=== PATIENT | female | born 1970 | race Caucasian/White ===

== ENCOUNTER 2022-11-01 15:10 | Emergency (ER) | payer OTHER, SELFPAY ==
[2022-11-01 15:13] VITALS: BP 160/80; PULSE 64; RESP 20; TEMP 37; O2SAT 96; BMI 40.7
--- NOTE | 2022-11-01 15:22 | ED_ITS ---
HPI - General Adult General Chief complaint: Shortness of Breath/Dyspnea Stated complaint: CHEST PAIN, DIFFICULTY BREATHING Time Seen by Provider: 11/01/22 15:14 History of Present Illness HPI narrative: this patient's here after being called by her practitioner to come to the hospital to have further testing and evaluation. Earlier this week she had classic upper respirations symptoms of sinus drainage sore throat congestion runny nose. She had yellow purulent sputum. She also had some congestion in her chest in the low but coughing but no real shortness of breath compression or pressure and heaviness were denied. She was diagnosed as upper Ruster infection and placed on Augmentin several days ago. That's outpatient chest x-ray suggested that they rule out congestive heart failure. She has no history of coronary artery disease congestive heart failure or any type of cardiac problems. She is not had any further symptoms since that time. She is not having swelling of her legs today or pain or discomfort. She's not had previous deep vein thrombosis or PE. Related Data Home Medications Medication Instructions Recorded Confirmed amlodipine 5 mg tablet 5 mg PO DAILY 11/01/22 11/01/22 bupropion HCl 300 mg 24 hr tablet, 300 mg PO DAILY 11/01/22 11/01/22 extended release citalopram 40 mg tablet 40 mg PO DAILY 11/01/22 11/01/22 dulaglutide 0.75 mg/0.5 mL 0.75 mg subcut .weekly 11/01/22 11/01/22 subcutaneous pen injector (Trulicity) empagliflozin 10 mg tablet 10 mg PO DAILY 11/01/22 11/01/22 (Jardiance) lisinopril 40 mg tablet 40 mg PO DAILY 11/01/22 11/01/22 metoprolol succinate 100 mg 100 mg PO DAILY 11/01/22 11/01/22 tablet,extended release 24 hr Allergies Allergy/AdvReac Type Severity Reaction Status Date / Time meperidine [From Demerol] Allergy Severe throat Verified 11/01/22 15:23 closing Exam Narrative Exam Narrative: This document has been composed with a new electronic medical record and dragging voice recognition system. This document may not fully inaccurately reflect the entirety of the patient encounter. Awake alert good historian so she feels reasonably well. Does not have acute shortness of breath. Does not have any chest pain. Vital signs are noted below systolic blood pressure 160. HEENT shows no evidence of trauma or injury. There is no jugular vein distention on examination of her neck. Examination respiratory shows her lungs be completely clear of any wheezes rales or rhonchi. There is normal prostrate effort and normal aeration on auscultation. Heart sounds normal with no S3-S4 clicks or murmurs. 12-lead EKG is pending at the time of this note Extremities show no evidence of venous cords swelling or edema. Skin get diffuse erythema of her arms upper chest and back area. She states her rn supplemental that it was from Injury to Her Skin. Constitutional Vital Signs, click to edit/add: Last Vital Signs Temp 98.6 F 11/01/22 15:13 Pulse 64 11/01/22 15:13 Resp 20 11/01/22 15:13 BP 160/80 H 11/01/22 15:13 Pulse Ox 96 11/01/22 15:13 Course Vital Signs Vital signs: Vital Signs Temperature 98.6 F 11/01/22 15:13 Pulse Rate 64 11/01/22 15:13 Respiratory Rate 20 11/01/22 15:13 Blood Pressure 160/80 H 11/01/22 15:13 Pulse Oximetry 96 11/01/22 15:13 Temperature 98.6 F 11/01/22 15:13 Pulse Rate 64 11/01/22 15:13 Respiratory Rate 20 11/01/22 15:13 Blood Pressure 160/80 H 11/01/22 15:13 Pulse Oximetry 96 11/01/22 15:13 Medical Decision Making [facility] Narrative Medical decision making narrative: patient's workup here including repeat chest x-ray BNP and clinical exam do not suggest any evidence of congestive heart failure. Clinically her symptoms most consistent with a upper respiratory. Lab Data Labs: Lab Results 11/01/22 Range/Units 15:44 WBC 5.7 (4.0-11.0) 10^3/uL RBC 5.15 (4.20-5.40) 10^6/uL Hgb 16.4 H (12.0-16.0) g/dL Hct 48.3 H (36.0-48.0) % MCV 93.8 (81.0-99.0) fL MCH 31.8 (26.7-34.0) pg MCHC 34.0 (29.9-35.2) g/dL RDW 13.0 (11.0-15.0) % Plt Count 168 (150-450) 10^3/uL MPV 10.6 (9.5-13.5) fL Neut % (Auto) 62.5 (43.0-75.0) % Lymph % (Auto) 28.0 (20.5-60.0) % [place] % (Auto) 6.4 (1.7-12.0) % Eos % (Auto) 2.3 (0.9-7.0) % Baso % (Auto) 0.5 (0.2-2.0) % Neut # (Auto) 3.6 (1.4-6.5) 10^3/uL Lymph # (Auto) 1.6 (1.2-3.8) 10^3/uL [place] # (Auto) 0.4 (0.3-0.8) 10^3/uL Eos # (Auto) 0.1 (0.0-0.7) 10^3/uL Baso # (Auto) 0.0 (0.0-0.1) 10^3/uL Abs Immat Gran (auto) 0.02 (0.00-0.03) 10^3/uL Imm/Tot Granulo (auto) 0.3 (0.0-0.5) % Sodium 138 (136-145) mmol/L Potassium 4.5 (3.5-5.1) mmol/L Chloride 100 (98-107) mmol/L Carbon Dioxide 31.3 (21.0-32.0) mmol/L Anion Gap 11.2 BUN 13.0 (7.0-18.0) mg/dL Creatinine 0.58 (0.55-1.02) mg/dL Est GFR ( Amer) >60 (>=60) Est GFR (Non-Af Amer) >60 (>=60) BUN/Creatinine Ratio 22.4 Glucose 177 H (74-106) mg/dL Calcium 9.6 (8.5-10.1) mg/dL Troponin I High Sens 7.0 (4.0-51.3) pg/mL NT-Pro-B Natriuret Pep 272.0 (<=900.0) pg/mL Discharge Plan Discharge Chief Complaint: Shortness of Breath/Dyspnea Clinical Impression: Acute upper respiratory infection Patient Disposition: Home, Self-Care Time of Disposition Decision: 16:47 Prescriptions / Home Meds: No Action amlodipine 5 mg tablet 5 mg PO DAILY bupropion HCl 300 mg tablet extended release 24 hr 300 mg PO DAILY citalopram 40 mg tablet 40 mg PO DAILY Trulicity 0.75 mg/0.5 mL pen injector 0.75 mg SUBCUT .weekly Jardiance 10 mg tablet 10 mg PO DAILY lisinopril 40 mg tablet 40 mg PO DAILY metoprolol succinate 100 mg tablet extended release 24 hr 100 mg PO DAILY Instructions: Upper Respiratory Infection (ED) Stand Alone Forms: Portal Instructions Referrals: KELLY LEE [Primary Care Provider] - 1 week
--- NOTE | 2022-11-01 15:25 | XR_ITS ---
The [address] [address] Patient Name: LARRY MCDONOUGH MRN: [id number] date: 1970 Sex: F Assigned Patient Location: ER Current Patient Location: ER Accession/Order Number: [id number] Exam Date: 11/01/2022 15:45 Report Date: 11/01/2022 16:23 At the request of: FRAN CARDENAS Procedure: XR chest 1V ONE-VIEW CHEST RADIOGRAPH, 11/01/2022 3:45 PM EDT COMPARISON: None. CLINICAL HISTORY: dyspnea/shortness of breath/cough. FINDINGS: Patient is slightly rotated to the left. No acute cardiopulmonary disease. No pulmonary edema, pneumothorax, or pleural effusion. Normal heart size. No acute osseous abnormality. XR/XR chest 1V IMPRESSION: No acute abnormality identified. Electronically authenticated by: Antonio ESPARZA Date: 11/01/2022 16:23
--- NOTE | 2022-11-01 15:25 | ECG_ITS ---
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
[2022-11-01 15:30] VITALS: PULSE 61
[2022-11-01 15:57] LABS: Basophils Percent Auto 0.5 % (0.2-2.0); Eosinophils Absolute Auto 0.1 10^3/uL (0.0-0.7); Eosinophils Percent Auto 2.3 % (0.9-7.0); Hematocrit 48.3 % (36.0-48.0); Hemoglobin 16.4 g/dL (12.0-16.0); Immature Granulocytes Abs Auto 0.02 10^3/uL (0.00-0.03); Immature Granulocytes Pct Auto 0.3 % (0.0-0.5); Lymphocytes Absolute Auto 1.6 10^3/uL (1.2-3.8); Mean Corpuscular Hemoglobin 31.8 pg (26.7-34.0); Mean Corpuscular Volume 93.8 fL (81.0-99.0); Mean Platelet Volume 10.6 fL (9.5-13.5); Monocytes Absolute Auto 0.4 10^3/uL (0.3-0.8); Monocytes Percent Auto 6.4 % (1.7-12.0); Neutrophils Absolute Auto 3.6 10^3/uL (1.4-6.5); Neutrophils Percent Auto 62.5 % (43.0-75.0); Platelet Count 168 10^3/uL (150-450); Red Blood Count 5.15 10^6/uL (4.20-5.40); White Blood Count 5.7 10^3/uL (4.0-11.0)
[2022-11-01 16:23] LABS: Anion Gap 11.2; BUN Creatinine Ratio 22.4; Calcium 9.6 mg/dL (8.5-10.1); Carbon Dioxide 31.3 mmol/L (21.0-32.0); Chloride 100 mmol/L (98-107); Estimated GFR (African America >60 (>=60); Estimated GFR (Non-African Ame >60 (>=60); Glucose 177 mg/dL (74-106); Potassium 4.5 mmol/L (3.5-5.1); Sodium 138 mmol/L (136-145)
== END 2022-11-01 16:51 | disposition home or self-care (01) ==
PROVIDERS: Emergency Provider Emergency Medicine Emergency Medical Services; PCP Family Medicine
DX: J06.9 Acute upper respiratory infection, unspecified (principal); Z79.899 Other long term (current) drug therapy; Z79.85 Long-term (current) use of injectable non-insulin antidiabetic drugs
CPT/HCPCS: 36415; 71045; 80048; 83880; 84484; 85025; 93005; 99285

== ENCOUNTER 2022-11-12 16:17 | Emergency (ER) | payer OTHER, SELFPAY ==
[2022-11-12] VITALS (18 sets, daily range): BP systolic 178–202; BP diastolic 78–99; PULSE 59–69; RESP 12–29; TEMP 36.8; O2SAT 94–96; BMI 40.7
--- NOTE | 2022-11-12 17:14 | ECG_ITS ---
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
--- NOTE | 2022-11-12 17:16 | ED.CHESTPAI1 ---
HPI - Chest Pain General Chief Complaint: Chest Pain Stated Complaint: COVID + has chest pain Time Seen by Provider: 11/12/22 16:30 Source: patient Mode of arrival: walk-in Limitations: no limitations History of Present Illness HPI narrative: patient is a 52-year-old female with a history of hypertension, diabetes who presents to the emergency department for two day history of tightness in the chest associated with shortness of breath and nonproductive coughing. She states for the last six days she has had cough, congestion, body aches and generalized weakness. She was diagnosed with Covid five days ago. She was not started on any medications. She has not had a fever in over forty-eight hours. She denies vomiting, and diarrhea. No medications taken prior to arrival today. she was seen in this emergency department eleven days ago for suspicion of congestive heart failure from her PCP, she was found to have an unremarkable workup at that time. she denies any history of coronary artery disease, heart attack, chronic obstructive pulmonary disease or emphysema. She does have a history of pneumonia. Related Data Home Medications Medication Instructions Recorded Confirmed amlodipine 5 mg tablet 5 mg PO DAILY 11/01/22 11/01/22 bupropion HCl 300 mg 24 hr tablet, 300 mg PO DAILY 11/01/22 11/01/22 extended release citalopram 40 mg tablet 40 mg PO DAILY 11/01/22 11/01/22 dulaglutide 0.75 mg/0.5 mL 0.75 mg subcut .weekly 11/01/22 11/01/22 subcutaneous pen injector (Trulicity) empagliflozin 10 mg tablet 10 mg PO DAILY 11/01/22 11/01/22 (Jardiance) lisinopril 40 mg tablet 40 mg PO DAILY 11/01/22 11/01/22 metoprolol succinate 100 mg 100 mg PO DAILY 11/01/22 11/01/22 tablet,extended release 24 hr Previous Rx's Medication Instructions Recorded albuterol sulfate 90 mcg/actuation 2 inh inhalation Q4H PRN shortness 11/12/22 aerosol inhaler of breath or wheezing #8.5 grams dexamethasone 4 mg tablet 4 mg PO BID 3 days #6 tabs 11/12/22 ondansetron 4 mg disintegrating 4 mg PO Q6H PRN nausea and 11/12/22 tablet vomiting #12 tabs Allergies Allergy/AdvReac Type Severity Reaction Status Date / Time meperidine [From Demerol] Allergy Severe throat Verified 11/12/22 16:58 closing Review of Systems ROS Constitutional Reports: fever and chills Cardiovascular Reports: chest pain Respiratory Reports: shortness of breath and cough Gastrointestinal Denies: nausea or vomiting Musculoskeletal Denies: back pain Integumentary/Breast Denies: rash Neurological Reports: headache and dizziness Endocrine Denies: excessive urination Hematologic/Lymphatic Denies: easy bruising Exam Narrative Exam Narrative: Gen.: Awake, alert, in no distress Head: Normocephalic, atraumatic ENT: Moist mucous membranes Respiratory: No respiratory distress, lungs clear bilaterally Cardio: Regular rate and rhythm Extremities: Moves extremities equally, no pedal edema Psych: Normal mood and affect Neuro: No focal neuro deficit Skin: Warm, dry, intact Constitutional Vital Signs, click to edit/add: Last Vital Signs Temp 98.3 F 11/12/22 16:58 Pulse 65 11/12/22 16:58 Resp 20 11/12/22 16:58 BP 202/99 H 11/12/22 16:58 Pulse Ox 96 11/12/22 16:58 O2 Del Method Room Air 11/12/22 16:58 Course Vital Signs Vital signs: Vital Signs Temperature 98.3 F 11/12/22 16:58 Pulse Rate 65 11/12/22 16:58 Respiratory Rate 20 11/12/22 16:58 Blood Pressure 202/99 H 11/12/22 16:58 Pulse Oximetry 96 11/12/22 16:58 Oxygen Delivery Method Room Air 11/12/22 16:58 Temperature 98.3 F 11/12/22 16:58 Pulse Rate 65 11/12/22 16:58 Respiratory Rate 20 11/12/22 16:58 Blood Pressure 202/99 H 11/12/22 16:58 Pulse Oximetry 96 11/12/22 16:58 Oxygen Delivery Method Room Air 11/12/22 16:58 MDM - Chest Pain MDM Narrative Medical decision making narrative: patient treated with IV fluids, lab studies show normal troponin, d-dimer and BNP. Patient was given IV Decadron and albuterol inhaler. Vital signs are within normal limits. chest x-ray with no clear consolidated infiltrate. This is reviewed by the radiologist and the patient is discharged home with a short course of Decadron, Zofran and encouraged to use her albuterol inhaler. Follow-up with PCP and return to the emergency department if symptoms change or worsen. Medical Records Data Attestation: I reviewed the patient's medical records. Lab Data Attestation: I reviewed the patient's lab results. Labs: Lab Results 11/12/22 Range/Units 17:18 WBC 4.8 (4.0-11.0) 10^3/uL RBC 5.11 (4.20-5.40) 10^6/uL Hgb 16.2 H (12.0-16.0) g/dL Hct 48.4 H (36.0-48.0) % MCV 94.7 (81.0-99.0) fL MCH 31.7 (26.7-34.0) pg MCHC 33.5 (29.9-35.2) g/dL RDW 13.0 (11.0-15.0) % Plt Count 166 (150-450) 10^3/uL MPV 10.9 (9.5-13.5) fL Neut % (Auto) 60.9 (43.0-75.0) % Lymph % (Auto) 26.7 (20.5-60.0) % [place] % (Auto) 8.9 (1.7-12.0) % Eos % (Auto) 2.5 (0.9-7.0) % Baso % (Auto) 0.6 (0.2-2.0) % Neut # (Auto) 2.9 (1.4-6.5) 10^3/uL Lymph # (Auto) 1.3 (1.2-3.8) 10^3/uL [place] # (Auto) 0.4 (0.3-0.8) 10^3/uL Eos # (Auto) 0.1 (0.0-0.7) 10^3/uL Baso # (Auto) 0.0 (0.0-0.1) 10^3/uL Abs Immat Gran (auto) 0.02 (0.00-0.03) 10^3/uL Imm/Tot Granulo (auto) 0.4 (0.0-0.5) % PT 10.3 (9.0-11.6) sec INR 0.97 APTT 28.7 (22.3-36.2) sec D-Dimer <0.19 (<=0.59) mg/L FEU VBG pH 7.397 (7.330-7.430) VBG pCO2 42.5 (40.0-52.0) mmHg Sodium 139 (136-145) mmol/L Potassium 4.8 (3.5-5.1) mmol/L Chloride 101 (98-107) mmol/L Carbon Dioxide 27.3 (21.0-32.0) mmol/L Anion Gap 15.5 BUN 8.0 (7.0-18.0) mg/dL Creatinine 0.44 L (0.55-1.02) mg/dL Est GFR ( Amer) >60 (>=60) Est GFR (Non-Af Amer) >60 (>=60) BUN/Creatinine Ratio 18.2 Glucose 175 H (74-106) mg/dL Calcium 8.7 (8.5-10.1) mg/dL Total Bilirubin 0.5 (0.2-1.0) mg/dL AST 47 H (15-37) U/L ALT 57 (14-59) U/L Alkaline Phosphatase 74 (46-116) U/L Troponin I High Sens 7.0 (4.0-51.3) pg/mL NT-Pro-B Natriuret Pep 197.0 (<=900.0) pg/mL Total Protein 7.6 (6.4-8.2) g/dL Albumin 3.7 (3.4-5.0) g/dL Globulin 3.9 g/dL Albumin/Globulin Ratio 0.9 Imaging Data Chest x-ray: Attestation: I have reviewed the pertinent imaging results. ECG Data Attestation: I personally reviewed and interpreted this ECG as follows: (normal sinus rhythm at a rate of sixty-three, no acute ST elevation or ectopy. EKG reviewed by attending physician) ECG interpretation date: 11/12/22 ECG interpretation time: 17:20 Heart Score History: Slightly/Non-Suspicious ECG: Normal Age: >45-<65 years Risk Factors: >3 Risk Factors/ HX of CAD:2 Troponin: <Normal Limit Total Heart Score Recommendations & Risks:: 3 Discharge Plan Discharge Chief Complaint: Chest Pain Clinical Impression: COVID-19 Patient Disposition: Home, Self-Care Time of Disposition Decision: 19:15 Condition: Good Prescriptions / Home Meds: New dexamethasone 4 mg tablet 4 mg PO BID 3 Days Qty: 6 0RF albuterol sulfate 90 mcg/actuation HFA aerosol inhaler 2 inh inhalation Q4H PRN (Reason: shortness of breath or wheezing) Qty: 8.5 0RF ondansetron 4 mg tablet,disintegrating 4 mg PO Q6H PRN (Reason: nausea and vomiting) Qty: 12 0RF No Action amlodipine 5 mg tablet 5 mg PO DAILY bupropion HCl 300 mg tablet extended release 24 hr 300 mg PO DAILY citalopram 40 mg tablet 40 mg PO DAILY Trulicity 0.75 mg/0.5 mL pen injector 0.75 mg SUBCUT .weekly Jardiance 10 mg tablet 10 mg PO DAILY lisinopril 40 mg tablet 40 mg PO DAILY metoprolol succinate 100 mg tablet extended release 24 hr 100 mg PO DAILY Instructions: COVID-19 (Coronavirus Disease 2019) (ED) Stand Alone Forms: Portal Instructions Referrals: KELLY LEE [Primary Care Provider] - 1 week
[2022-11-12] MEDS: DEXAMETHASONE SODIUM PHOSPHATE 10 MG/ML VIAL IV (17:32)
[2022-11-12] MEDS: 0.9 % SODIUM CHLORIDE 1,000 ML 1000 ML IV (17:33)
[2022-11-12 17:35] LABS: PCO2 VBG 42.5 mmHg (40.0-52.0); pH VBG 7.397 (7.330-7.430)
[2022-11-12 17:41] LABS: Basophils Percent Auto 0.6 % (0.2-2.0); Eosinophils Absolute Auto 0.1 10^3/uL (0.0-0.7); Eosinophils Percent Auto 2.5 % (0.9-7.0); Hematocrit 48.4 % (36.0-48.0); Hemoglobin 16.2 g/dL (12.0-16.0); Immature Granulocytes Abs Auto 0.02 10^3/uL (0.00-0.03); Immature Granulocytes Pct Auto 0.4 % (0.0-0.5); Lymphocytes Absolute Auto 1.3 10^3/uL (1.2-3.8); Lymphocytes Percent Auto 26.7 % (20.5-60.0); Mean Corpuscular HGB Conc 33.5 g/dL (29.9-35.2); Mean Corpuscular Hemoglobin 31.7 pg (26.7-34.0); Mean Corpuscular Volume 94.7 fL (81.0-99.0); Mean Platelet Volume 10.9 fL (9.5-13.5); Monocytes Absolute Auto 0.4 10^3/uL (0.3-0.8); Monocytes Percent Auto 8.9 % (1.7-12.0); Neutrophils Absolute Auto 2.9 10^3/uL (1.4-6.5); Neutrophils Percent Auto 60.9 % (43.0-75.0); Platelet Count 166 10^3/uL (150-450); Red Blood Count 5.11 10^6/uL (4.20-5.40); White Blood Count 4.8 10^3/uL (4.0-11.0)
[2022-11-12 17:53] LABS: INR 0.97; Partial Thromboplastin Time 28.7 sec (22.3-36.2); Prothrombin Time 10.3 sec (9.0-11.6)
[2022-11-12 17:55] LABS: D Dimer <0.19 mg/L FEU (<=0.59)
[2022-11-12 18:00] LABS: Anion Gap 15.5
[2022-11-12] MEDS: ALBUTEROL SULFATE 200 PUFF/6.7 GM INHALER IH (18:04)
--- NOTE | 2022-11-12 18:05 | XR_ITS ---
The [address] [address] Patient Name: LARRY MCDONOUGH MRN: [id number] date: 1970 Sex: F Assigned Patient Location: ER Current Patient Location: ER Accession/Order Number: [id number] Exam Date: 11/12/2022 18:15 Report Date: 11/12/2022 19:12 At the request of: DORA SHIN Procedure: XR chest 1V Exam: Radiographs: XR chest 1V Reason for exam: chest pain Comparison: Plain films dated 11/01/2022 XR/XR chest 1V IMPRESSION: Small amount of linear atelectasis in the right mid lung versus fluid in the fissure. Pulmonary venous hypertension. Remainder the chest is unremarkable. Electronically authenticated by: ASIF REILLY Date: 11/12/2022 19:12
[2022-11-12 18:07] LABS: Alanine Aminotransferase 57 U/L (14-59); Albumin Globulin Ratio 0.9; Albumin Level 3.7 g/dL (3.4-5.0); Alkaline Phosphatase 74 U/L (46-116); Aspartate Amino Transferase 47 U/L (15-37); BUN Creatinine Ratio 18.2; Bilirubin Total 0.5 mg/dL (0.2-1.0); Calcium 8.7 mg/dL (8.5-10.1); Carbon Dioxide 27.3 mmol/L (21.0-32.0); Chloride 101 mmol/L (98-107); Estimated GFR (African America >60 (>=60); Estimated GFR (Non-African Ame >60 (>=60); Globulin 3.9 g/dL; Glucose 175 mg/dL (74-106); Potassium 4.8 mmol/L (3.5-5.1); Sodium 139 mmol/L (136-145); Total Protein 7.6 g/dL (6.4-8.2)
== END 2022-11-12 19:36 | disposition home or self-care (01) ==
PROVIDERS: Physician Assistant; Emergency Provider Emergency Medicine Emergency Medical Services; PCP Family Medicine
DX: U07.1 COVID-19 (principal); I10 Essential (primary) hypertension; E11.9 Type 2 diabetes mellitus without complications; R06.02 Shortness of breath; Z87.01 Personal history of pneumonia (recurrent); Z79.899 Other long term (current) drug therapy; Z79.85 Long-term (current) use of injectable non-insulin antidiabetic drugs
CPT/HCPCS: 36415; 71045; 80053; 82800; 83880; 84484; 85025; 85378; 85610; 85730; 93005; 94640; 96374; 99285; J1100

== ENCOUNTER 2023-01-29 12:42 | Emergency (ER) | payer OTHER, SELFPAY ==
[2023-01-29] VITALS (12 sets, daily range): BP systolic 148–177; BP diastolic 64–78; PULSE 59–65; RESP 12–22; TEMP 36.8; O2SAT 91–96; BMI 42.1
--- NOTE | 2023-01-29 12:59 | ECG_ITS ---
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
--- NOTE | 2023-01-29 12:59 | XR_ITS ---
The [address] [address] Patient Name: LARRY MCDONOUGH MRN: [id number] date: 1970 Sex: F Assigned Patient Location: ER Current Patient Location: ER Accession/Order Number: [id number] Exam Date: 01/29/2023 13:08 Report Date: 01/29/2023 13:18 At the request of: CHANI FREEMAN Procedure: XR chest 1V EXAM: XR chest 1V HISTORY: . near-syncope . COMPARISON: 11/12/2022 TECHNIQUE: Single view of the chest FINDINGS: Heart and vascularity are unremarkable. Left lung is unremarkable. There are couple linear densities in the right lung base consistent with platelike atelectasis. No infiltrates are noted. EKG leads overlie the chest. XR/XR chest 1V IMPRESSION: Small amount of atelectasis in the right lung base. Remainder of the lung lundberg are unremarkable. Electronically authenticated by: LUIS GO Date: 01/29/2023 13:18
--- NOTE | 2023-01-29 12:59 | CT_ITS ---
The [address] [address] Patient Name: LARRY MCDONOUGH MRN: [id number] date: 1970 Sex: F Assigned Patient Location: ER Current Patient Location: ER Accession/Order Number: [id number] Exam Date: 01/29/2023 13:08 Report Date: 01/29/2023 13:27 At the request of: CHANI FREEMAN Procedure: CT stroke head/brain wo con CT stroke head/brain wo con, 01/29/2023 1:08 PM EST INDICATION: Ataxia. Intermittent dizziness since 8:00 AM this morning. COMPARISON: No prior CT scan of the head available for comparison at the time of this dictation. TECHNIQUE: Axial CT images of the brain from skull base to vertex, including portions of the face and sinuses, were obtained without contrast. Multiplanar reformatted images were generated and reviewed as needed. FINDINGS: No intracranial mass, hydrocephalus, midline shift or acute hemorrhage. No extra-axial collection. Locke-white matter differentiation is preserved. Mucosal thickening within a few right posterior mastoid air cells. The paranasal sinuses and left mastoid air cells are clear. Orbits are within normal limits. No acute skull fracture. CT/CT stroke head/brain wo con IMPRESSION: 1. No acute intracranial infarct or hemorrhage. 2. Mucosal thickening within a few right posterior mastoid air cells. This may be chronic or secondary to mild acute mastoiditis. No otitis media. Electronically authenticated by: DECLAN SAINI Date: 01/29/2023 13:27
[2023-01-29] MEDS: ONDANSETRON PF 4 MG/2 ML VIAL IV (13:48)
[2023-01-29] MEDS: 0.9 % SODIUM CHLORIDE 1,000 ML 999 ML IV (13:48)
[2023-01-29 13:54] LABS: Alanine Aminotransferase 51 U/L (14-59); Albumin Globulin Ratio 1.1; Albumin Level 4.1 g/dL (3.4-5.0); Alkaline Phosphatase 69 U/L (46-116); Anion Gap 12.8; Aspartate Amino Transferase 31 U/L (15-37); BUN Creatinine Ratio 20.3; Bilirubin Total 0.6 mg/dL (0.2-1.0); Carbon Dioxide 29.3 mmol/L (21.0-32.0); Chloride 100 mmol/L (98-107); Estimated GFR (African America >60 (>=60); Estimated GFR (Non-African Ame >60 (>=60); Globulin 3.7 g/dL; Glucose 173 mg/dL (74-106); Magnesium 1.9 mg/dL (1.8-2.4); Potassium 4.1 mmol/L (3.5-5.1); Sodium 138 mmol/L (136-145); Total Protein 7.8 g/dL (6.4-8.2)
[2023-01-29 13:55] LABS: Basophils Percent Auto 0.5 % (0.2-2.0); Eosinophils Absolute Auto 0.1 10^3/uL (0.0-0.7); Eosinophils Percent Auto 1.3 % (0.9-7.0); Hematocrit 45.2 % (36.0-48.0); Hemoglobin 15.6 g/dL (12.0-16.0); Immature Granulocytes Abs Auto 0.01 10^3/uL (0.00-0.03); Immature Granulocytes Pct Auto 0.2 % (0.0-0.5); Lymphocytes Absolute Auto 1.1 10^3/uL (1.2-3.8); Lymphocytes Percent Auto 20.1 % (20.5-60.0); Mean Corpuscular HGB Conc 34.5 g/dL (29.9-35.2); Mean Corpuscular Hemoglobin 33.5 pg (26.7-34.0); Monocytes Absolute Auto 0.4 10^3/uL (0.3-0.8); Monocytes Percent Auto 6.3 % (1.7-12.0); Neutrophils Percent Auto 71.6 % (43.0-75.0); Platelet Count 160 10^3/uL (150-450); Red Blood Count 4.66 10^6/uL (4.20-5.40); Red Cell Distribution Width 12.4 % (11.0-15.0); White Blood Count 5.6 10^3/uL (4.0-11.0)
--- NOTE | 2023-01-29 14:02 | ED_ITS ---
HPI - Dizziness General Chief Complaint: Dizziness Stated Complaint: DIZZINESS Time Seen by Provider: 01/29/23 12:50 Source: patient Mode of arrival: walk-in Limitations: no limitations Related Data Home Medications Medication Instructions Recorded Confirmed amlodipine 5 mg tablet 5 mg PO DAILY 11/01/22 11/01/22 bupropion HCl 300 mg 24 hr tablet, 300 mg PO DAILY 11/01/22 11/01/22 extended release citalopram 40 mg tablet 40 mg PO DAILY 11/01/22 11/01/22 dulaglutide 0.75 mg/0.5 mL 0.75 mg subcut .weekly 11/01/22 11/01/22 subcutaneous pen injector (Trulicity) empagliflozin 10 mg tablet 10 mg PO DAILY 11/01/22 11/01/22 (Jardiance) lisinopril 40 mg tablet 40 mg PO DAILY 11/01/22 11/01/22 metoprolol succinate 100 mg 100 mg PO DAILY 11/01/22 11/01/22 tablet,extended release 24 hr Previous Rx's Medication Instructions Recorded albuterol sulfate 90 mcg/actuation 2 inh inhalation Q4H PRN shortness 11/12/22 aerosol inhaler of breath or wheezing #8.5 grams dexamethasone 4 mg tablet 4 mg PO BID 3 days #6 tabs 11/12/22 ondansetron 4 mg disintegrating 4 mg PO Q6H PRN nausea and 11/12/22 tablet vomiting #12 tabs Allergies Allergy/AdvReac Type Severity Reaction Status Date / Time meperidine [From Demerol] Allergy Severe throat Verified 11/12/22 16:58 closing PFSH PFSH Social History Smoking status: Heavy tobacco smoker Exam Constitutional Vital Signs, click to edit/add: Last Vital Signs Temp 98.2 F 01/29/23 12:47 Pulse 61 01/29/23 12:47 Resp 20 01/29/23 12:47 BP 177/74 H 01/29/23 12:47 Pulse Ox 95 01/29/23 12:47 O2 Del Method Room Air 01/29/23 12:47 Course Vital Signs Vital signs: Vital Signs Temperature 98.2 F 01/29/23 12:47 Pulse Rate 61 01/29/23 12:47 Respiratory Rate 20 01/29/23 12:47 Blood Pressure 177/74 H 01/29/23 12:47 Pulse Oximetry 95 01/29/23 12:47 Oxygen Delivery Method Room Air 01/29/23 12:47 Temperature 98.2 F 01/29/23 12:47 Pulse Rate 61 01/29/23 12:47 Respiratory Rate 20 01/29/23 12:47 Blood Pressure 177/74 H 01/29/23 12:47 Pulse Oximetry 95 01/29/23 12:47 Oxygen Delivery Method Room Air 01/29/23 12:47 MDM - Dizziness MDM Narrative Medical decision making narrative: patient presents with sudden onset of dizziness and sensation of difficulty ambulating due to imbalance that lasts a few minutes and then resolved. She has several risk factors for acute stroke but has never had heart disease or CVA/transient ischemic attack in the past. she essentially symptom-free on arrival. Patient sent for noncontrast CT of the brain. Patient was placed on monitoring engineer and EKG obtained. Blood drawn and sent for evaluation. CBC, CMP, magnesium all normal/negative. CT scan of the brain and chest x-ray were also unremarkable for any acute pathology. Results explained to the patient and she was still symptom-free. She was discharged home with recommendation to see her PCP for follow up. ED return if worse. Lab Data Attestation: I reviewed the patient's lab results. Labs: Lab Results 01/29/23 Range/Units 13:22 WBC 5.6 (4.0-11.0) 10^3/uL RBC 4.66 (4.20-5.40) 10^6/uL Hgb 15.6 (12.0-16.0) g/dL Hct 45.2 (36.0-48.0) % MCV 97.0 (81.0-99.0) fL MCH 33.5 (26.7-34.0) pg MCHC 34.5 (29.9-35.2) g/dL RDW 12.4 (11.0-15.0) % Plt Count 160 (150-450) 10^3/uL MPV 11.0 (9.5-13.5) fL Neut % (Auto) 71.6 (43.0-75.0) % Lymph % (Auto) 20.1 L (20.5-60.0) % [place] % (Auto) 6.3 (1.7-12.0) % Eos % (Auto) 1.3 (0.9-7.0) % Baso % (Auto) 0.5 (0.2-2.0) % Neut # (Auto) 4.0 (1.4-6.5) 10^3/uL Lymph # (Auto) 1.1 L (1.2-3.8) 10^3/uL [place] # (Auto) 0.4 (0.3-0.8) 10^3/uL Eos # (Auto) 0.1 (0.0-0.7) 10^3/uL Baso # (Auto) 0.0 (0.0-0.1) 10^3/uL Abs Immat Gran (auto) 0.01 (0.00-0.03) 10^3/uL Imm/Tot Granulo (auto) 0.2 (0.0-0.5) % Sodium 138 (136-145) mmol/L Potassium 4.1 (3.5-5.1) mmol/L Chloride 100 (98-107) mmol/L Carbon Dioxide 29.3 (21.0-32.0) mmol/L Anion Gap 12.8 BUN 12.0 (7.0-18.0) mg/dL Creatinine 0.59 (0.55-1.02) mg/dL Est GFR ( Amer) >60 (>=60) Est GFR (Non-Af Amer) >60 (>=60) BUN/Creatinine Ratio 20.3 Glucose 173 H (74-106) mg/dL Calcium 9.0 (8.5-10.1) mg/dL Magnesium 1.9 (1.8-2.4) mg/dL Total Bilirubin 0.6 (0.2-1.0) mg/dL AST 31 (15-37) U/L ALT 51 (14-59) U/L Alkaline Phosphatase 69 (46-116) U/L Total Protein 7.8 (6.4-8.2) g/dL Albumin 4.1 (3.4-5.0) g/dL Globulin 3.7 g/dL Albumin/Globulin Ratio 1.[address] scan - head: Radiologist's impression: Patient Name: LARRY MCDONOUGH MRN: [facility]:[id number] date: 1970 Sex: F Assigned Patient Location: ER Current Patient Location: ER Accession/Order Number: [id number] Exam Date: 01/29/2023 13:08 Report Date: 01/29/2023 13:27 At the request of: CHANI FREEMAN Procedure: CT stroke head/brain wo con CT stroke head/brain wo con, 01/29/2023 1:08 PM EST INDICATION: Ataxia. Intermittent dizziness since 8:00 AM this morning. COMPARISON: No prior CT scan of the head available for comparison at the time of this dictation. TECHNIQUE: Axial CT images of the brain from skull base to vertex, including portions of the face and sinuses, were obtained without contrast. Multiplanar reformatted images were generated and reviewed as needed. FINDINGS: No intracranial mass, hydrocephalus, midline shift or acute hemorrhage. No extra-axial collection. Locke-white matter differentiation is preserved. Mucosal thickening within a few right posterior mastoid air cells. The paranasal sinuses and left mastoid air cells are clear. Orbits are within normal limits. No acute skull fracture. IMPRESSION: 1. No acute intracranial infarct or hemorrhage. 2. Mucosal thickening within a few right posterior mastoid air cells. This may be chronic or secondary to mild acute mastoiditis. No otitis media. Electronically authenticated by: DECLAN SAINI Date: 01/29/2023 13:27 Chest x-ray: Radiologist's impression: Patient Name: LARRY MCDONOUGH MRN: [id number] date: 1970 Sex: F Assigned Patient Location: ER Current Patient Location: ER Accession/Order Number: [id number] Exam Date: 01/29/2023 13:08 Report Date: 01/29/2023 13:18 At the request of: CHANI FREEMAN Procedure: XR chest 1V EXAM: XR chest 1V HISTORY: . near-syncope . COMPARISON: 11/12/2022 TECHNIQUE: Single view of the chest FINDINGS: Heart and vascularity are unremarkable. Left lung is unremarkable. There are couple linear densities in the right lung base consistent with platelike atelectasis. No infiltrates are noted. EKG leads overlie the chest. IMPRESSION: Small amount of atelectasis in the right lung base. Remainder of the lung lundberg are unremarkable. Electronically authenticated by: LUIS GO Date: 01/29/2023 13:18 Discharge Plan Discharge Chief Complaint: Dizziness Clinical Impression: Dizziness Patient Disposition: Home, Self-Care Time of Disposition Decision: 14:15 Prescriptions / Home Meds: No Action amlodipine 5 mg tablet 5 mg PO DAILY bupropion HCl 300 mg tablet extended release 24 hr 300 mg PO DAILY citalopram 40 mg tablet 40 mg PO DAILY Trulicity 0.75 mg/0.5 mL pen injector 0.75 mg SUBCUT .weekly Jardiance 10 mg tablet 10 mg PO DAILY lisinopril 40 mg tablet 40 mg PO DAILY metoprolol succinate 100 mg tablet extended release 24 hr 100 mg PO DAILY dexamethasone 4 mg tablet 4 mg PO BID 3 Days Qty: 6 0RF albuterol sulfate 90 mcg/actuation HFA aerosol inhaler 2 inh inhalation Q4H PRN (Reason: shortness of breath or wheezing) Qty: 8.5 0RF ondansetron 4 mg tablet,disintegrating 4 mg PO Q6H PRN (Reason: nausea and vomiting) Qty: 12 0RF Instructions: Dizziness (ED) Stand Alone Forms: Portal Instructions Referrals: KELLY LEE [Primary Care Provider] - 1 week
== END 2023-01-29 14:26 | disposition home or self-care (01) ==
PROVIDERS: Emergency Provider Emergency Medicine; PCP Family Medicine
DX: R42 Dizziness and giddiness (principal)
CPT/HCPCS: 36415; 70450; 71045; 80053; 83735; 85025; 93005; 96374; 99285

== ENCOUNTER 2023-11-07 07:21 | Day surgery (SDC) | payer OTHER, SELFPAY ==
--- NOTE | 2023-11-07 | MR_ITS ---
The [address] [address] Patient Name: LARRY MCDONOUGH MRN: [facility]:[id number] date: 1970 Sex: F Assigned Patient Location: MRI Current Patient Location: MRI Accession/Order Number: [id number] Exam Date: 11/07/2023 08:45 Report Date: 11/11/2023 09:11 At the request of: TARAS CONTRERAS Procedure: MR hip LT w con EXAM: MR hip LT w con REASON FOR EXAM: Left Hip Impingement Syndrome. TECHNIQUE: Multiplanar, multisequence imaging of the left hip was performed following the uneventful intra-articular administration of contrast. See separate arthrogram report for procedure description COMPARISON: None. FINDINGS: On small [id number] imaging of the left hip, left femur is well seated within the acetabulum. No fracture or AVN identified. There is perceived bony overgrowth of the superior lateral femoral head neck junction. No definite detached labral tear identified. Diffuse intermediate grade chondrosis of the femoral acetabular cartilage with more high-grade chondrosis involving the central weightbearing femoral head. This spans approximately 1.4 cm in AP dimension. Small marginal osteophytes are present. Tendinosis and low-grade partial tearing of the left common hamstring origin. The remaining left hip regional musculature is without discrete muscle strain or tendon tear. On large [id number] imaging, mild to moderate degenerative disc disease at the L5-S1 level, incompletely characterized. Sacroiliac joints appear congruent. The pubic symphysis is congruent. The right femur is well seated within the acetabulum without fracture or AVN. No high-grade chondrosis identified. Tendinosis with intermediate to high-grade partial tearing of the right common hamstring origin. Probable reactive edema in the ischial tuberosity. There is also right gluteal insertional tendinosis with mild trochanteric bursitis. A high-grade tear is not evident. Limited evaluation the pelvic viscera is without acute or suspicious abnormality. MR/MR hip LT w con IMPRESSION: 1. Moderate left hip osteophyte arthritis without fracture or AVN. 2. Bilateral proximal hamstring tendinosis, right greater than left with intermediate to high-grade partial tearing of the right common hamstring origin. Complete rupture not evident. 3. Right gluteal insertional tendinosis with mild trochanteric bursitis. 4. Mild loss of normal intervertebral disc space height and signal the L5-S1 level, incompletely characterized. Electronically authenticated by: DIMITRI LOPEZ Date: 11/11/2023 09:11
--- OUTSIDE RECORDS SUMMARY | 2023-11-07 07:23 | XMS_ITS | CCD ---
Author Organization [facility] Care Team Providers Care Horse Show Manager Name Role Phone BALAJI RUIZ Unavailable Unavailable KELLY LEE Unavailable UnavailELIZABETH Everett (ALEXA) Unavailable Unavai KELLY Al Primary Care Unavailable KELLY LEE Admitting Unavailable KELLY LEE Attending Unavailable KELLY LEE Consulting Unavailable KELLY LEE Primary Care Unavailable KELLY LEE Admitting Unavailable KELLY LEE Attending Unavailable KELLY LEE Consulting Unavailable Kelly Lee Unavailable Sawyer Styles Unavailable DO Kelly Lee Primary Care Provider DO Kelly Lee Attending Provider MD Sawyer Styles Attending Provider [phone] Kelly Lee Primary Care Unavailable Jeremiah Lomax Admitting Unavailable Jeremiah Lomax Attending Unavailable Kelly Lee Attending Unavailable Kelly Lee Admitting Unavailable Kelly Lee Primary Care Unavailable Sawyer Styles Admitting Unavailable Sawyer Styles Attending Unavailable Kelly Lee Primary Care Unavailable Sawyer Styles Admitting Unavailable Sawyer Styles Attending Unavailable Kelly Lee Primary Care Unavailable Yelena Dominguez Unavailable Yvette Bazan Unavailable KELLY LEE Referring Unavailable TARAS CONTRERAS Attending Unavailable TARAS CONTRERAS Referring Unavailable Allergies Allergy Classification Reported Allergen(s) Allergy Type Date of Onset Reaction(s) Facility (14 sources) atorvastatin Drug Allergy 08-26-2023 myalgias [facility] (14 sources) Meperidine Drug Allergy 08-26-2023 anaphylaxis [facility] (14 sources) metFORMIN Drug Allergy 08-26-2023 GI issues [facility] (14 sources) Pravastatin Drug Allergy 08-26-2023 myalgias [facility] (1 source) Meperidine Drug Allergy 2018 [facility] Repository Medications Current Medications Medication Drug Class(es) Dates Sig (Normalized) Sig (Original) [id number] 60 actuat albuterol 0.09 mg/actuat metered dose inhaler (10 sources) beta2-Adrenergic Agonist Start: 04-02-2023 take 2 puff(s) by inhalation four times daily as needed Albuterol Sulfate HFA 108 (90 Base) MCG/ACT 2 puffs Inhalation 4 times a day prn Mar, Active Start: 12-17-2021 Albuterol Sulf ate (Proair Hfa) 90 mcg/actuation HFA aerosol inhaler Active 2 INH INHALATION Q6H December 17, 2021 12:00am take 2 puff(s) by in halation every four hours as needed ProAir HFA 108 (90 Base) MCG/ACT 2 puffs as needed Inhalation every 4 hrs for 90 days PRN Active amLODIPine 5 mg oral tablet (17 sources) Dihydropyridine Calcium Channel Warner Start: 08-18-2023 Amlodipine Active 0 .ROUTE .COMPLEX 90 August 18, 2023 3:09pm TAKE 1 TABLET DAILY Start: 12-17-2021 End: 08-18-2023 take 1 tablet by mouth once daily Amlodipine (Norvasc) 5 mg Tablet Discontinued 5 MG PO Daily December 17, 2021 12:00am August 18, 2023 3:09pm amoxicillin 875 mg / clavulanate 125 mg oral tablet (4 sources) Penicillin-class Antibacterial Start: 08-26-2023 take 1 tablet by mouth every twelve hours Amoxicillin-Pot Clavulanate Active 1 TAB PO Every 12 hours 03 01August 26, 2023 12:00am Start: 04-02-2023 take 1 tablet by jessie th every twelve hours Amoxicillin-Pot Clavulanate 875-125 MG 1 tablet Orally every 12 hrs for 10 day(s) Mar, Active take 1 tablet by jessie th every twelve hours Amoxicillin-Pot Clavulanate 875-125 MG 1 tablet Orally every 12 hrs Active benzonatate 200 mg oral capsule (1 source) Non-narcotic Antitussive Start: 04-02-2023 take 1 capsule by mouth every eight hours Benzonatate 200 MG 1 capsule Orally Three times a day Mar, Active 24 hr buPROPion hydrochloride 150 mg extended release oral tablet (15 sources) Aminoketone Start: 12-17-2021 take 1 tablet by mouth once daily in the morning Bupropion Hcl (Wellbutrin Xl) 150 mg Tablet Extended Release 24 Hr Active 150 MG PO Every morning December 17, 2021 12:00am take 1 tablet by jessie th every twenty-four hours buPROPion HCl ER (XL) 300 MG 1 tablet in the morning Orally Once a day for 90 days Active buPROPion HCl ER (XL) 150 mg TAKE 1 TABLET DAILY IN THE MORNING Active citalopram 40 mg oral tablet (17 sources) Serotonin Reuptake Inhibitor Start: 09-05-2023 Citalopram Active 0 .ROUTE .COMPLEX 90 September 05, 2023 10:22am TAKE 1 TABLET DAILY Start: 2018 End: 09-05-2023 take 40 mg by mouth once daily Citalopram Discontinued 40 MG PO Daily 2018 1:00am September 05, 2023 10:22am 0.5 ml dulaglutide 1.5 mg/ml auto-injector (10 sources) GLP-1 Receptor Agonist Start: 07-24-2023 End: 07-24-2023 Dulaglutide (Trulicity) 0.75 mg/0.5 mL pen injector Active 0.75 MG SUBCUT every week July 24, 2023 8:18am Start: 09-09-2022 inject 0.75 mg by rider bcutaneous injection every week Trulicity 0.75 MG/0.5ML 0.75 mg Subcutaneous once a week for 90 days Aug, Active empagliflozin 10 mg oral tablet (15 sources) Sodium-Glucose Cotransporter 2 Inhibitor Start: 10-02-2021 take 1 tablet by mouth once daily Empagliflozin (Jardiance) 10 mg Tablet Active 10 MG PO Daily December 17, 2021 12:00am lisinopril 40 mg oral tablet (16 sources) Angiotensin Converting Enzyme Inhibitor Start: 2018 take 40 mg by mouth once daily Lisinopril Active 40 MG PO Daily 2018 1:00am Metoprolol (18 sources) beta-Adrenergic Warner Start: 08-18-2023 Metoprolol Succinate Active 0 .ROUTE .COMPLEX 90 August 18, 2023 3:09pm TAKE 1 TABLET DAILY Start: 2018 End: 08-18-2023 take 100 mg by mouth once daily Metoprolol Succinate Discontinued 100 MG PO Daily 2018 1:00am August 18, 2023 3:09pm Paxlovid (300/100) 20 x 150 MG & 10 x 100MG (2 sources) Start: 11-15-2021 Paxlovid (300/ 100) 20 x 150 MG & 10 x 100MG as directed Orally as directed GFR>60 Nov, Active predniSONE 20 mg oral tablet (1 source) Start: 04-02-2023 take 2 tablets by mouth every twenty-four hours predniSONE 20 MG 2 tablets Orally Once a day for 5 Mar, Active ProAir HFA 108 (90 Base) MCG/ACT (6 sources) take 2 puff(s) by inhalation every four hours as needed ProAir HFA 108 (90 Base) MCG/ACT 2 puffs as needed Inhalation every 4 hrs for 90 days PRN Active Completed/Discontinued Medications Medication Drug Class(es) Dates Sig (Normalized) Sig (Original) acetaminophen 325 mg / HYDROcodone bitartrate 5 mg oral tablet (8 sources) Opioid Agonist Start: 05-16-2018 End: 12-17-2021 take 1 tablet by mouth every four to six hours Hydrocodone-Acetami nophen ([place]) 5-325 mg Tablet Discontinued 1 TAB PO EVERY 4-6 HOURS 4 2 May 16, 2018 December 17, 2021 7:15am Start: 2018 End: 02-14-2018 Hydrocodone-Acetaminophen ([place]) 5-325 mg tablet Discontinued 1 TAB PO every 6 to 8 hours 20 5 2018 February 14, 2018 1:02am 0.65 ml exenatide 3.08 mg/ml pen injector (8 sources) GLP-1 Receptor Agonist Start: 2018 End: 12-17-2021 Exenatide Microspheres (Bydureon) 2 mg/0.65 mL pen injector Discontinued 2 MG SUBCUT every week 2018 1:00am December 17, 2021 7:38am inject 2 mg by subcu taneous injection every week Bydureon BCise 2 MG/0.85ML INJECT 2 MG ONCE A WEEK UNDER THE SKIN Active Exenatide Microspheres (Bydureon) 2 mg/0.65 mL pen injector (2 sources) Start: 2018 End: 12-17-2021 Exenatide Microspheres (Bydureon) 2 mg/0.65 mL pen injector Discontinued 2 MG SUBCUT every week 2018 1:00am December 17, 2021 7:38am ibuprofen 600 mg oral tablet (4 sources) Nonsteroidal Anti-inflammatory Drug Start: 2018 End: 12-17-2021 Ibuprofen Discontinued 600 MG PO every 6 to 8 hours 2018 1:00am December 17, 2021 7:15am levothyroxine sodium 0.112 mg oral tablet (4 sources) l-Thyroxine Start: 2018 End: 12-17-2021 take 112 ug by mouth once daily Levothyroxine Discontinued 112 MCG PO Daily 2018 1:00am December 17, 2021 7:15am pitavastatin calcium 2 mg oral tablet (18 sources) HMG-CoA Reductase Inhibitor Start: 08-25-2020 End: 12-17-2021 Pitavastatin Calcium (Livalo) 2 mg tablet Discontinued MG TABLET December 17, 2021 12:00am December 17, 2021 7:38am promethazine hydrochloride 25 mg oral tablet (8 sources) Phenothiazine Start: 2018 End: 12-17-2021 take 25 mg by mouth every six hours Promethazine Discontinued 25 MG PO Q6H May 16, 2018 1:00am December 17, 2021 7:15am Problems Active Problems Problem Classification Problem Date Documented Date Episodic/Chronic Acute bronchitis (1 source) Acute bronchitis, unspecified Episodic Diabetes mellitus with complications (20 sources) Type 2 diabetes mellitus; Translations: [Type 2 diabetes mellitus with other circulatory complications] Onset: 10-02-2021 Resolved: 10-02-2021 Chronic Disorders of lipid metabolism (14 sources) Mixed hyperlipidemia; Translations: [Mixed hyperlipidemia] Onset: 10-02-2021 Resolved: 10-02-2021 Chronic Essential hypertension (14 sources) Essential hypertension; Translations: [Essential (primary) hypertension] Onset: 10-02-2021 Resolved: 10-02-2021 Chronic Mood disorders (20 sources) Major depressive disorder, single episode, unspecified; Translations: [Depression] Onset: 10-02-2021 Resolved: 10-02-2021 Chronic Other ear and sense organ disorders (12 sources) Otitis externa of left ear; Translations: [Unspecified otitis externa, left ear] Chronic Other lower respiratory disease (1 source) Shortness of breath Episodic Other nervous system disorders (12 sources) Peripheral nerve disease ; Translations: [Polyneuropathy, unspecified] Chronic Other nervous system disorders (12 sources) Chronic pain; Translations: [Other chronic pain] Chronic Other non-traumatic joint disorders (2 sources) Pain in right shoulder; Translations: [M25.511 - Pain in right shoulder] Onset: 10-02-2021 Resolved: 10-02-2021 Episodic Other upper respiratory infections (12 sources) Chronic pansinusitis; Translations: [Chronic pansinusitis] Chronic Other upper respiratory infections (3 sources) Acute sinusitis, unspecified; Translations: [Acute maxillary sinusitis] Episodic Otitis media and related conditions (1 source) Otitis media, unspecified, right ear Episodic Spondylosis; intervertebral disc disorders; other back problems (20 sources) Sciatica; Translations: [Lumbago with sciatica, left side] Episodic Substance-related disorders (12 sources) Tobacco dependence syndrome; Translations: [Nicotine dependence, unspecified, uncomplicated] Chronic Thyroid disorders (15 sources) Acquired hypothyroidism; Translations: [Hypothyroidism, unspecified] Onset: 10-02-2021 Resolved: 10-02-2021 Chronic Unclassified (3 sources) CONTACT W/AND (SUSP) EXPOS COVID-19; Translations: [CONTACT W/AND (SUSP) EXPOS COVID-19] Onset: 03-20-2021 Unclassified (1 source) Encounter for screening for malignant neoplasm of colon; Translations: [Encounter for screening for malignant neoplasm of colon] Onset: 12-17-2021 Unclassified (1 source) Encounter for preprocedural laboratory examination; Translations: [Encounter for preprocedural laboratory examination] Onset: 12-13-2021 Unclassified (1 source) M25.552 - Pain in left hip; Translations: [M25.552 - Pain in left hip] Onset: 10-02-2021 Unclassified (1 source) Z20.822 - Contact with and (suspected) exposure to COVID-19; Translations: [Z20.822 - Contact with and (suspected) exposure to COVID-19] Onset: 03-07-2021 Past or Other Problems Problem Classification Problem Date Documented Da te Episodic/Chronic Other non-traumatic joint disorders (1 source) Pain in right knee; Translations: [Pain in right knee] Onset: 12-31-2016 Episodic Other non-traumatic joint disorders (1 source) Pain in left hip Onset: 10-02-2021 Resolved: 10-02-2021 Episodic Other screening for suspected conditions (not mental disorders or infectious disease) (3 sources) Encounter for screening for malignant neoplasm of colon; Translations: [Encounter for screening mammogram for malignant neoplasm of breast] Onset: 10-02-2021 Resolved: 11-07-2021 Episodic Unclassified (1 source) CONTACT W/AND (SUSP) EXPOS COVID-19; Translations: [CONTACT W/AND (SUSP) EXPOS COVID-19] Onset: 03-13-2021 Unclassified (1 source) Contact with and (suspected) exposure to covid-19 Z20.822 Viral infection (1 source) COVID-19 Results Test Name Value Interpretation Reference Range Facility BI MAMMOGRAM SCREENING TOMOS YNTHESIS BILATERALon 04-25-2023 BI MAMMOGRAM SCREENING TOMOSYNTHESIS BILATERAL This is a summary report. The complete report is available in the patient's medical record. If you cannot access the medical record, please contact the sending organization for a detailed fax or copy. EXAMINATION: BI MAMMOGRAM SCREENING TOMOSYNTHESIS BILATERAL CLINICAL HISTORY:yearly COMPARISON: March 26, 2019. RESULT: Digital mammography and 3D tomosynthesis of bilateral breasts was performed. Density: Almost entirely fatty [1] There is no suspicious mass, asymmetry, architectural distortion, or calcification. Overall appearance stable. IMPRESSION: BIRADS 1 - Negative Follow-up: Routine Screening Mamm Board Certified Radiologists. Accredited by the ACR and FDA. MAMMOGRAPHY IS VERY IMPORTANT TO YOUR HEALTH. THE [employer] GUIDELINES RECOMMEND THAT WOMEN 40 YEARS OF AGE AND OLDER SHOULD HAVE A MAMMOGRAM EVERY YEAR. A REMINDER LETTER WILL BE SENT AT THE APPROPRIATE TIME. THIS FACILITY UTILIZES A REMINDER SYSTEM TO ENSURE ALL PATIENTS RECEIVE REMINDER NOTIFICATIONS AT THE APPROPRIATE TIME BASED ON THE RECOMMENDATIONS OF THIS EXAM. THIS INCLUDES REMINDERS FOR ROUTINE SCREENING MAMMOGRAMS, DIAGNOSTIC MAMMOGRAMS IN WHICH THE PATIENT IS ASKED TO RETURN FOR ADDITIONAL VIEWS, OR OTHER BREAST IMAGING INTERVENTIONS WHEN APPROPRIATE. THE PATIENT WILL BE PLACED IN THE APPROPRIATE REMINDER SYSTEM INCLUDING A REMINDER AT THE APPROPRIATE TIME FOR ANY PENDING ADDITIONAL VIEWS. TRANSCRIBED BY: ELECTRONICALLY SIGNED BY: Alexis Victoria MD Normal Not Available COVID + FLU Quick Testingon 04-02-2023 SARS-CoV-2 (COVID-19) RNA RAKEL+probe Ql (Unsp spec) Negative [place] [facility] Other COVID + FLU Quick Testing Negative [place] [facility] Other COVID Quick Testingon 2022 Result Positive [place] [facility] Other A1C HEMOGLOBINon 09-09-2022 HbA1c (Bld) [Mass fraction] 6.9 % [facility] Other HbA1c (Bld) [Mass fraction]o n 09-09-2022 A1C HEMOGLOBIN [facility] Other Glucose Glucometer (BldC) [M ass/Vol]Ordered By: Sawyer Styles on 12-17-2021 Glucose [Mass/Vol] 179 mg/dL [facility] Comment on above: Random Glucose Refer ence Range is dependent on time and content of last meal. Glucose of more than 200 mg/dL in a nonstressed, ambulatory subject supports the diagnosis of Diabetes Mellitus. Glucose Poct Glucometerson 1 Glucose [Mass/Vol] 179 mg/dL Normal [facility] Comment on above: Result Comment: [facility] Glucose Reference Range is dependent on time and content of last meal. Glucose of more than 200 mg/dL in a nonstressed, ambulatory subject supports the diagnosis of Diabetes Mellitus. PERFORMED BY: [facility] [address] [place] [address] PATHOLOGIST FREIGHT BROKER SHAY POON M.D. Performed By: #### G LULS #### Point of Care testing , COVID-19 Antigenon 2 COVID-19 Antigen Healthcare Worker?: N Reference Range: Negative Negative results, from patients with symptom onset beyond five days, should be treated as presumptive and confirmation with a molecular assay, if necessary, for patient management, may be performed. Negative results do not rule out COVID-19 and should not be used as the sole basis for treatment or patient management decisions, including infection control decisions. Negative results should be considered in the context of a patient's recent exposures, history and the presence of clinical signs and symptoms consistent with COVID-19. The Bam SARS Antigen ARAVIND does not differentiate between SARS-CoV and SARS-CoV-2. This test was developed and its performance characteristic determined by [email or web address] and validated at [facility]. This test has not been FDA cleared or approved. This test has been authorized by FDA under an Emergency Use Authorization (EUA). This test has been validated in accordance with the FDA's Guidance Document (Policy for Diagnostics Testing in Laboratories Certified to Perform High Complexity Testing under CLIA prior to Emergency Use Authorization for Coronavirus Disease-2019 during the Public Health Emergency) issued on June 17, 2019. This test is only authorized for the duration of time the declaration that circumstances exist justifying the authorization of the emergency use of in vitro diagnostic tests for detection of SARS-CoV-2 virus and/or diagnosis of COVID-19 infection under section 564(b)(1) of the Act, 21 U.S.C. 360bbb-3(b)(1), unless the authorization is terminated or revoked sooner. SARS-CoV+SARS-CoV-2 (COVID-19) Ag [Presence] in Respiratory specimen by Rapid immunoassay Negative for SARS Antigen by ARAVIND PERFORMED BY: [place] [address] PATHOLOGIST FREIGHT BROKER SHAY POON M.D. Normal [facility] Comment on above: Performed By: #### C OVID-19 BAM, SOFIANEG #### [address] COVID-19 SOFIAOrdered By: Jazmine Styles on 12-13-2021 SARS-CoV+SARS-CoV-2 (COVID-19) Ag IA.rapid Ql (Resp) Negative Negative [facility] Comment on above: This is a duplicate Bam SARS Antigen (ARAVIND) result to be used for statistical tracking purpose only. No Panel InformationOrdered By: Sawyer Styles on 12-13-2021 SARS Antigen (LFIA) [facility] Bam Ag Negativeon 12-14-19 Bam Ag Negative Negative Normal Negative [facility] Comment on above: Result Comment: This is a duplicate Bam SARS Antigen (ARAVIND) result to be used for statistical tracking purpose only. PERFORMED BY: [facility] [address] [place] [address] PATHOLOGIST FREIGHT BROKER SHAY POON M.D. Performed By: #### C OVID-19 BAM, SOFIANEG #### [facility] [address] [id number] [facility] A1C HEMOGLOBINon 10-02-2021 HbA1c (Bld) [Mass fraction] 8.8 % [employer] Other Blood hemoglobin measurement (mass/volume)Ordered By: Kelly Lee on 10-02-2021 Hemoglobin (Bld) [Mass/Vol] 14.6 g/dL 11.8-15.4 [facility] Body fluid albumin measureme nt (mass/volume)Ordered By: Kelly Lee on 10-02-2021 Albumin (Body fld) [Mass/Vol] 4.2 g/dL 3.2-5.5 [facility] Cholesterol in LDL Calc [Mas s/Vol]Ordered By: Kelly Lee on 10-02-2021 Cholesterol in LDL [Mass/Vol] 143 mg/dL 0-100 [facility] Comment on above: LDL ATP III CLASSIFI CATIONLDL less than 100 mg/dL OptimalLDL 100-129 mg/dL Near or above optimalLDL 130-159 mg/dL Borderline highLDL 160-189 mg/dL HighLDL greater than 189 mg/dL Very high Cholesterol in VLDL Calc [Ma ss/Vol]Ordered By: Kelly Lee on 10-02-2021 Cholesterol in VLDL [Mass/Vol] 59 mg/dL [facility] Comprehensive Metabolic Pane darrick 10-02-2021 Albumin [Mass/Vol] 4.2 g/dL Normal 3.2-5.5 [facility] Comment on above: Order Comment: PT FA STED 12 HRS 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 Performed By: #### T SH3 wRFLX, CBCNO, CMP, LIPID #### [facility] [address] ALT [Catalytic activity/Vol] 48 U/L Normal 10-60 [employer] Other Comment on above: Order Comment: PT FA STED 12 HRS 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 Performed By: #### T SH3 wRFLX, CBCNO, CMP, LIPID #### [facility] [address] Bilirubin [Mass/Vol] 0.5 mg/dL Normal 0.3-1.2 [facility] Comment on above: Order Comment: PT FA STED 12 HRS 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 Performed By: #### T SH3 wRFLX, CBCNO, CMP, LIPID #### [facility] [address] Calcium [Mass/Vol] 9.6 mg/dL Normal 8.2-10.2 [facility] Comment on above: Order Comment: PT FA STED 12 HRS 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 Performed By: #### T SH3 wRFLX, CBCNO, CMP, LIPID #### [facility] [address] CO2 [Moles/Vol] 29.4 mmol/L Normal 22.0-30.0 [facility] Comment on above: Order Comment: PT FA STED 12 HRS 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 Performed By: #### T SH3 wRFLX, CBCNO, CMP, LIPID #### [facility] [address] [id number] [facility] Creatinine [Mass/Vol] 0.44 mg/dL Normal 0.44-1.03 [facility] Comment on above: Order Comment: PT FA STED 12 HRS 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 Performed By: #### T SH3 wRFLX, CBCNO, CMP, LIPID #### [facility] [address] [place] [address] [place] Estimated GFR ( Dalila > 60 Normal [facility] Comment on above: Order Comment: PT FA STED 12 HRS 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 Performed By: #### T SH3 wRFLX, CBCNO, CMP, LIPID #### [facility] [address] [place] [address] [place] Estimated GFR (Non- Am > 60 Normal [facility] Comment on above: Order Comment: PT FA STED 12 HRS 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 Performed By: #### T SH3 wRFLX, CBCNO, CMP, LIPID #### [facility] [address] Globulin (S) [Mass/Vol] 2.7 g/dL Normal [facility] Comment on above: Order Comment: PT FA STED 12 HRS 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 Performed By: #### T SH3 wRFLX, CBCNO, CMP, LIPID #### [facility] [address] [place] [address] [place] Potassium [Moles/Vol] 4.4 mmol/L Normal 3.5-5.1 [facility] Comment on above: Order Comment: PT FA STED 12 HRS 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 Performed By: #### T SH3 wRFLX, CBCNO, CMP, LIPID #### [facility] [address] [place] [address] [place] Protein [Mass/Vol] 6.9 g/dL Normal 6.1-7.9 [facility] Comment on above: Order Comment: PT FA STED 12 HRS 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 Performed By: #### T SH3 wRFLX, CBCNO, CMP, LIPID #### [facility] [address] [id number] [facility] Albumin [Mass/Vol] 4.544935 g/dL Normal 3.2-5.5 g/dL [facility] Other Bilirubin [Mass/Vol] 0.5356052 mg/dL Normal 0.3- 1.2 mg/dL [facility] Other Calcium [Mass/Vol] 9.9730091 mg/dL Normal 8.2-10 .2 mg/dL [facility] Other CO2 [Moles/Vol] 29.28277604 mmol/L Normal 22.0-3 0.0 mmol/L [employer] Other Creatinine [Mass/Vol] 0.82952235 mg/dL Normal 0.44-1.03 mg/dL [employer] Other Potassium [Moles/Vol] 4.62106563 mmol/L Normal 3.5-5.1 mmol/L [employer] Other Protein [Mass/Vol] 6.026858 g/dL Normal 6.1-7.9 g/dL [facility] Other Comprehensive Metabolic Panel > 60 [facility] Other Comprehensive Metabolic Panel 2.7 g/dL [employer] Other Comprehensive Metabolic Pane lOrdered By: Kelly Lee on 10-02-2021 Albumin/Globulin [Mass ratio] 1.6 {ratio} Normal [facility] Comment on above: Order Comment: PT FA STED 12 HRS 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 Performed By: #### T SH3 wRFLX, CBCNO, CMP, LIPID #### [facility] [address] [id number] [facility] ALP [Catalytic activity/Vol] 64 U/L Normal 32-92 [facility] Comment on above: Order Comment: PT FA STED 12 HRS 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 Performed By: #### T SH3 wRFLX, CBCNO, CMP, LIPID #### [facility] [address] [place] [address] [facility] AST [Catalytic activity/Vol] 45 U/L High 10-42 [facility] Comment on above: Order Comment: PT FA STED 12 HRS 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 Performed By: #### T SH3 wRFLX, CBCNO, CMP, LIPID #### [facility] [address] [place] [address] [place] Chloride [Moles/Vol] 91 mmol/L Low 95-114 [facility] Comment on above: Order Comment: PT FA STED 12 HRS 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 Performed By: #### T SH3 wRFLX, CBCNO, CMP, LIPID #### [facility] [address] Glucose [Mass/Vol] 186 mg/dL High 70-100 [facility] Comment on above: ADA recommended refe rence rangeRandom Glucose Reference Range is dependent on time and content of last meal. Glucose of more than 200 mg/dL in a nonstressed, ambulatory subject supports the diagnosis of Diabetes Mellitus. Order Comment: PT FA STED 12 HRS 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 Result Comment: Harris om Glucose Reference Range is dependent on time and content of last meal. Glucose of more than 200 mg/dL in a nonstressed, ambulatory subject supports the diagnosis of Diabetes Mellitus. ADA recommended reference range Performed By: #### T SH3 wRFLX, CBCNO, CMP, LIPID #### [facility] [address] [place] [address] [place] Sodium [Moles/Vol] 135 mmol/L Low 136-146 [facility] Comment on above: Order Comment: PT FA STED 12 HRS 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 Performed By: #### T SH3 wRFLX, CBCNO, CMP, LIPID #### [facility] [address] [place] [id number] [place] Urea nitrogen [Mass/Vol] 9 mg/dL Normal 9-23 [facility] Comment on above: Order Comment: PT FA STED 12 HRS 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 Performed By: #### T SH3 wRFLX, CBCNO, CMP, LIPID #### [facility] [address] [place] [address] [place] Creatinine and Glomerular fi ltration rate.predicted panel (S/P/Bld)Ordered By: Kelly Lee on 10-02-2021 Creatinine [Mass/Vol] 0.44 mg/dL 0.44-1.03 [facility] Erythrocyte distribution wid th Auto (RBC) [Ratio]Ordered By: Kelly Lee on 10-02-2021 Erythrocyte distribution width (RBC) [Ratio] 12.7 % 11.9-15.3 [facility] Estimated glomerular filtrat ion rate (GFR) non- AmericanOrdered By: Kelly Lee on 10-02-2021 GFR/1.73 sq M.predicted among non-blacks MDRD (S/P/Bld) [Vol rate/Area] > 60 mL/Min [facility] Globulin Calc (S) [Mass/Vol] Ordered By: Kelly Lee on 10-02-2021 Globulin (S) [Mass/Vol] 2.7 g/dL [facility] HbA1c (Bld) [Mass fraction]o n 10-02-2021 A1C HEMOGLOBIN [employer] Other Hematocrit Auto (Bld) [Volum e fraction]Ordered By: Kelly Lee on 10-02-2021 Hematocrit (Bld) [Volume fraction] 42.2 % 34.0-46.4 [facility] Hemogram CBC Without Diffon 10-02-2021 Erythrocyte distribution width (RBC) [Ratio] 12.7 % Normal 11.9-15.3 [facility] Comment on above: Order Comment: Reaso n 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 Performed By: #### T SH3 wRFLX, CBCNO, CMP, LIPID #### [facility] [address] Hematocrit (Bld) [Volume fraction] 42.2 % Normal 34.0-46.4 [facility] Comment on above: Order Comment: Reaso n 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 Performed By: #### T SH3 wRFLX, CBCNO, CMP, LIPID #### [facility] [address] [place] [address] [place] Hemoglobin (Bld) [Mass/Vol] 14.6 g/dL Normal 11.8-15.4 [facility] Comment on above: Order Comment: Reaso n 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 Performed By: #### T SH3 wRFLX, CBCNO, CMP, LIPID #### [facility] [address] [place] [address] MCH (RBC) [Entitic mass] 32.7 pg Normal 24.7-34.3 [facility] Comment on above: Order Comment: Reaso n 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 Performed By: #### T SH3 wRFLX, CBCNO, CMP, LIPID #### [facility] [address] [place] [address] MCV (RBC) [Entitic vol] 94.6 fL Normal 80-100 [facility] Comment on above: Order Comment: Reaso n 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 Performed By: #### T SH3 wRFLX, CBCNO, CMP, LIPID #### [facility] [address] [place] [address] Mean Corpuscular HGB Conc 34.6 g/dL Normal 32.0-35.0 [facility] Comment on above: Order Comment: Reaso n 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 Performed By: #### T SH3 wRFLX, CBCNO, CMP, LIPID #### [facility] [address] [place] [address] Platelet mean volume (Bld) [Entitic vol] 9.5 fL Normal 6.3-10.7 [facility] Comment on above: Order Comment: Reaso n 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 Result Comment: PERF ORMED BY: [place] [address] PATHOLOGIST FREIGHT BROKER SHAY POON M.D. Performed By: #### T SH3 wRFLX, CBCNO, CMP, LIPID #### [facility] [address] [place] [address] RBC (Bld) [#/Vol] 4.46 10*6/uL Normal 3.60-5.00 [facility] Comment on above: Order Comment: Reaso n 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 Performed By: #### T SH3 wRFLX, CBCNO, CMP, LIPID #### [facility] [address] [place] [address] [place] WBC (Bld) [#/Vol] 6.2 10*3/uL Normal 3.8-11.6 [facility] Comment on above: Order Comment: Reaso n 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 Performed By: #### T SH3 wRFLX, CBCNO, CMP, LIPID #### [facility] [address] [place] [id number] [facility] Erythrocyte distribution width (RBC) [Ratio] 12.700 % Normal 11.9-15.3 % [employer] Other Hematocrit (Bld) [Volume fraction] 42.200 % Normal 34.0-46.4 % [employer] Other Hemoglobin (Bld) [Mass/Vol] 14.550565 g/dL Normal 11.8-15.4 g/dL [employer] Other MCH (RBC) [Entitic mass] 32.7000 pg Normal 24.7-34.3 pg [employer] Other MCV (RBC) [Entitic vol] 94.6000 fL Normal 80-100 fL [employer] Other Platelet mean volume (Bld) [Entitic vol] 9.5000 fL Normal 6.3-10.7 fL [employer] Other RBC (Bld) [#/Vol] [id number] 10*6/uL Normal 3. 60-5.00 10*6/uL [employer] Other WBC (Bld) [#/Vol] 6.011453386 10*3/uL Normal 3.8 -11.6 10*3/uL [employer] Other Hemogram CBC Without Diff 34.6 g/dL Normal 32.0-35.0 g/dL [employer] Other Hemogram CBC Without DiffOrd ered By: Kelly Lee on 10-02-2021 Platelets (Bld) [#/Vol] 198 10*3/uL Normal 150-450 [facility] Comment on above: Order Comment: Reaso n 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 Performed By: #### T SH3 wRFLX, CBCNO, CMP, LIPID #### [facility] [address] Lipid Panelon 10-02-2021 LDL Cholesterol,Calculat ed 143 mg/dL High 0-100 [facility] Comment on above: Order Comment: PT FA STED 12 HRS 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 Result Comment: LDL ATP III CLASSIFICATION LDL less than 100 mg/dL Optimal LDL 100-129 mg/dL Near or above optimal LDL 130-159 mg/dL Borderline high LDL 160-189 mg/dL High LDL greater than 189 mg/dL Very high Performed By: #### T SH3 wRFLX, CBCNO, CMP, LIPID #### [facility] [address] Triglyceride w/Reflex 299 mg/dL High 35-149 [facility] Comment on above: Order Comment: PT FA STED 12 HRS 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 Result Comment: TRIG ATP III CLASSIFICATION TRIG less than 150 mg/dL Normal TRIG 150-199 mg/dL Borderline high TRIG 200-500 mg/dL High TRIG greater than 500 mg/dL Very high Standard traceable to the Center for Disease Conrtrol and Prevention (CDC) test method. Performed By: #### T SH3 wRFLX, CBCNO, CMP, LIPID #### [facility] [address] VLDL CHOLESTEROL 59 mg/dL Normal [facility] Comment on above: Order Comment: PT FA STED 12 HRS 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 Performed By: #### T SH3 wRFLX, CBCNO, CMP, LIPID #### [facility] [address] [place] [address] [place] Cholesterol in LDL Elph Qn 143 mg/dL High 0-100 mg/dL [employer] Other Lipid Panel 299 mg/dL High 35-149 mg/dL [employer] Other Lipid Panel 59 mg/dL [employer] Other Lipid PanelOrdered By: Destiny Lee on 10-02-2021 Cholesterol [Mass/Vol] 240 mg/dL High 140-200 [facility] Comment on above: Chol less than 200 m g/dl low riskChol 201-239 mg/dl borderline riskChol 240 mg/dl and greater high risk Order Comment: PT FA STED 12 HRS 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 Result Comment: Chol less than 200 mg/dl low risk Chol 201-239 mg/dl borderline risk Chol 240 mg/dl and greater high risk Performed By: #### T SH3 wRFLX, CBCNO, CMP, LIPID #### [facility] [address] Cholesterol in HDL [Mass/Vol] 37 mg/dL Normal 35-85 [facility] Comment on above: HDL CHOL ATP-III CLA SSIFICATION Cardiovascular RiskHDL > or equal to 60 mg/dL LOWHDL < 40 mg/dL HIGH Order Comment: PT FA STED 12 HRS 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 Result Comment: HDL CHOL ATP-III CLASSIFICATION Cardiovascular Risk HDL > or equal to 60 mg/dL LOW HDL < 40 mg/dL HIGH Performed By: #### T SH3 wRFLX, CBCNO, CMP, LIPID #### [facility] [address] [place] [id number] [facility] Cholesterol.total/Ch olesterol in HDL [Mass ratio] 6.5 {ratio} Normal <5.0 [facility] Comment on above: Order Comment: PT FA STED 12 HRS 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 Performed By: #### T SH3 wRFLX, CBCNO, CMP, LIPID #### [facility] [address] [place] [id number] [place] MCH Auto (RBC) [Entitic mass ]Ordered By: Kelly Lee on 10-02-2021 MCH (RBC) [Entitic mass] 32.7 pg 24.7-34.3 [facility] MCHC Auto (RBC) [Mass/Vol]Or dered By: Kelly Lee on 10-02-2021 MCHC (RBC) [Mass/Vol] 34.6 g/dL 32.0-35.0 [facility] MCV Auto (RBC) [Entitic vol] Ordered By: Kelly Lee on 10-02-2021 MCV (RBC) [Entitic vol] 94.6 fL 80-100 [facility] No Panel InformationOrdered By: Kelly Lee on 10-02-2021 Estimated GFR () > 60 mL/Min [facility] Comment on above: GFR estimated refere nce range: According to KDOQI guidelines, <60 ml/min/1.73m2 is sufficient to diagnose a patient with chronic kidney disease. Pharmacy Creatinine Clearance (Chem N/A [facility] Platelet mean volume Auto (B ld) [Entitic vol]Ordered By: Kelly Lee on 10-02-2021 Platelet mean volume (Bld) [Entitic vol] 9.5 fL 6.3-10.7 [facility] Protein [Mass/volume] in Ser um or PlasmaOrdered By: Kelly Lee on 10-02-2021 Protein [Mass/Vol] 6.9 g/dL 6.1-7.9 [facility] RBC Auto (Bld) [#/Vol]Ordere d By: Kelly Lee on 10-02-2021 RBC (Bld) [#/Vol] 4.46 10*6/uL 3.60-5.00 [facility] Serum or plasma alanine traore otransferase measurement without P-5'-P (enzymatic activiOrdered By: Kelly Lee on 10-02-2021 ALT No additional P-5'-P [Catalytic activity/Vol] 48 U/L 10-60 [facility] Serum or plasma calcium chandler urement (mass/volume)Ordered By: Kelly Lee on 10-02-2021 Calcium [Mass/Vol] 9.6 mg/dL 8.2-10.2 [facility] Serum or plasma potassium me asurement (moles/volume)Ordered By: Kelly Lee on 10-02-2021 Potassium [Moles/Vol] 4.4 mmol/L 3.5-5.1 [facility] Serum or plasma total biliru bin measurement (mass/volume)Ordered By: Kelly Lee on 10-02-2021 Bilirubin [Mass/Vol] 0.5 mg/dL 0.3-1.2 [facility] Serum or plasma total carbon dioxide measurement (moles/volume)Ordered By: Kelly Lee on 10-02-2021 CO2 [Moles/Vol] 29.4 mmol/L 22.0-30.0 [facility] TSH DL <= 0.005 mIU/L QnOrde red By: Kelly Lee on 10-02-2021 TSH Qn 3.55 m[IU]/L 0.45-5.33 [facility] Thyroid Stim Hormone w/Rflxo n 10-02-2021 Thyroid Stim Hormone w/Rflx 3.55 u[iU]/mL Normal 0.45-5.33 [facility] Comment on above: Order Comment: PT FA STED 12 HRS 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 Result Comment: PERF ORMED BY: [place] [address] PATHOLOGIST FREIGHT BROKER SHAY POON M.D. Performed By: #### T SH3 wRFLX, CBCNO, CMP, LIPID #### [address] Thyroid Stim Hormone w/Rflx 3.55 u[iU]/mL Normal 0.45-5.33 u[iU]/mL [employer] Other Triglyceride [Mass/volume] i n Serum or PlasmaOrdered By: Kelly Lee on 10-02-2021 Triglyceride [Mass/Vol] 299 mg/dL 35-149 [facility] Comment on above: TRIG ATP III CLASSIF ICATIONTRIG less than 150 mg/dL NormalTRIG 150-199 mg/dL Borderline highTRIG 200-500 mg/dL High TRIG greater than 500 mg/dL Very highStandard traceable to the Center for Disease Conrtrol and Prevention (CDC) test method. WBC Auto (Bld) [#/Vol]Ordere d By: Kelly Lee on 10-02-2021 WBC (Bld) [#/Vol] 6.2 10*3/uL 3.8-11.6 [facility] XR hip LT min 2V(w/wo pelvis )*on 10-02-2021 XR hip LT min 2V(w/wo pelvis)* [address] [address] XRay Report Signed Patient: Larry Brock MR#: [id number] : 1970 Acct:[id number] Age/Sex: 51 / F ADM Date: 10/02/21 Loc: XD Room: Type: [facility] Attending Dr: Kelly Lee DO Copies to: Kelly Lee DO Ordering Provider: Kelly Lee DO Date of Service: 10/02/21 XR/XR hip LT min 2V(w/wo pelvis)*: Left hip pain ([id number]) XR/XR shoulder RT min 2V*: Acute pain of right shoulder RIGHT SHOULDER - - 3 views, left hip 2 views CLINICAL HISTORY: Right shoulder pain for 3 days. Left hip pain. Fall 09/29/2021 COMPARISON: None FINDINGS: Right shoulder: No acute bony process. Mild degenerative changes right AC joint. Visualized right lung field is clear. Left hip: No acute bony process is seen. No significant degenerative change. XR/XR shoulder RT min 2V* IMPRESSION: NO ACUTE BONY PROCESS INVOLVING THE RIGHT SHOULDER OR LEFT HIP. Impression dictated by: Alexis Vazquez Jr., D.OMane10/02/2021 4:15 PM Dictation Location: [place] [address] Transcribed By: [facility] 10/02/21 1615 Dictated By: Alexis Vazquez Jr, DO 10/02/21 1614 Signed By: 10/02/21 1615 Normal [facility] XR hip LT min 2V(w/wo pelvis)* [facility] [employer] Other XR hip LT min 2V(w/wo pelvis)* [facility] [employer] Other XR hip LT min 2V(w/wo pelvis)* [address] [place] [address] [employer] Other XR hip LT min 2V(w/wo pelvis)* [place] [address] [employer] Other XR hip LT min 2V(w/wo pelvis)* XRay Report [employer] Other XR hip LT min 2V(w/wo pelvis)* Signed [employer] Other XR hip LT min 2V(w/wo pelvis)* Patient: Larry Brock MR#: [id number] [employer] Other XR hip LT min 2V(w/wo pelvis)* [id number] [employer] Other XR hip LT min 2V(w/wo pelvis)* : 1970 Acct:[id number] [employer] Other XR hip LT min 2V(w/wo pelvis)* Age/Sex: 51 / F ADM Date: 10/02/21 [employer] Other XR hip LT min 2V(w/wo pelvis)* Loc: XD Room: Type: [facility] [employer] Other XR hip LT min 2V(w/wo pelvis)* Attending Dr: Kelly Lee DO [employer] Other XR hip LT min 2V(w/wo pelvis)* Copies to: Kelly Lee DO [employer] Other XR hip LT min 2V(w/wo pelvis)* Ordering Provider: Kelly Lee DO [employer] Other XR hip LT min 2V(w/wo pelvis)* Date of Service: 10/02/21 [employer] Other XR hip LT min 2V(w/wo pelvis)* XR/XR hip LT min 2V(w/wo pelvis)*: Left hip pain [employer] Other XR hip LT min 2V(w/wo pelvis)* ([id number]) XR/XR shoulder RT min 2V*: Acute pain of right shoulder [employer] Other XR hip LT min 2V(w/wo pelvis)* RIGHT SHOULDER - - 3 views, left hip 2 views [employer] Other XR hip LT min 2V(w/wo pelvis)* CLINICAL HISTORY: Right shoulder pain for 3 days. Left hip pain. Fall 09/29/2021 [employer] Other XR hip LT min 2V(w/wo pelvis)* COMPARISON: None [employer] Other XR hip LT min 2V(w/wo pelvis)* FINDINGS: [employer] Other XR hip LT min 2V(w/wo pelvis)* Right shoulder: No acute bony process. Mild degenerative changes right AC joint. Visualized right [employer] Other XR hip LT min 2V(w/wo pelvis)* lung field is clear. [employer] Other XR hip LT min 2V(w/wo pelvis)* Left hip: No acute bony process is seen. No significant degenerative change. [employer] Other XR hip LT min 2V(w/wo pelvis)* XR/XR shoulder RT min 2V* [employer] Other XR hip LT min 2V(w/wo pelvis)* IMPRESSION: [employer] Other XR hip LT min 2V(w/wo pelvis)* NO ACUTE BONY PROCESS INVOLVING THE RIGHT SHOULDER OR LEFT HIP. [employer] Other XR hip LT min 2V(w/wo pelvis)* Impression dictated by: Alexis Vazquez Jr., DManeOMane10/02/2021 4:15 PM [employer] Other XR hip LT min 2V(w/wo pelvis)* Dictation Location: [place] [address] [employer] Other XR hip LT min 2V(w/wo pelvis)* Transcribed By: ENOCH 10/02/21 5101 [employer] Other XR hip LT min 2V(w/wo pelvis)* Dictated By: Alexis Vazquez Jr, DO 10/02/21 1616 [employer] Other XR hip LT min 2V(w/wo pelvis)* Signed By: [employer] Other XR hip LT min 2V(w/wo pelvis)* 10/02/21 1179 [employer] Other Covid-19 PCR (CVDTBH)on 02-15 SARS-CoV-2 (COVID-19) RNA RAKEL+probe Ql (Unsp spec) Not detected Normal NOT DETECTED [facility] Comment on above: Result Comment: This test is not yet approved or cleared by the [place] FDA. When there are no FDA-approved or cleared tests available, and other criteria are met, FDA can make tests available under an emergency access mechanism called an Emergency Use Authorization (EUA). The EUA for this test is supported by the [place] [place] of Health and Human Service's (HHS's) declaration that circumstances exist to justify the emergency use of in vitro diagnostics for the detection and/or diagnosis of the virus that causes COVID-19. This EUA will remain in effect (meaning this test can be used) for the duration of the COVID-19 declaration justifying emergency of IVDs, unless it is terminated or revoked by FDA (after which the test may no longer be used). When diagnostic testing is negative, the possibility of a false negative should be considered in the context of a patient's recent exposures and the presence of clinical signs and symptoms consistent with SARS-CoV-2. Performed By: #### C VDTB #### [facility] [address] [place] [address] Dr. Gordy Moore Covid-19 PCR (CVDTBH)on 02-15 SARS-CoV-2 (COVID-19) RNA RAKEL+probe Ql (Unsp spec) Not detected Normal NOT DETECTED [facility] Comment on above: Result Comment: This test is not yet approved or cleared by the [place] FDA. When there are no FDA-approved or cleared tests available, and other criteria are met, FDA can make tests available under an emergency access mechanism called an Emergency Use Authorization (EUA). The EUA for this test is supported by the [place] of Health and Human Service's (HHS's) declaration that circumstances exist to justify the emergency use of in vitro diagnostics for the detection and/or diagnosis of the virus that causes COVID-19. This EUA will remain in effect (meaning this test can be used) for the duration of the COVID-19 declaration justifying emergency of IVDs, unless it is terminated or revoked by FDA (after which the test may no longer be used). When diagnostic testing is negative, the possibility of a false negative should be considered in the context of a patient's recent exposures and the presence of clinical signs and symptoms consistent with SARS-CoV-2. Performed By: #### C [facility] #### [facility] [address] [place] [address] Dr. Gordy Moore COVID-19 Antigenon 1 COVID-19 Antigen Healthcare Worker?: N Bam Reference Bam Reference Negative SARS-CoV+SARS-CoV-2 (COVID-19) Ag [Presence] in Respiratory specimen by Rapid immunoassay Negative for SARS Antigen by ARAVIND COVID19 Blank Space -- Bam Disclaimer Negative results, from patients with symptom Bam Disclaimer onset beyond five days, should be treated as Bam Disclaimer presumptive and confirmation with a molecular Bam Disclaimer assay, if necessary, for patient management, Bam Disclaimer may be performed. Negative results do not rule Bam Disclaimer out COVID-19 and should not be used as the sole Bam Disclaimer basis for treatment or patient management Bam Disclaimer decisions, including infection control decisions. Bam Disclaimer Negative results should be considered in the Bam Disclaimer context of a patient's recent exposures, history Bam Disclaimer and the presence of clinical signs and symptoms Bam Disclaimer consistent with COVID-19. COVID19 Blank Space -- Bam Disclaimer The Bam SARS Antigen ARAVIND does not differentiate Bam Disclaimer between SARS-CoV and SARS-CoV-2. COVID19 Blank Space -- Bam Disclaimer This test was developed and its performance Bam Disclaimer characteristic determined by [employer] and Bam Disclaimer validated at [facility]. This Bam Disclaimer test has not been FDA cleared or approved. This Bam Disclaimer test has been authorized by FDA under an Emergency Use Bam Disclaimer Authorization (EUA). This test has been validated Bam Disclaimer in accordance with the FDA's Guidance Document (Policy Bam Disclaimer for Diagnostics Testing in Laboratories Certified to Bam Disclaimer Perform High Complexity Testing under CLIA prior to Bam Disclaimer Emergency Use Authorization for Coronavirus Bam Disclaimer during the Public Health Emergency) Bam Disclaimer issued on June 17, 2019. This test is only authorized Bam Disclaimer for the duration of time the declaration that Bam Disclaimer circumstances exist justifying the authorization of Bam Disclaimer the emergency use of in vitro diagnostic tests for Bam Disclaimer detection of SARS-CoV-2 virus and/or diagnosis of Bam Disclaimer COVID-19 infection under section 564(b)(1) of the Bam Disclaimer Act, 21 U.S.C. 360bbb-3(b)(1), unless the Bam Disclaimer authorization is terminated or revoked sooner. PERFORMED BY: [facility] [place] [address] PATHOLOGIST FREIGHT BROKER SHAY POON M.D. Normal [facility] Comment on above: Performed By: #### C OVID-19 BAM, SOFIANEG #### [address] Bam Ag Negativeon 03-07-20 21 Bam Ag Negative Negative Normal Negative [facility] Comment on above: Result Comment: This is a duplicate Bam SARS Antigen (ARAVIND) result to be used for statistical tracking purpose only. PERFORMED BY: [place] [id number] PATHOLOGIST FREIGHT BROKER SHAY POON M.D. Performed By: #### C OVID-19 BAM, SOFIANEG #### [address] CNOVon 12-31-2016 CNOV Office Visit (LOORRM) CHARLES BROCK ([id number]) 1970 te Time Provider Ejaplkplum50/17/17 2:30 PM RUIZ BALAJI MAKAYLA During your visit today, we recorded the following information about you:Referring Provider: KELLY LEE [[id number]]Allergies As of Date: 12/31/2016 Noted Allergy ReactionDEMEROL (MEPERIDINE (PF)) 12/31/2016 10 - Anaphylaxis Comments: Throat warmth and tightnessDate Reviewed: 12/31/2016Reviewed by: Lucila Christine Ma - Fully AssessedReason for Visit: Right Knee Pain [1209]Primary Visit Diagnosis:Post-traumatic osteoarthritis of right knee [M17.31]Prescriptions as of 12/31/2016 Sig: LEVOTHYROXINE 112 MCG CAPSULE Take by mouth. ATORVASTATIN 20 MG TABLET Take 20 mg by mouth once pavan* CITALOPRAM 40 MG TABLET DICLOFENAC SODIUM 75 MG TABLE* LISINOPRIL 20 MG TABLET METOPROLOL SUCCINATE ER 50 MG* BYDUREON 2 MG/0.65 ML SUBCUTA*Problem List As Of Date: 12/31/2016(None) Status:Closed by BALAJI RUIZ MD on 12/31/16 Normal [facility] PROGRESSon 12-31-2016 PROGRESS HNO ID: [id number] thor: Nayana Kelly (Rt)ice: (none)Author Type: TechnicianType: Progress NotesFiled: 12/31/2016 2:45 PMNote Text: Radiology Service Progress NotePATIENT NAME: Larry BrockMRN: [id number] OF SERVICE: December 31, 2016TIME: 2:45 PMPATIENT IDENTITY VERIFICATION COMPLETED USING TWO (2) METHODS: Patientconfirmed name verbally and Date of .PATIENT GENDER DATA: Female. status: : NoBreastfeeding status: NO.PATIENT RELEVANT IMPLANT DATA REVIEWED: YesRADIOLOGY DEPARTMENT: General X-ray: Exam(s) Completed: Lower ExtremityX-Ray(s): Knee, AP / Lat / Merchant Right and Wt. Bearing:PERIPHERAL IV DATA: Not applicableSIGNED BY: RT YelitzaDecember 31, 2016 2:45 PM Normal [facility] PROGRESS HNO ID: [id number] thor: Balaji Chauhanice: Orthopaedic SurgeryAuthor Type: PhysicianType: Progress NotesFiled: 01/27/2017 2:59 PMNote Text: [facility] [address] 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 Hasa few month history of right knee pain. No definite trauma. No incitingactivities. She does have significant orthopedic history to both knees.She had a right knee arthroscopy, anterior cruciate ligamentreconstruction using [place]ograft [place] Subsequently, had a 2nd arthroscopic debridement.She had her left knee anterior cruciate ligament reconstructed in thewinter of 2009. She reports occasional sensation of instability. She hasno neurologic or hip complaints. She has been using NSAID medicationsprovided by her family physician. She has been using ice.PAIN LEVEL: 8/10.PAST MEDICAL HISTORY: Type 2 diabetes, hypertension, hypothyroidism.PAST SURGICAL HISTORY: Right knee ACL reconstruction and a meniscaldebridement, not sure if medial or lateral, and subsequent arthroscopyand debridement in [place], left knee anterior cruciate ligamentreconstruction in [place], ectopic , DandCs, partialhysterectomy, right breast lumpectomy, .MEDICATIONS: See Epic.ALLERGIES: DEMEROL.SOCIAL HISTORY: . Smokes half pack a day. 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 Examination of her right knee demonstrates no effusion, fullextension, guards with ligamentous exam. No definite Jesusita. Stable tovarus and valgus stress. No definite anterior drawer. Posterior drawernegative. Has some lateral joint line tenderness. Hip exam is negative.Palpable dorsalis pedis pulse. Neurologically intact.X-RAYS: X-rays brought with the patient additional views today, includingweightbearing views, flexed knee view, demonstrates severe lateralcompartment osteoarthritis on the flexed knee views. There are sequelaeof ACL reconstruction using a button for femoral fixation. The femoraltunnel is vertical. Both tunnels are widened. There are sequelae of ACLreconstruction on the left, also with button fixation.ASSESSMENT:1. Right knee primary localized osteoarthritis. 2. Postoperativearthroscopy and a meniscal debridement, probably lateral given thearthritic changes.PLANS: Options discussed. I think pain is secondary to osteoarthritis.Discussed osteoarthritis treatment. I offered a cortisone injection, butson is concerned regarding her diabetes and insulin resistance. She istaking the NSAIDs already. We are going to get approval for [place]. Bertll see her back after approval. From a surgical standpoint, this wouldrequire total knee arthroplasty.A copy of this note to Dr. Kelly Lee in [place], [place] with aconsultation cover letter.Dictated By: Balaji Ruiz M.D.Date Dictated: 12/31/2016Date Typed: [facility] 12/31/2016JOB# [id number] Normal [facility] XR KNEE 4V AP/PA BOTH+LAT/ME R RTon 12-31-2016 XR KNEE 4V AP/PA BOTH+LAT/LUPE RT * * *Final Report* * *DATE OF EXAM: Dec 31 2016 2:47PM PROSPER [id number] - XR KNEE 4V AP/PA BOTH+LAT/LUPE RT / REASON: Pain in right knee * * * * Physician Interpretation * * * * EXAMINATION: XR KNEE 4V AP/PA BOTH+LAT/LUPE RTHISTORY: right knee surgery x 5years ago pain right knee no recent injury Pain in right knee .TECHNIQUE: XR KNEE 4V AP/PA BOTH+LAT/LUPE RT Laterality: RIGHT Number of different views (projections): 4COMPARISON: NoneRESULT:Status post ACL reconstruction with an endobutton in the distal femur and radiolucent fixation of the tibial component. The tunnels appear widened tibial tunnel which measures up to about 15 mm in diameter.There is severe narrowing of the lateral compartment in flexion.No other significant abnormality. -----IMPRESSION:POSTOPERAT VASYL AND DEGENERATIVE CHANGES DESCRIBEDTranscriptionist: JOSÉ MIGUEL Transcribe Date/Time: Dec 31 2016 2:50PDictated by : DINORA KELLY MDThis examination was interpreted and the report reviewed and electronically signed by: DINORA KELLY MD on Dec 31 2016 2:51PM [id number] Normal [facility] CR-KNEE RIGHT 3 VIEWS IMPORT on 11-14-2016 CR-KNEE RIGHT 3 VIEWS IMPORT Images were obtained outside of [facility] [id number] Normal [facility] Vital Signs Date Time Vital Sign Value Performing Clinician Facility 08-26-2023 17:41-0400 Body height 158.75 cm [facility] 08-26-2023 17:41-0400 Body mass index (BMI) [Ratio] 41.5 kg/m2 [facility] 08-26-2023 17:41-0400 Body temperature 97.6 [degF] [facility] 08-26-2023 17:41-0400 Body weight 104.77 kg [facility] 08-26-2023 17:41-0400 Heart rate 62 /min [facility] 08-26-2023 17:41-0400 Respiratory rate 18 /min [facility] 08-26-2023 17:41-0400 SaO2% (BldA) [Mass fraction] 98 % [facility] 04-02-2023 15:05-0500 Body height 158.75 cm Yvette Baileymond Other [facility] Other 04-02-2023 15:05-0500 Body mass index (BMI) [Ratio] 42.29 kg/m2 Yvette Hortensia Other [facility] Other 04-02-2023 15:05-0500 Body temperature 97.3 [degF] Yvette Hortensia Other [facility] Other 04-02-2023 15:05-0500 Body weight 106.6 kg Yvette Hortensia Other [facility] Other 04-02-2023 15:05-0500 Diastolic blood pressure 75 mm[Hg] Yvette Hortensia Other [facility] Other 04-02-2023 15:05-0500 Respiratory rate 18 /min Yvette Hortensia Other [facility] Other 04-02-2023 15:05-0500 SaO2% (BldA) [Mass fraction] 95 % Yvette Hortensia Other [facility] Other 04-02-2023 15:05-0500 Systolic blood pressure 155 mm[Hg] Yvette Hortensia Other [facility] Other 11-08-2022 18:45-0400 Body height 158.75 cm Yelena Dominguez Other [facility] Other 11-08-2022 18:45-0400 Body temperature 100 [degF] Yelena Dominguez Other [facility] Other 11-08-2022 18:45-0400 Diastolic blood pressure 73 mm[Hg] Yelena Dominguez Other [facility] Other 11-08-2022 18:45-0400 Respiratory rate 18 /min Yelena Dominguez Other [facility] Other 11-08-2022 18:45-0400 SaO2% (BldA) [Mass fraction] 95 % Yelena Dominguez Other [facility] Other 11-08-2022 18:45-0400 Systolic blood pressure 168 mm[Hg] Yelena Dominguez Other [facility] Other 09-09-2022 16:00-0400 Body height 158.75 cm Kelly Lee Other [facility] Other 09-09-2022 16:00-0400 Body mass index (BMI) [Ratio] 41.93 kg/m2 Kelly Lee Other [facility] Other 09-09-2022 16:00-0400 Body weight 105.69 kg Kelly Lee Other [facility] Other 09-09-2022 16:00-0400 Diastolic blood pressure 72 mm[Hg] Kelly Lee Other [facility] Other 09-09-2022 16:00-0400 Respiratory rate 18 /min Kelly Lee Other [facility] Other 09-09-2022 16:00-0400 SaO2% (BldA) [Mass fraction] 95 % Kelly Lee Other [employer] [facility] Other 09-09-2022 16:00-0400 Systolic blood pressure 142 mm[Hg] Kelly Lee Other [facility] Other 12-17-2021 09:29-0400 Diastolic blood pressure 78 mm[Hg] DO Kelly Lee Work Phone: [facility] 12-17-2021 09:29-0400 Heart rate 60 /min DO eKlly Lee Work Phone: [facility] 12-17-2021 09:29-0400 Respiratory rate 20 /min DO Kelly Lee Work Phone: [facility] 12-17-2021 09:29-0400 SaO2% (BldA) [Mass fraction] 94 % DO Kelly Lee Work Phone: [facility] 12-17-2021 09:29-0400 Systolic blood pressure 152 mm[Hg] DO Kelly Lee Work Phone: [facility] 12-17-2021 07:43-0400 Body height 157.48 cm DO Kelly Lee Work Phone: [facility] 12-17-2021 07:43-0400 Body temperature 98.7 [degF] DO Kelly Lee Work Phone: [facility] 12-17-2021 07:43-0400 Body weight 104.32 kg DO Kelly Lee Work Phone: [facility] 10-02-2021 12:15-0400 Body height 158.75 cm Kelly Lee Other [facility] Other 10-02-2021 12:15-0400 Body mass index (BMI) [Ratio] 42.83 kg/m2 Kelly Lee Other [facility] Other 10-02-2021 12:15-0400 Body weight 107.96 kg Kelly Lee Other [facility] Other 10-02-2021 12:15-0400 Diastolic blood pressure 80 mm[Hg] Kelly Lee Other [facility] Other 10-02-2021 12:15-0400 Respiratory rate 18 /min Kelly Lee Other [facility] Other 10-02-2021 12:15-0400 SaO2% (BldA) [Mass fraction] 95 % Kelly Lee Other [facility] Other 10-02-2021 12:15-0400 Systolic blood pressure 150 mm[Hg] Kelly Lee Other [facility] Other Encounters Encounter Date Encounter Type Care Provider Facility Start: 10-29-2023 End: 10-29-2023 ambulatory TARAS CONTRERAS Not Available Start: 10-21-2023 ambulatory [facility] Work Phone: Start: 10-21-2023 Non-patient / Non-visit [facility] [employer] Work Phone: Start: 08-26-2023 End: 08-26-2023 ambulatory [facility] Work Phone: Start: 08-26-2023 End: 08-26-2023 Patient encounter procedure [facility] Amarjit Work Phone: Start: 07-24-2023 Non-patient / Non-visit [facility] [place] Work Phone: Start: 04-25-2023 End: 04-25-2023 ambulatory KELLY LEE Not Available Start: 04-02-2023 (URG) Urgent Care Visit Yvette Baileyraulito justice [facility] Start: 04-02-2023 End: 04-02-2023 ambulatory Yvette Bazan Other [facility] Other Start: 02-05-2023 End: 02-05-2023 ambulatory Kelly Lee Other [facility] Other Start: 02-05-2023 Telephone encounter Kelly Kan [facility] [place] Start: 11-25-2022 End: 11-25-2022 ambulatory Kelly Lee Other [facility] Other Start: 11-25-2022 Telephone encounter Kelly CABELLO G [facility] [place] Start: 11-08-2022 End: 11-08-2022 ambulatory Yelena Dominguez Other [facility] Other Start: 11-08-2022 Office outpatient vi sit 15 minutes Yelena Dominguez [facility] Start: 10-24-2022 End: 10-24-2022 ambulatory Kelly Lee Other [facility] Other Start: 10-24-2022 Telephone encounter Kelly CABELLO [facility] [place] Start: 09-09-2022 End: 09-09-2022 ambulatory Kelly Lee Other [facility] Other Start: 09-09-2022 Office outpatient vi sit 25 minutes Kelly Lee [facility] [place] Start: 12-17-2021 End: 12-17-2021 ambulatory Sawyer Styles Facility:[facility] Start: 12-17-2021 End: 12-17-2021 Admission to same day surgery center DO Kelly Lee Work Phone: [facility] Start: 12-17-2021 End: 12-17-2021 ambulatory DO Kelly Lee Work Phone: [facility] Work Phone: Start: 12-13-2021 End: 12-13-2021 ambulatory Sawyer Styles Facility:[facility] Start: 12-13-2021 End: 12-13-2021 ambulatory DO Kelly Lee Work Phone: [facility] Work Phone: Start: 12-13-2021 End: 12-13-2021 Patient encounter procedure DO Kelly Lee Work Phone: [facility] Start: 11-28-2021 End: 11-28-2021 ambulatory Kelly Lee Other [facility] Other Start: 11-28-2021 Telephone encounter Kelly Kan [facility] [place] Start: 11-15-2021 End: 11-15-2021 ambulatory Kelly Lee Other [facility] Other Start: 11-15-2021 Telephone encounter Kelly Kan [facility] [place] Start: 11-07-2021 End: 11-07-2021 ambulatory Sawyer Styles Other [facility] Other Start: 11-07-2021 Telephone encounter Sawyer Kan [employer] Start: 10-15-2021 End: 10-15-2021 ambulatory Kelly Lee Other [facility] Other Start: 10-15-2021 Telephone encounter Kelly CABELLO G [facility] [place] Start: 10-02-2021 End: 10-02-2021 ambulatory Kelly Lee [facility] [employer] Other Start: 10-02-2021 Office outpatient vi sit 25 minutes Kelly Lee [facility] [place] Start: 10-02-2021 Telephone encounter Kelly CABELLO G [facility] [place] Start: 10-02-2021 End: 10-02-2021 Patient encounter procedure DO Kelly Lee Work Phone: [facility] Start: 03-13-2021 End: 03-13-2021 ambulatory KELLY LEE Facility:[facility] Start: 03-12-2021 End: 03-12-2021 ambulatory KELLY LEE Facility:[facility] Start: 03-07-2021 End: 03-07-2021 ambulatory Kelly Lee Facility:[facility] Start: 12-31-2016 End: 12-31-2016 Ambulatory BALAJI RUIZ [facility] Procedures Date Procedure Procedure Detail Performing Clinician Start: 12-17-2021 Screening colonoscopy D O Kelly Lee Work Phone: Start: 10-02-2021 Plain X-ray of left hip DO Kelly Lee Work Phone: Start: 10-02-2021 Plain X-ray of right shoulder DO Kelly Lee Work Phone: SARS Antigen (LFIA) DO Destiny marcial Lee Work Phone: Plan of Treatment Date Care Activity Detail Author Start: 10-21-2023 Patient referral [facility] Work Phone: Start: 12-17-2021 [facility] Patient Education Diverticulosis (DC) [facility] Work Phone: Patient referral [facility] Work Phone: Immunizations Immunization Date Immunization Notes Care Provider Fa cyndi 12-07-2020 COVID-19 Vaccine Mod james - Documentation Purposes Only Kelly Lee Other [facility] 12-07-2020 influenza, seasonal, injectable Kelly Lee Other [facility] 11-02-2020 COVID-19 Vaccine Mod james - Documentation Purposes Only Kelly Lee Other [facility] Payers Date Payer Category Payer [employer] ( and others) [id number] 2021 Self-pay [id number] 1970 Unknown [id number] 1970 Unknown [id number] 1971 Unknown [id number] 1971 Unknown [id number] 1971 Unknown [id number] 1959 [employer] ( and others) [id number] Unknown [id number] Unknown [id number] Unknown [id number] Unknown [id number] Social History Date Type Detail Facility Sex Assigned At [facility] Other Start: 05-16-2018 End: 12-17-2021 Tobacco smoking status NHIS Smoker (finding) [facility] Start: 1970 Sex Assigned At Female F [facility] Goals Date Patient Goal Desired Activity /State Clinical Notes 09-14-2009 to 10-21-2023 Note Date & Type Note Facility 10-21-2023 Hospital Discharg e instructions Ambulatory OrdersReferral to Orthopedic Surgery Time Frame: 10/21/23, Location: None Selected [facility] Work Phone: 04-02-2023 Evaluation note Encounter Date Diagnosis Assessment Notes Mar, Right otitis media, unspecified otitis media type (ICD-10 - H66.91) Plenty fluids, get plenty of rest. Take the amoxicillin and prednisone as prescribed until gone. Use the albuterol inhaler as prescribed as needed for cough or shortness of breath. Take the benzonatate capsules as prescribed as needed for cough. Use your Flonase inhaler as prescribed until your symptoms improved. Take Tylenol or Motrin for aches pains or fevers. Follow-up with your family physician if no improvement in 2 to 3 days Mar, Acute sinusitis, recurrence not specified, unspecified location (ICD-10 - J01.90) Mar, Acute bronchitis, unspecified organism (ICD-10 - J20.9) Mar, Contact with and (suspected) exposure to covid-19 (ICD-10 - Z20.822) [facility] Other 11-22-2023 Evaluation note* Encounter Date Diagnosis Assessment Notes Treatment Notes Treatment Clinical Notes Jan, Type 2 diabetes mellitus with hyperglycemia, without long-term current use of insulin (ICD-10 - E11.65) [facility] Other 08-25-2023 Evaluation note* Encounter Date Diagnosis Assessment Notes Treatment Notes Treatment Clinical Notes Oct, Shortness of breath (ICD-10 - R06.02) Oct, COVID-19 (ICD-10 - U07.1) Rapid COVID-positive in office. Discussed viral nature of COVID and typical duration. Discussed possible option of antiviral medication versus possible side effects of medication interactions with current medications. Patient declines antiviral medication at this time. Patient is advised to use symptomatic treatment such as Tylenol, ibuprofen, Mucinex DM. Discussed new quarantine guidelines of 5 days, additional 5 days of a mask as long as symptoms have improved and fever free. Work note provided. Patient is advised to follow-up with family doctor if not improving over the next 7 to 10 days, ER if any severe shortness of breath, chest pain, severe worsening symptoms. Patient verbalized understanding of treatment plan. [facility] Other 06-26-2023 Evaluation note* Encounter Date Diagnosis Assessment Notes Treatment Notes Treatment Clinical Notes Aug, Type 2 diabetes mellitus with hyperglycemia, without long-term current use of insulin (ICD-10 - E11.65) After discussion, she would like to see if Trulicity will help her sugars and cause less nausea than Bydureon Aug, Essential (primary) hypertension (ICD-10 - I10) After discussion, we are hoping she will tolerate Trulicity and that it will help her lose weight, which will help her blood pressure control Aug, Mixed hyperlipidemia (ICD-10 - E78.2) Continue statin therapy Aug, Mild episode of recurrent major depressive disorder (ICD-10 - F33.0) After discussion, she would like to increase the bupropion to 300 mg daily. She will continue with her good support structure and she will call if she has any side effects, or lack of benefit with the dose change Aug, Acquired hypothyroidism (ICD-10 - E03.9) We will call with lab results [facility] Other 10-03-2022 Procedure [facility]08-24-2022 Evaluation note* Encounter Date Diagnosis Assessment Notes Treatment Notes Treatment Clinical Notes Oct, Screening for colon cancer (ICD-10 - Z12.11) [facility] Other 07-19-2022 Evaluation note* Encounter Date Diagnosis Assessment Notes Treatment Notes Treatment Clinical Notes Sep, Type 2 diabetes mellitus with other circulatory complications (ICD-10 - E11.59) She does not tolerate metformin, so we discussed Jardiance and the possible side effects, she would like to proceed. We discussed that dietary changes will also help Sep, Mild episode of recurrent major depressive disorder (ICD-10 - F33.0) Referral sent Sep, Mixed hyperlipidemia (ICD-10 - E78.2) Again, she needs to take a statin because of her history of type 2 diabetes and elevated cholesterol. She previously had intolerable myalgias with a atorvastatin and pravastatin Sep, Acquired hypothyroidism (ICD-10 - E03.9) Sep, Screening for colon cancer (ICD-10 - Z12.11) Discussed need for colon cancer screening, referral sent Sep, Encounter for screening mammogram for malignant neoplasm of breast (ICD-10 - Z12.31) New order sent for mammogram Sep, Acute pain of right shoulder (ICD-10 - M25.511) Given her pain and restricted range of motion, we need to proceed with imaging. She can continue naproxen [id number] and I advised her to start icing. If x-ray is negative, we will plan to send her to physical therapy. She would like to go to [facility] in [place] Sep, Left hip pain (ICD-1 0 - M25.552) We will call with x-ray results Sep, Essential (primary) hypertension (ICD-10 - I10) Blood pressure remained elevated on recheck, we will continue current medications because the Jardiance will likely help decrease her systolic blood pressure [employer] [facility] Other 07-01-2010 History general Narrative - Reported* Type Description Date Medical History DM2 Medical History Hyperlipidemia Medical History HTN Medical History hypothyroidism Surgical History Bilateral ACL repair 09/2009 & 1 04/2009 Surgical History Breast Biopsy 2014 Surgical History Partial Hyst 2006 Surgical History 2000 Surgical History Etopic 1993 Surgical History D&C - Miscarriage [id number] Surgical History TEETH EXTRACTION X2 07/2017 Hospitalization History SEE ABOVE SURGICAL HX [facility] Other Evaluation noteNo InformationNort Codenvy Other Evaluation noteNo assessment information available [facility] Work Phone: Evaluation note* Diagnosis Onset Date Resolution Status Acute maxillary sinusitis, unspecified acute [facility] Work Phone: History and physical note Author Sawyer Styles [facility] December 17, 2021 8:42am Note Date/Time December 17, 2021 8: 42am [facility] [address] [place] [address] Gastroenterology H&P Signed Patient: Larry Brock MR# : [id number] : 1970 Acct:[id number] Age/Sex: 51 / F Adm Date: 2 Loc: Room: Type: [facility] Attending Dr: Sawyer Styles MD Copies to: MD Kelly Mcintyre, ~ Date of Service: 12/17/2021 HISTORY & PHYSICAL: Patient's history with special attention to the cardiovascular, pulmonary systems and the current problem was reviewed with the patient immediately prior to the procedure. Present medications and doses reviewed in the EMR. Allergies and pertinent laboratory tests were also reviewedat this time in the EMR. The physical examination, as below, was then performed. Indication, assessment and HPI: 51-year-old female presents for screening colonoscopy Family history of GI malignancy? No PHYSICAL EXAMINATION Mouth and Pharynx : Moist mucus membranes, normal dentition Cardiac: Regular rate, regular rhythm Pulmonary: Clear to auscultation bilaterally, no wheezing Neurological: Alert and oriented x3, no focal deficits noted Abdomen: Abdomen soft, non-tender REVIEW OF SYSTEMS Constitutional: Denies malaise, fevers Cardiovascular: Denies chest pain, palpitations Respiratory: Denies shortness of breath, wheezing Gastrointestinal: Per HPI Genitourinary: Denies dysuria, polyuria Musculoskeletal: Denies joint swelling, joint stiffness Neurological: Denies numbness, tingling Integumentary: Denies rashes, skin lesions Endocrine: Denies fatigue, weight loss Written informed consent obtained from the patient. Risks (including but not limited to perforation, infection, bloating, bleeding, need for emergent surgeryand loss of life), benefits and alternatives explained and questions answered. The patient verbalized understanding. Based on history patient is an appropriate candidate for the procedure. Sawyer Styles MD Documented By: Sawyer Styles MD 12/17/21841 Signed By: <Electronically signed by Sawyer Styles MD> 12/17/21841 [facility] Work Phone: Hospital Discharge instructions Additional Instructions DISCHARGE INSTRUCTIONS FOR COLONOSCOPY WHAT TO EXPECT: - You may feel full, gassy or cramping after your procedure. In some cases, this may be from a few hours to a day. Walking may help relieve the discomfort. - If you have polyp(s) removed you may note some minor bloody discharge after your first bowel movements. - You should begin to recover from anesthesia within 1 hour of the procedure, however may feel groggy for the next 24 hours. DO's AND DON'Ts: - Call your doctor right away if you have a hard abdomen, severe pain, are passing lots of bright red blood or clots. - Call your doctor if you develop any rashes, hives or difficulty breathing. - Let your doctor know if you have not had a bowel movement by 3 days after your procedure. - If you take 81 mg aspirin for your heart it is safe to resume this medication. - If you take other blood thinner medications your doctor will instruct you when these can safely be resumed. - Do NOT drive for 24 hours. - Do NOT operate machinery such as power tools, lawn mowers, snow blowers, sewing machines, etc. for 24 hours. - Avoid alcoholic beverages and drugs for allergies, nerves, or sleep. - Do NOT stay alone. Do NOT leave your child unattended. - Do NOT make important personal or business decisions or sign any legal documents. - Eat solid foods and drink liquids in smaller amounts than usual until normal appetite returns. If you should experience an upset stomach, liquids high in sugar content (soda, Micky-Aid, non-acid juices) are recommended. - You can resume normal activities tomorrow. FOLLOW UP & RECOMMENDATIONS: - Follow-up with Dr. Styles as needed - Notify the doctor if you have any problems. - Repeat colonoscopy in 10 years. - Follow up with PCP. - Office number [phone].[facility] Work Phone: Summary Purpose Family History No Family History Records Found Relationship Condition Age at Onset Recorded Date/T irish Not Specified No pertinent family history Unknown Relationship Condition Age at Onset Recorded Date/T irish Not Specified No pertinent family history Unknown father History of stroke Unknown Hypertension Unknown Unknown Not Specified Hypertension Unknown Relationship Condition Age at Onset Recorded Date/T irish Not Specified No pertinent family history Unknown father History of stroke Unknown Hypertension Unknown Unknown mother Hypertension Unknown Advance Directives No Advanced Directives Records Found Advance Directive Response Recorded Date/ Time Advance Directives No April 11, 2017 6:31pm Reason for Referral Reason * FU 10/09 depress ion Diagnosis 1 Mild episode of recu rrent major depressive disorder (F33.0) Referral Organization [facility] Family Medicin ann marie Quintana Referring Provider First Name Kelly Referring Provider Last Name Yasmani Referring Provider Specialty Family Prac jorden Referred Organization [facility] [place] Referred Address [address],[facility],[place],[address] Referred Provider Specialty Licensed Doretha shay Comber Fixer Referral Priority Routine General Notes Larry Shepard 03:19:19 PM >referral received. Per [employer], Referral to [facility] is approved Auth/Order#[id number] ( auth attached to referral). Referral faxed. for pt to call me as Nayana Sunita is not approved with [employer] and had to send to above. Reason * Waiting for appt screening colonoscopy Diagnosis 1 Screening for colon cancer (Z12.11) Referral Organization [facility] Family Medicin ann marie Quintana Referring Provider First Name Kelly Referring Provider Last Name Yasmani Referring Provider Specialty Family Reilly jorden Referred Organization [facility] Gastroenterolo gy Referred Provider Sawyer Styles Referred Address [address] [facility] [facility] [address] ,[place], [place],[address] Referred Provider Specialty Gastroentero logy Referral Priority Routine General Notes Larry Shepard 02:50:30 PM >referral received, per [employer], no auth is required, pt is enrolled in prime. referral sent p2p successful per log Chief Complaint and Reason for Visit Chief Complaint labs and xray Screening Chief Complaint labs and xray Screening Screening Chief Complaint Amb Documentation Congestion Chief Complaint Amb Documentation Congestion Reason for Visit Acute maxillary sinu sitis, unspecified Additional Source Comments INFORMATION SOURCE (unrecogn ized section and content) DATE CREATED AUTHOR 09/12/2017 [facility] DATE CREATED AUTHOR AUTHOR'S ORGANIZ ATION 03/21/2021 [facility] DATE CREATED AUTHOR AUTHOR'S ORGANIZ ATION 12/21/2021 [facility] DATE CREATED AUTHOR AUTHOR'S ORGANIZ ATION 11/03/[address] [facility] dical Specialists EPIC REASON FOR VISIT (unrecogniz ed section and content) FELL AND HURT HIP AND ARM - a1c office, She was doing a mud run and fell while going through water. Fell onto right arm then onto left leg. This was Friday., Thinks her antidepressant needs increasedNo InformationCounseling ReferralEMAIL PPWcovid positivemed [id number] CHECK/DISCUSS DEPRESSION AND ANXIETYunable to get ahold ofPOSITIVE HOME COVID TEST, CONGESTION, COUGHpost covidJardianceSINUS CONGESTION, SORE THROAT, EAR PAIN, COUGH Care Teams (unrecognized sec tion and content) Team Status: Inactive Member Role Status Dates Kelly Lee , DO Primary Care Provider Active Sawyer Styles MD Attending Provider Active Team Status: Inactive Member Role Status Dates Kelly Lee , Primary Care Provider, Attending Provider Active Team Status: Active Member Role Status Dates Kelly Lee , Primary Care Provider Active Team Status: Active Member Role Status Dates Kelly Lee , Primary Care Provider Active Start: July 24, 2023 Judy Godwin CMA Attending Provider Active S tart: July 24, 2023 Team Status: Inactive Member Role Status Dates Kelly Lee DO Primary Care Provider Active Start: August 26, 2023 End: August 26, 2023 Yelena Dominguez APRN Attending Provider Active Start: August 26, 2023 End: August 26, 2023 Team Status: Active Member Role Status Dates Kelly Lee DO Primary Care Provid er, Attending Provider Active Start: October 21, 2023 Goals (unrecognized section and content) Goals may be documented in a n alternate section FOR RECORDS PERTAINING TO PATIENTS WHO ARE OR HAVE BEEN ENROLLED IN A CHEMICAL DEPENDENCY/SUBSTANCEABUSE PROGRAM, SOME INFORMATION MAY BE OMITTED. This clinical summary was aggregated from multiple sources. Caution should be exercised in using it in the provision of clinical care. This summary normalizes information from multiple sources, and as a consequence, information in this document may materially change the coding, format and clinical context of patient data. In addition, data may be omitted in some cases. CLINICAL DECISIONS SHOULD BE BASED ON THE PRIMARY CLINICAL RECORDS. [employer] provides no warranty or guarantee of the accuracy or completeness of information in this document.
--- NOTE | 2023-11-07 07:26 | FL_ITS ---
[address] [address] Patient Name: LARRY MCDONOUGH MRN: [id number] date: 1970 Sex: F Assigned Patient Location: MRI Current Patient Location: MRI Accession/Order Number: [id number] Exam Date: 11/07/2023 07:40 Report Date: 11/07/2023 09:00 At the request of: TARAS CONTRERAS Procedure: FL guided needle placement EXAMINATION: FL arthrogram hip, FL guided needle placement HISTORY: Left Hip Impingement Syndrome COMPARISON: No relevant comparison available. TECHNIQUE: An arthrogram was performed under fluoroscopic guidance using non-ionic contrast material in the usual sterile manner after obtaining informed consent. Standard level fluoroscopic mode of operation utilized. 1.55 minutes of fluoroscopy. 17.08 mgy FINDINGS: JOINT: Left hip NEEDLE: 25 gauge, 3.5 spinal needle. MEDICATION: 8 cc buffered 1% lidocaine for subcutaneous anesthesia 5 cc Omnipaque 240. 5 cc 1% buffered lidocaine. 40 mg Kenalog. Dotarem 0.2 mL. TECHNIQUE: Anterior approach with prior localization of the femoral artery. 3 sticks were required in gaining access to the joint space. CLINICAL: Immediate and near complete resolution of hip pain following the injection. COMPLICATIONS: None. BONES: Normal. No erosion, osteophyte, fracture, or bony lesion. CARTILAGE: Normal. No visible erosion or interruption. CAPSULE: Normal. No visible capsular laxity or labrum tear. COLLIN-ARTICULAR: Normal. No visible collin-articular soft tissue abnormality. LOOSE BODIES: None. OTHER: Negative. PLEASE ALSO SEE THE SEPARATE ARTHROGRAM PROCEDURE REPORT. FL/FL guided needle placement IMPRESSION: Technically successful left hip arthrogram Electronically authenticated by: LUIS ST Date: 11/07/2023 09:00
--- NOTE | 2023-11-07 07:26 | FL_ITS ---
The [address] [address] Patient Name: LARRY MCDONOUGH MRN: [id number] date: 1970 Sex: F Assigned Patient Location: MRI Current Patient Location: MRI Accession/Order Number: [id number] Exam Date: 11/07/2023 07:40 Report Date: 11/07/2023 09:00 At the request of: TARAS CONTRERAS Procedure: FL arthrogram hip EXAMINATION: FL arthrogram hip, FL guided needle placement HISTORY: Left Hip Impingement Syndrome COMPARISON: No relevant comparison available. TECHNIQUE: An arthrogram was performed under fluoroscopic guidance using non-ionic contrast material in the usual sterile manner after obtaining informed consent. Standard level fluoroscopic mode of operation utilized. 1.55 minutes of fluoroscopy. 17.08 mgy FINDINGS: JOINT: Left hip NEEDLE: 25 gauge, 3.5 spinal needle. MEDICATION: 8 cc buffered 1% lidocaine for subcutaneous anesthesia 5 cc Omnipaque 240. 5 cc 1% buffered lidocaine. 40 mg Kenalog. Dotarem 0.2 mL. TECHNIQUE: Anterior approach with prior localization of the femoral artery. 3 sticks were required in gaining access to the joint space. CLINICAL: Immediate and near complete resolution of hip pain following the injection. COMPLICATIONS: None. BONES: Normal. No erosion, osteophyte, fracture, or bony lesion. CARTILAGE: Normal. No visible erosion or interruption. CAPSULE: Normal. No visible capsular laxity or labrum tear. COLLIN-ARTICULAR: Normal. No visible collin-articular soft tissue abnormality. LOOSE BODIES: None. OTHER: Negative. PLEASE ALSO SEE THE SEPARATE ARTHROGRAM PROCEDURE REPORT. FL/FL arthrogram hip IMPRESSION: Technically successful left hip arthrogram Electronically authenticated by: LUIS ST Date: 11/07/2023 09:00
[2023-11-07] MEDS: TRIAMCINOLONE ACETONIDE 40 MG/ML VIAL INJ (08:20)
[2023-11-07] MEDS: LIDOCAINE HCL 15 ML, SODIUM BICARBONATE 2 MEQ INJ (08:20)
--- NOTE | 2023-11-07 09:15 | SUR.PREOP ---
11/03/23 Instructed pt on procedure, date, time, and prep.
--- NOTE | 2023-11-07 09:21 | PC.NURSE ---
0830 Pt getting dressed and moving around but does c/o sharp pain in left anterior hip when raising her leg. Similar to pre procedure assessment.
== END 2023-11-07 08:40 | disposition home or self-care (01) ==
LOC: MRI 07:21
PROVIDERS: Radiology Diagnostic Radiology; PCP Family Medicine; Visit Provider Personal Emergency Response Attendant
DX: M25.852 Other specified joint disorders, left hip (principal)
CPT/HCPCS: 27093; 73722; 77002; A9575; J3301; Q9966

== ENCOUNTER 2023-12-15 10:20 | Emergency (ER) | payer OTHER, SELFPAY ==
[2023-12-15 10:37] VITALS: BP 168/83; PULSE 61; TEMP 37; O2SAT 95; BMI 42.1
--- NOTE | 2023-12-15 11:03 | ED.EXTPRO1 ---
HPI - Extremity Problem General Chief complaint: Extremity Problem, Nontraumatic Stated complaint: HIP PAIN/LEG PAIN Time Seen by Provider: 12/15/23 10:57 Source: patient Mode of arrival: walk-in Limitations: no limitations History of Present Illness HPI Narrative: 53-year-old female presents to the emergency department for left hip pain. This is an ongoing issue for her and she has had it for months. She is seen an orthopedist and has had MRI and injections. She talked to her orthopedist today who suggested she come to the emergency department. No new injury. The pain is moderate to severe and worse when she moves. Related Data Home Medications ?Medication ?Instructions ?Recorded ?Confirmed amlodipine 5 mg tablet 5 mg PO DAILY 11/01/22 11/07/23 bupropion HCl 300 mg 24 hr tablet, 300 mg PO DAILY 11/01/22 11/07/23 extended release citalopram 40 mg tablet 40 mg PO DAILY 11/01/22 11/07/23 dulaglutide 0.75 mg/0.5 mL 0.75 mg subcut .weekly 11/01/22 11/07/23 subcutaneous pen injector (Trulicity) empagliflozin 10 mg tablet 10 mg PO DAILY 11/01/22 11/07/23 (Jardiance) lisinopril 40 mg tablet 20 mg PO DAILY 11/01/22 11/07/23 metoprolol succinate 100 mg 100 mg PO DAILY 11/01/22 11/07/23 tablet,extended release 24 hr ibuprofen 600 mg tablet 600 mg PO TID PRN pain 11/03/23 11/07/23 Previous Rx's ?Medication ?Instructions ?Recorded albuterol sulfate 90 mcg/actuation 2 inh inhalation Q4H PRN shortness 11/12/22 aerosol inhaler of breath or wheezing #8.5 grams hydrocodone 5 mg-acetaminophen 325 1 tab PO Q6H PRN pain 5 days #20 12/15/23 mg tablet tabs Allergies Allergy/AdvReac Type Severity Reaction Status Date / Time meperidine [From Demerol] Allergy Severe throat Verified 12/15/23 10:37 closing Review of Systems ROS Narrative A ten point review of systems is negative except as noted above. [facility] Medical History (Updated 12/15/23 @ 11:51 by Sam Parham MD) HTN (hypertension) ?I10 - Essential (primary) hypertension (ICD-10) High cholesterol ?E78.00 - Pure hypercholesterolemia, unspecified (ICD-10) Neuropathy ?G62.9 - Polyneuropathy, unspecified (ICD-10) Diabetes ?E11.9 - Type 2 diabetes mellitus without complications (ICD-10) Depression ?F32.A - Depression, unspecified (ICD-10) COVID ?U07.1 - COVID-19 (ICD-10) Hip pain, left ?M25.552 - Pain in left hip (ICD-10) Surgical History (Updated 11/03/23 @ 15:26 by Felicitas Thompson) Hx of exploratory laparotomy ?Z98.890 - Other specified postprocedural states (ICD-10) H/O: hysterectomy ?Z90.710 - Acquired absence of both cervix and uterus (ICD-10) H/O dilation and curettage ?Z98.890 - Other specified postprocedural states (ICD-10) History of colposcopy ?Z98.890 - Other specified postprocedural states (ICD-10) Previous section ?Z98.891 - History of uterine scar from previous surgery (ICD-10) History of repair of anterior cruciate ligament of right knee ?Z98.890 - Other specified postprocedural states (ICD-10) History of repair of anterior cruciate ligament of left knee ?Z98.890 - Other specified postprocedural states (ICD-10) Social History Smoking status: Heavy tobacco smoker Little interest or pleasure in doing things: not at all Feeling down, depressed, or hopeless: not at all Exam Narrative Exam Narrative: Nurses note and vital signs reviewed and patient is not hypoxic. General: The patient appears uncomfortable. Skin: Warm, dry, no pallor noted. There is no rash noted. Head: Normocephalic, atraumatic Eye: Normal conjunctiva, no drainage Ears, Nose, Mouth, and Throat: oral mucosa is moist. Nares patent. Cardiovascular: Regular Rate and Rhythm Respiratory: Patient is in no distress, no accessory muscle use, lungs are clear to auscultation, no wheezing, rales or rhonchi Back: non-tender GI: Soft and nontender Musculoskeletal: The left hip is examined. No erythema bruise or rash. Neurological: Awake and alert Psychiatric: Cooperative Constitutional Vital Signs, click to edit/add: Last Vital Signs Temp 98.6 F 12/15/23 10:37 Pulse 61 12/15/23 10:37 Resp 16 12/15/23 10:37 BP 168/83 H 12/15/23 10:37 Pulse Ox 95 12/15/23 10:37 O2 Del Method Room Air 12/15/23 10:37 Course Vital Signs Vital signs: Vital Signs Temperature 98.6 F 12/15/23 10:37 Pulse Rate 61 12/15/23 10:37 Respiratory Rate 16 12/15/23 10:37 Blood Pressure 168/83 H 12/15/23 10:37 Pulse Oximetry 95 12/15/23 10:37 Oxygen Delivery Method Room Air 12/15/23 10:37 Temperature 98.6 F 12/15/23 10:37 Pulse Rate 61 12/15/23 10:37 Respiratory Rate 16 12/15/23 10:37 Blood Pressure 168/83 H 12/15/23 10:37 Pulse Oximetry 95 12/15/23 10:37 Oxygen Delivery Method Room Air 12/15/23 10:37 MDM - Extremity (Nontraumatic) MDM Narrative Medical decision making narrative: She was given a IM morphine and Solu-Medrol and is feeling improved. A prescription was sent for [place] and she will follow-up with her established orthopedist. Treatment diagnosis and follow-up were discussed with the patient. Differential Diagnosis Differential diagnosis: Likely other (Chronic hip pain, hip arthritis, bursitis) Discharge Plan Discharge Chief Complaint: Extremity Problem, Nontraumatic Clinical Impression: Hip pain, left Patient Disposition: Home, Self-Care Time of Disposition Decision: 11:51 Condition: Good Mode of Transportation: Private Vehicle Prescriptions / Home Meds: New hydrocodone-acetaminophen 5-325 mg tablet 1 tab PO Q6H PRN (Reason: pain) 5 Days Qty: 20 0RF No Action amlodipine 5 mg tablet 5 mg PO DAILY bupropion HCl 300 mg tablet extended release 24 hr 300 mg PO DAILY citalopram 40 mg tablet 40 mg PO DAILY Trulicity 0.75 mg/0.5 mL pen injector 0.75 mg SUBCUT .weekly Jardiance 10 mg tablet 10 mg PO DAILY lisinopril 40 mg tablet 20 mg PO DAILY metoprolol succinate 100 mg tablet extended release 24 hr 100 mg PO DAILY albuterol sulfate 90 mcg/actuation HFA aerosol inhaler 2 inh inhalation Q4H PRN (Reason: shortness of breath or wheezing) Qty: 8.5 0RF ibuprofen 600 mg tablet 600 mg PO TID PRN (Reason: pain) Print Language: Tunisian Instructions: Hip Pain (ED) Referrals: Kingsley Mosqueda DO [Primary Care Provider] - 1 week
[2023-12-15] MEDS: MORPHINE SULFATE 4 MG/ML VIAL 10 MG IM (11:15)
[2023-12-15] MEDS: METHYLPREDNISOLONE SOD SUCC PF 125 MG/2 ML VIAL IM (11:15)
--- OUTSIDE RECORDS SUMMARY | 2023-12-15 11:46 | XMS_ITS | CCD ---
Author Organization [facility] Care Team Providers Care Combo Welder Name Role Phone BALAJI RUIZ Unavailable Unavailable KELLY LEE Unavailable UnavailELIZABETH Everett ([place]) Unavailable Unavai KELLY Al Primary Care Unavailable KELLY LEE Admitting Unavailable KELLY LEE Attending Unavailable KELLY LEE Consulting Unavailable KELLY LEE Primary Care Unavailable KELLY LEE Admitting Unavailable KELLY LEE Attending Unavailable KELLY LEE Consulting Unavailable Kelly Lee Unavailable Sawyer Styles Unavailable DO Kelly Lee Primary Care Provider DO Kelly Lee Attending Provider MD Sawyer Styles Attending Provider Kelly Lee Primary Care Unavailable Jeremiah Lomax Admitting Unavailable Jeremiah Lomax Attending Unavailable Kelly Lee Attending Unavailable Kelly Lee Admitting Unavailable Kelly Lee Primary Care Unavailable Sawyer Styles Admitting Unavailable Sawyer Styles Attending Unavailable Kelly Lee Primary Care Unavailable Sawyer Styles Admitting Unavailable Sawyer Styles Attending Unavailable Kelly Lee Primary Care Unavailable Yelena Dominguez Unavailable Yvette Bazan Unavailable TYRA BADILLO Referring Unavailable KELLY LEE Referring Unavailable TARAS CONTRERAS Attending Unavailable TARAS CONTRERAS Referring Unavailable JR. BADILLO GEORGE C Attending Unavaila ble JR. BADILLO GEORGE C Referring Unavaila ble Allergies Allergy Classification Reported Allergen(s) Allergy Type Date of Onset Reaction(s) Facility (14 sources) atorvastatin Drug Allergy 08-26-2023 myalgias [facility] (14 sources) Meperidine Drug Allergy 08-26-2023 anaphylaxis [facility] (14 sources) metFORMIN Drug Allergy 08-26-2023 GI issues [facility] (14 sources) Pravastatin Drug Allergy 08-26-2023 myalgias [facility] (1 source) Meperidine Drug Allergy 2018 [facility] Repository Medications Current Medications Medication Drug Class(es) Dates Sig (Normalized) Sig (Original) [id number] actuat albuterol 0.09 mg/actuat metered dose [...] every four to six hours Hydrocodone-Acetami nophen ([place]) 5-325 mg Tablet Discontinued 1 TAB PO [...] Active Problems Problem Classification Problem Date Documented Da te Episodic/Chronic Acute bronchitis (1 source) Acute bronchitis, [...] source) Otitis media, unspecified, right ear Episodic Peripheral and visceral atherosclerosis (1 source) Peripheral vascular disease, unspecified; Translations: [Peripheral vascular disease, unspecified] Onset: 12-01-2023 Chronic Spondylosis; intervertebral disc disorders; other back problems [...] Test Name Value Interpretation Reference Range Facility CBC AND AUTO DIFFon 12-01-19 ABSOLUTE BASOPHIL 0.1 X10E9/L Normal 0.0-0.2 [facility] Comment on above: Performed By: #### Son BEAVER, 44181-7, 1987-07 #### [facility] ([id number]) [address] [place] [address] ABSOLUTE NEUTROPHIL 4.1 X10E9/L Normal 1.5-6.6 [facility] Comment on above: Performed By: #### Son BEAVER, 63031-4, 1987-07 #### [facility] ([id number]) [address] [place] [address] Basophils/100 WBC (Bld) 2.3 % Normal [facility] Comment on above: Performed By: #### Son BEAVER, 74741-7, 1987-07 #### [facility] ([id number]) [address] [place] [address] Eosinophils (Bld) [#/Vol] 0.2 10*3/uL Normal 0.0-0.4 [facility] Comment on above: Performed By: #### Son BEAVER, 75768-9, 1987-07 #### [facility] ([id number]) [address] [place] [address] Eosinophils/100 WBC (Bld) 2.8 % Normal [facility] Comment on above: Performed By: #### Son BEAVER, 75060-4, 1987-07 #### [facility] ([id number]) [address] [place] [address] Erythrocyte distribution width (RBC) [Ratio] 13.1 % Normal 11.5-15.0 [facility] Comment on above: Performed By: #### Son BEAVER, 90210-7, 1987-07 #### [facility] ([id number]) [address] [place] [address] Hematocrit (Bld) [Volume fraction] 45.3 % Normal 35-47 [facility] Comment on above: Performed By: #### Son BEAVER, 79057-1, 1987-07 #### [facility] ([id number]) [address] [place] [address] Hemoglobin (Bld) [Mass/Vol] 15.4 g/dL Normal 11.7-15.5 [facility] Comment on above: Performed By: #### Son BEAVER, 42079-1, 1987-07 #### [facility] ([id number]) [address] [place] [address] Lymphocytes (Bld) [#/Vol] 1.6 10*3/uL Normal 1.0-3.5 [facility] Comment on above: Performed By: #### Son BEAVER, 82121-1, 1987-07 #### [facility] ([id number]) [address] [place] [address] Lymphocytes/100 WBC (Bld) 25.3 % Normal [facility] Comment on above: Performed By: #### Son BEAVER, 65176-2, 1987-07 #### [facility] ([id number]) [address] [place] [address] MCH (RBC) [Entitic mass] 32.7 pg Normal 27-34 [facility] Comment on above: Performed By: #### Son BEAVER 76643-2, 1987-07 #### [facility] ([id number]) [address] [place] [address] MCHC (RBC) [Mass/Vol] 33.9 g/dL Normal 32-36 [facility] Comment on above: Performed By: #### Son BEAVER 26423-8, 1987-07 #### [facility] ([id number]) [address] [place] [address] MCV (RBC) [Entitic vol] 97 fL Normal 80-100 [facility] Comment on above: Performed By: #### Son BEAVER 32642-3, 1987-07 #### [facility] ([id number]) [address] [place] [address] Monocytes (Bld) [#/Vol] 0.4 10*3/uL Normal 0-0.9 [facility] Comment on above: Performed By: #### Son BEAVER 57583-9, 1987-07 #### [facility] ([id number]) [address] [place] [address] Monocytes/100 WBC (Bld) 6.1 % Normal [facility] Comment on above: Performed By: #### Son BEAVER, 26096-8, 1987-07 #### [facility] ([id number]) [address] [place] [address] Neutrophils/100 WBC (Bld) 63.5 % Normal [facility] Comment on above: Performed By: #### Son BEAVER, 03034-9, 1987-07 #### [facility] ([id number]) [address] [place] [address] Platelet mean volume (Bld) [Entitic vol] 9.7 fL Normal 7-12 [facility] Comment on above: Performed By: #### Son BEAVER, 99723-4, 1987-07 #### [facility] ([id number]) [address] [place] [address] Platelets (Bld) [#/Vol] 173 10*3/uL Normal 150-450 [facility] Comment on above: Performed By: #### Son BEAVER, 16538-8, 1987-07 #### [facility] ([id number]) [address] [address] [facility] [address] [place] [address] RBC COUNT 4.70 X10E12/L Normal 3.80-5.20 [facility] Comment on above: Performed By: #### Son BEAVER, 64765-2, 1987-07 #### [facility] ([id number]) [address] [place] [address] WBC (Bld) [#/Vol] 6.4 10*3/uL Normal 4.0-11.0 [facility] Comment on above: Performed By: #### Son BEAVER, 15582-6, 1987-07 #### [facility] ([id number]) [address] [place] [address] CRP [Mass/Vol]on 12-01-2023 C REACTIVE PROTEIN 0.2 mg/dL Normal 0.000-0.744 [facility] Comment on above: Performed By: #### C BCA, 78822-7, 1987-07 #### [facility] ([id number]) [address] [place] [address] ESR Photometric method (Bld) [Velocity]on 12-01-2023 ESR, ERYTHROCYTE SEDIMENTATION RATE 3 mm/h Normal 0-30 [facility] Comment on above: Performed By: #### C BCA, 96721-9, 1987-07 #### [facility] ([id number]) [address] [place] [address] BI MAMMOGRAM SCREENING TOMOS YNTHESIS BILATERALon 04-25-2023 [...] IS VERY IMPORTANT TO YOUR HEALTH. THE [employer] GUIDELINES RECOMMEND THAT WOMEN 40 [...] (COVID-19) RNA RAKEL+probe Ql (Unsp spec) Negative [facility] Other COVID + FLU Quick Testing Negative [facility] Other COVID Quick Testingon 2022 Result Positive [facility] Other A1C HEMOGLOBINon 09-09-2022 HbA1c (Bld) [Mass fraction] 6.9 % [facility] Other HbA1c (Bld) [Mass fraction]o n 09-09-2022 A1C HEMOGLOBIN [facility] Other Glucose Glucometer (dC) [M ass/Vol]Ordered By: Sawyer Styles on 12-17-2021 Glucose [Mass/Vol] 179 mg/dL [facility] Comment on above: Random Glucose Refer ence Range is dependent on time and content of last meal. Glucose of more than 200 mg/dL in a nonstressed, ambulatory subject supports the diagnosis of Diabetes Mellitus. Glucose Poct Glucometerson 1 Glucose [Mass/Vol] 179 mg/dL Normal [facility] Comment on above: Result Comment: Lapel om Glucose Reference Range is dependent on time and content of last meal. Glucose of more than 200 mg/dL in a nonstressed, ambulatory subject supports the diagnosis of Diabetes Mellitus. PERFORMED BY: [facility] [address] [facility] [place] [address] PATHOLOGIST MATTRESS RENOVATOR SHAY POON M.D. Performed By: #### G LUIRAIDA #### Point of Care testing , COVID-19 [...] developed and its performance characteristic determined by [facility] and validated at [facility]. This test has not been FDA cleared [...] for SARS Antigen by ARAVIND PERFORMED BY: [place] [address] PATHOLOGIST MATTRESS RENOVATOR SHAY POON M.D. Normal [facility] Comment on above: Performed By: #### C OVID-19 BAM, SOFIANEG #### [address] COVID-19 SOFIAOrdered By: Jazmine Styles on 12-13-2021 SARS-CoV+SARS-CoV-2 (COVID-19) Ag IA.rapid Ql (Resp) Negative Negative [facility] Comment on above: This is a duplicate Bam SARS Antigen (ARAVIND) result to be used for statistical tracking purpose only. No Panel InformationOrdered By: Sawyer Styles on 12-13-2021 SARS Antigen (LFIA) [facility] Bam Ag Negativeon 12-14-19 Bam Ag Negative Negative Normal Negative [facility] Comment on above: Result Comment: This is a duplicate Bam SARS Antigen (ARAVIND) result to be used for statistical tracking purpose only. PERFORMED BY: [place] [address] PATHOLOGIST MATTRESS RENOVATOR SHAY POON M.D. Performed By: #### C -19 BAM, SOFIANEG #### [facility] [address] [id number] [facility] A1C HEMOGLOBINon 10-02-2021 HbA1c (Bld) [Mass fraction] 8.8 % [employer] Other Blood hemoglobin measurement (mass/volume)Ordered By: Kelly Lee on 10-02-2021 Hemoglobin (Bld) [Mass/Vol] 14.6 g/dL 11.8-15.4 [facility] Body fluid albumin measureme nt (mass/volume)Ordered By: Kelly Lee on 10-02-2021 Albumin (Body fld) [Mass/Vol] 4.2 g/dL 3.2-5.5 [facility] Cholesterol in LDL Calc [Mas s/Vol]Ordered By: Kelly Lee on 10-02-2021 Cholesterol in LDL [Mass/Vol] 143 mg/dL 0-100 [facility] Comment on above: LDL ATP III CLASSIFI CATIONLDL less than 100 mg/dL OptimalLDL 100-129 mg/dL Near or above optimalLDL 130-159 mg/dL Borderline highLDL 160-189 mg/dL HighLDL greater than 189 mg/dL Very high Cholesterol in VLDL Calc [Ma ss/Vol]Ordered By: Kelly Lee on 10-02-2021 Cholesterol in VLDL [Mass/Vol] 59 mg/dL [facility] Comprehensive Metabolic Pane darrick 10-02-2021 Albumin [Mass/Vol] 4.2 g/dL Normal 3.2-5.[address] 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 Performed By: #### T SH3 wRFLX, CBCNO, CMP, LIPID #### [facility] [address] [id number] [facility] Creatinine [Mass/Vol] 0.44 mg/dL Normal 0.44-1.03 [facility] Comment on above: Order Comment: PT FA STED 12 HRS 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 Performed By: #### T SH3 wRFLX, CBCNO, CMP, LIPID #### [facility] [address] Albumin [Mass/Vol] 4.398440 g/dL Normal 3.2-5.5 g/dL [employer] Other Bilirubin [Mass/Vol] 0.5043155 mg/dL Normal 0.3- 1.2 mg/dL [employer] Other Calcium [Mass/Vol] 9.3879991 mg/dL Normal 8.2-10 .2 mg/dL [employer] Other CO2 [Moles/Vol] 29.21491775 mmol/L Normal 22.0-3 0.0 mmol/L [employer] Other Creatinine [Mass/Vol] 0.97586327 mg/dL Normal 0.44-1.03 mg/dL [employer] Other Potassium [Moles/Vol] 4.14418023 mmol/L Normal 3.5-5.1 mmol/L [employer] Other Protein [Mass/Vol] 6.965945 g/dL Normal 6.1-7.9 g/dL [employer] Other Comprehensive Metabolic Panel > 60 [employer] Other Comprehensive Metabolic Panel 2.7 g/dL [employer] Other Comprehensive Metabolic Pane lOrdered By: Kelly Lee on 10-02-2021 Albumin/Globulin [Mass ratio] 1.6 {ratio} Normal [facility] Comment on above: Order Comment: PT FA STED 12 HRS 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 Performed By: #### T SH3 wRFLX, CBCNO, CMP, LIPID #### [facility] [address] [id number] [facility] ALP [Catalytic activity/Vol] 64 U/L Normal 32-92 [facility] Comment on above: Order Comment: PT FA STED 12 HRS 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 Performed By: #### T SH3 wRFLX, CBCNO, CMP, LIPID #### [facility] [address] [place] [address] [place] AST [Catalytic activity/Vol] 45 U/L High 10-42 [facility] Comment on above: Order Comment: PT FA STED 12 HRS 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 Comment on above: ADA recommended refe rence rangeRandom Glucose Reference Range is dependent on time and content of last meal. Glucose of more than 200 mg/dL in a nonstressed, ambulatory subject supports the diagnosis of Diabetes Mellitus. 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 Glucose of more than 200 mg/dL in a nonstressed, ambulatory subject supports the diagnosis of Diabetes Mellitus. ADA recommended reference range Performed By: #### T SH3 wRFLX, CBCNO, CMP, LIPID #### [facility] [address] Sodium [Moles/Vol] 135 mmol/L Low 136-[address] 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 Performed By: #### T SH3 wRFLX, CBCNO, CMP, LIPID #### [facility] [address] [place] [address] [place] Creatinine and Glomerular fi ltration rate.predicted panel (S/P/Bld)Ordered By: Kelly Lee on 10-02-2021 Creatinine [Mass/Vol] 0.44 mg/dL 0.44-1.03 [facility] Erythrocyte distribution wid th Auto (RBC) [Ratio]Ordered By: Kelly Lee on 10-02-2021 Erythrocyte distribution width (RBC) [Ratio] 12.7 % 11.9-15.3 [facility] Estimated glomerular filtrat ion rate (GFR) non- AmericanOrdered By: Kelly Lee on 10-02-2021 GFR/1.73 sq M.predicted among non-blacks MDRD (S/P/Bld) [Vol rate/Area] > 60 mL/Min [facility] Globulin Calc (S) [Mass/Vol] Ordered By: Kelly Lee on 10-02-2021 Globulin (S) [Mass/Vol] 2.7 g/dL [facility] HbA1c (Bld) [Mass fraction]o n 10-02-2021 A1C HEMOGLOBIN [employer] Other Hematocrit Auto (Bld) [Volum e fraction]Ordered By: Kelly Lee on 10-02-2021 Hematocrit (Bld) [Volume fraction] 42.2 % 34.0-46.4 [facility] Hemogram CBC Without Diffon 10-02-2021 Erythrocyte distribution width (RBC) [Ratio] 12.7 % Normal 11.9-15.3 [facility] Comment on above: Order Comment: Reaso n 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 Performed By: #### T SH3 wRFLX, CBCNO, CMP, LIPID #### [facility] [address] Hematocrit (Bld) [Volume fraction] 42.2 % Normal 34.0-46.4 [facility] Comment on above: Order Comment: Reaso n 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 Performed By: #### T SH3 wRFLX, CBCNO, CMP, LIPID #### [facility] [address] [id number] [place] Hemoglobin (Bld) [Mass/Vol] 14.6 g/dL Normal 11.8-15.4 [facility] Comment on above: Order Comment: Reaso n 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 Performed By: #### T SH3 wRFLX, CBCNO, CMP, LIPID #### [facility] [address] [id number] [facility] MCH (RBC) [Entitic mass] 32.7 pg Normal 24.7-34.3 [facility] Comment on above: Order Comment: Reaso n 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 Performed By: #### T SH3 wRFLX, CBCNO, CMP, LIPID #### [facility] [address] [place] [address] MCV (RBC) [Entitic vol] 94.6 fL Normal 80-100 [facility] Comment on above: Order Comment: Reaso n 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 Performed By: #### T SH3 wRFLX, CBCNO, CMP, LIPID #### [facility] [address] [place] [address] Mean Corpuscular HGB Conc 34.6 g/dL Normal 32.0-35.0 [facility] Comment on above: Order Comment: Reaso n 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 Performed By: #### T SH3 wRFLX, CBCNO, CMP, LIPID #### [facility] [address] [place] [address] Platelet mean volume (Bld) [Entitic vol] 9.5 fL Normal 6.3-10.7 [facility] Comment on above: Order Comment: Reaso n 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 Result Comment: PERF ORMED BY: [place] [address] PATHOLOGIST MATTRESS RENOVATOR SHAY POON M.D. Performed By: #### T SH3 wRFLX, CBCNO, CMP, LIPID #### [address] RBC (Bld) [#/Vol] 4.46 10*6/uL Normal 3.60-5.00 [facility] Comment on above: Order Comment: Reaso n 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 Performed By: #### T SH3 wRFLX, CBCNO, CMP, LIPID #### [address] WBC (Bld) [#/Vol] 6.2 10*3/uL Normal 3.8-11.[address] [facility] Comment on above: Order Comment: Reaso n 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 Performed By: #### T SH3 wRFLX, CBCNO, CMP, LIPID #### [facility] [address] Erythrocyte distribution width (RBC) [Ratio] 12.700 % Normal 11.9-15.3 % [employer] Other Hematocrit (Bld) [Volume fraction] 42.200 % Normal 34.0-46.4 % [employer] Other Hemoglobin (Bld) [Mass/Vol] 14.975669 g/dL Normal 11.8-15.4 g/dL [employer] Other MCH (RBC) [Entitic mass] 32.7000 pg Normal 24.7-34.3 pg [employer] Other MCV (RBC) [Entitic vol] 94.6000 fL Normal 80-100 fL [employer] Other Platelet mean volume (Bld) [Entitic vol] 9.5000 fL Normal 6.3-10.7 fL [employer] Other RBC (Bld) [#/Vol] 4.5338179329 10*6/uL Normal 3. 60-5.00 10*6/uL [employer] Other WBC (Bld) [#/Vol] 6.844577642 10*3/uL Normal 3.8 -11.6 10*3/uL [employer] Other Hemogram CBC Without Diff 34.6 g/dL Normal 32.0-35.0 g/dL [employer] Other Hemogram CBC Without DiffOrd ered By: Kelly Lee on 10-02-2021 Platelets (Bld) [#/Vol] 198 10*3/uL Normal 150-450 [facility] Comment on above: Order Comment: Reaso n 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 Performed By: #### T SH3 wRFLX, CBCNO, CMP, LIPID #### [facility] [address] [place] [id number] [place] Lipid Panelon 10-02-2021 LDL Cholesterol,Calculat ed 143 mg/dL High 0-100 [facility] Comment on above: Order Comment: [...] T SH3 wRFLX, CBCNO, CMP, LIPID #### [facility] [address] [id number] [facility] Triglyceride w/Reflex 299 mg/dL High 35-149 [facility] Comment on above: Order Comment: [...] T SH3 wRFLX, CBCNO, CMP, LIPID #### [facility] [address] [place] [id number] [place] VLDL CHOLESTEROL 59 mg/dL Normal [facility] Comment on above: Order Comment: PT FA STED 12 HRS 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 Performed By: #### T SH3 wRFLX, CBCNO, CMP, LIPID #### [facility] [address] [place] [id number] [place] Cholesterol in LDL Elph Qn 143 mg/dL High 0-100 mg/dL [employer] Other Lipid Panel 299 mg/dL High 35-149 mg/dL [employer] Other Lipid Panel 59 mg/dL [employer] Other Lipid PanelOrdered By: Destiny Lee on 10-02-2021 Cholesterol [Mass/Vol] 240 mg/dL High 140-200 [facility] Comment on above: Chol less than 200 [...] T SH3 wRFLX, CBCNO, CMP, LIPID #### [facility] [address] [place] [address] [place] Cholesterol in HDL [Mass/Vol] 37 mg/dL Normal 35-85 [facility] Comment on above: HDL CHOL ATP-III CLA [...] T SH3 wRFLX, CBCNO, CMP, LIPID #### [facility] [address] Cholesterol.total/Ch olesterol in HDL [Mass ratio] 6.5 {ratio} Normal <5.0 [facility] Comment on above: Order Comment: PT FA STED 12 HRS 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 Performed By: #### T SH3 wRFLX, CBCNO, CMP, LIPID #### [facility] [address] MCH Auto (RBC) [Entitic mass ]Ordered By: Kelly Lee on 10-02-2021 MCH (RBC) [Entitic mass] 32.7 pg 24.7-34.3 [facility] MCHC Auto (RBC) [Mass/Vol]Or dered By: Kelly Lee on 10-02-2021 MCHC (RBC) [Mass/Vol] 34.6 g/dL 32.0-35.0 [facility] MCV Auto (RBC) [Entitic vol] Ordered By: Kelly Lee on 10-02-2021 MCV (RBC) [Entitic vol] 94.6 fL 80-100 [facility] No Panel InformationOrdered By: Kelly Lee on 10-02-2021 Estimated GFR () > 60 mL/Min [facility] Comment on above: GFR estimated refere nce range: According to KDOQI guidelines, <60 ml/min/1.73m2 is sufficient to diagnose a patient with chronic kidney disease. Pharmacy Creatinine Clearance (Chem N/A [facility] Platelet mean volume Auto (B ld) [Entitic vol]Ordered By: Kelly Lee on 10-02-2021 Platelet mean volume (Bld) [Entitic vol] 9.5 fL 6.3-10.7 [facility] Protein [Mass/volume] in Ser um or PlasmaOrdered By: Kelly Lee on 10-02-2021 Protein [Mass/Vol] 6.9 g/dL 6.1-7.[address] [facility] RBC Auto (Bld) [#/Vol]Ordere d By: Kelly Lee on 10-02-2021 RBC (Bld) [#/Vol] 4.46 10*6/uL 3.60-5.00 [facility] Serum or plasma alanine traore otransferase measurement without P-5'-P (enzymatic activiOrdered By: Kelly Lee on 10-02-2021 ALT No additional P-5'-P [Catalytic activity/Vol] 48 U/L 10-60 [facility] Serum or plasma calcium chandler urement (mass/volume)Ordered By: Kelly Lee on 10-02-2021 Calcium [Mass/Vol] 9.6 mg/dL 8.2-10.[address] [facility] Serum or plasma potassium me asurement (moles/volume)Ordered By: Kelly Lee on 10-02-2021 Potassium [Moles/Vol] 4.4 mmol/L 3.5-5.1 [facility] Serum or plasma total biliru bin measurement (mass/volume)Ordered By: Kelly Lee on 10-02-2021 Bilirubin [Mass/Vol] 0.5 mg/dL 0.3-1.2 [facility] Serum or plasma total carbon dioxide measurement (moles/volume)Ordered By: Kelly Lee on 10-02-2021 CO2 [Moles/Vol] 29.4 mmol/L 22.0-30.0 [facility] TSH DL <= 0.005 mIU/L QnOrde red By: Kelly Lee on 10-02-2021 TSH Qn 3.55 m[IU]/L 0.45-5.33 [facility] Thyroid Stim Hormone w/Rflxo n 10-02-2021 Thyroid Stim Hormone w/Rflx 3.55 u[iU]/mL Normal 0.45-5.33 [facility] Comment on above: Order Comment: PT FA STED 12 HRS 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 Result Comment: PERF ORMED BY: [place] [address] PATHOLOGIST MATTRESS RENOVATOR SHAY POON M.D. Performed By: #### T SH3 wRFLX, CBCNO, CMP, LIPID #### [address] Thyroid Stim Hormone w/Rflx 3.55 u[iU]/mL Normal 0.45-5.33 u[iU]/mL [employer] Other Triglyceride [Mass/volume] i n Serum or PlasmaOrdered By: Kelly Lee on 10-02-2021 Triglyceride [Mass/Vol] 299 mg/dL 35-149 [facility] Comment on above: TRIG ATP III CLASSIF ICATIONTRIG less than 150 mg/dL NormalTRIG 150-199 mg/dL Borderline highTRIG 200-500 mg/dL High TRIG greater than 500 mg/dL Very highStandard traceable to the Center for Disease Conrtrol and Prevention (CDC) test method. WBC Auto (Bld) [#/Vol]Ordere d By: Kelly Lee on 10-02-2021 WBC (Bld) [#/Vol] 6.2 10*3/uL 3.8-11.[address] [facility] XR hip LT min 2V(w/wo pelvis )*on 10-02-2021 XR hip LT min 2V(w/wo pelvis)* [facility] [address] [place] [address] [place] [address] XRay Report Signed Patient: Larry Brock MR#: [id number] : 1970 Acct:[id number] Age/Sex: 51 / F ADM Date: 10/02/21 Loc: XD Room: Type: [facility] Attending Dr: Kelly Lee DO Copies to: Kelly Lee DO Ordering Provider: Kelly Lee DO Date of Service: 10/02/21 XR/XR hip LT min 2V(w/wo pelvis)*: Left hip pain ([id number]) XR/XR shoulder RT min 2V*: Acute pain [...] Vazquez Jr., D.OMane10/02/2021 4:15 PM Dictation Location: [place] [address] Transcribed By: [facility] 10/02/21 1615 Dictated By: Alexis Vazquez Jr, DO 10/02/21 1614 Signed By: 10/02/21 161 Normal [facility] XR hip LT min 2V(w/wo pelvis)* [facility] [employer] Other XR hip LT min 2V(w/wo pelvis)* [facility] [employer] Other XR hip LT min 2V(w/wo pelvis)* [address] [place] [address] [employer] Other XR hip LT min 2V(w/wo pelvis)* [place] [address] [employer] Other XR hip LT min 2V(w/wo pelvis)* XRay Report [employer] Other XR hip LT min 2V(w/wo pelvis)* Signed [employer] Other XR hip LT min 2V(w/wo pelvis)* Patient: Larry Brock MR#: [id number] [employer] Other XR hip LT min 2V(w/wo pelvis)* [id number] [employer] Other XR hip LT min 2V(w/wo pelvis)* : 1970 Acct:[id number] [employer] Other XR hip LT min 2V(w/wo pelvis)* Age/Sex: 51 / F ADM Date: 10/02/21 [employer] Other XR hip LT min 2V(w/wo pelvis)* Loc: XD Room: Type: [facility] [employer] Other XR hip LT min 2V(w/wo pelvis)* Attending Dr: Kelly Lee DO [employer] Other XR hip LT min 2V(w/wo pelvis)* Copies to: Kelly Lee DO [employer] Other XR hip LT min 2V(w/wo pelvis)* Ordering Provider: Kelly Lee DO [employer] Other XR hip LT min 2V(w/wo pelvis)* Date of Service: 10/02/21 [employer] Other XR hip LT min 2V(w/wo pelvis)* XR/XR hip LT min 2V(w/wo pelvis)*: Left hip pain [employer] Other XR hip LT min 2V(w/wo pelvis)* ([id number]) XR/XR shoulder RT min 2V*: Acute pain of right shoulder [employer] Other XR hip LT min 2V(w/wo pelvis)* RIGHT SHOULDER - - 3 views, left hip 2 views [employer] Other XR hip LT min 2V(w/wo pelvis)* CLINICAL HISTORY: Right shoulder pain for 3 days. Left hip pain. Fall 09/29/2021 [employer] Other XR hip LT min 2V(w/wo pelvis)* COMPARISON: None [employer] Other XR hip LT min 2V(w/wo pelvis)* FINDINGS: [employer] Other XR hip LT min 2V(w/wo pelvis)* Right shoulder: No acute bony process. Mild degenerative changes right AC joint. Visualized right [employer] Other XR hip LT min 2V(w/wo pelvis)* lung field is clear. [employer] Other XR hip LT min 2V(w/wo pelvis)* Left hip: No acute bony process is seen. No significant degenerative change. [employer] Other XR hip LT min 2V(w/wo pelvis)* XR/XR shoulder RT min 2V* [employer] Other XR hip LT min 2V(w/wo pelvis)* IMPRESSION: [employer] Other XR hip LT min 2V(w/wo pelvis)* NO ACUTE BONY PROCESS INVOLVING THE RIGHT SHOULDER OR LEFT HIP. [employer] Other XR hip LT min 2V(w/wo pelvis)* Impression dictated by: Alexis Vazquez Jr., Frederick10/02/2021 4:15 PM [employer] Other XR hip LT min 2V(w/wo pelvis)* Dictation Location: [place] [address] [employer] Other XR hip LT min 2V(w/wo pelvis)* Transcribed By: ENOCH 10/02/21 1615 [employer] Other XR hip LT min 2V(w/wo pelvis)* Dictated By: Alexis Vazquez Jr, DO 10/02/21 1614 [employer] Other XR hip LT min 2V(w/wo pelvis)* Signed By: [employer] Other XR hip LT min 2V(w/wo pelvis)* 10/02/21 1610 [employer] Other Covid-19 PCR (CVDTBH)on 02-15 SARS-CoV-2 (COVID-19) RNA RAKEL+probe Ql (Unsp spec) Not detected Normal NOT DETECTED [facility] Comment on above: Result Comment: This test is not yet approved or cleared by the [place] FDA. When there are no FDA-approved or cleared tests available, and other criteria are met, FDA can make tests available under an emergency access mechanism called an Emergency Use Authorization (EUA). The EUA for this test is supported by the [place] of Health and Human Service's (HHS's) declaration [...] SARS-CoV-2. Performed By: #### C VDTB #### [facility] [address] [place] [address] Dr. Gordy Moore Covid-19 PCR (CVDTBH)on 02-15 SARS-CoV-2 (COVID-19) RNA RAKEL+probe Ql (Unsp spec) Not detected Normal NOT DETECTED [facility] Comment on above: Result Comment: This test is not yet approved or cleared by the [place] FDA. When there are no FDA-approved or cleared tests available, and other criteria are met, FDA can make tests available under an emergency access mechanism called an Emergency Use Authorization (EUA). The EUA for this test is supported by the [employer] of Health and Human Service's (HHS's) declaration [...] consistent with SARS-CoV-2. Performed By: #### C [facility] #### [facility] [address] [place] [address] Dr. Gordy Moore COVID-19 Antigenon 1 COVID-19 [...] its performance Bam Disclaimer characteristic determined by [employer] and Bam Disclaimer validated at [facility]. This Bam Disclaimer test has not been [...] Emergency Use Authorization for Coronavirus Bam Disclaimer iseas during the Public Health Emergency) Bam Disclaimer [...] is terminated or revoked sooner. PERFORMED BY: [facility] [address] [place] [address] PATHOLOGIST MATTRESS RENOVATOR SHAY POON M.D. [facility] Comment on above: Performed By: #### C OVID-19 BAM, SOFIANEG #### [facility] [address] Bam Ag Negativeon 03-07-20 Bam Ag Negative Negative Normal Negative [facility] Comment on above: Result Comment: This is a duplicate Bam SARS Antigen (ARAVIND) result to be used for statistical tracking purpose only. PERFORMED BY: [place] [address] PATHOLOGIST MATTRESS RENOVATOR SHAY POON M.D. Performed By: #### C OVID-19 BAM, SOFIANEG #### [address] CNOVon 12-31-2016 CNOV Office Visit (LOORRM) CHARLES BROCK ([id number]) 1970 FDate Time Provider Zgcdsubnej04/17/17 2:30 PM BALAJI RUIZ During your visit today, we recorded the following information about you:Referring Provider: KELLY LEE [[id number]]Allergies As of Date: 12/31/2016 Noted Allergy ReactionDEMEROL [...] Status:Closed by BALAJI RUIZ MD on 12/31/16 [facility] PROGRESSon 12-31-2016 PROGRESS HNO ID: [id number] thor: Nayana Kelly (Rt)ice: (none)Author Type: TechnicianType: Progress NotesFiled: 12/31/2016 2:45 PMNote Text: Radiology Service Progress NotePATIENT NAME: Larry BrockMRN: [id number] OF SERVICE: December 31, 2016TIME: 2:45 PMPATIENT IDENTITY VERIFICATION COMPLETED USING TWO (2) METHODS: Patientconfirmed name verbally and Date of .PATIENT GENDER DATA: Female. status: : NoBreastfeeding status: NO.PATIENT RELEVANT IMPLANT DATA REVIEWED: YesRADIOLOGY DEPARTMENT: General X-ray: Exam(s) Completed: Lower ExtremityX-Ray(s): Knee, AP / Lat / Merchant Right and Wt. Bearing:PERIPHERAL IV DATA: Not applicableSIGNED BY: RT YelitzaDecember 31, 2016 2:45 PM Normal [facility] PROGRESS HNO ID: [id number] thor: Balaji Chauhanice: Orthopaedic SurgeryAuthor Type: PhysicianType: Progress NotesFiled: 01/27/2017 2:59 PMNote Text: [facility] [address] [facility]. 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 Hasa few month history of right knee pain. No definite trauma. No incitingactivities. She does have significant orthopedic history to both knees.She had a right knee arthroscopy, anterior cruciate ligamentreconstruction using allograft [place]. Subsequently, had a [...] or lateral, and subsequent arthroscopyand debridement in [place], left knee anterior cruciate ligamentreconstruction in [place], ectopic , DandCs, partialhysterectomy, right breast lumpectomy, .MEDICATIONS: See Epic.ALLERGIES: DEMEROL.SOCIAL HISTORY: . Smokes half pack a day. 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 Feliperinnela see her back after approval. From a surgical standpoint, this wouldrequire total knee arthroplasty.A copy of this note to Dr. Kelly Lee in [place], [place] with aconsultation cover letter.Dictated By: Balaji Ruiz M.D.Date Dictated: 12/31/2016Date Typed: acdai 12/31/2016DEBI# [id number] [facility] XR KNEE 4V AP/PA BOTH+LAT/ME R RTon 12-31-2016 XR KNEE 4V AP/PA BOTH+LAT/LUPE RT * * *Final Report* * *DATE OF EXAM: Dec 31 2016 2:47PM LZX 5203 - XR KNEE 4V AP/PA BOTH+LAT/LUPE RT / REASON: Pain in right knee * * * * Physician Interpretation * * * * EXAMINATION: XR KNEE 4V AP/PA BOTH+LAT/LUPE RTHISTORY: right knee surgery x 5years ago pain right knee no recent injury Pain in right knee .TECHNIQUE: XR KNEE 4V AP/PA BOTH+LAT/LUEP RT Laterality: RIGHT Number of different views [...] KELLY MD on Dec 31 2016 2:51PM [id number] Normal [facility] CR-KNEE RIGHT 3 VIEWS IMPORT on 11-14-2016 CR-KNEE RIGHT 3 VIEWS IMPORT Images were obtained outside of [facility] [id number] Normal [facility] Vital Signs Date Time Vital Sign Value Performing Clinician Facility 08-26-2023 17:41-0400 Body height 158.75 cm [facility] 08-26-2023 17:41-0400 Body mass index (BMI) [Ratio] 41.5 kg/m2 [facility] 08-26-2023 17:41-0400 Body temperature 97.6 [degF] [facility] 08-26-2023 17:41-0400 Body weight 104.77 kg [facility] 08-26-2023 17:41-0400 Heart rate 62 /min [facility] 08-26-2023 17:41-0400 Respiratory rate 18 /min [facility] 08-26-2023 17:41-0400 SaO2% (BldA) [Mass fraction] 98 % [facility] 04-02-2023 15:05-0500 Body height 158.75 cm Yvette Bazan Other [employer] Other 04-02-2023 15:05-0500 Body mass index (BMI) [Ratio] 42.29 kg/m2 Yvette Hortensia Other [employer] Other 04-02-2023 15:05-0500 Body temperature 97.3 [degF] Yvette Hortensia Other [employer] Other 04-02-2023 15:05-0500 Body weight 106.6 kg Yvette Baileymond Other [employer] Other 04-02-2023 15:05-0500 Diastolic blood pressure 75 mm[Hg] Yvette Hortensia Other [employer] Other 04-02-2023 15:05-0500 Respiratory rate 18 /min Yvette Hortensia Other [employer] Other 04-02-2023 15:05-0500 SaO2% (BldA) [Mass fraction] 95 % Yvette Hortensia Other [employer] Other 04-02-2023 15:05-0500 Systolic blood pressure 155 mm[Hg] Yvette Hortensia Other [employer] Other 11-08-2022 18:45-0400 Body height 158.75 cm Yelena Dominguez Other [employer] Other 11-08-2022 18:45-0400 Body temperature 100 [degF] Yelena Dominguez Other [employer] Other 11-08-2022 18:45-0400 Diastolic blood pressure 73 mm[Hg] Yelena Dominguez Other [employer] Other 11-08-2022 18:45-0400 Respiratory rate 18 /min Yelena Dominguez Other [employer] Other 11-08-2022 18:45-0400 SaO2% (BldA) [Mass fraction] 95 % Yelena Dominguez Other [employer] Other 11-08-2022 18:45-0400 Systolic blood pressure 168 mm[Hg] Yelena Dominguez Other [employer] Other 09-09-2022 16:00-0400 Body height 158.75 cm Kelly Lee Other [employer] Other 09-09-2022 16:00-0400 Body mass index (BMI) [Ratio] 41.93 kg/m2 Kelly Lee Other [employer] Other 09-09-2022 16:00-0400 Body weight 105.69 kg Kelly Lee Other [employer] Other 09-09-2022 16:00-0400 Diastolic blood pressure 72 mm[Hg] Kelly Lee Other [employer] Other 09-09-2022 16:00-0400 Respiratory rate 18 /min Kelly Lee Other [employer] Other 09-09-2022 16:00-0400 SaO2% (BldA) [Mass fraction] 95 % Kelly Lee Other [employer] Other 09-09-2022 16:00-0400 Systolic blood pressure 142 mm[Hg] Kelly Lee Other [employer] Other 12-17-2021 09:29-0400 Diastolic blood pressure 78 mm[Hg] DO Kelly Lee Work Phone: [facility] 12-17-2021 09:29-0400 Heart rate 60 /min DO Kelly Lee Work Phone: [facility] 12-17-2021 09:29-0400 Respiratory rate 20 /min DO Kelly Lee Work Phone: [facility] 12-17-2021 09:29-0400 SaO2% (BldA) [Mass fraction] 94 % DO Kelly Lee Work Phone: [facility] 12-17-2021 09:29-0400 Systolic blood pressure 152 mm[Hg] DO Kelly Lee Work Phone: [facility] 12-17-2021 07:43-0400 Body height 157.48 cm DO Kelly Lee Work Phone: [facility] 12-17-2021 07:43-0400 Body temperature 98.7 [degF] DO Kelly Lee Work Phone: [facility] 12-17-2021 07:43-0400 Body weight 104.32 kg DO Kelly Lee Work Phone: [facility] 10-02-2021 12:15-0400 Body height 158.75 cm Kelly Lee Other [employer] Other 10-02-2021 12:15-0400 Body mass index (BMI) [Ratio] 42.83 kg/m2 Kelly Lee Other [employer] Other 10-02-2021 12:15-0400 Body weight 107.96 kg Kelly Lee Other [employer] Other 10-02-2021 12:15-0400 Diastolic blood pressure 80 mm[Hg] Kelly Lee Other [employer] Other 10-02-2021 12:15-0400 Respiratory rate 18 /min Kelly Lee Other [employer] Other 10-02-2021 12:15-0400 SaO2% (BldA) [Mass fraction] 95 % Kelly Lee Other [employer] Other 10-02-2021 12:15-0400 Systolic blood pressure 150 mm[Hg] Kelly Lee Other [employer] Other Encounters Encounter Date Encounter Type Care Provider Facility Start: 12-01-2023 End: 12-01-2023 ambulatory TYRA Son [facility] Start: 12-01-2023 Encounter for other preprocedural examination [facility] Start: 12-01-2023 End: 12-01-2023 ambulatory TYRA HERNANDEZ Not Available Start: 10-29-2023 End: 10-29-2023 ambulatory TARAS CONTRERAS Not Available Start: 10-21-2023 ambulatory [facility] Work Phone: Start: 10-21-2023 Non-patient / Non-visit [facility] [facility] C Lads Work Phone: Start: 08-26-2023 End: 08-26-2023 ambulatory [facility] Work Phone: Start: 08-26-2023 End: 08-26-2023 Patient encounter procedure [facility] Amarjit Work Phone: Start: 07-24-2023 Non-patient / Non-visit [facility] [place] Work Phone: Start: 04-25-2023 End: 04-25-2023 ambulatory KELLY LEE Not Available Start: 04-02-2023 (URG) Urgent Care Visit Yvette Mynor justice [facility] Start: 04-02-2023 End: 04-02-2023 ambulatory Yvette Hortensia Other [employer] Other Start: 02-05-2023 End: 02-05-2023 ambulatory Kelly Lee Other [employer] Other Start: 02-05-2023 Telephone encounter Kelly [facility] [place] Start: 11-25-2022 End: 11-25-2022 ambulatory Kelly Lee Other [employer] Other Start: 11-25-2022 Telephone encounter Kelly CABELLO G [facility] [place] Start: 11-08-2022 End: 11-08-2022 ambulatory Yelena Dominguez Other [employer] Other Start: 11-08-2022 Office outpatient vi sit 15 minutes Yelena Dominguez [facility] Start: 10-24-2022 End: 10-24-2022 ambulatory Kelly Lee Other [employer] Other Start: 10-24-2022 Telephone encounter Kelly [facility] [place] Start: 09-09-2022 End: 09-09-2022 ambulatory Kelly Lee Other [employer] Other Start: 09-09-2022 Office outpatient vi sit 25 minutes Kelly Lee [facility] [place] Start: 12-17-2021 End: 12-17-2021 ambulatory Sawyer Styles Facility:[facility] Start: 12-17-2021 End: 12-17-2021 Admission to same day surgery center DO Kelly Lee Work Phone: [facility] Start: 12-17-2021 End: 12-17-2021 ambulatory DO Kelly Lee Work Phone: [facility] Work Phone: Start: 12-13-2021 End: 12-13-2021 ambulatory Sawyer Styles Facility:[facility] Start: 12-13-2021 End: 12-13-2021 ambulatory DO Kelly Lee Work Phone: [facility] Work Phone: Start: 12-13-2021 End: 12-13-2021 Patient encounter procedure DO Kelly Lee Work Phone: [facility] Start: 11-28-2021 End: 11-28-2021 ambulatory Kelly Lee Other [employer] Other Start: 11-28-2021 Telephone encounter Kelly [facility] [place] Start: 11-15-2021 End: 11-15-2021 ambulatory Kelly Lee Other [employer] Other Start: 11-15-2021 Telephone encounter Kelly Kan [facility] [place] Start: 11-07-2021 End: 11-07-2021 ambulatory Sawyer Styles Other [employer] Other Start: 11-07-2021 Telephone encounter Sawyer Kan [employer] Start: 10-15-2021 End: 10-15-2021 ambulatory Kelly Lee Other [employer] Other Start: 10-15-2021 Telephone encounter Kelly CABELLO G [facility] [place] Start: 10-02-2021 End: 10-02-2021 ambulatory Kelly Lee [facility] [employer] Other Start: 10-02-2021 Office outpatient vi sit 25 minutes Kelly Lee [facility] [place] Start: 10-02-2021 Telephone encounter Kelly CABELLO G [facility] [place] Start: 10-02-2021 End: 10-02-2021 Patient encounter procedure DO Kelly Lee Work Phone: [facility] Start: 03-13-2021 End: 03-13-2021 ambulatory KELLY LEE Facility:[facility] Start: 03-12-2021 End: 03-12-2021 ambulatory KELLY LEE Facility: Start: 03-07-2021 End: 03-07-2021 ambulatory Kelly Lee Facility:[facility] Start: 12-31-2016 End: 12-31-2016 Ambulatory BALAJI RUIZ [facility] [place] Procedures Date Procedure Procedure Detail [...] Activity Detail Author Start: 10-21-2023 Patient referral [facility] Work Phone: Start: 12-17-2021 [facility] Patient Education Diverticulosis (DC) [facility] Work Phone: Patient referral [facility] Work Phone: Immunizations Immunization Date Immunization Notes Care Provider Glenn hanna 12-07-2020 COVID-19 Vaccine Mod james - Documentation Purposes Only Kelly Lee Other [facility] 12-07-2020 influenza, seasonal, injectable Kelly Lee Other [facility] 11-02-2020 COVID-19 Vaccine Mod james - Documentation Purposes Only Kelly Lee Other [facility] Payers Date Payer Category Payer [employer]) [id number] 2021 Self-pay [id number] 1970 Unknown [id number] 1971 Unknown [id number] 2.16.840.1.456454.3.579.2.593 1971 Unknown [id number] 2.16.840.1.909488.3.579.2.1259 1971 Unknown [id number] 2.16.840.1.377852.3.579.2.1259 1971 Unknown [id number] 2.16.840.1.055991.3.579.2.9 1971 Unknown [id number] 2.16.840.1.200953.3.579.2.1259 1971 Unknown [id number] 2.16.840.1.766851.3.579.2.1259 1971 Unknown [id number] 2.16.840.1.718824.3.579.2.1259 1959 [employer]) [id number] Unknown [id number] 2.16.840.1.312956.3.579.2.531 Unknown [id number] 2.16.840.1.134735.3.579.2.531 Unknown [id number] 2.16.840.1.609884.3.579.2.531 Unknown [id number] 2.16.840.1.327099.3.579.2.531 Social History Date Type Detail Facility Sex Assigned At [email or web address] [facility] [employer] Other Start: 05-16-2018 End: 12-17-2021 Tobacco smoking status NHIS Smoker (finding) [facility] Start: 1970 Sex Assigned At Female F [facility] Goals Date Patient Goal Desired Activity /State Clinical Notes 09-14-2009 to 10-21-2023 Note Date & Type Note Facility 10-21-2023 Hospital Discharg e instructions Ambulatory OrdersReferral to Orthopedic Surgery Time Frame: 10/21/23, Location: None Selected [facility] Work Phone: 04-02-2023 Evaluation note Encounter [...] (suspected) exposure to covid-19 (ICD-10 - Z20.822) [employer] Other 11-22-2023 Evaluation note* Encounter Date Diagnosis Assessment Notes Treatment Notes Treatment Clinical Notes Jan, Type 2 diabetes mellitus with hyperglycemia, without long-term current use of insulin (ICD-10 - E11.65) [employer] Other 08-25-2023 Evaluation note* Encounter Date Diagnosis [...] symptoms. Patient verbalized understanding of treatment plan. [employer] Other 06-26-2023 Evaluation note* Encounter Date Diagnosis [...] E03.9) We will call with lab results [employer] Other 10-03-2022 Procedure [facility]08-24-2022 Evaluation note* Encounter Date Diagnosis Assessment Notes Treatment Notes Treatment Clinical Notes Oct, Screening for colon cancer (ICD-10 - Z12.11) [employer] Other 07-19-2022 Evaluation note* Encounter Date Diagnosis [...] proceed with imaging. She can continue naproxen [id number] and I advised her to start icing. If x-ray is negative, we will plan to send her to physical therapy. She would like to go to [facility] PT in [place] Sep, Left hip pain (ICD-1 0 - M25.552) We will call with x-ray results Sep, Essential (primary) hypertension (ICD-10 - I10) Blood pressure remained elevated on recheck, we will continue current medications because the Jardiance will likely help decrease her systolic blood pressure [employer] Other 07-01-2010 History general Narrative - Reported* Type Description Date Medical History DM2 Medical History Hyperlipidemia Medical History HTN Medical History hypothyroidism Surgical History Bilateral ACL repair 09/2009 & 1 04/2009 Surgical History Breast Biopsy 2014 Surgical History Partial Hyst 2006 Surgical History 2000 Surgical History Etopic 1993 Surgical History D&C - Miscarriage [id number] Surgical History TEETH EXTRACTION X2 07/2017 Hospitalization History SEE ABOVE SURGICAL HX [employer] Other Evaluation noteNo InformationNort Azingo Other Evaluation noteNo assessment information available [facility] Work Phone: Evaluation note* Diagnosis Onset Date Resolution Status Acute maxillary sinusitis, unspecified acute [facility] Work Phone: History and physical note Author Sawyer Styles [facility] December 17, 2021 8:42am Note Date/Time December 17, 2021 8: 42am [facility] [address] [place] [address] Gastroenterology H&P Signed Patient: Larry Brock MR# : [id number] : 1970 Acct:[id number] Age/Sex: 51 / F Adm Date: 2 Loc: Room: Type: [facility] Attending Dr: Sawyer Styles MD Copies to: MD Kelly Mcintyre, DO~ Date of Service: 12/17/2021 HISTORY & PHYSICAL: [...] <Electronically signed by Sawyer Styles MD> 12/17/21841 [facility] Work Phone: Hospital Discharge instructions Additional Instructions [...] Follow up with PCP. - Office number [phone].[facility] Work Phone: Summary Purpose Family History No [...] rrent major depressive disorder (F33.0) Referral Organization [facility] Family Leola Quintana Referring Provider First Name Kelly Referring Provider Last Name Yasmani Referring Provider Specialty Family Prac jorden Referred Organization [facility] Referred Address [address] ,[place], [place],[address] Referred Provider Specialty Licensed Cli nical [employer] Referral Priority Routine General Notes Larry Shepard 03:19:19 PM >referral received. Per [employer], Referral to [facility] is approved Auth/Order#[id number] ( auth attached to referral). Referral faxed. for pt to call me as Nayana Dorsey is not approved with [employer] and had to send to above. Reason * Waiting for appt screening colonoscopy Diagnosis 1 Screening for colon cancer (Z12.11) Referral Organization [facility] Family Leola Quintana Referring Provider First Name Kelly Referring Provider Last Name Yasmani Referring Provider Specialty Family Reilly leonardo Referred Organization [facility] Gastroenterolo gy Referred Provider Sawyer Styles Referred Address [address] ,[place], [place],[address] Referred Provider Specialty Gastroentero logy Referral Priority Routine General Notes Larry Shepard 02:50:30 PM >referral received, per Room 77, no auth is required, pt is enrolled in [employer]. referral sent p2p successful per log Chief Complaint and Reason for Visit Chief Complaint labs and xray Screening Chief Complaint labs and xray Screening Screening Chief Complaint Amb Documentation Congestion Chief Complaint Amb Documentation Congestion Reason for Visit Acute maxillary sinu sitis, unspecified Additional Source Comments INFORMATION SOURCE (unrecogn ized section and content) DATE CREATED AUTHOR 09/12/2017 [facility] DATE CREATED AUTHOR AUTHOR'S ORGANIZ ATION 03/21/2021 [facility] DATE CREATED AUTHOR AUTHOR'S ORGANIZ ATION 12/21/2021 [facility] DATE CREATED AUTHOR AUTHOR'S ORGANIZ ATION 12/03/2023 [facility] DATE CREATED AUTHOR AUTHOR'S ORGANIZ ATION 12/07/2023 [facility] EPIC REASON FOR VISIT (unrecogniz ed section and content) FELL AND HURT HIP AND ARM - a1c office, She was doing a mud run and fell while going through water. Fell onto right arm then onto left leg. This was Friday., Thinks her antidepressant needs increasedNo InformationCounseling ReferralEMAIL PPWcovid positivemed qorswdwnJ5D CHECK/DISCUSS DEPRESSION AND ANXIETYunable to get ahold ofPOSITIVE HOME COVID TEST, CONGESTION, COUGHpost covidJardianceSINUS CONGESTION, SORE THROAT, EAR PAIN, COUGH Care Teams (unrecognized sec tion and content) Team Status: Inactive Member Role Status Dates Kelly Lee DO Primary Care Provider Active Sawyer Styles MD Attending Provider Active Team Status: Inactive Member Role Status Dates Kelly Lee DO Primary Care Provider, Attending Provider Active Team Status: Active Member Role Status Dates Kelly Lee DO Primary Care Provider Active Team Status: Active Member Role Status Dates Kelly Lee DO Primary Care Provider Active Start: July 24, [...] BE BASED ON THE PRIMARY CLINICAL RECORDS. [facility] [employer] [facility]. provides no warranty or guarantee of the accuracy or completeness of information in this document.
[2023-12-15 11:55] VITALS: BP 154/72; PULSE 59; O2SAT 95
== END 2023-12-15 12:06 | disposition home or self-care (01) ==
PROVIDERS: Emergency Provider Emergency Medicine; PCP Orthopaedic Surgery
DX: M25.552 Pain in left hip (principal); F17.200 Nicotine dependence, unspecified, uncomplicated
CPT/HCPCS: 96372; 99284; J2270; J2919

== ENCOUNTER 2023-12-19 08:21 | Outpatient (OUT) | payer OTHER, SELFPAY ==
--- NOTE | 2023-12-19 08:23 | VEIN_ITS ---
The [address] [address] Patient Name: LARRY MCDONOUGH MRN: [id number] date: 1970 Sex: F Assigned Patient Location: Current Patient Location: Accession/Order Number: [id number] Exam Date: 12/19/2023 08:25 Report Date: 12/19/2023 09:13 At the request of: TYRA BADILLO Procedure: VC SEGMENTAL PRESSURES EXAM: VC SEGMENTAL PRESSURES HISTORY: Claudication I73.9 COMPARISON: None. TECHNIQUE: Resting ABIs and segmental pressures were obtained. FINDINGS: Right resting IRWIN normal at 1.19. Left resting IRWIN normal at 1.23. No pressure gradients are noted. Waveforms are multiphasic. VEIN/VC SEGMENTAL PRESSURES IMPRESSION: Normal resting ABIs. No pressure gradients. Electronically authenticated by: Sue TOLEDO Date: 12/19/2023 09:13
--- OUTSIDE RECORDS SUMMARY | 2023-12-19 08:24 | XMS_ITS | CCD ---
Author Organization [facility] Care Team Providers Care Purler Name Role Phone BALAJI RUIZ Unavailable Unavailable [...] Attending Provider MD Sawyer Styles Attending Provider [phone] Kelly Lee Primary Care Unavailable Jeremiah Lomax [...] (14 sources) atorvastatin Drug Allergy 08-26-2023 myalgias [facility] (14 sources) Meperidine Drug Allergy 08-26-2023 anaphylaxis [facility] (14 sources) metFORMIN Drug Allergy 08-26-2023 GI issues [facility] (14 sources) Pravastatin Drug Allergy 08-26-2023 myalgias [facility] (1 source) Meperidine Drug Allergy 2018 [facility] Repository Medications Current Medications Medication Drug Class(es) Dates Sig (Normalized) Sig (Original) [id number] actuat albuterol 0.09 mg/actuat metered dose [...] every four to six hours Hydrocodone-Acetami nophen (Gravity) 5-325 mg Tablet Discontinued 1 TAB PO [...] 12-01-19 ABSOLUTE BASOPHIL 0.1 X10E9/L Normal 0.0-0.2 [facility] Comment on above: Performed By: #### Son BEAVER, 96744-5, 1987-07 #### [facility] ([id number]) [address] [place] [address] ABSOLUTE NEUTROPHIL 4.1 X10E9/L Normal 1.5-6.6 [facility] Comment on above: Performed By: #### Son BEAVER, 43449-8, 1987-07 #### [facility] ([id number]) [address] [place] [address] Basophils/100 WBC (Bld) 2.3 % Normal [facility] Comment on above: Performed By: #### Son BEAVER, 25396-4, 1987-07 #### [facility] ([id number]) [address], [facility] [address] [place] [address] Eosinophils (Bld) [#/Vol] 0.2 10*3/uL Normal 0.0-0.4 [facility] Comment on above: Performed By: #### Son BEAVER, 19653-9, 1987-07 #### [facility] ([id number]) [address], [facility] [address] [place] [address] Eosinophils/100 WBC (Bld) 2.8 % Normal [facility] Comment on above: Performed By: #### Son BEAVER, 43445-1, 1987-07 #### [facility] ([id number]) [address], [facility] [address] [place] [address] Erythrocyte distribution width (RBC) [Ratio] 13.1 % Normal 11.5-15.0 [facility] Comment on above: Performed By: #### Son BEAVER, 43985-2, 1987-07 #### [facility] ([id number]) [address] [address] [place] [address] Hematocrit (Bld) [Volume fraction] 45.3 % Normal 35-47 [facility] Comment on above: Performed By: #### Son BEAVER, 25514-1, 1987-07 #### [facility] ([id number]) [address], [facility] [address] [place] [address] Hemoglobin (Bld) [Mass/Vol] 15.4 g/dL Normal 11.7-15.5 [facility] Comment on above: Performed By: #### Son BEAVER, 41926-4, 1987-07 #### [facility] ([id number]) [address], [facility] [address] [place] [address] Lymphocytes (Bld) [#/Vol] 1.6 10*3/uL Normal 1.0-3.5 [facility] Comment on above: Performed By: #### Son BEAVER, 09183-6, 1987-07 #### [facility] ([id number]) [address], [facility] [address] [place] [address] Lymphocytes/100 WBC (Bld) 25.3 % Normal [facility] Comment on above: Performed By: #### Son BEAVER, 33629-6, 1987-07 #### [facility] ([id number]) [address], [facility] [address] [place] [address] MCH (RBC) [Entitic mass] 32.7 pg Normal 27-34 [facility] Comment on above: Performed By: #### Son BEAVER 17216-2, 1987-07 #### [facility] ([id number]) [address], [facility] [address] [place] [address] MCHC (RBC) [Mass/Vol] 33.9 g/dL Normal 32-36 [facility] Comment on above: Performed By: #### Son BEAVER 76524-8, 1987-07 #### [facility] ([id number]) [address], [facility] [address] [place] [address] MCV (RBC) [Entitic vol] 97 fL Normal 80-100 [facility] Comment on above: Performed By: #### Son BEAVER 68193-4, 1987-07 #### [facility] ([id number]) [address], [facility] [address] [place] [address] Monocytes (Bld) [#/Vol] 0.4 10*3/uL Normal 0-0.9 [facility] Comment on above: Performed By: #### Son BEAVER 21281-6, 1987-07 #### [facility] ([id number]) [address], [address] [place] [address] Monocytes/100 WBC (Bld) 6.1 % Normal [facility] Comment on above: Performed By: #### Son BEAVER, 67308-8, 1987-07 #### [facility] ([id number]) [address], [facility] [address] [place] [address] Neutrophils/100 WBC (Bld) 63.5 % Normal [facility] Comment on above: Performed By: #### Son BEAVER, 24844-6, 1987-07 #### [facility] ([id number]) [address], [facility] [address] [place] [address] Platelet mean volume (Bld) [Entitic vol] 9.7 fL Normal 7-12 [facility] Comment on above: Performed By: #### Son BEAVER, 88276-5, 1987-07 #### [facility] ([id number]) [address], [facility] [address] [place] [address] Platelets (Bld) [#/Vol] 173 10*3/uL Normal 150-450 [facility] Comment on above: Performed By: #### Son BEAVER, 06975-9, 1987-07 #### [facility] ([id number]) [address] [address] [place] [address] RBC COUNT 4.70 X10E12/L Normal 3.80-5.20 [facility] Comment on above: Performed By: #### Son BEAVER, 19942-2, 1987-07 #### [facility] ([id number]) [address], [facility] [address] [place] [address] WBC (Bld) [#/Vol] 6.4 10*3/uL Normal 4.0-11.0 [facility] Comment on above: Performed By: #### Son BEAVER, 67011-4, 1987-07 #### [facility] ([id number]) [address], [address] [place] [address] CRP [Mass/Vol]on 12-01-2023 C REACTIVE PROTEIN 0.2 mg/dL Normal 0.000-0.744 [facility] Comment on above: Performed By: #### C BCA, 82150-1, 1987-07 #### [facility] ([id number]) [address], [address] [place] [address] ESR Photometric method (Bld) [Velocity]on 12-01-2023 ESR, ERYTHROCYTE SEDIMENTATION RATE 3 mm/h Normal 0-30 [facility] Comment on above: Performed By: #### C BCA, 67354-1, 1987-07 #### [facility] ([id number]) [address], [address] [place] [address] BI MAMMOGRAM SCREENING TOMOS YNTHESIS BILATERALon 04-25-2023 [...] IS VERY IMPORTANT TO YOUR HEALTH. THE [employer] GUIDELINES RECOMMEND THAT WOMEN 40 [...] RNA RAKEL+probe Ql (Unsp spec) Negative [employer] [facility] Other COVID + FLU Quick Testing Negative [employer] Other COVID Quick Testingon 2022 Result Positive [employer] [facility] Other A1C HEMOGLOBINon 09-09-2022 HbA1c (Bld) [Mass fraction] 6.9 % [facility] [employer] Other HbA1c (Bld) [Mass fraction]o n 09-09-2022 A1C HEMOGLOBIN [facility] [employer] Other Glucose Glucometer (dC) [M ass/Vol]Ordered By: Sawyer Styles on 12-17-2021 Glucose [Mass/Vol] 179 mg/dL [facility] Comment on above: Random Glucose Refer ence Range is dependent on time and content of last meal. Glucose of more than 200 mg/dL in a nonstressed, ambulatory subject supports the diagnosis of Diabetes Mellitus. Glucose Poct Glucometerson 1 Glucose [Mass/Vol] 179 mg/dL Normal [facility] Comment on above: Result Comment: [place] om Glucose Reference Range is dependent on time and content of last meal. Glucose of more than 200 mg/dL in a nonstressed, ambulatory subject supports the diagnosis of Diabetes Mellitus. PERFORMED BY: [facility] [address] [facility] [place] [address] PATHOLOGIST [employer] SELECTOR SHAY POON M.D. Performed By: #### G [...] developed and its performance characteristic determined by [employer] and validated at [facility]. This test has not been FDA [...] for SARS Antigen by [employer] PERFORMED BY: [place] [address] PATHOLOGIST [employer] SELECTOR SHAY POON M.D. Normal [facility] Comment on above: Performed By: #### C OVID-19 BAM, SOFIANEG #### [address] COVID-19 SOFIAOrdered By: Jazmine Styles on 12-13-2021 SARS-CoV+SARS-CoV-2 (COVID-19) Ag IA.rapid Ql (Resp) Negative Negative [facility] Comment on above: This is a duplicate Bam SARS Antigen (ARAVIND) result to be used for statistical tracking purpose only. No Panel InformationOrdered By: Sawyer Styles on 12-13-2021 SARS Antigen (LFIA) [facility] Bam Ag Negativeon 12-14-19 Bam Ag Negative Negative Normal Negative [facility] Comment on above: Result Comment: This is a duplicate Bam SARS Antigen (ARAVIND) result to be used for statistical tracking purpose only. PERFORMED BY: [place] [address] PATHOLOGIST [employer] SELECTOR SHAY POON M.D. Performed By: #### C -19 BAM, SOFIANEG #### [facility] [address] [id number] [facility] A1C HEMOGLOBINon 10-02-2021 HbA1c (Bld) [Mass fraction] 8.8 % [employer] Other Blood hemoglobin measurement (mass/volume)Ordered By: Kelly Lee on 10-02-2021 Hemoglobin (Bld) [Mass/Vol] 14.6 g/dL 11.8-15.4 [facility] Body fluid albumin measureme nt (mass/volume)Ordered By: Kelly Lee on 10-02-2021 Albumin (Body fld) [Mass/Vol] 4.2 g/dL 3.2-5.5 [facility] Cholesterol in LDL Calc [Mas s/Vol]Ordered By: Kelly Lee on 10-02-2021 Cholesterol in LDL [Mass/Vol] 143 mg/dL 0-100 [facility] Comment on above: LDL ATP III CLASSIFI CATIONLDL less than 100 mg/dL OptimalLDL 100-129 mg/dL Near or above optimalLDL 130-159 mg/dL Borderline highLDL 160-189 mg/dL HighLDL greater than 189 mg/dL Very high Cholesterol in VLDL Calc [Ma ss/Vol]Ordered By: Kelly Lee on 10-02-2021 Cholesterol in VLDL [Mass/Vol] 59 mg/dL [facility] Comprehensive Metabolic Pane darrick 10-02-2021 Albumin [Mass/Vol] 4.2 g/dL Normal 3.2-5.5 [facility] Comment on above: Order Comment: PT FA STED 12 HRS 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 Performed By: #### T SH3 wRFLX, CBCNO, CMP, LIPID #### [facility] [address] [id number] [facility] ALT [Catalytic activity/Vol] 48 U/L Normal 10-60 [employer] Other Comment on above: Order Comment: PT FA STED 12 HRS 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 Performed By: #### T SH3 wRFLX, CBCNO, CMP, LIPID #### [facility] [address] [place] [address] [place] Bilirubin [Mass/Vol] 0.5 mg/dL Normal 0.3-1.2 [facility] Comment on above: Order Comment: PT FA STED 12 HRS 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 Performed By: #### T SH3 wRFLX, CBCNO, CMP, LIPID #### [facility] [address] Calcium [Mass/Vol] 9.6 mg/dL Normal 8.2-10.2 [facility] Comment on above: Order Comment: PT FA STED 12 HRS 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 Performed By: #### T SH3 wRFLX, CBCNO, CMP, LIPID #### [facility] [address] [place] [address] [place] CO2 [Moles/Vol] 29.4 mmol/L Normal 22.0-30.0 [facility] Comment on above: Order Comment: PT FA STED 12 HRS 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 Performed By: #### T SH3 wRFLX, CBCNO, CMP, LIPID #### [facility] [address] [id number] [facility] Creatinine [Mass/Vol] 0.44 mg/dL Normal 0.44-1.03 [facility] Comment on above: Order Comment: PT FA STED 12 HRS 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 Performed By: #### T SH3 wRFLX, CBCNO, CMP, LIPID #### [facility] [address] Potassium [Moles/Vol] 4.4 mmol/L Normal 3.5-5.1 [facility] Comment on above: Order Comment: PT FA STED 12 HRS 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 Performed By: #### T SH3 wRFLX, CBCNO, CMP, LIPID #### [facility] [address] Protein [Mass/Vol] 6.9 g/dL Normal 6.1-7.9 [facility] Comment on above: Order Comment: PT FA STED 12 HRS 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 Performed By: #### T SH3 wRFLX, CBCNO, CMP, LIPID #### [facility] [address] Albumin [Mass/Vol] 4.293716 g/dL Normal 3.2-5.5 g/dL [employer] Other Bilirubin [Mass/Vol] 0.7323156 mg/dL Normal 0.3- 1.2 mg/dL [employer] Other Calcium [Mass/Vol] 9.5157892 mg/dL Normal 8.2-10 .2 mg/dL [employer] Other CO2 [Moles/Vol] 29.88550556 mmol/L Normal 22.0-3 0.0 mmol/L [employer] Other Creatinine [Mass/Vol] 0.09355922 mg/dL Normal 0.44-1.03 mg/dL [employer] Other Potassium [Moles/Vol] 4.06547752 mmol/L Normal 3.5-5.1 mmol/L [employer] Other Protein [Mass/Vol] 6.408082 g/dL Normal 6.1-7.9 g/dL [employer] Other Comprehensive Metabolic Panel > 60 [employer] Other Comprehensive Metabolic Panel 2.7 g/dL [employer] Other Comprehensive Metabolic Pane lOrdered By: Kelly Lee on 10-02-2021 Albumin/Globulin [Mass ratio] 1.6 {ratio} Normal [facility] Comment on above: Order Comment: PT FA STED 12 HRS 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 Performed By: #### T SH3 wRFLX, CBCNO, CMP, LIPID #### [facility] [address] [id number] [facility] ALP [Catalytic activity/Vol] 64 U/L Normal 32-92 [facility] Comment on above: Order Comment: PT FA STED 12 HRS 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 Performed By: #### T SH3 wRFLX, CBCNO, CMP, LIPID #### [facility] [address] [place] [address] [place] AST [Catalytic activity/Vol] 45 U/L High 10-42 [facility] Comment on above: Order Comment: PT FA STED 12 HRS 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 Performed By: #### T SH3 wRFLX, CBCNO, CMP, LIPID #### [facility] [address] [place] [address] [place] Chloride [Moles/Vol] 91 mmol/L Low 95-114 [facility] Comment on above: Order Comment: PT FA STED 12 HRS 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 Glucose of more than 200 mg/dL in a nonstressed, ambulatory subject supports the diagnosis of Diabetes Mellitus. 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 Glucose of more than 200 mg/dL in a nonstressed, ambulatory subject supports the diagnosis of Diabetes Mellitus. 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 Performed By: #### T SH3 wRFLX, CBCNO, CMP, LIPID #### [facility] [address] [place] [address] [place] Creatinine and Glomerular fi ltration rate.predicted panel (S/P/Bld)Ordered By: Kelly Lee on 10-02-2021 Creatinine [Mass/Vol] 0.44 mg/dL 0.44-1.03 [facility] Erythrocyte distribution wid th Auto (RBC) [Ratio]Ordered By: Kelly Lee on 10-02-2021 Erythrocyte distribution width (RBC) [Ratio] 12.7 % 11.9-15.3 [facility] Estimated glomerular filtrat ion rate (GFR) non- AmericanOrdered By: Kelly Lee on 10-02-2021 GFR/1.73 sq M.predicted among non-blacks MDRD (S/P/Bld) [Vol rate/Area] > 60 mL/Min [facility] Globulin Calc (S) [Mass/Vol] Ordered By: Kelly Lee on 10-02-2021 Globulin (S) [Mass/Vol] 2.7 g/dL [facility] HbA1c (Bld) [Mass fraction]o n 10-02-2021 A1C HEMOGLOBIN [employer] Other Hematocrit Auto (Bld) [Volum e fraction]Ordered By: Kelly Lee on 10-02-2021 Hematocrit (Bld) [Volume fraction] 42.2 % 34.0-46.4 [facility] Hemogram CBC Without Diffon 10-02-2021 Erythrocyte distribution width (RBC) [Ratio] 12.7 % Normal 11.9-15.3 [facility] Comment on above: Order Comment: Reaso n 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 Performed By: #### T SH3 wRFLX, CBCNO, CMP, LIPID #### [facility] [address] Hematocrit (Bld) [Volume fraction] 42.2 % Normal 34.0-46.4 [facility] Comment on above: Order Comment: Reaso n 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 Performed By: #### T SH3 wRFLX, CBCNO, CMP, LIPID #### [facility] [address] [place] [id number] [place] Hemoglobin (Bld) [Mass/Vol] 14.6 g/dL Normal 11.8-15.4 [facility] Comment on above: Order Comment: Reaso n 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 Performed By: #### T SH3 wRFLX, CBCNO, CMP, LIPID #### [facility] [address] [id number] [facility] MCH (RBC) [Entitic mass] 32.7 pg Normal 24.7-34.3 [facility] Comment on above: Order Comment: Reaso n 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 Performed By: #### T SH3 wRFLX, CBCNO, CMP, LIPID #### [facility] [address] [place] [address] MCV (RBC) [Entitic vol] 94.6 fL Normal 80-100 [facility] Comment on above: Order Comment: Reaso n 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 Performed By: #### T SH3 wRFLX, CBCNO, CMP, LIPID #### [facility] [address] [place] [address] Mean Corpuscular HGB Conc 34.6 g/dL Normal 32.0-35.0 [facility] Comment on above: Order Comment: Reaso n 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 Performed By: #### T SH3 wRFLX, CBCNO, CMP, LIPID #### [facility] [address] [place] [address] Platelet mean volume (Bld) [Entitic vol] 9.5 fL Normal 6.3-10.7 [facility] Comment on above: Order Comment: Reaso n 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 Result Comment: PERF ORMED BY: [place] [address] PATHOLOGIST [employer] SELECTOR SHAY POON M.D. Performed By: #### T SH3 wRFLX, CBCNO, CMP, LIPID #### [address] RBC (Bld) [#/Vol] 4.46 10*6/uL Normal 3.60-5.00 [facility] Comment on above: Order Comment: Reaso n 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 Performed By: #### T SH3 wRFLX, CBCNO, CMP, LIPID #### [address] WBC (Bld) [#/Vol] 6.2 10*3/uL Normal 3.8-11.6 [facility] Comment on above: Order Comment: Reaso n 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 Performed By: #### T SH3 wRFLX, CBCNO, CMP, LIPID #### [facility] [address] Erythrocyte distribution width (RBC) [Ratio] 12.700 % Normal 11.9-15.3 % [employer] Other Hematocrit (Bld) [Volume fraction] 42.200 % Normal 34.0-46.4 % [employer] Other Hemoglobin (Bld) [Mass/Vol] 14.925609 g/dL Normal 11.8-15.4 g/dL [employer] Other MCH (RBC) [Entitic mass] 32.7000 pg Normal 24.7-34.3 pg [employer] Other MCV (RBC) [Entitic vol] 94.6000 fL Normal 80-100 fL [employer] Other Platelet mean volume (Bld) [Entitic vol] 9.5000 fL Normal 6.3-10.7 fL [employer] Other RBC (Bld) [#/Vol] 4.8556981076 10*6/uL Normal 3. 60-5.00 10*6/uL [employer] Other WBC (Bld) [#/Vol] 6.265301105 10*3/uL Normal 3.8 -11.6 10*3/uL [employer] Other Hemogram CBC Without Diff 34.6 g/dL Normal 32.0-35.0 g/dL [employer] Other Hemogram CBC Without DiffOrd ered By: Kelly Lee on 10-02-2021 Platelets (Bld) [#/Vol] 198 10*3/uL Normal 150-450 [facility] Comment on above: Order Comment: Reaso n 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 Performed By: #### T SH3 wRFLX, CBCNO, CMP, LIPID #### [facility] [address] [id number] [place] Lipid Panelon 10-02-2021 LDL Cholesterol,Calculat ed 143 mg/dL High 0-100 [facility] Comment on above: Order Comment: PT [...] T SH3 wRFLX, CBCNO, CMP, LIPID #### [facility] [address] [id number] [facility] Triglyceride w/Reflex 299 mg/dL High 35-149 [facility] Comment on above: Order Comment: PT [...] T SH3 wRFLX, CBCNO, CMP, LIPID #### [facility] [address] [place] [id number] [place] VLDL CHOLESTEROL 59 mg/dL Normal [facility] Comment on above: Order Comment: PT FA STED 12 HRS 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 Performed By: #### T SH3 wRFLX, CBCNO, CMP, LIPID #### [facility] [address] [place] [id number] [place] Cholesterol in LDL Elph Qn 143 mg/dL High 0-100 mg/dL [employer] Other Lipid Panel 299 mg/dL High 35-149 mg/dL [employer] Other Lipid Panel 59 mg/dL [employer] Other Lipid PanelOrdered By: Destiny Lee on 10-02-2021 Cholesterol [Mass/Vol] 240 mg/dL High 140-200 [facility] Comment on above: Chol less than [...] T SH3 wRFLX, CBCNO, CMP, LIPID #### [facility] [address] [place] [address] [place] Cholesterol in HDL [Mass/Vol] 37 mg/dL Normal 35-85 [facility] Comment on above: HDL CHOL ATP-III [...] T SH3 wRFLX, CBCNO, CMP, LIPID #### [facility] [address] Cholesterol.total/Ch olesterol in HDL [Mass ratio] 6.5 {ratio} Normal <5.0 [facility] Comment on above: Order Comment: PT FA STED 12 HRS 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 Performed By: #### T SH3 wRFLX, CBCNO, CMP, LIPID #### [facility] [address] MCH Auto (RBC) [Entitic mass ]Ordered By: Kelly Lee on 10-02-2021 MCH (RBC) [Entitic mass] 32.7 pg 24.7-34.3 [facility] MCHC Auto (RBC) [Mass/Vol]Or dered By: Kelly Lee on 10-02-2021 MCHC (RBC) [Mass/Vol] 34.6 g/dL 32.0-35.0 [facility] MCV Auto (RBC) [Entitic vol] Ordered By: Kelly Lee on 10-02-2021 MCV (RBC) [Entitic vol] 94.6 fL 80-100 [facility] No Panel InformationOrdered By: Kelly Lee on 10-02-2021 Estimated GFR () > 60 mL/Min [facility] Comment on above: GFR estimated refere nce range: According to KDOQI guidelines, <60 ml/min/1.73m2 is sufficient to diagnose a patient with chronic kidney disease. Pharmacy Creatinine Clearance (Chem N/A [facility] Platelet mean volume Auto (B ld) [Entitic vol]Ordered By: Kelly Lee on 10-02-2021 Platelet mean volume (Bld) [Entitic vol] 9.5 fL 6.3-10.7 [facility] Protein [Mass/volume] in Ser um or PlasmaOrdered By: Kelly Lee on 10-02-2021 Protein [Mass/Vol] 6.9 g/dL 6.1-7.9 [facility] RBC Auto (Bld) [#/Vol]Ordere d By: Kelly Lee on 10-02-2021 RBC (Bld) [#/Vol] 4.46 10*6/uL 3.60-5.00 [facility] Serum or plasma alanine traore otransferase measurement without P-5'-P (enzymatic activiOrdered By: Kelly Lee on 10-02-2021 ALT No additional P-5'-P [Catalytic activity/Vol] 48 U/L 10-60 [facility] Serum or plasma calcium chandler urement (mass/volume)Ordered By: Kelly Lee on 10-02-2021 Calcium [Mass/Vol] 9.6 mg/dL 8.2-10.2 [facility] Serum or plasma potassium me asurement (moles/volume)Ordered By: Kelly Lee on 10-02-2021 Potassium [Moles/Vol] 4.4 mmol/L 3.5-5.1 [facility] Serum or plasma total biliru bin measurement (mass/volume)Ordered By: Kelly Lee on 10-02-2021 Bilirubin [Mass/Vol] 0.5 mg/dL 0.3-1.2 [facility] Serum or plasma total carbon dioxide measurement (moles/volume)Ordered By: Kelly Lee on 10-02-2021 CO2 [Moles/Vol] 29.4 mmol/L 22.0-30.0 [facility] TSH DL <= 0.005 mIU/L QnOrde red By: Kelly Lee on 10-02-2021 TSH Qn 3.55 m[IU]/L 0.45-5.33 [facility] Thyroid Stim Hormone w/Rflxo n 10-02-2021 Thyroid Stim Hormone w/Rflx 3.55 u[iU]/mL Normal 0.45-5.33 [facility] Comment on above: Order Comment: PT FA STED 12 HRS 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 Performed By: #### T SH3 wRFLX, CBCNO, CMP, LIPID #### [address] Thyroid Stim Hormone w/Rflx 3.55 u[iU]/mL Normal 0.45-5.33 u[iU]/mL [employer] Other Triglyceride [Mass/volume] i n Serum or PlasmaOrdered By: Kelly Lee on 10-02-2021 Triglyceride [Mass/Vol] 299 mg/dL 35-149 [facility] Comment on above: TRIG ATP III CLASSIF ICATIONTRIG less than 150 mg/dL NormalTRIG 150-199 mg/dL Borderline highTRIG 200-500 mg/dL High TRIG greater than 500 mg/dL Very highStandard traceable to the Center for Disease Conrtrol and Prevention (CDC) test method. WBC Auto (Bld) [#/Vol]Ordere d By: Kelly Lee on 10-02-2021 WBC (Bld) [#/Vol] 6.2 10*3/uL 3.8-11.6 [facility] XR hip LT min 2V(w/wo pelvis )*on 10-02-2021 XR hip LT min 2V(w/wo pelvis)* [facility] [address] [place] [address] XRay Report Signed Patient: Larry Brock MR#: [id number] : 1970 Acct:[id number] Age/Sex: 51 / F ADM Date: 10/02/21 Loc: XD Room: Type: [facility] Attending Dr: Kelly Lee DO Copies to: Kelly Lee DO Ordering Provider: Kelly Lee DO Date of Service: 10/02/21 XR/XR hip LT min 2V(w/wo pelvis)*: Left hip pain ([id number]) XR/XR shoulder RT min 2V*: Acute pain [...] Vazquez Jr., D.OMane10/02/2021 4:15 PM Dictation Location: [place] [address] Transcribed By: [facility] 10/02/21 1615 Dictated By: Alexis Vazquez Jr, DO 10/02/21 1614 Signed By: 10/02/21 161 Normal [facility] XR hip LT min 2V(w/wo pelvis)* [facility] [employer]oding Other XR hip LT min 2V(w/wo pelvis)* [facility] [employer] Other XR hip LT min 2V(w/wo pelvis)* [address] [place] [address] [employer] Other XR hip LT min 2V(w/wo pelvis)* [place] [address] [employer] Other XR hip LT min 2V(w/wo pelvis)* XRay Report [employer] Other XR hip LT min 2V(w/wo pelvis)* Signed [employer] Other XR hip LT min 2V(w/wo pelvis)* Patient: Larry Brock MR#: [id number] [employer] Other XR hip LT min 2V(w/wo pelvis)* [id number] [employer] Other XR hip LT min 2V(w/wo pelvis)* : 1970 Acct:[id number] [employer] Other XR hip LT min 2V(w/wo pelvis)* Age/Sex: 51 / F ADM Date: 10/02/21 [employer] Other XR hip LT min 2V(w/wo pelvis)* Loc: XD Room: Type: [facility] [employer] Other XR hip LT min 2V(w/wo pelvis)* Attending Dr: Kelly Lee DO [employer] Other XR hip LT min 2V(w/wo pelvis)* Copies to: Kelly Lee DO [employer] Other XR hip LT min 2V(w/wo pelvis)* Ordering Provider: Kelly Lee DO [employer] Other XR hip LT min 2V(w/wo pelvis)* Date of Service: 10/02/21 [employer] Other XR hip LT min 2V(w/wo pelvis)* XR/XR hip LT min 2V(w/wo pelvis)*: Left hip pain [employer] Other XR hip LT min 2V(w/wo pelvis)* ([id number]) XR/XR shoulder RT min 2V*: Acute pain of right shoulder [employer] Other XR hip LT min 2V(w/wo pelvis)* RIGHT SHOULDER - - 3 views, left hip 2 views [employer] Other XR hip LT min 2V(w/wo pelvis)* CLINICAL HISTORY: Right shoulder pain for 3 days. Left hip pain. Fall 09/29/2021 [employer] Other XR hip LT min 2V(w/wo pelvis)* COMPARISON: None [employer] Other XR hip LT min 2V(w/wo pelvis)* FINDINGS: [employer] Other XR hip LT min 2V(w/wo pelvis)* Right shoulder: No acute bony process. Mild degenerative changes right AC joint. Visualized right [employer] Other XR hip LT min 2V(w/wo pelvis)* lung field is clear. [employer] Other XR hip LT min 2V(w/wo pelvis)* Left hip: No acute bony process is seen. No significant degenerative change. [employer] Other XR hip LT min 2V(w/wo pelvis)* XR/XR shoulder RT min 2V* [employer] Other XR hip LT min 2V(w/wo pelvis)* IMPRESSION: [employer] Other XR hip LT min 2V(w/wo pelvis)* NO ACUTE BONY PROCESS INVOLVING THE RIGHT SHOULDER OR LEFT HIP. [employer] Other XR hip LT min 2V(w/wo pelvis)* Impression dictated by: Alexis Vazquez Jr., Frederick10/02/2021 4:15 PM [employer] Other XR hip LT min 2V(w/wo pelvis)* Dictation Location: [place] [address] [employer] Other XR hip LT min 2V(w/wo pelvis)* Transcribed By: ENOCH 10/02/21 1615 [employer] Other XR hip LT min 2V(w/wo pelvis)* Dictated By: Alexis Vazquez Jr, DO 10/02/21 1614 [employer] Other XR hip LT min 2V(w/wo pelvis)* Signed By: [employer] Other XR hip LT min 2V(w/wo pelvis)* 10/02/21 1613 [employer] Other Covid-19 PCR (CVDTBH)on 02-15 SARS-CoV-2 (COVID-19) RNA RAKEL+probe Ql (Unsp spec) Not detected Normal NOT DETECTED [facility] Comment on above: Result Comment: This test is not yet approved or cleared by the [place] FDA. When there are no FDA-approved or cleared tests available, and other criteria are met, FDA can make tests available under an emergency access mechanism called an Emergency Use Authorization (EUA). The EUA for this test is supported by the [employer] of Health and Human Service's (HHS's) declaration [...] SARS-CoV-2. Performed By: #### C VDTB #### [facility] [address] [place] [address] Dr. Gordy Moore Covid-19 PCR (CVDTBH)on 02-15 SARS-CoV-2 (COVID-19) RNA RAKEL+probe Ql (Unsp spec) Not detected Normal NOT DETECTED [facility] Comment on above: Result Comment: This test is not yet approved or cleared by the [place] FDA. When there are no FDA-approved or cleared tests available, and other criteria are met, FDA can make tests available under an emergency access mechanism called an Emergency Use Authorization (EUA). The EUA for this test is supported by the [employer] of Health and Human Service's (HHS's) declaration [...] consistent with SARS-CoV-2. Performed By: #### C [facility] #### [facility] [address] [place] [address] Dr. Gordy Moore COVID-19 Antigenon 1 COVID-19 [...] its performance Bam Disclaimer characteristic determined by [employer] and Bam Disclaimer validated at [facility]. This Bam Disclaimer test has not [...] or revoked sooner. PERFORMED BY: [facility] [address] [place] [address] PATHOLOGIST [employer] SELECTOR SHAY POON M.D. [facility] Comment on above: Performed By: #### C OVID-19 BAM, SOFIANEG #### [facility] [address] Bam Ag Negativeon 03-07-20 Bam Ag Negative Negative Normal Negative [facility] Comment on above: Result Comment: This is a duplicate Bam SARS Antigen (ARAVIND) result to be used for statistical tracking purpose only. PERFORMED BY: [place] [address] PATHOLOGIST [employer] SELECTOR SHAY POON M.D. Performed By: #### C OVID-19 BAM, SOFIANEG #### [address] CNOVon 12-31-2016 CNOV Office Visit (LOORRM) CHARLES BROCK ([id number]) 1970 FDate Time Provider Hpjpqiidll75/17/17 2:30 PM BALAJI RUIZ During your visit today, we recorded the following information about you:Referring Provider: KELLY LEE [[id number]]Allergies As of Date: 12/31/2016 Noted Allergy ReactionDEMEROL [...] Status:Closed by BALAJI RUIZ MD on 12/31/16 [facility] PROGRESSon 12-31-2016 PROGRESS HNO ID: [id number] thor: Nayana Kelly (Rt)ice: (none)Author Type: TechnicianType: Progress NotesFiled: 12/31/2016 2:45 PMNote Text: Radiology Service Progress NotePATIENT NAME: Larry BrockMRN: [id number] OF SERVICE: December 31, 2016TIME: 2:45 PMPATIENT IDENTITY VERIFICATION COMPLETED USING TWO (2) METHODS: Patientconfirmed name verbally and Date of .PATIENT GENDER DATA: Female. status: : NoBreastfeeding status: NO.PATIENT RELEVANT IMPLANT DATA REVIEWED: YesRADIOLOGY DEPARTMENT: General X-ray: Exam(s) Completed: Lower ExtremityX-Ray(s): Knee, AP / Lat / Merchant Right and Wt. Bearing:PERIPHERAL IV DATA: Not applicableSIGNED BY: RT YelitzaDecember 31, 2016 2:45 PM Normal [facility] PROGRESS HNO ID: [id number] thor: Balaji Chauhanice: Orthopaedic SurgeryAuthor Type: PhysicianType: Progress NotesFiled: 01/27/2017 2:59 PMNote Text: [facility] [address] [facility]. 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 Hasa few month history of right knee pain. No definite trauma. No incitingactivities. She does have significant orthopedic history to both knees.She had a right knee arthroscopy, anterior cruciate ligamentreconstruction using allograft [place]. Subsequently, had a [...] or lateral, and subsequent arthroscopyand debridement in [place], left knee anterior cruciate ligamentreconstruction in [place], ectopic , DandCs, partialhysterectomy, right breast lumpectomy, .MEDICATIONS: See Epic.ALLERGIES: DEMEROL.SOCIAL HISTORY: . Smokes half pack a day. 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 Kelly Lee in [place], [place] with aconsultation cover letter.Dictated By: Balaji Ruiz M.D.Date Dictated: 12/31/2016Date Typed: acdai 12/31/2016DEBI# [id number] [facility] XR KNEE 4V AP/PA BOTH+LAT/ME R RTon [...] KELLY MD on Dec 31 2016 2:51PM [id number] Normal [facility] CR-KNEE RIGHT 3 VIEWS IMPORT on 11-14-2016 CR-KNEE RIGHT 3 VIEWS IMPORT Images were obtained outside of [facility] [id number] Normal [facility] Vital Signs Date Time Vital Sign Value Performing Clinician Facility 08-26-2023 17:41-0400 Body height 158.75 cm [facility] 08-26-2023 17:41-0400 Body mass index (BMI) [Ratio] 41.5 kg/m2 [facility] 08-26-2023 17:41-0400 Body temperature 97.6 [degF] [facility] 08-26-2023 17:41-0400 Body weight 104.77 kg [facility] 08-26-2023 17:41-0400 Heart rate 62 /min [facility] 08-26-2023 17:41-0400 Respiratory rate 18 /min [facility] 08-26-2023 17:41-0400 SaO2% (BldA) [Mass fraction] 98 % [facility] 04-02-2023 15:05-0500 Body height 158.75 cm Yvette Bazan Other [employer] Other 04-02-2023 15:05-0500 Body mass index (BMI) [Ratio] 42.29 kg/m2 Yvette Hortensia Other [employer] Other 04-02-2023 15:05-0500 Body temperature 97.3 [degF] Yvette Hortensia Other [employer] Other 04-02-2023 15:05-0500 Body weight 106.6 kg Yvette Baileymond Other [employer] Other 04-02-2023 15:05-0500 Diastolic blood pressure 75 mm[Hg] Yvette Hortensia Other [employer] Other 04-02-2023 15:05-0500 Respiratory rate 18 /min Yvette Hortensia Other [employer] Other 04-02-2023 15:05-0500 SaO2% (BldA) [Mass fraction] 95 % Yvette Hortensia Other [employer] Other 04-02-2023 15:05-0500 Systolic blood pressure 155 mm[Hg] Yvette Hortensia Other [employer] Other 11-08-2022 18:45-0400 Body height 158.75 cm Yelena Dominguez Other [employer] Other 11-08-2022 18:45-0400 Body temperature 100 [degF] Yelena Dominguez Other [employer] Other 11-08-2022 18:45-0400 Diastolic blood pressure 73 mm[Hg] Yelena Dominguez Other [employer] Other 11-08-2022 18:45-0400 Respiratory rate 18 /min Yelena Dominguez Other [employer] Other 11-08-2022 18:45-0400 SaO2% (BldA) [Mass fraction] 95 % Yelena Dominguez Other [employer] Other 11-08-2022 18:45-0400 Systolic blood pressure 168 mm[Hg] Yelena Dominguez Other [employer] Other 09-09-2022 16:00-0400 Body height 158.75 cm Kelly Lee Other [employer] Other 09-09-2022 16:00-0400 Body mass index (BMI) [Ratio] 41.93 kg/m2 Kelly Lee Other [employer] Other 09-09-2022 16:00-0400 Body weight 105.69 kg Kelly Lee Other [employer] Other 09-09-2022 16:00-0400 Diastolic blood pressure 72 mm[Hg] Kelly Lee Other [employer] Other 09-09-2022 16:00-0400 Respiratory rate 18 /min Kelly Lee Other [employer] Other 09-09-2022 16:00-0400 SaO2% (BldA) [Mass fraction] 95 % Kelly Lee Other [employer] Other 09-09-2022 16:00-0400 Systolic blood pressure 142 mm[Hg] Kelly Lee Other [employer] Other 12-17-2021 09:29-0400 Diastolic blood pressure 78 mm[Hg] DO Kelly Lee Work Phone: [facility] 12-17-2021 09:29-0400 Heart rate 60 /min DO Kelly Lee Work Phone: [facility] 12-17-2021 09:29-0400 Respiratory rate 20 /min DO Kelly Lee Work Phone: [facility] 12-17-2021 09:29-0400 SaO2% (BldA) [Mass fraction] 94 % DO Kelly Lee Work Phone: [facility] 12-17-2021 09:29-0400 Systolic blood pressure 152 mm[Hg] DO Kelly Lee Work Phone: [facility] 12-17-2021 07:43-0400 Body height 157.48 cm DO Kelly Lee Work Phone: [facility] 12-17-2021 07:43-0400 Body temperature 98.7 [degF] DO Kelly Lee Work Phone: [facility] 12-17-2021 07:43-0400 Body weight 104.32 kg DO Kelly Lee Work Phone: [facility] 10-02-2021 12:15-0400 Body height 158.75 cm Kelly Lee Other [employer] Other 10-02-2021 12:15-0400 Body mass index (BMI) [Ratio] 42.83 kg/m2 Kelly Lee Other [employer] Other 10-02-2021 12:15-0400 Body weight 107.96 kg Kelly Lee Other [employer] Other 10-02-2021 12:15-0400 Diastolic blood pressure 80 mm[Hg] Kelly Lee Other [employer] Other 10-02-2021 12:15-0400 Respiratory rate 18 /min Kelly Lee Other [employer] Other 10-02-2021 12:15-0400 SaO2% (BldA) [Mass fraction] 95 % Kelly Lee Other [employer] Other 10-02-2021 12:15-0400 Systolic blood pressure 150 mm[Hg] eKlly Lee Other [employer] Other Encounters Encounter Date Encounter Type Care Provider Facility Start: 12-01-2023 End: 12-01-2023 ambulatory TYRA Son [facility] Start: 12-01-2023 Encounter for other preprocedural examination [facility] Start: 12-01-2023 End: 12-01-2023 ambulatory TYRA HERNANDEZ Not Available Start: 10-29-2023 End: 10-29-2023 ambulatory TARAS CONTRERAS Not Available Start: 10-21-2023 ambulatory [facility] Work Phone: Start: 10-21-2023 Non-patient / Non-visit [facility] Senor Sirloin Work Phone: Start: 08-26-2023 End: 08-26-2023 ambulatory [facility] Work Phone: Start: 08-26-2023 End: 08-26-2023 Patient encounter procedure [facility] Physician [facility] Amarjit Work Phone: Start: 07-24-2023 Non-patient / Non-visit [facility] Physician [facility] [place] Work Phone: Start: 04-25-2023 End: 04-25-2023 ambulatory KELLY LEE Not Available Start: 04-02-2023 (URG) Urgent Care Visit Yvette Mynor justice [facility] Amarjit Start: 04-02-2023 End: 04-02-2023 ambulatory Yvette Hortensia Other [employer] Other Start: 02-05-2023 End: 02-05-2023 ambulatory Kelly Lee Other [employer] Other Start: 02-05-2023 Telephone encounter Kelly [facility] [place] Start: 11-25-2022 End: 11-25-2022 ambulatory Kelly Lee Other [employer] Other Start: 11-25-2022 Telephone encounter Kelly CABELLO G [facility] [place] Start: 11-08-2022 End: 11-08-2022 ambulatory Yelena Dominguez Other [employer] Other Start: 11-08-2022 Office outpatient vi sit 15 minutes Yelena Dominguez [facility] Start: 10-24-2022 End: 10-24-2022 ambulatory Kelly Lee Other [employer] Other Start: 10-24-2022 Telephone encounter Kelly [facility] [place] Start: 09-09-2022 End: 09-09-2022 ambulatory Kelly Lee Other [employer] Other Start: 09-09-2022 Office outpatient vi sit 25 minutes Kelly Lee [facility] [place] Start: 12-17-2021 End: 12-17-2021 ambulatory Sawyer Styles Facility:[facility] Start: 12-17-2021 End: 12-17-2021 Admission to same day surgery center DO Kelly Lee Work Phone: [facility] Start: 12-17-2021 End: 12-17-2021 ambulatory DO Kelly Lee Work Phone: [facility] Work Phone: Start: 12-13-2021 End: 12-13-2021 ambulatory Sawyer Styles Facility:[facility] Start: 12-13-2021 End: 12-13-2021 ambulatory DO Kelly Lee Work Phone: [facility] Work Phone: Start: 12-13-2021 End: 12-13-2021 Patient encounter procedure DO Kelly Lee Work Phone: [facility] Start: 11-28-2021 End: 11-28-2021 ambulatory Kelly Lee Other [employer] Other Start: 11-28-2021 Telephone encounter Kelly Kan [facility] [place] Start: 11-15-2021 End: 11-15-2021 ambulatory Kelly Lee Other [employer] Other Start: 11-15-2021 Telephone encounter Kelly Kan [facility] [place] Start: 11-07-2021 End: 11-07-2021 ambulatory Sawyer Styles Other [employer] Other Start: 11-07-2021 Telephone encounter Sawyer Kan [facility] Patient Care Specialist Start: 10-15-2021 End: 10-15-2021 ambulatory Kelly Lee Other [employer] Other Start: 10-15-2021 Telephone encounter Kelly CABELLO G [facility] [place] Start: 10-02-2021 End: 10-02-[address] [facility] [employer] Other Start: 10-02-2021 Office outpatient vi sit 25 minutes Kelly Lee [facility] [place] Start: 10-02-2021 Telephone encounter Kelly CABELLO G [facility] [place] Start: 10-02-2021 End: 10-02-2021 Patient encounter procedure DO Kelly Lee Work Phone: [facility] Start: 03-13-2021 End: 03-13-2021 ambulatory KELLY LEE Facility:[facility] Start: 03-12-2021 End: 03-12-2021 ambulatory KELLY LEE Facility: Start: 03-07-2021 End: 03-07-2021 ambulatory Kelly Lee Facility:[facility] Start: 12-31-2016 End: 12-31-2016 Ambulatory BALAJI RUIZ [facility] Procedures Date Procedure Procedure Detail Performing Clinician Start: 12-17-2021 Screening colonoscopy D O Kelly Lee Work Phone: Start: 10-02-2021 Plain X-ray of left hip DO Kelly Lee Work Phone: Start: 10-02-2021 Plain X-ray of right shoulder DO Kelly Lee Work Phone: SARS Antigen (LFIA) DO Destiny marcial Lee Work Phone: Plan of Treatment Date Care Activity Detail Author Start: 10-21-2023 Patient referral [facility] Work Phone: Start: 12-17-2021 [facility] Patient Education Diverticulosis (DC) [facility] Work Phone: Patient referral [facility] Work Phone: Immunizations Immunization Date Immunization Notes Care Provider Glenn hanna 12-07-2020 COVID-19 Vaccine Mod james - Documentation Purposes Only Kelly Lee Other [facility] 12-07-2020 influenza, seasonal, injectable Kelly Lee Other [facility] 11-02-2020 COVID-19 Vaccine Mod james - Documentation Purposes Only Kelly Lee Other [facility] Payers Date Payer Category Payer [employer]) [id number] 2021 Self-pay [id number] 1970 Unknown [id number] 1970 Unknown [id number] 1970 Unknown [id number] [id number] 1970 Unknown [id number] [id number] 1970 Unknown [id number] [id number] 1970 Unknown [id number] [id number] 1970 Unknown [id number] [id number] 1970 Unknown [id number] 1958 [employer] ([employer]) [id number] Unknown [id number] [id number] Unknown [id number] [id number] Unknown [id number] [id number] Unknown [id number] [id number] Social History Date Type Detail Facility Sex Assigned At [facility] [employer] Other Start: 05-16-2018 End: 12-17-2021 Tobacco smoking status NHIS Smoker (finding) [facility] Start: 1970 Sex Assigned At Female F [facility] Goals Date Patient Goal Desired Activity /State Clinical Notes 09-14-2009 to 10-21-2023 Note Date & Type Note Facility 10-21-2023 Hospital Discharg e instructions Ambulatory OrdersReferral to Orthopedic Surgery Time Frame: 10/21/23, Location: None Selected [facility] Work Phone: 04-02-2023 Evaluation note Encounter [...] (suspected) exposure to covid-19 (ICD-10 - Z20.822) [employer] Other 11-22-2023 Evaluation note* Encounter Date Diagnosis Assessment Notes Treatment Notes Treatment Clinical Notes Jan, Type 2 diabetes mellitus with hyperglycemia, without long-term current use of insulin (ICD-10 - E11.65) [employer] Other 08-25-2023 Evaluation note* Encounter Date Diagnosis [...] symptoms. Patient verbalized understanding of treatment plan. [employer] Other 06-26-2023 Evaluation note* Encounter Date Diagnosis [...] E03.9) We will call with lab results [employer] Other 10-03-2022 Procedure [facility]08-24-2022 Evaluation note* Encounter Date Diagnosis Assessment Notes Treatment Notes Treatment Clinical Notes Oct, Screening for colon cancer (ICD-10 - Z12.11) [employer] Other 07-19-2022 Evaluation note* Encounter Date Diagnosis [...] proceed with imaging. She can continue naproxen [id number] and I advised her to start icing. If x-ray is negative, we will plan to send her to physical therapy. She would like to go to [facility] in [place] Sep, Left hip pain (ICD-1 0 - M25.552) We will call with x-ray results Sep, Essential (primary) hypertension (ICD-10 - I10) Blood pressure remained elevated on recheck, we will continue current medications because the Jardiance will likely help decrease her systolic blood pressure [employer] Other 07-01-2010 History general Narrative - Reported* Type Description Date Medical History DM2 Medical History Hyperlipidemia Medical History HTN Medical History hypothyroidism Surgical History Bilateral ACL repair 09/2009 & 1 04/2009 Surgical History Breast Biopsy 2014 Surgical History Partial Hyst 2006 Surgical History 2000 Surgical History Etopic 1993 Surgical History D&C - Miscarriage [id number] Surgical History TEETH EXTRACTION X2 07/2017 Hospitalization History SEE ABOVE SURGICAL HX [employer] Other Evaluation noteNo InformationNort AndersonBrecon Other Evaluation noteNo assessment information available [facility] Work Phone: Evaluation note* Diagnosis Onset Date Resolution Status Acute maxillary sinusitis, unspecified acute [facility] Work Phone: History and physical note Author Sawyer Styles [facility] December 17, 2021 8:42am Note Date/Time December 17, 2021 8: 42am [facility] [address] [place] [address] Gastroenterology H&P Signed Patient: Larry Brock MR# : [id number] : 1970 Acct:[id number] Age/Sex: 51 / F Adm Date: 2 Loc: Room: Type: [facility] Attending Dr: Sawyer Styles MD Copies to: [...] <Electronically signed by Sawyer Styles MD> 12/17/21841 [facility] Work Phone: Hospital Discharge instructions Additional Instructions [...] Follow up with PCP. - Office number [phone].[facility] Work Phone: Summary Purpose Family History [...] rrent major depressive disorder (F33.0) Referral Organization [facility] Family Leola Quintana Referring Provider First Name Kelly Referring Provider Last Name Yasmani Referring Provider Specialty Family Prac jorden Referred Organization [facility] Referred Address [address] ,[place], [place],[address] Referred Provider Specialty Licensed Cli nical Chassis Inspector Referral Priority Routine General Notes Larry Shepard 03:19:19 PM >referral received. Per [employer], Referral to [facility] is approved Auth/Order#[id number] ( auth attached to referral). Referral faxed. for pt to call me as Nayana Dorsey is not approved with [employer] and had to send to above. Reason * Waiting for appt screening colonoscopy Diagnosis 1 Screening for colon cancer (Z12.11) Referral Organization [facility] Family Leola Quintana Referring Provider First Name Kelly Referring Provider Last Name Yasmani Referring Provider Specialty Family Reilly leonardo Referred Organization [facility] Referred Provider Sawyer Styles Referred Address [address] ,[place], [place],[address] Referred Provider Specialty Gastroentero logy Referral Priority Routine General Notes Larry Shepard 02:50:30 PM >referral received, per [employer], no auth is required, pt is enrolled in [employer]. referral sent p2p successful per log Chief Complaint and Reason for Visit Chief Complaint labs and xray Screening Chief Complaint labs and xray Screening Screening Chief Complaint Amb Documentation Congestion Chief Complaint Amb Documentation Congestion Reason for Visit Acute maxillary sinu sitis, unspecified Additional Source Comments INFORMATION SOURCE (unrecogn ized section and content) DATE CREATED AUTHOR 09/12/2017 [facility] DATE CREATED AUTHOR AUTHOR'S ORGANIZ ATION 03/21/2021 [facility] DATE CREATED AUTHOR AUTHOR'S ORGANIZ ATION 12/21/2021 [facility] DATE CREATED AUTHOR AUTHOR'S ORGANIZ ATION 12/03/2023 [facility] DATE CREATED AUTHOR AUTHOR'S ORGANIZ ATION 12/07/2023 [facility] dical Specialists EPIC REASON FOR VISIT (unrecogniz ed section and content) FELL AND HURT HIP AND ARM - a1c office, She was doing a mud run and fell while going through water. Fell onto right arm then onto left leg. This was Friday., Thinks her antidepressant needs increasedNo InformationCounseling ReferralEMAIL PPWcovid positivemed [id number] CHECK/DISCUSS DEPRESSION AND ANXIETYunable to get ahold [...] BE BASED ON THE PRIMARY CLINICAL RECORDS. [facility] [employer] [facility]. provides no warranty or guarantee of the accuracy or completeness of information in this document.
== END 2023-12-19 08:22 | disposition home or self-care (01) ==
LOC: VC 08:21
PROVIDERS: PCP Orthopaedic Surgery; Visit Provider Orthopaedic Surgery
DX: I73.9 Peripheral vascular disease, unspecified (principal)
CPT/HCPCS: 93923

== ENCOUNTER 2023-12-22 09:15 | Outpatient (OUT) | payer OTHER, SELFPAY ==
--- NOTE | 2023-12-22 09:21 | MR_ITS ---
[facility] [place] [id number] Patient Name: LARRY MCDONOUGH MRN: [id number] date: 1970 Sex: F Assigned Patient Location: MRI Current Patient Location: MRI Accession/Order Number: [id number] Exam Date: 12/22/2023 09:25 Report Date: 12/22/2023 10:43 At the request of: ASHLEY LOPEZ Procedure: MR lumbar spine wo con MR lumbar spine wo con, 12/22/2023 9:25 AM EDT INDICATION: Osteoarthritis Of Spine With Radiculopathy Lumbar COMPARISON: There is no appropriate prior study for comparison. TECHNIQUE: Multiplanar, multisequential MRI images of lumbar spine were obtained without contrast. FINDINGS: For dictation purposes, the lowest complete disc space in the lumbar spine considered as L5-S1. There is normal physiologic lumbar lordosis. The vertebral height is preserved. The conus medullaris is at the level of L1. No signal abnormality within the visualized spinal cord is noted. Level of T12-L1 is unremarkable. No neural foraminal narrowing or canal stenoses at the level of L1-L2 and L2-L3 is noted. At the level of L3-4, there are disc bulge with mild bilateral neuroforaminal narrowing and mild canal stenosis. At the level of L4-5, there are disc bulge with mild bilateral neuroforaminal narrowing and mild canal stenosis. At the level of L5-S1, there are disc bulge with mild right and moderate left neuroforaminal narrowing and no canal stenosis. The paraspinal muscles are unremarkable. MR/MR lumbar spine wo con IMPRESSION: Mild degenerative changes of lumbar spine in particular at L5-S1. No evidence of cord compression in the current study. Electronically authenticated by: YURI CALABRESE Date: 12/22/2023 10:43
== END 2023-12-22 09:16 | disposition home or self-care (01) ==
LOC: MRI 09:15
PROVIDERS: PCP Orthopaedic Surgery; Visit Provider Nurse Practitioner Family
DX: M47.26 Other spondylosis with radiculopathy, lumbar region (principal); M51.369 Other intervertebral disc degeneration, lumbar region without mention of lumbar back pain or lower extremity pain
CPT/HCPCS: 72148

== ENCOUNTER 2023-12-29 14:04 | Outpatient (OUT) | payer OTHER, SELFPAY ==
--- NOTE | 2023-12-29 15:45 | PM.CN ---
Consult Note: HPI Data of Consult Patient: new to practice Consult date: 12/29/23 Requesting Physician: Valeria Driver MD Primary Care Provider: KELLY LEE Consult Narrative Reason for consult: low back, left hip and leg pain Narrative: 53yof who presents for evaluation. several months of worsening left low back, hip, leg pain. was being treated for left hip pathology, but did not have much benefit from left hip interventions. lumbar mri reviewed, which is significant for multilevel stenosis, worst at l5-s1. she has engaged in a series of provider directed home exercises >6 weeks, without lasting benefit. uses otc pain meds as needed. denies adverse med side effects. cc:: CC: Valeria Driver MD Review of Systems ROS Status of ROS 10 or more systems reviewed and unremarkable except as noted in history and below [facility] Medical History (Updated 12/29/23 @ 15:48 by Valeria Driver MD) HTN (hypertension) ?I10 - Essential (primary) hypertension (ICD-10) High cholesterol ?E78.00 - Pure hypercholesterolemia, unspecified (ICD-10) Neuropathy ?G62.9 - Polyneuropathy, unspecified (ICD-10) Diabetes ?E11.9 - Type 2 diabetes mellitus without complications (ICD-10) Depression ?F32.A - Depression, unspecified (ICD-10) COVID ?U07.1 - COVID-19 (ICD-10) Hip pain, left ?M25.552 - Pain in left hip (ICD-10) Surgical History Hx of exploratory laparotomy ?Z98.890 - Other specified postprocedural states (ICD-10) H/O: hysterectomy ?Z90.710 - Acquired absence of both cervix and uterus (ICD-10) H/O dilation and curettage ?Z98.890 - Other specified postprocedural states (ICD-10) History of colposcopy ?Z98.890 - Other specified postprocedural states (ICD-10) Previous section ?Z98.891 - History of uterine scar from previous surgery (ICD-10) History of repair of anterior cruciate ligament of right knee ?Z98.890 - Other specified postprocedural states (ICD-10) History of repair of anterior cruciate ligament of left knee ?Z98.890 - Other specified postprocedural states (ICD-10) Social History Smoking status: Heavy tobacco smoker Little interest or pleasure in doing things: not at all Feeling down, depressed, or hopeless: not at all Meds Home Medications and Allergies Home Medications ?Medication ?Instructions ?Recorded ?Confirmed ?Type amlodipine 5 mg tablet 5 mg PO DAILY 11/01/22 12/29/23 History bupropion HCl 300 mg 24 hr tablet, 300 mg PO DAILY 11/01/22 12/29/23 History extended release citalopram 40 mg tablet 40 mg PO DAILY 11/01/22 12/29/23 History dulaglutide 0.75 mg/0.5 mL 0.75 mg subcut .weekly 11/01/22 12/29/23 History subcutaneous pen injector (Trulicity) empagliflozin 10 mg tablet 10 mg PO DAILY 11/01/22 12/29/23 History (Jardiance) lisinopril 40 mg tablet 20 mg PO DAILY 11/01/22 12/29/23 History metoprolol succinate 100 mg 100 mg PO DAILY 11/01/22 12/29/23 History tablet,extended release 24 hr Allergies Allergy/AdvReac Type Severity Reaction Status Date / Time meperidine (From Demerol) Allergy Severe throat Verified 12/15/23 10:37 closing Exam Narrative Exam Narrative: Psych-alert and oriented x 3. Attentive and appropriate, constitutionally normal, displays normal mood and affect per situation. There are no obvious deficits in memory, reasoning, or intellect.? Skin-no obvious rashes, bruising, erythema noted to the patient's area of pain.? Extremities- extremities are warm with minimal edema and palpable pulses. Lumbar-tenderness to palpation noted in the lumbar spine and paraspinal musculature. Pain is elicited with flexion, extension, and lateral rotation of the lumbar spine. Range of motion is diminished with these motions. Facet loading maneuvers are positive.? Strength-noted to be unremarkable with the exception of decreased strength rated at 4 out of 5 in left quadriceps femoris, anterior tibialis. Sensory-no notable sensory deficits in the bilateral lower extremities to touch or pinprick in all dermatomal distributions with the exception to decreased sensation to the left L4, 5 dermatomal distribution Coordination remains intact.? Gait remains non-antalgic. Assessment and Plan Assessment and Plan (1) Lumbar stenosis with neurogenic claudication: (2) Lumbar spondylosis: Plan 53yof who presents for evaluation. failed conservative measures, as noted. imaging reviewed, as noted. given symptoms and imaging, prudent to attempt left l4-5, l5-s1 tfesi x2 under fluoroscopic guidance. she is in agreement. meds reviewed, no changes, does not want meds. follow up after procedure.
== END 2023-12-29 14:05 | disposition home or self-care (01) ==
LOC: PM 14:05
PROVIDERS: PCP Family Medicine; Visit Provider Anesthesiology
DX: M48.062 Spinal stenosis, lumbar region with neurogenic claudication (principal); M47.816 Spondylosis without myelopathy or radiculopathy, lumbar region
CPT/HCPCS: G0463

== ENCOUNTER 2024-01-12 07:46 | Day surgery (SDC) | payer OTHER, SELFPAY ==
--- OUTSIDE RECORDS SUMMARY | 2024-01-12 07:51 | XMS_ITS | CCD ---
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 Name Role Phone BALAJI RUIZ Unavailable Unavailable KELLY LEE Unavailable UnavailELIZABETH Everett (ALEXA) Unavailable UnavaKELLY Joseph Primary Care Unavailable KELLY LEE Admitting Unavailable KELLY LEE Attending Unavailable KELLY LEE Consulting Unavailable KELLY LEE Primary Care Unavailable KELLY LEE Admitting Unavailable KELLY LEE Attending Unavailable KELLY LEE Consulting Unavailable Kelly Lee Unavailable Sawyer Styles Unavailable DO Kelly Lee Primary Care Provider DO Kelly Lee Attending Provider [phone] MD Sawyer Styles Attending Provider Kelly Lee [...] Yelena Dominguez Unavailable Yvette Bazan Unavailable TYRA MOSQUEDA Referring Unavailable KELLY LEE Referring Unavailable TARAS CONTRERAS Attending Unavailable TARAS CONTRERAS Referring Unavailable JR. MOSQUEDA GEORGE C Attending Unavailmaria del carmen MOSQUEDA JR., GEORGE C Referring UnavailKelly Ortega MD Primary Care Provider Allergies Allergy Classification Reported Allergen(s) Allergy Type Date of Onset Reaction(s) Facility (14 sources) atorvastatin Drug Allergy 08-26-[address] [facility] (15 sources) Meperidine Drug Allergy 12-31-[address] [facility] (14 sources) metFORMIN Drug Allergy 08-26-[address] [facility] (14 sources) Pravastatin Drug Allergy 08-26-[address] [facility] (1 source) Meperidine Drug Allergy [address] [facility] Repository (1 source) Meperidine Drug Allergy 10-29-2022 [facility] Medications Current Medications Medication Drug Class(es) Dates Sig (Normalized) Sig (Original) [id number] actuat albuterol 0.09 mg/actuat metered dose [...] PRN Active amLODIPine 5 mg oral tablet (18 sources) Dihydropyridine Calcium Channel Warner Start: 08-18-2023 Amlodipine Active 0 .ROUTE .COMPLEX August 18, 2023 3:09pm TAKE 1 TABLET DAILY Start: 12-17-2021 End: 08-18-2023 amLODIPine (Norvasc) 5 MG ta blet 10/07/2022 Active amoxicillin 875 mg / clavulanate 125 mg [...] day Mar, Active 24 hr buPROPion hydrochloride 300 mg extended release oral tablet (16 sources) Aminoketone Start: 09-09-2022 buPROPion XL (Wellbutrin XL) 300 MG 24 hr tablet 09/09/2022 Active Start: 12-17-2021 take 1 tablet by jessie th once daily in the morning Bupropion Hcl [...] 1 TABLET DAILY IN THE MORNING Active celecoxib 200 mg oral capsule (1 source) Nonsteroidal Anti-inflammatory Drug Start: 11-25-2023 End: 01-24-2024 take 1 capsule by mouth once daily at mealtime celecoxib (CeleBREX) 200 MG capsule Indications: Greater trochanteric bursitis of left hip Take 1 capsule (200 mg) by mouth Daily Take with food 30 capsule 1 11/25/2023 01/24/2024 Active citalopram 40 mg oral tablet (18 sources) Serotonin Reuptake Inhibitor Start: 09-05-2023 Citalopram Active 0 .ROUTE .COMPLEX 90 September 05, 2023 10:22am TAKE 1 TABLET DAILY Start: 2018 End: 09-05-2023 take 40 mg by mouth once daily Citalopram Discontinued 40 MG PO Daily 2018 1:00am September 05, 2023 10:22am citalopram (Nishi XA) 20 MG tablet 1 (one) time each day at the same time. Active 0.5 ml dulaglutide 1.5 mg/ml auto-injector (11 sources) GLP-1 Receptor Agonist Start: 09-09-2022 End: 07-24-2023 Dulaglutide (Trulicity) 0.75 mg/0.5 mL pen injector Active 0.75 MG SUBCUT every week 12 90 July 24, 2023 8:18am empagliflozin 10 mg oral tablet (16 sources) Sodium-Glucose Cotransporter 2 Inhibitor Start: 10-02-2021 Jardiance 10 MG 10/07/2022 Active lisinopril 40 mg oral tablet (17 sources) Angiotensin Converting Enzyme Inhibitor Start: 2018 take 40 mg by mouth once daily Lisinopril Active 40 MG PO Daily 2018 1:00am lisinopril 20 MG tablet 1 (one) time each day at the same time. Active methylPREDNISolone (1 source) Corticosteroid Start: 12-01-2023 methylPREDNISo lone (Medrol Dospak) 4 MG tablets Indications: Left hip pain Follow schedule on package instructions 21 tablet 12/01/2023 Active Metoprolol (19 sources) beta-Adrenergic Warner Start: 08-18-2023 Metoprolol Succinate Active 0 .ROUTE .COMPLEX August 18, 2023 3:09pm TAKE 1 TABLET DAILY Start: 10-07-2022 metoprolol suc cinate XL (Toprol-XL) 100 MG 24 hr tablet 10/07/2022 Active Start: 2018 End: 08-18-2023 take 100 mg [...] every four to six hours Hydrocodone-Acetami nophen ([place]) 5-325 mg Tablet Discontinued 1 TAB PO [...] MG PO every 6 to 8 hours 14 2018 1:00am December 17, 2021 7:15am levothyroxine [...] Sciatica; Translations: [Lumbago with sciatica, left side] 12-22-2023 Episodic Substance-related disorders (12 sources) Tobacco dependence [...] Range Facility CBC AND AUTO DIFFon 12-01-19 24 ABSOLUTE BASOPHIL 0.1 X10E9/L Normal 0.0-0.2 [facility] Comment on above: Performed By: #### Son BEAVER 18814-8, 1987-07 #### [facility] ([id number]) [address], [address] [place] [address] ABSOLUTE NEUTROPHIL 4.1 X10E9/L Normal 1.5-6.6 [place] Comment on above: Performed By: #### Son BEAVER 02399-9, 1987-07 #### [facility] ([id number]) [address], [address] [place] [address] Basophils/100 WBC (Bld) 2.3 % Normal [facility] Comment on above: Performed By: #### Son BEAVER 80943-9, 1987-07 #### [facility] ([id number]) [address], [address] [place] [address] Eosinophils (Bld) [#/Vol] 0.2 10*3/uL Normal 0.0-0.4 [facility] Comment on above: Performed By: #### Son BEAVER [id number] #### [facility] ([id number]) [address], [address] [place] [address] Eosinophils/100 WBC (Bld) 2.8 % Normal [facility] Comment on above: Performed By: #### Son BEAVER 45597-2, 1987-07 #### [facility] ([id number]) [address], [address] [place] [address] Erythrocyte distribution width (RBC) [Ratio] 13.1 % Normal 11.5-15.0 [facility] Comment on above: Performed By: #### Son BEAVER [id number] #### [facility] ([id number]) [address], [address] [place] [address] Hematocrit (Bld) [Volume fraction] 45.3 % Normal 35-47 [facility] Comment on above: Performed By: #### Son BEAVER, 83169-2, 1987-07 #### [facility] ([id number]) [address], [facility] [address] [place] [address] Hemoglobin (Bld) [Mass/Vol] 15.4 g/dL Normal 11.7-15.5 [facility] Comment on above: Performed By: #### Son BEAVER, 08251-0, 1987-07 #### [facility] ([id number]) [address], [facility] [address] [place] [address] Lymphocytes (Bld) [#/Vol] 1.6 10*3/uL Normal 1.0-3.5 [facility] Comment on above: Performed By: #### Son BEAVER, 24219-6, 1987-07 #### [facility] ([id number]) [address], [facility] [address] [place] [address] Lymphocytes/100 WBC (Bld) 25.3 % Normal [facility] Comment on above: Performed By: #### Son BEAVER 56996-4, 1987-07 #### [facility] ([id number]) [address], [address] [place] [address] MCH (RBC) [Entitic mass] 32.7 pg Normal 27-34 [facility] Comment on above: Performed By: #### Son BEAVER 76052-8, 1987-07 #### [facility] ([id number]) [address], [address] [place] [address] MCHC (RBC) [Mass/Vol] 33.9 g/dL Normal 32-36 [facility] Comment on above: Performed By: #### Son BEAVER 83426-4, 1987-07 #### [facility] ([id number]) [address], [address] [place] [address] MCV (RBC) [Entitic vol] 97 fL Normal 80-100 [facility] Comment on above: Performed By: #### Son BEAVER, 62984-0, 1987-07 #### [facility] ([id number]) [address], [address] [place] [address] Monocytes (Bld) [#/Vol] 0.4 10*3/uL Normal 0-0.9 [facility] Comment on above: Performed By: #### Son BEAVER, 98747-6, 1987-07 #### [facility] ([id number]) [address], [address] [place] [address] Monocytes/100 WBC (Bld) 6.1 % Normal [facility] Comment on above: Performed By: #### Son BEAVER, 12645-5, 1987-07 #### [facility] ([id number]) [address], [address] [place] [address] Neutrophils/100 WBC (Bld) 63.5 % Normal [facility] Comment on above: Performed By: #### Son BEAVER, 43711-0, 1987-07 #### [facility] ([id number]) [address], [address] [place] [address] Platelet mean volume (Bld) [Entitic vol] 9.7 fL Normal 7-12 [facility] Comment on above: Performed By: #### Son BEAVER, 52554-3, 1987-07 #### [facility] ([id number]) [address], [address] [place] [address] Platelets (Bld) [#/Vol] 173 10*3/uL Normal 150-450 [facility] Comment on above: Performed By: #### Son BEAVER, 34891-9, 1987-07 #### [facility] ([id number]) [address], [address] [place] [address] RBC COUNT 4.70 X10E12/L Normal 3.80-5.20 [facility] Comment on above: Performed By: #### Son BEAVER, 05226-4, 1987-07 #### [facility] ([id number]) [address], [address] [address] WBC (Bld) [#/Vol] 6.4 10*3/uL Normal 4.0-11.0 [facility] Comment on above: Performed By: #### Son BEAVER, 53887-0, 1987-07 #### [facility] ([id number]) [address], [address] [address] CRP [Mass/Vol]on 12-01-2023 C REACTIVE PROTEIN 0.2 mg/dL Normal 0.000-0.744 [facility] Comment on above: Performed By: #### Son BEAVER, 31198-7, 1987-07 #### [facility] ([id number]) [address], [address] [address] ESR Photometric method (Bld) [Velocity]on 12-01-2023 ESR, ERYTHROCYTE SEDIMENTATION RATE 3 mm/h Normal 0-30 [facility] Comment on above: Performed By: #### Son BEAVER, 12357-7, 1987-07 #### [facility] ([id number]) [address], [address] [place] [address] BI MAMMOGRAM SCREENING TOMOS YNTHESIS BILATERALon 04-25-2023 [...] IS VERY IMPORTANT TO YOUR HEALTH. THE [employer] GUIDELINES RECOMMEND THAT WOMEN 40 [...] (COVID-19) RNA RAKEL+probe Ql (Unsp spec) Negative [facility] Other COVID + FLU Quick Testing Negative [facility] Other COVID Quick Testingon 2022 Result Positive [facility] [employer] Other A1C HEMOGLOBINon 09-09-2022 HbA1c (Bld) [Mass fraction] 6.9 % [facility] [employer] Other HbA1c (Bld) [Mass fraction]o n 09-09-2022 A1C HEMOGLOBIN [facility] [employer] Other Glucose Glucometer (BldC) [M ass/Vol]Ordered By: Sawyer Styles on 12-17-2021 Glucose [Mass/Vol] 179 mg/dL [facility] Comment on above: Random Glucose Refer ence Range is dependent on time and content of last meal. Glucose of more than 200 mg/dL in a nonstressed, ambulatory subject supports the diagnosis of Diabetes Mellitus. Glucose Poct Glucometerson 1 Glucose [Mass/Vol] 179 mg/dL Normal [facility] Comment on above: Result Comment: Lee Glucose Reference Range is dependent on time and content of last meal. Glucose of more than 200 mg/dL in a nonstressed, ambulatory subject supports the diagnosis of Diabetes Mellitus. PERFORMED BY: [facility] [address] [place] [address] PATHOLOGIST PERSONALIZED LIVING MANAGER NURSE SHAY POON M.D. Performed By: #### G TJ #### Point of Care testing , COVID-19 [...] developed and its performance characteristic determined by [employer] and validated at [facility]. This test has not been FDA cleared [...] for SARS Antigen by ARAVIND PERFORMED BY: [facility] [address] [place] [address] PATHOLOGIST PERSONALIZED LIVING MANAGER NURSE SHAY POON M.D. Normal [facility] Comment on above: Performed By: #### C OVID-19 BAM, SOFIANEG #### [facility] [address] [place] [address] [place] COVID-19 SOFIAOrdered By: Jazmine Styles on 12-13-2021 SARS-CoV+SARS-CoV-2 (COVID-19) Ag IA.rapid Ql (Resp) Negative Negative [facility] Comment on above: This is a duplicate Bam SARS Antigen (ARAVIND) result to be used for statistical tracking purpose only. No Panel InformationOrdered By: Sawyer Styles on 12-13-2021 SARS Antigen (LFIA) [facility] Bam Ag Negativeon 12-14-19 22 Bam Ag Negative Negative Normal Negative [facility] Comment on above: Result Comment: This is a duplicate Bam SARS Antigen (ARAVIND) result to be used for statistical tracking purpose only. PERFORMED BY: [place] [address] PATHOLOGIST PERSONALIZED LIVING MANAGER NURSE SHAY POON M.D. Performed By: #### C OVID-19 BAM, SOFIANEG #### [facility] [address] A1C HEMOGLOBINon 10-02-2021 HbA1c (Bld) [Mass fraction] 8.8 % [facility] Other Blood hemoglobin measurement (mass/volume)Ordered By: Kelly Lee on 10-02-2021 Hemoglobin (Bld) [Mass/Vol] 14.6 g/dL 11.8-15.[address] [facility] Body fluid albumin measureme nt (mass/volume)Ordered By: Kelly Lee on 10-02-2021 Albumin (Body fld) [Mass/Vol] 4.2 g/dL 3.2-5.[address] [facility] Cholesterol in LDL Calc [Mas s/Vol]Ordered By: Kelly Lee on 10-02-2021 Cholesterol in LDL [Mass/Vol] 143 mg/dL 0-[address] [facility] Comment on above: LDL ATP III CLASSIFI CATIONLDL less than 100 mg/dL OptimalLDL 100-129 mg/dL Near or above optimalLDL 130-159 mg/dL Borderline highLDL 160-189 mg/dL HighLDL greater than 189 mg/dL Very high Cholesterol in VLDL Calc [Ma ss/Vol]Ordered By: Kelly Lee on 10-02-2021 Cholesterol in VLDL [Mass/Vol] 59 mg/dL 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 Performed By: #### T SH3 wRFLX, CBCNO, CMP, LIPID #### [facility] [address] [place] [address] [place] Calcium [Mass/Vol] 9.6 mg/dL Normal 8.2-10.2 [facility] Comment on above: Order Comment: PT FA STED 12 HRS 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 Performed By: #### T SH3 wRFLX, CBCNO, CMP, LIPID #### [facility] [address] [place] [id number] [place] CO2 [Moles/Vol] 29.4 mmol/L Normal 22.0-30.0 [facility] Comment on above: Order Comment: PT FA STED 12 HRS 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 Performed By: #### T SH3 wRFLX, CBCNO, CMP, LIPID #### [facility] [address] Creatinine [Mass/Vol] 0.44 mg/dL Normal 0.44-1.[address] [facility] Comment on above: Order Comment: PT FA STED 12 HRS 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 Performed By: #### T SH3 wRFLX, CBCNO, CMP, LIPID #### [facility] [address] Estimated GFR ( Dalila > [address] 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 Performed By: #### T SH3 wRFLX, CBCNO, CMP, LIPID #### [facility] [address] [place] [address] Estimated GFR (Non- Am > [address] [facility] Comment on above: Order Comment: PT FA STED 12 HRS 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 Performed By: #### T SH3 wRFLX, CBCNO, CMP, LIPID #### [facility] [address] [place] [address] Globulin (S) [Mass/Vol] 2.7 g/dL Normal [facility] Comment on above: Order Comment: PT FA STED 12 HRS 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 Performed By: #### T SH3 wRFLX, CBCNO, CMP, LIPID #### [facility] [address] [place] [address] Potassium [Moles/Vol] 4.4 mmol/L Normal 3.5-5.[address] [facility] Comment on above: Order Comment: PT FA STED 12 HRS 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 Performed By: #### T SH3 wRFLX, CBCNO, CMP, LIPID #### [facility] [address] Protein [Mass/Vol] 6.9 g/dL Normal 6.1-7.9 [facility] Comment on above: Order Comment: PT FA STED 12 HRS 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 Performed By: #### T SH3 wRFLX, CBCNO, CMP, LIPID #### [facility] [address] Albumin [Mass/Vol] 4.441589 g/dL Normal 3.2-5.5 g/dL [facility] Other Bilirubin [Mass/Vol] 0.1249255 mg/dL Normal 0.3- 1.2 mg/dL [facility] Other Calcium [Mass/Vol] 9.3557488 mg/dL Normal 8.2-10 .2 mg/dL [facility] Other CO2 [Moles/Vol] 29.04674477 mmol/L Normal 22.0-3 0.0 mmol/L [facility] Other Creatinine [Mass/Vol] 0.42622782 mg/dL Normal 0.44-1.03 mg/dL [facility] Other Potassium [Moles/Vol] 4.31397524 mmol/L Normal 3.5-5.1 mmol/L [facility] Other Protein [Mass/Vol] 6.138025 g/dL Normal 6.1-7.9 g/dL [facility] Other Comprehensive Metabolic Panel > 60 [facility] Other Comprehensive Metabolic Panel 2.7 g/dL [facility] Other Comprehensive Metabolic Pane lOrdered By: Kelly Lee on 10-02-2021 Albumin/Globulin [Mass ratio] 1.6 {ratio} Normal 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 Glucose of more than 200 mg/dL in a nonstressed, ambulatory subject supports the diagnosis of Diabetes Mellitus. 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 Glucose of more than 200 mg/dL in a nonstressed, ambulatory subject supports the diagnosis of Diabetes Mellitus. 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 Erythrocyte distribution wid th Auto (RBC) [Ratio]Ordered By: Kelly Lee on 10-02-2021 Erythrocyte distribution width (RBC) [Ratio] 12.7 % 11.9-15.[address] [facility] Estimated glomerular filtrat ion rate (GFR) non- AmericanOrdered By: Kelly Lee on 10-02-2021 GFR/1.73 sq M.predicted among non-blacks MDRD (S/P/Bld) [Vol rate/Area] > 60 mL/Min [facility] Globulin Calc (S) [Mass/Vol] Ordered By: Kelly Lee on 10-02-2021 Globulin (S) [Mass/Vol] 2.7 g/dL [facility] HbA1c (Bld) [Mass fraction]o n 10-02-2021 A1C HEMOGLOBIN [employer] Other Hematocrit Auto (Bld) [Volum e fraction]Ordered By: Kelly Lee on 10-02-2021 Hematocrit (Bld) [Volume fraction] 42.2 % 34.0-46.[address] [facility] Hemogram CBC Without Diffon 10-02-2021 Erythrocyte distribution width (RBC) [Ratio] 12.7 % Normal 11.9-15.[address] [facility] Comment on above: Order Comment: Reaso n 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 Performed By: #### T SH3 wRFLX, CBCNO, CMP, LIPID #### [facility] [address] [place] [id number] [place] Hematocrit (Bld) [Volume fraction] 42.2 % Normal 34.0-46.[address] [facility] Comment on above: Order Comment: Reaso n 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 Performed By: #### T SH3 wRFLX, CBCNO, CMP, LIPID #### [facility] [address] [place] [address] Hemoglobin (Bld) [Mass/Vol] 14.6 g/dL Normal 11.8-15.[address] [facility] Comment on above: Order Comment: Reaso n 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 Performed By: #### T SH3 wRFLX, CBCNO, CMP, LIPID #### [facility] [address] [place] [address] MCH (RBC) [Entitic mass] 32.7 pg Normal 24.7-34.[address] [facility] Comment on above: Order Comment: Reaso n 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 Performed By: #### T SH3 wRFLX, CBCNO, CMP, LIPID #### [facility] [address] [place] [address] MCV (RBC) [Entitic vol] 94.6 fL Normal 80-[address] [facility] Comment on above: Order Comment: Reaso n 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 Performed By: #### T SH3 wRFLX, CBCNO, CMP, LIPID #### [facility] [address] [place] [address] Mean Corpuscular HGB Conc 34.6 g/dL Normal 32.0-35.[address] [facility] Comment on above: Order Comment: Reaso n 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 Performed By: #### T SH3 wRFLX, CBCNO, CMP, LIPID #### [facility] [address] [place] [address] Platelet mean volume (Bld) [Entitic vol] 9.5 fL Normal 6.3-10.[address] [facility] Comment on above: Order Comment: Reaso n 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 Result Comment: PERF ORMED BY: [place] [id number] PATHOLOGIST PERSONALIZED LIVING MANAGER NURSE SHAY POON M.D. Performed By: #### T SH3 wRFLX, CBCNO, CMP, LIPID #### [facility] [address] RBC (Bld) [#/Vol] 4.46 10*6/uL Normal 3.60-5.00 [facility] Comment on above: Order Comment: Reaso n 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 Performed By: #### T SH3 wRFLX, CBCNO, CMP, LIPID #### [facility] [address] WBC (Bld) [#/Vol] 6.2 10*3/uL Normal 3.8-11.6 [facility] Comment on above: Order Comment: Reaso n 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 Performed By: #### T SH3 wRFLX, CBCNO, CMP, LIPID #### [facility] [address] Erythrocyte distribution width (RBC) [Ratio] 12.700 % Normal 11.9-15.3 % [facility] [employer] Other Hematocrit (Bld) [Volume fraction] 42.200 % Normal 34.0-46.4 % [facility] Hemoglobin (Bld) [Mass/Vol] 14.856336 g/dL Normal 11.8-15.4 g/dL [facility] [employer] Other MCH (RBC) [Entitic mass] 32.7000 pg Normal 24.7-34.3 pg [facility] [employer] Other MCV (RBC) [Entitic vol] 94.6000 fL Normal 80-100 fL [facility] Platelet mean volume (Bld) [Entitic vol] 9.5000 fL Normal 6.3-10.7 fL [facility] Other RBC (Bld) [#/Vol] [id number] 10*6/uL Normal 3. 60-5.00 10*6/uL [facility] Other WBC (Bld) [#/Vol] 6.581372275 10*3/uL Normal 3.8 -11.6 10*3/uL [facility] Other Hemogram CBC Without Diff 34.6 g/dL Normal 32.0-35.0 g/dL [facility] Other Hemogram CBC Without DiffOrd ered By: Kelly Lee on 10-02-2021 Platelets (Bld) [#/Vol] 198 10*3/uL Normal 150-[address] [facility] Comment on above: Order Comment: Reaso n 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 Performed By: #### T SH3 wRFLX, CBCNO, CMP, LIPID #### [facility] [address] Lipid Panelon 10-02-2021 LDL Cholesterol,Calculat ed 143 mg/dL High 0-[address] [facility] Comment on above: Order Comment: [...] T SH3 wRFLX, CBCNO, CMP, LIPID #### [facility] [address] Triglyceride w/Reflex 299 mg/dL High 35-[address] 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 Comment on above: Chol less than 200 [...] T SH3 wRFLX, CBCNO, CMP, LIPID #### [facility] [address] [place] [address] [place] Cholesterol in HDL [Mass/Vol] 37 mg/dL Normal 35-[address] [facility] Comment on above: HDL CHOL ATP-III CLA [...] T SH3 wRFLX, CBCNO, CMP, LIPID #### [facility] [address] [place] [address] [place] Cholesterol.total/Ch olesterol in HDL [Mass ratio] 6.5 {ratio} Normal <5.[address] [facility] Comment on above: Order Comment: PT FA STED 12 HRS 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 Performed By: #### T SH3 wRFLX, CBCNO, CMP, LIPID #### [facility] [address] MCH Auto (RBC) [Entitic mass ]Ordered By: Kelly Lee on 10-02-2021 MCH (RBC) [Entitic mass] 32.7 pg 24.7-34.[address] [facility] MCHC Auto (RBC) [Mass/Vol]Or dered By: Kelly Lee on 10-02-2021 MCHC (RBC) [Mass/Vol] 34.6 g/dL 32.0-35.[address] [facility] MCV Auto (RBC) [Entitic vol] Ordered By: Kelly Lee on 10-02-2021 MCV (RBC) [Entitic vol] 94.6 fL 80-[address] [facility] No Panel InformationOrdered By: Kelly Lee on 10-02-2021 Estimated GFR () > 60 mL/Min [facility] Comment on above: GFR estimated refere nce range: According to KDOQI guidelines, <60 ml/min/1.73m2 is sufficient to diagnose a patient with chronic kidney disease. Pharmacy Creatinine Clearance (Chem N/A [facility] Platelet mean volume Auto (B ld) [Entitic vol]Ordered By: Kelly Lee on 10-02-2021 Platelet mean volume (Bld) [Entitic vol] 9.5 fL 6.3-10.[address] [facility] Protein [Mass/volume] in Ser um or PlasmaOrdered By: Kelly Lee on 10-02-2021 Protein [Mass/Vol] 6.9 g/dL 6.1-7.9 [facility] RBC Auto (Bld) [#/Vol]Ordere d By: Kelly Lee on 10-02-2021 RBC (Bld) [#/Vol] 4.46 10*6/uL 3.60-5.00 [facility] Serum or plasma alanine traore otransferase measurement without P-5'-P (enzymatic activiOrdered By: Kelly Lee on 10-02-2021 ALT No additional P-5'-P [Catalytic activity/Vol] 48 U/L 10-[address] [facility] Serum or plasma calcium chandler urement (mass/volume)Ordered By: Kelly Lee on 10-02-2021 Calcium [Mass/Vol] 9.6 mg/dL 8.2-10.2 [facility] Serum or plasma potassium me asurement (moles/volume)Ordered By: Kelly Lee on 10-02-2021 Potassium [Moles/Vol] 4.4 mmol/L 3.5-5.[address] [facility] Serum or plasma total biliru bin measurement (mass/volume)Ordered By: Kelly Lee on 10-02-2021 Bilirubin [Mass/Vol] 0.5 mg/dL 0.3-1.2 [facility] Serum or plasma total carbon dioxide measurement (moles/volume)Ordered By: Kelly Lee on 10-02-2021 CO2 [Moles/Vol] 29.4 mmol/L 22.0-30.0 [facility] TSH DL <= 0.005 mIU/L QnOrde red By: Kelly Lee on 10-02-2021 TSH Qn 3.55 m[IU]/L 0.45-5.[address] [facility] Thyroid Stim Hormone w/Rflxo n 10-02-2021 Thyroid Stim Hormone w/Rflx 3.55 u[iU]/mL Normal 0.45-5.[address] [facility] Comment on above: Order Comment: PT FA STED 12 HRS 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 Result Comment: PERF ORMED BY: [place] [address] PATHOLOGIST PERSONALIZED LIVING MANAGER NURSE SHAY POON M.D. Performed By: #### T SH3 wRFLX, CBCNO, CMP, LIPID #### [address] Thyroid Stim Hormone w/Rflx 3.55 u[iU]/mL Normal 0.45-5.33 u[iU]/mL [facility] Other Triglyceride [Mass/volume] i n Serum or PlasmaOrdered By: Kelly Lee on 10-02-2021 Triglyceride [Mass/Vol] 299 mg/dL 35-[address] [facility] Comment on above: TRIG ATP III CLASSIF ICATIONTRIG less than 150 mg/dL NormalTRIG 150-199 mg/dL Borderline highTRIG 200-500 mg/dL High TRIG greater than 500 mg/dL Very highStandard traceable to the Center for Disease Conrtrol and Prevention (CDC) test method. WBC Auto (Bld) [#/Vol]Ordere d By: Kelly Lee on 10-02-2021 WBC (Bld) [#/Vol] 6.2 10*3/uL 3.8-11.6 [facility] XR hip LT min 2V(w/wo pelvis )*on 10-02-2021 XR hip LT min 2V(w/wo pelvis)* [facility] [place] [address] [place] [address] XRay Report Signed Patient: Velvet Brock MR#: [id number] : 1970 Acct:[id number] Age/Sex: 51 / F ADM Date: 10/02/21 Loc: XD Room: Type: [facility] Attending Dr: Kelly Lee DO Copies to: Kelly Lee DO Ordering Provider: Kelly Lee DO Date of Service: 10/02/21 XR/XR hip LT min 2V(w/wo pelvis)*: Left hip pain ([id number]) XR/XR shoulder RT min 2V*: Acute pain [...] HIP. Impression dictated by: Alexis Vazquez Jr., D.O.10/02/2021 4:15 PM Dictation Location: [place] [address] Transcribed By: [facility] 10/02/21 1612 Dictated By: Alexis Vazquez Jr, DO 10/02/21 1614 Signed By: 10/02/21 [address] [facility] XR hip LT min 2V(w/wo pelvis)* [facility] Other XR hip LT min 2V(w/wo pelvis)* [facility] [place] [facility] Other XR hip LT min 2V(w/wo pelvis)* [address] [facility] Other XR hip LT min 2V(w/wo pelvis)* [place] [id number] [facility] Other XR hip LT min 2V(w/wo pelvis)* XRay Report [facility] Other XR hip LT min 2V(w/wo pelvis)* Signed [facility] Other XR hip LT min 2V(w/wo pelvis)* Patient: Velvet Brock MR#: [id number] [facility] Other XR hip LT min 2V(w/wo pelvis)* [id number] [facility] Other XR hip LT min 2V(w/wo pelvis)* : 1970 Acct:[id number] [facility] Other XR hip LT min 2V(w/wo pelvis)* Age/Sex: 51 / F ADM Date: 10/02/21 [facility] Other XR hip LT min 2V(w/wo pelvis)* Loc: XD Room: Type: [facility] Other XR hip LT min 2V(w/wo pelvis)* Attending Dr: Kelly Lee DO [facility] Other XR hip LT min 2V(w/wo pelvis)* Copies to: Kelly Lee, [facility] Other XR hip LT min 2V(w/wo pelvis)* Ordering Provider: Kelly Lee DO [facility] Other XR hip LT min 2V(w/wo pelvis)* Date of Service: 10/02/21 [facility] Other XR hip LT min 2V(w/wo pelvis)* XR/XR hip LT min 2V(w/wo pelvis)*: Left hip pain [facility] Other XR hip LT min 2V(w/wo pelvis)* ([id number]) XR/XR shoulder RT min 2V*: Acute pain of right shoulder [facility] Other XR hip LT min 2V(w/wo pelvis)* RIGHT SHOULDER - - 3 views, left hip 2 views [facility] Other XR hip LT min 2V(w/wo pelvis)* CLINICAL HISTORY: Right shoulder pain for 3 days. Left hip pain. Fall 09/29/2021 [facility] Other XR hip LT min 2V(w/wo pelvis)* COMPARISON: None [facility] Other XR hip LT min 2V(w/wo pelvis)* FINDINGS: [facility] Other XR hip LT min 2V(w/wo pelvis)* Right shoulder: No acute bony process. Mild degenerative changes right AC joint. Visualized right [facility] Other XR hip LT min 2V(w/wo pelvis)* lung field is clear. [employer] Other XR hip LT min 2V(w/wo pelvis)* Left hip: No acute bony process is seen. No significant degenerative change. [facility] Other XR hip LT min 2V(w/wo pelvis)* XR/XR shoulder RT min 2V* [facility] Other XR hip LT min 2V(w/wo pelvis)* IMPRESSION: [facility] Other XR hip LT min 2V(w/wo pelvis)* NO ACUTE BONY PROCESS INVOLVING THE RIGHT SHOULDER OR LEFT HIP. [facility] Other XR hip LT min 2V(w/wo pelvis)* Impression dictated by: Alexis Vazquez Jr., D.O.10/02/2021 4:15 PM [facility] Other XR hip LT min 2V(w/wo pelvis)* Dictation Location: [place] [address] [facility] Other XR hip LT min 2V(w/wo pelvis)* Transcribed By: PWS 10/02/21 1615 [facility] Other XR hip LT min 2V(w/wo pelvis)* Dictated By: Alexis Vazquez Jr, DO 10/02/21 1614 [facility] Other XR hip LT min 2V(w/wo pelvis)* Signed By: [facility] Other XR hip LT min 2V(w/wo pelvis)* 10/02/21 [facility] Other [facility]15 SARS-CoV-2 (COVID-19) RNA RAKEL+probe Ql (Unsp spec) Not detected Normal NOT DETECTED [facility] Comment on above: Result Comment: This test is not yet approved or cleared by the [place] FDA. When there are no FDA-approved or cleared tests available, and other criteria are met, FDA can make tests available under an emergency access mechanism called an Emergency Use Authorization (EUA). The EUA for this test is supported by the [place] of Health and Human Service's (HHS's) declaration [...] SARS-CoV-2. Performed By: #### C VDTB #### [facility] [address] [place] [address] Gordy Moore Covid-19 PCR ([facility])on 02-15 SARS-CoV-2 (COVID-19) RNA RAKEL+probe Ql (Unsp spec) Not detected Normal NOT DETECTED [facility] Comment on above: Result Comment: This test is not yet approved or cleared by the [place] FDA. When there are no FDA-approved or cleared tests available, and other criteria are met, FDA can make tests available under an emergency access mechanism called an Emergency Use Authorization (EUA). The EUA for this test is supported by the [place] of Health and Human Service's (HHS's) declaration [...] SARS-CoV-2. Performed By: #### C VDTB #### [facility] [address] [place] [address] Gordy Moore COVID-19 Antigenon 1 COVID-19 [...] its performance Bam Disclaimer characteristic determined by [employer] and Bam Disclaimer validated at [facility]. This Bam Disclaimer test has not been [...] Emergency Use Authorization for Coronavirus Bam Disclaimer iseas2019 during the Public Health Emergency) Bam Disclaimer [...] is terminated or revoked sooner. PERFORMED BY: [place] [address] PATHOLOGIST PERSONALIZED LIVING MANAGER NURSE SHAY POON M.D. Normal [facility] Comment on above: Performed By: #### C OVID-19 BAM, SOFIANEG #### [address] Bam Ag Negativeon 03-07-20 21 Bam Ag Negative Negative Normal Negative [facility] Comment on above: Result Comment: This is a duplicate Bam SARS Antigen (ARAVIND) result to be used for statistical tracking purpose only. PERFORMED BY: [place] [address] PATHOLOGIST PERSONALIZED LIVING MANAGER NURSE SHAY POON M.D. Performed By: #### C OVID-19 BAM, SOFIANEG #### [address] CNOVon 12-31-2016 CNOV Office Visit (LOORRM) CHARLES BROCK ([id number]) 1970 [facility] Time Provider Riowpivwaq28/17/17 2:30 PM BALAJI RUIZ During your visit today, we recorded the following information about you:Referring Provider: KELLY LEE [[id number]]Allergies As of Date: 12/31/2016 Noted Allergy ReactionDEMEROL [...] by BALAJI RUIZ MD on 12/31/16 Normal [facility] PROGRESSon 12-31-2016 PROGRESS HNO ID: [id number] thor: Nayana (RtChris Capone: (none)Author Type: TechnicianType: Progress NotesFiled: 12/31/2016 2:45 PMNote Text: Radiology Service Progress NotePATIENT NAME: Velvet BrockMRN: [id number] OF SERVICE: December 31, 2016TIME: 2:45 PMPATIENT IDENTITY VERIFICATION COMPLETED USING TWO (2) METHODS: Patientconfirmed name verbally and Date of .PATIENT GENDER DATA: Female. status: : NoBreastfeeding status: NO.PATIENT RELEVANT IMPLANT DATA REVIEWED: YesRADIOLOGY DEPARTMENT: General X-ray: Exam(s) Completed: Lower ExtremityX-Ray(s): Knee, AP / Lat / Merchant Right and Wt. Bearing:PERIPHERAL IV DATA: Not applicableSIGNED BY: RT YelitzaDecember 31, 2016 2:45 PM Normal [facility] PROGRESS HNO ID: [id number] thor: Balaji Reis: Orthopaedic SurgeryAuthor Type: PhysicianType: Progress NotesFiled: 01/27/2017 2:59 PMNote Text: [facility] [address] [facility] 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 I offered a cortisone injection, riley is concerned regarding her diabetes and insulin resistance. She istaking the NSAIDs already. We are going to get approval for Synvisc. Jimbo see her back after approval. From a surgical standpoint, this wouldrequire total knee arthroplasty.A copy of this note to Dr. Kelly Lee in [place], [place] with aconsultation cover letter.Dictated By: Balaji Ruiz M.D.Date Dictated: 12/31/2016Date Typed: [facility] 12/31/2016JOB# [id number] Normal [facility] XR KNEE 4V AP/PA BOTH+LAT/ME R [...] KELLY MD on Dec 31 2016 2:51PM [id number] Normal [facility] CR-KNEE RIGHT 3 VIEWS IMPORT on 11-14-2016 CR-KNEE RIGHT 3 VIEWS IMPORT Images were obtained outside of [facility] [id number] Normal [facility] Vital Signs Date Time Vital Sign Value Performing Clinician Facility 08-26-2023 17:41-0400 Body height 158.75 cm [facility] 08-26-2023 17:41-0400 Body mass index (BMI) [Ratio] 41.5 kg/m2 [facility] 08-26-2023 17:41-0400 Body temperature 97.6 [degF] [facility] 08-26-2023 17:41-0400 Body weight 104.77 kg [facility] 08-26-2023 17:41-0400 Heart rate 62 /min [facility] 08-26-2023 17:41-0400 Respiratory rate 18 /min [facility] 08-26-2023 17:41-0400 SaO2% (BldA) [Mass fraction] 98 % [facility] 04-02-2023 15:05-0500 Body height 158.75 cm Yvette Hortensia Other [facility] 04-02-2023 15:05-0500 Body mass index (BMI) [Ratio] 42.29 kg/m2 Yvette Hortensia Other [facility] 04-02-2023 15:05-0500 Body temperature 97.3 [degF] Yvette Hortensia Other [facility] 04-02-2023 15:05-0500 Body weight 106.6 kg Yvette Hortensia Other [facility] 04-02-2023 15:05-0500 Diastolic blood pressure 75 mm[Hg] Yvette Bazan Other [facility] 04-02-2023 15:05-0500 Respiratory rate 18 /min Yvette Bazan Other [facility] 04-02-2023 15:05-0500 SaO2% (BldA) [Mass fraction] 95 % Yvette Bazan Other [facility] 04-02-2023 15:05-0500 Systolic blood pressure 155 mm[Hg] Yvette Bazan Other [facility] 11-08-2022 18:45-0400 Body height 158.75 cm Yelena Dominguez Other [facility] 11-08-2022 18:45-0400 Body temperature 100 [degF] Yelena Dominguez Other [facility] 11-08-2022 18:45-0400 Diastolic blood pressure 73 mm[Hg] Yelena Dominguez Other [facility] 11-08-2022 18:45-0400 Respiratory rate 18 /min Yelena Dominguez Other [facility] 11-08-2022 18:45-0400 SaO2% (BldA) [Mass fraction] 95 % Yelena Dominguez Other [facility] 11-08-2022 18:45-0400 Systolic blood pressure 168 mm[Hg] Yelena Dominguez Other [facility] 09-09-2022 16:00-0400 Body height 158.75 cm Kelly Lee Other [facility] 09-09-2022 16:00-0400 Body mass index (BMI) [Ratio] 41.93 kg/m2 Kelly Robinley Other [facility] 09-09-2022 16:00-0400 Body weight 105.69 kg Kelly Lee Other [facility] 09-09-2022 16:00-0400 Diastolic blood pressure 72 mm[Hg] Kelly Lee Other [facility] 09-09-2022 16:00-0400 Respiratory rate 18 /min Kelly Lee Other [facility] 09-09-2022 16:00-0400 SaO2% (BldA) [Mass fraction] 95 % Kelly Lee Other [facility] 09-09-2022 16:00-0400 Systolic blood pressure 142 mm[Hg] Klely Robinley Other [facility] 12-17-2021 09:29-0400 Diastolic blood pressure 78 mm[Hg] DO Kelly Lee Work Phone: [facility] 12-17-2021 09:29-0400 Heart rate 60 /min DO Kelly Lee Work Phone: [facility] 12-17-2021 09:29-0400 Respiratory rate 20 /min DO Kelly Lee Work Phone: [facility] 12-17-2021 09:29-0400 SaO2% (BldA) [Mass fraction] 94 % DO Kelly Lee Work Phone: [facility] 12-17-2021 09:29-0400 Systolic blood pressure 152 mm[Hg] DO Kelly Lee Work Phone: [facility] 12-17-2021 07:43-0400 Body height 157.48 cm DO Kelly Lee Work Phone: [facility] 12-17-2021 07:43-0400 Body temperature 98.7 [degF] DO Kelly Lee Work Phone: [facility] 12-17-2021 07:43-0400 Body weight 104.32 kg DO Kelly Lee Work Phone: [facility] 10-02-2021 12:15-0400 Body height 158.75 cm Kelly Lee Other [facility] 10-02-2021 12:15-0400 Body mass index (BMI) [Ratio] 42.83 kg/m2 Kelly Lee Other [facility] 10-02-2021 12:15-0400 Body weight 107.96 kg Kelly Lee Other [facility] 10-02-2021 12:15-0400 Diastolic blood pressure 80 mm[Hg] Kelly Lee Other [facility] 10-02-2021 12:15-0400 Respiratory rate 18 /min Kelly Lee Other [facility] 10-02-2021 12:15-0400 SaO2% (BldA) [Mass fraction] 95 % Kelly Lee Other [facility] Other 10-02-2021 12:15-0400 Systolic blood pressure 150 mm[Hg] Kelly Lee Other [facility] Other Encounters Encounter Date Encounter Type Care Provider Facility Start: 12-22-2023 End: 12-22-2023 Telephone encounter Mary Bearden MA [facility] Start: 12-01-2023 End: 12-01-2023 ambulatory TYRA Cline [facility] Start: 12-01-2023 Encounter for other preprocedural examination [facility] Start: 12-01-2023 End: 12-01-2023 ambulatory TYRA HERNANDEZ Not Available Start: 10-29-2023 End: 10-29-2023 ambulatory TARAS CONTRERAS Not Available Start: 10-21-2023 ambulatory [facility] Work Phone: Start: 10-21-2023 Non-patient / Non-visit [facility] Physician [facility] [employer] Work Phone: Start: 08-26-2023 End: 08-26-2023 ambulatory [facility] Work Phone: Start: 08-26-2023 End: 08-26-2023 Patient encounter procedure [facility] Physician [facility] Urgent Care Amarjit Work Phone: Start: 07-24-2023 Non-patient / Non-visit [facility] Physician [facility] Family [facility] [place] Work Phone: Start: 04-25-2023 End: 04-25-2023 ambulatory KELLY LEE Not Available Start: 04-02-2023 (URG) Urgent Care Visit Yvette justice [facility] Start: 04-02-2023 End: 04-02-2023 ambulatory Yvette Bazan Other [facility] Start: 02-05-2023 End: 02-05-2023 ambulatory Kelly Lee Other [facility] Start: 02-05-2023 Telephone encounter Kelly Lee [facility] [place] Start: 11-25-2022 End: 11-25-2022 ambulatory Kelly Lee Other [facility] Start: 11-25-2022 Telephone encounter Kelly CABELLO [facility] [place] Start: 11-08-2022 End: 11-08-2022 ambulatory Yelena Dominguez Other [facility] Other Start: 11-08-2022 Office outpatient vi sit 15 minutes Yelena Dominguez [facility] Start: 10-24-2022 End: 10-24-2022 ambulatory Kelly Lee Other [facility] Other Start: 10-24-2022 Telephone encounter Kelly CABELLO [facility] [place] Start: 09-09-2022 End: 09-09-2022 ambulatory Kelly Lee Other [facility] Other Start: 09-09-2022 Office outpatient vi sit 25 minutes Kelly Lee [facility] [place] Start: 12-17-2021 End: 12-17-2021 ambulatory Sawyer Styles Facility:[facility] Start: 12-17-2021 End: 12-17-2021 Admission to same day surgery center DO Kelly Lee Work Phone: [facility] Start: 12-17-2021 End: 12-17-2021 ambulatory DO Kelly Lee Work Phone: [facility] Work Phone: Start: 12-13-2021 End: 12-13-2021 ambulatory Sawyer Styles Facility:[facility] Start: 12-13-2021 End: 12-13-2021 ambulatory DO Kelly Lee Work Phone: [facility] Work Phone: Start: 12-13-2021 End: 12-13-2021 Patient encounter procedure DO Kelly Lee Work Phone: [facility] Start: 11-28-2021 End: 11-28-2021 ambulatory Kelly Lee Other [facility] Other Start: 11-28-2021 Telephone encounter Kelly CABELLO [facility] [place] Start: 11-15-2021 End: 11-15-2021 ambulatory Kelly Lee Other [facility] Other Start: 11-15-2021 Telephone encounter Kelly Kan [facility] [place] Start: 11-07-2021 End: 11-07-2021 ambulatory Sawyer Styles Other [facility] Other Start: 11-07-2021 Telephone encounter Sawyer CABELLO [facility] [employer] [facility] Start: 10-15-2021 End: 10-15-2021 ambulatory Kelly Lee Other [facility] Other Start: 10-15-2021 Telephone encounter Kelly Kan [facility] [place] Start: 10-02-2021 End: 10-02-2021 ambulatory Kelly Lee [facility] Other Start: 10-02-2021 Office outpatient vi sit 25 minutes Kelly COLLAZO [facility] [place] Start: 10-02-2021 Telephone encounter [facility] Start: 10-02-2021 End: 10-02-2021 Patient encounter procedure DO Kelly Lee Work Phone: [facility] Start: 03-13-2021 End: 03-13-2021 ambulatory KELLY LEE Facility:[facility] Start: 03-12-2021 End: 03-12-2021 ambulatory KELLY LEE Facility:[facility] Start: 03-07-2021 End: 03-07-2021 ambulatory Kelly Lee Facility:[facility] Start: 12-31-2016 End: 12-31-2016 Ambulatory BALAJI RUIZ [facility] [place] Procedures Date Procedure Procedure Detail Performing Clinician Start: 04-25-2023 Mammography Mary garzon MIGUEL Start: 12-17-2021 Screening colonoscopy D O Kelly Lee Work Phone: Start: 10-02-2021 Plain X-ray of left hip DO Kelly Lee Work Phone: Start: 10-02-2021 Plain X-ray of right shoulder DO Kelly Lee Work Phone: SARS Antigen (LFIA) DO Destiny ceja Yasmani Work Phone: Plan of Treatment Date Care Activity Detail Author Start: 04-25-2024 Screening for malignant neoplasm of breast Mammogram [facility] Start: 01-05-2024 End: 01-05-2024 Patient encounter procedure 01/05/2024 8:15 AM EDT Office Visit [facility] [address] [place] [id number] Jr. Tyra Mosqueda, DO [address] [facility] [address] [place] [address] [facility] Start: 11-16-2023 Influenza vaccination Influenza Vaccine (#1) [facility] Start: 10-21-2023 Patient referral [facility] Work Phone: Start: 12-17-[address] [facility] Start: 2001 Screening for malignant neoplasm of cervix [facility] Start: 02-10-1992 Screening for malignant neoplasm of cervix Pap Smear [facility] Start: 1971 Screening for malignant neoplasm of colon [facility] Patient Education Diverticulosis (DC) [facility] Work Phone: Patient referral [facility] Work Phone: Immunizations Immunization Date Immunization Notes Care Provider Fa cilianne 12-07-2020 COVID-19 Vaccine Moderna - Documentation Purposes Only Kelly Lee Other [facility] 12-07-2020 influenza, seasonal, injectable Kelly Lee Other [facility] 12-07-2020 influenza virus vaccine, unspecified formulation Mary Bearden MA [facility] 11-02-2020 COVID-19 Vaccine Moderna - Documentation Purposes Only Kelly Lee Other [facility] Payers Date Payer Category Payer [employer] ( and others) [facility] [id number] 2022-Present [address] [place] [address] [id number] 2022 [employer] ( and others) [id number] 2021 Self-pay [id number] 1970 Unknown [id number] .593 1971 Unknown [id number] 2.16.840.1.192375.3.579.2 .593 1971 Unknown [id number] 2.16.840.1.468805.3.579.2 .9 1971 Unknown [id number] 2.16.840.1.319287.3.579.2 .1259 1971 Unknown [id number] 2.16.840.1.072719.3.579.2 .9 1971 Unknown [id number] 2.16.840.1.438825.3.579.2 .1259 1971 Unknown [id number] 2.16.840.1.983380.3.579.2 .1259 1971 Unknown [id number] 2.16.840.1.687196.3.579.2 .1259 1959 [employer] ( and others) [id number] Unknown [id number] 2.16.840.1.676980.3.579.2 .531 Unknown [id number] 2.16.840.1.721608.3.579.2 .531 Unknown [id number] 2.16.840.1.861372.3.579.2 .531 Unknown [id number] 2.16.840.1.825881.3.579.2 .531 Social History Date Type Detail Facility Start: 10-29-2023 Sex Assigned At N [facility] Other Start: 05-16-2018 End: 12-17-2021 Tobacco smoking status MDIS Smoker (finding) [facility] Start: 1970 Sex Assigned At Female [facility] Start: 10-29-2023 Tobacco smoking stat [facility] Smokes tobacco daily [facility] History of tobacco use Cigarette Smoker N [facility] Start: 10-29-2023 Cigarettes smoked current (pack per day) - Reported 0.5 [facility] Start: 10-29-2023 Tobacco use and exposure Smokeless tobacco non-user [facility] Start: 10-29-2023 Alcoholic beverage intake Current drinker of alcohol (finding) [facility] Start: 10-29-2023 Alcohol Comment caffeine: none - 6DRINKS/WK [facility] Start: 1970 Sex assigned at Not on file N [facility] Goals Date Patient Goal Desired Activity /State Clinical Notes 09-14-2009 to 12-22-2023 Telephone Encounter - Mary Bearden MA - 12/22/2023 11:33 AM EDTTelephone Encounter - Mary Bearden MA - 12/22/2023 11:33 AM EDT Note Date & Type Note Facility 12-22-[address] Mosqueda reviewed and discussed L-Spine results with patient. He is recommending a referral to pain management ; patient is agreeable and requesting to proceed at [facility]. Referral has been sent. [facility] 12-22-[address] Mosqueda reviewed and discussed L-Spine results with patient. He is recommending a referral to pain management ; patient is agreeable and requesting to proceed at [facility]. Referral has been sent. documented in this encounter [facility] 10-21-2023 Hospital Discharg e instructions Ambulatory OrdersReferral to Orthopedic Surgery Time Frame: 10/21/23, Location: [facility] Work Phone: 04-02-2023 Evaluation note Encounter Date [...] (suspected) exposure to covid-19 (ICD-10 - Z20.822) [facility] 11-22-2023 Evaluation note* Encounter Date Diagnosis Assessment Notes Treatment Notes Treatment Clinical Notes Jan, Type 2 diabetes mellitus with hyperglycemia, without long-term current use of insulin (ICD-10 - E11.65) [facility] 08-25-2023 Evaluation note* Encounter Date Diagnosis [...] symptoms. Patient verbalized understanding of treatment plan. [facility] 06-26-2023 Evaluation note* Encounter Date Diagnosis [...] E03.9) We will call with lab results [facility] Other 10-03-[address] [facility]08-24-2022 Evaluation note* Encounter Date Diagnosis Assessment Notes Treatment Notes Treatment Clinical Notes Oct, Screening for colon cancer (ICD-10 - Z12.11) [facility] 07-19-2022 Evaluation note* Encounter Date Diagnosis [...] proceed with imaging. She can continue naproxen [id number] and I advised her to start icing. If x-ray is negative, we will plan to send her to physical therapy. She would like to go to [facility] PT in [place] Sep, Left hip pain (ICD-1 0 - M25.552) We will call with x-ray results Sep, Essential (primary) hypertension (ICD-10 - I10) Blood pressure remained elevated on recheck, we will continue current medications because the Jardiance will likely help decrease her systolic blood pressure [facility] Other 07-01-2010 History general Narrative - Reported* Type Description Date Medical History DM2 Medical History Hyperlipidemia Medical History HTN Medical History hypothyroidism Surgical History Bilateral ACL repair 09/2009 & 1 04/2009 Surgical History Breast Biopsy 2014 Surgical History Partial Hyst 2006 Surgical History 2000 Surgical History Etopic 1993 Surgical History D&C - Miscarriage [phone] Surgical History TEETH EXTRACTION X2 07/2017 Hospitalization History SEE ABOVE SURGICAL HX [facility] Other Evaluation noteNo InformationNort [employer] Other Evaluation noteNo assessment information available [facility] Work Phone: Evaluation note* Diagnosis Onset Date Resolution Status Acute maxillary sinusitis, unspecified acute [facility] Work Phone: Evaluation note* Diagnosis Lumbar radiculopathy- Primary Thoracic or lumbosacral neuritis or radiculitis, unspecified documented in this encounter [facility] Author Sawyer Styles [facility] December 17, 2021 8:42am Note Date/Time December 17, 2021 8: 42am [facility] [address] [place] [address] Gastroenterology H&P Signed Patient: Velvet Brock MR# : [id number] : 1970 Acct:[id number] Age/Sex: 51 / F Adm Date: 2 Loc: Room: Type: [facility] Attending Dr: Sawyer Styles MD Copies [...] Styles MD Documented By: Sawyer Styles MD 12/17/21 0842 Signed By: <Electronically signed by Sawyer Styles MD> 12/17/21 0842 [facility] Work Phone: Hospital Discharge instructions Additional Instructions [...] Follow up with PCP. - Office number [phone].[facility] Work Phone: Reason for referral (narrative)* Consultation (Routine) - Pending Review Specialty Diagnoses / Procedures Referred By Yinka moya Referred To Contact Pain Medicine Diagnoses Lumbar radiculopathy Procedures [facility]ES Jr. Tyra Mosqueda DO [address] [facility] [address] [place] [address] Devan Domínguez MD [address] [facility], [address] [place] [address] Referral ID Status Reason Start Date Expiration Date Visits Requested Visits Authorized [id number] Pending Review Specialty Services Required 12/22/2023 06/19/2024 1 1 [facility] Summary Purpose Family History Relationship Condition Age at Onset Recorded Date/T [...] Unknown Unknown mother Hypertension Unknown Advance Directives Advance Directive Response Recorded Date/ Time Advance Directives No April 11, 2017 6:31pm Reason for Referral Reason * FU 10/09 depress ion Diagnosis 1 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 Per [employer] Website, Referral to [facility] is approved Auth/Order#[id number] ( auth attached to referral). Referral faxed. for pt to call me as Nayana Sunita is not approved with [employer] and had to send to above. Reason * Waiting for appt screening colonoscopy Diagnosis 1 Screening for colon cancer (Z12.11) Referral Organization [facility] Family Leola Quintana Referring Provider First Name Kelly Referring Provider Last Name Yasmani Referring Provider Specialty Family Prac jorden Referred Organization [facility] Referred Provider Sawyer Styles Referred Address [address] [facility] [address] ,[place], [place],[address] Referred Provider Specialty Gastroentero logy Referral Priority Routine General Notes Velvet Shepard 02:50:30 PM >referral received, per [employer] website, no auth is required, pt is enrolled [...] section and content) DATE CREATED AUTHOR 09/12/2017 [facility] DATE CREATED AUTHOR AUTHOR'S ORGANIZ ATION 03/21/[address] [facility] DATE CREATED AUTHOR AUTHOR'S ORGANIZ ATION 12/21/2021 [facility] DATE CREATED AUTHOR AUTHOR'S ORGANIZ ATION 12/03/2023 [facility] DATE CREATED AUTHOR AUTHOR'S ORGANIZ ATION 12/07/2023 [facility] dical Specialists EPIC REASON FOR VISIT (unrecogniz ed section and content) FELL AND HURT HIP AND ARM - a1c office, She was doing a mud run and fell while going through water. Fell onto right arm then onto left leg. 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 [employer] provides no warranty or guarantee of the accuracy or completeness of information in this document.
[2024-01-12 08:06] VITALS: BP 159/83; PULSE 67; TEMP 36.1; O2SAT 96
[2024-01-12 08:14] LABS: Glucometer 158 mg/dL (74-106)
[2024-01-12 08:59] VITALS: BP 176/82; BP 177/79; PULSE 63; O2SAT 92; O2SAT 94
[2024-01-12] MEDS: IOHEXOL 240 MG/ML - 10 ML VIAL INJ (09:01)
[2024-01-12] MEDS: 0.9 % SODIUM CHLORIDE 10 ML SYRINGE - SALINE FLUSH INJ (09:01)
[2024-01-12] MEDS: BUPIVACAINE HCL 0.25% PF 25 MG/10 ML VIAL INJ (09:01)
[2024-01-12] MEDS: LIDOCAINE HCL 2% 400 MG/20 ML MDV 5 ML INJ (09:02)
[2024-01-12] MEDS: TRIAMCINOLONE ACETONIDE 40 MG/ML VIAL 80 MG INJ (09:02)
--- NOTE | 2024-01-12 09:03 | P.ON_ITS ---
Date of procedure: 01/12/24 Pre-op diagnosis: Pain due to lumbar stenosis with neurogenic claudication Post-op diagnosis: same as pre-op Procedure: Procedure: Left L4-5, L5-S1 transforaminal epidural steroid injection Medications: Bupivacaine 0.25% 2cc, lidocaine 2% 1cc, kenalog 80mg The patient was seen and examined in the preoperative holding area.? Informed consent was obtained and placed on the chart.? Patient was brought to the medical procedure unit and placed in the prone position where a timeout was completed verifying the correct patient, procedure site, position, and planned special equipment using sterile aseptic technique.? Under direct fluoroscopic visualization a 25-gauge Quincke tipped spinal needle was advanced to the designated neural foramen where contrast dye was injected to show adequate spread.? The needle was inserted at level left L4-5. There was no evidence of vascular or adverse uptake.? Epidural spread was appreciated.? The above- mentioned injectate was then placed in a 1.5 mL aliquot preceded by negative aspiration.? The needle was removed. The needle was inserted and the procedure repeated at level left L5-S1.? The surgery site was covered.? Patient was taken to the postprocedural recovery area and monitored for an appropriate length of time before found suitable for discharge in the accompaniment of a responsible adult. Anesthesia: Local Surgeon: Valeria Driver Pathology: none sent Condition: stable Disposition: no change
== END 2024-01-12 09:09 | disposition home or self-care (01) ==
LOC: SURGOUT 07:47
PROVIDERS: PCP Family Medicine; Visit Provider Anesthesiology
DX: M48.062 Spinal stenosis, lumbar region with neurogenic claudication (principal)
CPT/HCPCS: 36415; 64483; 64484; 82948; J0665; J3301; Q9966

== ENCOUNTER 2024-01-26 08:34 | Day surgery (SDC) | payer OTHER, SELFPAY ==
[2024-01-26 08:44] VITALS: BP 163/68; PULSE 60; TEMP 36.2; O2SAT 96
[2024-01-26 08:49] LABS: Glucometer 194 mg/dL (74-106)
--- OUTSIDE RECORDS SUMMARY | 2024-01-26 08:55 | XMS_ITS | CCD ---
Author Organization [facility] Care Team Providers Care Production Supervisor Off Shift Name Role Phone BALAJI RUIZ Unavailable Unavailable KELLY LEE Unavailable UnavailELIZABETH Everett ([place]) Unavailable UnavaKELLY Joseph Primary Care Unavailable KELLY LEE Admitting Unavailable KELLY LEE Attending Unavailable KELLY LEE Consulting Unavailable KELLY LEE Primary Care Unavailable KELLY LEE Admitting Unavailable KELLY LEE Attending Unavailable KELLY LEE Consulting Unavailable Kelly Lee Unavailable Sawyer Styles Unavailable DO Kelly Lee Primary Care Provider DO Kelly Lee Attending Provider MD Sawyer Styles Attending Provider [phone] Kelly Lee Primary Care Unavailable Jeremiah Lomax [...] Referring UnavailKelly Ortega MD Primary Care Provider Villa RUEDA, Valeria Marte Attending Unavailable Villa RUEDA, Valeria Marte Attending Unavailable Allergies Allergy Classification Reported Allergen(s) Allergy Type Date of Onset Reaction(s) Facility (14 sources) atorvastatin Drug Allergy 08-26-2023 myalgias [facility] (15 sources) Meperidine Drug Allergy 12-31-2016 anaphylaxis [facility] (14 sources) metFORMIN Drug Allergy 08-26-2023 GI issues [facility] (14 sources) Pravastatin Drug Allergy 08-26-2023 [facility] (1 source) Meperidine Drug Allergy 2018 [facility] (1 source) Meperidine Drug Allergy 10-29-2022 [facility] Medications Current Medications Medication Drug Class(es) Dates Sig (Normalized) Sig (Original) [id number] 60 actuat albuterol 0.09 mg/actuat metered dose [...] Active 1 TAB PO Every 12 hours 20 August 26, 2023 12:00am Start: 04-02-2023 take 1 [...] 2021 12:00am take 1 tablet by jessie every twenty-four hours buPROPion HCl ER (XL) [...] Active 0.75 MG SUBCUT every week 12 July 24, 2023 8:18am empagliflozin 10 mg [...] every four to six hours Hydrocodone-Acetami nophen ([place]) 5-325 mg Tablet Discontinued 1 TAB PO [...] 24 ABSOLUTE BASOPHIL 0.1 X10E9/L Normal 0.0-0.2 [facility] Comment on above: Performed By: #### Son BEAVER 33531-7, 1987-07 #### [facility] ([id number]) [address] [place] [address] ABSOLUTE NEUTROPHIL 4.1 X10E9/L Normal 1.5-6.6 [facility] Comment on above: Performed By: #### Son BEAVER, 14962-8, 1987-07 #### [facility] ([id number]) [address] [place] [address] Basophils/100 WBC (Bld) 2.3 % Normal [facility] Comment on above: Performed By: #### Son BEAVER 98136-4, 1987-07 #### [facility] ([id number]) [address] [place] [address] Eosinophils (Bld) [#/Vol] 0.2 10*3/uL Normal 0.0-0.4 [facility] Comment on above: Performed By: #### Son BEAVER 33535-0, 1987-07 #### [facility] ([id number]) [address] [place] [address] Eosinophils/100 WBC (Bld) 2.8 % Normal [facility] Comment on above: Performed By: #### Son BEAVER, 45332-1, 1987-07 #### [facility] ([id number]) [address], [address] [place] [address] Erythrocyte distribution width (RBC) [Ratio] 13.1 % Normal 11.5-15.0 [facility] Comment on above: Performed By: #### Son BEAVER, 61808-3, 1987-07 #### [facility] ([id number]) [address], [address] [place] [address] Hematocrit (Bld) [Volume fraction] 45.3 % Normal 35-47 [facility] Comment on above: Performed By: #### Son BEAVER, 95700-2, 1987-07 #### [facility] ([id number]) [address] [place] [address] Hemoglobin (Bld) [Mass/Vol] 15.4 g/dL Normal 11.7-15.5 [facility] Comment on above: Performed By: #### Son BEAVER, 70540-8, 1987-07 #### [facility] ([id number]) [address] [place] [address] Lymphocytes (Bld) [#/Vol] 1.6 10*3/uL Normal 1.0-3.5 [facility] Comment on above: Performed By: #### Son BEAVER, 51800-3, 1987-07 #### [facility] ([id number]) [address] [place] [address] Lymphocytes/100 WBC (Bld) 25.3 % Normal [facility] Comment on above: Performed By: #### Son BEAVER, 61232-8, 1987-07 #### [facility] ([id number]) [address] [place] [address] MCH (RBC) [Entitic mass] 32.7 pg Normal 27-34 [facility] Comment on above: Performed By: #### Son BEAVER, 97168-2, 1987-07 #### [facility] ([id number]) [address] [place] [address] MCHC (RBC) [Mass/Vol] 33.9 g/dL Normal 32-36 [facility] Comment on above: Performed By: #### Son BEAVER, 14539-6, 1987-07 #### [facility] ([id number]) [address], [address] [place] [address] MCV (RBC) [Entitic vol] 97 fL Normal 80-100 [facility] Comment on above: Performed By: #### Son BEAVER, 24352-9, 1987-07 #### [facility] ([id number]) [address] [place] [address] Monocytes (Bld) [#/Vol] 0.4 10*3/uL Normal 0-0.9 [facility] Comment on above: Performed By: #### Son BEAVER, 28533-8, 1987-07 #### [facility] ([id number]) [address] [place] [address] Monocytes/100 WBC (Bld) 6.1 % Normal [facility] Comment on above: Performed By: #### Son BEAVER, 64608-9, 1987-07 #### [facility] ([id number]) [address] [place] [address] Neutrophils/100 WBC (Bld) 63.5 % Normal [facility] Comment on above: Performed By: #### Son BEAVER, 35386-4, 1987-07 #### [facility] ([id number]) [address], [address] [place] [address] Platelet mean volume (Bld) [Entitic vol] 9.7 fL Normal 7-12 [facility] Comment on above: Performed By: #### Son BEAVER, 68345-9, 1987-07 #### [facility] ([id number]) [address], [address] [place] [address] Platelets (Bld) [#/Vol] 173 10*3/uL Normal 150-450 [facility] Comment on above: Performed By: #### Son BEAVER, 66172-5, 1987-07 #### [facility] ([id number]) [address], [address] [place] [address] RBC COUNT 4.70 X10E12/L Normal 3.80-5.20 [facility] Comment on above: Performed By: #### Son BEAVER, 85163-1, 1987-07 #### [facility] ([id number]) [address], [facility] [address] [place] [address] WBC (Bld) [#/Vol] 6.4 10*3/uL Normal 4.0-11.0 [facility] Comment on above: Performed By: #### Son BEAVER, 11952-7, 1987-07 #### [facility] ([id number]) [address] [place] [address] CRP [Mass/Vol]on 12-01-2023 C REACTIVE PROTEIN 0.2 mg/dL Normal 0.000-0.744 [facility] Comment on above: Performed By: #### Son BEAVER, 86931-3, 1987-07 #### [facility] ([id number]) [address] [place] [address] ESR Photometric method (Bld) [Velocity]on 12-01-2023 ESR, ERYTHROCYTE SEDIMENTATION RATE 3 mm/h Normal 0-30 [facility] Comment on above: Performed By: #### Son BEAVER, 79162-9, 1987-07 #### [facility] ([id number]) [address], [address] [place] [address] BI MAMMOGRAM SCREENING TOMOS YNTHESIS BILATERALon 04-25-2023 [...] IS VERY IMPORTANT TO YOUR HEALTH. THE [place] [employer] GUIDELINES RECOMMEND THAT WOMEN 40 [...] (COVID-19) RNA RAKEL+probe Ql (Unsp spec) Negative [employer] Other COVID + FLU Quick Testing Negative [employer] Other COVID Quick Testingon 2022 Result Positive [place] [employer] Other A1C HEMOGLOBINon 09-09-2022 HbA1c (Bld) [Mass fraction] 6.9 % [employer] Other HbA1c (Bld) [Mass fraction]o n 09-09-2022 A1C HEMOGLOBIN [facility] Other Glucose Glucometer (BldC) [M ass/Vol]Ordered By: Sawyer Styles on 12-17-2021 Glucose [Mass/Vol] 179 mg/dL [facility] Comment on above: Random Glucose Refer ence Range is dependent on time and content of last meal. Glucose of more than 200 mg/dL in a nonstressed, ambulatory subject supports the diagnosis of Diabetes Mellitus. Glucose Poct Glucometerson 1 Glucose [Mass/Vol] 179 mg/dL Normal [facility] Comment on above: Result Comment: [place] om Glucose Reference Range is dependent on time and content of last meal. Glucose of more than 200 mg/dL in a nonstressed, ambulatory subject supports the diagnosis of Diabetes Mellitus. PERFORMED BY: [facility] [address] [place] [address] PATHOLOGIST ATHLETIC EVENTS SCORER SHAY POON M.D. Performed By: #### G [...] developed and its performance characteristic determined by [employer] and validated at [facility]. This test has not been FDA [...] for SARS Antigen by ARAVIND PERFORMED BY: [facility] [address] PATHOLOGIST ATHLETIC EVENTS SCORER SHAY POON M.D. Normal [facility] Comment on above: Performed By: #### C OVID-19 BAM, SOFIANEG #### [place] [id number] [facility] COVID-19 SOFIAOrdered By: Jazmine Styles on 12-13-2021 SARS-CoV+SARS-CoV-2 (COVID-19) Ag IA.rapid Ql (Resp) Negative Negative [facility] Comment on above: This is a duplicate Bam SARS Antigen (ARAVIND) result to be used for statistical tracking purpose only. No Panel InformationOrdered By: Sawyer Styles on 12-13-2021 SARS Antigen (LFIA) [facility] Bam Ag Negativeon 12-14-19 22 Bam Ag Negative Negative Normal Negative [facility] Comment on above: Result Comment: This is a duplicate Bam SARS Antigen (ARAVIND) result to be used for statistical tracking purpose only. PERFORMED BY: [place] [address] PATHOLOGIST ATHLETIC EVENTS SCORER SHAY POON M.D. Performed By: #### C OVID-19 BAM, SOFIANEG #### [place] [id number] [facility] A1C HEMOGLOBINon 10-02-2021 HbA1c (Bld) [Mass fraction] 8.8 % [employer] Other Blood hemoglobin measurement (mass/volume)Ordered By: Kelly Lee on 10-02-2021 Hemoglobin (Bld) [Mass/Vol] 14.6 g/dL 11.8-15.4 [facility] Body fluid albumin measureme nt (mass/volume)Ordered By: Kelly Lee on 10-02-2021 Albumin (Body fld) [Mass/Vol] 4.2 g/dL 3.2-5.5 [facility] Cholesterol in LDL Calc [Mas s/Vol]Ordered By: Kelly Lee on 10-02-2021 Cholesterol in LDL [Mass/Vol] 143 mg/dL 0-100 [facility] Comment on above: LDL ATP III CLASSIFI CATIONLDL less than 100 mg/dL OptimalLDL 100-129 mg/dL Near or above optimalLDL 130-159 mg/dL Borderline highLDL 160-189 mg/dL HighLDL greater than 189 mg/dL Very high Cholesterol in VLDL Calc [Ma ss/Vol]Ordered By: Kelly Lee on 10-02-2021 Cholesterol in VLDL [Mass/Vol] 59 mg/dL [facility] Comprehensive Metabolic Pane darrick 10-02-2021 Albumin [Mass/Vol] 4.2 g/dL Normal 3.2-5.5 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 Performed By: #### T SH3 wRFLX, CBCNO, CMP, LIPID #### [facility] [address] [place] [address] [place] CO2 [Moles/Vol] 29.4 mmol/L Normal 22.0-30.0 [facility] Comment on above: Order Comment: PT FA STED 12 HRS 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 Performed By: #### T SH3 wRFLX, CBCNO, CMP, LIPID #### [facility] [address] Creatinine [Mass/Vol] 0.44 mg/dL Normal 0.44-1.03 [facility] Comment on above: Order Comment: PT FA STED 12 HRS 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 Performed By: #### T SH3 wRFLX, CBCNO, CMP, LIPID #### [facility] [address] Estimated GFR ( Dalila > 60 Normal [facility] Comment on above: Order Comment: PT FA STED 12 HRS 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 Performed By: #### T SH3 wRFLX, CBCNO, CMP, LIPID #### [facility] [address] Estimated GFR (Non- Am > 60 Normal [facility] Comment on above: Order Comment: PT FA STED 12 HRS 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 Performed By: #### T SH3 wRFLX, CBCNO, CMP, LIPID #### [facility] [address] Globulin (S) [Mass/Vol] 2.7 g/dL Normal [facility] Comment on above: Order Comment: PT FA STED 12 HRS 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 Performed By: #### T SH3 wRFLX, CBCNO, CMP, LIPID #### [facility] [address] [place] [address] [place] Potassium [Moles/Vol] 4.4 mmol/L Normal 3.5-5.1 [facility] Comment on above: Order Comment: PT FA STED 12 HRS 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 Performed By: #### T SH3 wRFLX, CBCNO, CMP, LIPID #### [facility] [address] [place] [id number] [facility] Protein [Mass/Vol] 6.9 g/dL Normal 6.1-7.9 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 Performed By: #### T SH3 wRFLX, CBCNO, CMP, LIPID #### [facility] [address] [place] [id number] [facility] Albumin [Mass/Vol] 4.487220 g/dL Normal 3.2-5.5 g/dL [facility] Other Bilirubin [Mass/Vol] 0.5378979 mg/dL Normal 0.3- 1.2 mg/dL [employer] Other Calcium [Mass/Vol] 9.3060206 mg/dL Normal 8.2-10 .2 mg/dL [employer] Other CO2 [Moles/Vol] 29.06454430 mmol/L Normal 22.0-3 0.0 mmol/L [employer] Other Creatinine [Mass/Vol] 0.61345383 mg/dL Normal 0.44-1.03 mg/dL [employer] Other Potassium [Moles/Vol] 4.13252842 mmol/L Normal 3.5-5.1 mmol/L [employer] Other Protein [Mass/Vol] 6.956066 g/dL Normal 6.1-7.9 g/dL [employer] Other Comprehensive Metabolic Panel > 60 [employer] Other Comprehensive Metabolic Panel 2.7 g/dL [employer] Other Comprehensive Metabolic Pane lOrdered By: Kelly Lee on 10-02-2021 Albumin/Globulin [Mass ratio] 1.6 {ratio} Normal [facility] Comment on above: Order Comment: PT FA STED 12 HRS 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 Performed By: #### T SH3 wRFLX, CBCNO, CMP, LIPID #### [facility] [address] [place] [id number] [place] ALP [Catalytic activity/Vol] 64 U/L Normal 32-92 [facility] Comment on above: Order Comment: PT FA STED 12 HRS 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 Performed By: #### T SH3 wRFLX, CBCNO, CMP, LIPID #### [facility] [address] [place] [id number] [place] AST [Catalytic activity/Vol] 45 U/L High 10-42 [facility] Comment on above: Order Comment: PT FA STED 12 HRS 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 Performed By: #### T SH3 wRFLX, CBCNO, CMP, LIPID #### [facility] [address] [place] [address] [place] Chloride [Moles/Vol] 91 mmol/L Low 95-114 [facility] Comment on above: Order Comment: PT FA STED 12 HRS 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 Performed By: #### T SH3 wRFLX, CBCNO, CMP, LIPID #### [facility] [address] [place] [address] [place] Glucose [Mass/Vol] 186 mg/dL High 70-100 [facility] Comment on above: ADA recommended refe rence rangeRandom Glucose Reference Range is dependent on time and content of last meal. Glucose of more than 200 mg/dL in a nonstressed, ambulatory subject supports the diagnosis of Diabetes Mellitus. 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 Glucose of more than 200 mg/dL in a nonstressed, ambulatory subject supports the diagnosis of Diabetes Mellitus. ADA recommended reference range Performed By: #### T SH3 wRFLX, CBCNO, CMP, LIPID #### [facility] [address] [place] [id number] [place] Sodium [Moles/Vol] 135 mmol/L Low 136-146 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 Performed By: #### T SH3 wRFLX, CBCNO, CMP, LIPID #### [facility] [address] Creatinine and Glomerular fi ltration rate.predicted panel (S/P/Bld)Ordered By: Kelly Lee on 10-02-2021 Creatinine [Mass/Vol] 0.44 mg/dL 0.44-1.03 [facility] Erythrocyte distribution wid th Auto (RBC) [Ratio]Ordered By: Kelly Lee on 10-02-2021 Erythrocyte distribution width (RBC) [Ratio] 12.7 % 11.9-15.3 [facility] Estimated glomerular filtrat ion rate (GFR) non- AmericanOrdered By: Kelly Lee on 10-02-2021 GFR/1.73 sq M.predicted among non-blacks MDRD (S/P/Bld) [Vol rate/Area] > 60 mL/Min [facility] Globulin Calc (S) [Mass/Vol] Ordered By: Kelly Lee on 10-02-2021 Globulin (S) [Mass/Vol] 2.7 g/dL [facility] HbA1c (Bld) [Mass fraction]o n 10-02-2021 A1C HEMOGLOBIN [place] [employer] Other Hematocrit Auto (Bld) [Volum e fraction]Ordered By: Kelly Lee on 10-02-2021 Hematocrit (Bld) [Volume fraction] 42.2 % 34.0-46.4 [facility] Hemogram CBC Without Diffon 10-02-2021 Erythrocyte distribution width (RBC) [Ratio] 12.7 % Normal 11.9-15.3 [facility] Comment on above: Order Comment: Reaso n 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 Performed By: #### T SH3 wRFLX, CBCNO, CMP, LIPID #### [facility] [address] [place] [address] Hematocrit (Bld) [Volume fraction] 42.2 % Normal 34.0-46.4 [facility] Comment on above: Order Comment: Reaso n 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 Performed By: #### T SH3 wRFLX, CBCNO, CMP, LIPID #### [facility] [address] [place] [address] Hemoglobin (Bld) [Mass/Vol] 14.6 g/dL Normal 11.8-15.4 [facility] Comment on above: Order Comment: Reaso n 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 Performed By: #### T SH3 wRFLX, CBCNO, CMP, LIPID #### [facility] [address] [place] [address] MCH (RBC) [Entitic mass] 32.7 pg Normal 24.7-34.3 [facility] Comment on above: Order Comment: Reaso n 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 Performed By: #### T SH3 wRFLX, CBCNO, CMP, LIPID #### [facility] [address] [place] [address] MCV (RBC) [Entitic vol] 94.6 fL Normal 80-100 [facility] Comment on above: Order Comment: Reaso n 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 Performed By: #### T SH3 wRFLX, CBCNO, CMP, LIPID #### [facility] [address] [place] [address] Mean Corpuscular HGB Conc 34.6 g/dL Normal 32.0-35.0 [facility] Comment on above: Order Comment: Reaso n 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 Performed By: #### T SH3 wRFLX, CBCNO, CMP, LIPID #### [facility] [address] [place] [address] Platelet mean volume (Bld) [Entitic vol] 9.5 fL Normal 6.3-10.7 [facility] Comment on above: Order Comment: Reaso n 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 Result Comment: PERF ORMED BY: [place] [address] PATHOLOGIST ATHLETIC EVENTS SCORER SHAY POON M.D. Performed By: #### T SH3 wRFLX, CBCNO, CMP, LIPID #### [facility] [address] RBC (Bld) [#/Vol] 4.46 10*6/uL Normal 3.60-5.00 [facility] Comment on above: Order Comment: Reaso n 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 Performed By: #### T SH3 wRFLX, CBCNO, CMP, LIPID #### [facility] [address] WBC (Bld) [#/Vol] 6.2 10*3/uL Normal 3.8-11.6 [facility] Comment on above: Order Comment: Reaso n 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 Performed By: #### T SH3 wRFLX, CBCNO, CMP, LIPID #### [facility] [address] Erythrocyte distribution width (RBC) [Ratio] 12.700 % Normal 11.9-15.3 % [employer] Other Hematocrit (Bld) [Volume fraction] 42.200 % Normal 34.0-46.4 % [employer] Other Hemoglobin (Bld) [Mass/Vol] 14.154056 g/dL Normal 11.8-15.4 g/dL [employer] Other MCH (RBC) [Entitic mass] 32.7000 pg Normal 24.7-34.3 pg [employer] Other MCV (RBC) [Entitic vol] 94.6000 fL Normal 80-100 fL [employer] Other Platelet mean volume (Bld) [Entitic vol] 9.5000 fL Normal 6.3-10.7 fL [employer] Other RBC (Bld) [#/Vol] 4.3848544566 10*6/uL Normal 3. 60-5.00 10*6/uL [employer] Other WBC (Bld) [#/Vol] 6.287103166 10*3/uL Normal 3.8 -11.6 10*3/uL [employer] Other Hemogram CBC Without Diff 34.6 g/dL Normal 32.0-35.0 g/dL [employer] Other Hemogram CBC Without DiffOrd ered By: Kelly Lee on 10-02-2021 Platelets (Bld) [#/Vol] 198 10*3/uL Normal 150-450 [facility] Comment on above: Order Comment: Reaso n 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 Performed By: #### T SH3 wRFLX, CBCNO, CMP, LIPID #### [facility] [address] [place] [id number] [facility] Lipid Panelon 10-02-2021 LDL Cholesterol,Calculat ed 143 mg/dL High 0-100 [facility] Comment on above: Order Comment: PT [...] SH3 wRFLX, CBCNO, CMP, LIPID #### [facility] [address] [place] [id number] [place] Triglyceride w/Reflex 299 mg/dL High 35-149 [facility] Comment on above: Order Comment: PT [...] SH3 wRFLX, CBCNO, CMP, LIPID #### [facility] [address] [place] [address] [place] VLDL CHOLESTEROL 59 mg/dL Normal [facility] Comment on above: Order Comment: PT FA STED 12 HRS 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 Performed By: #### T SH3 wRFLX, CBCNO, CMP, LIPID #### [facility] [address] [place] [address] [place] Cholesterol in LDL [place] Qn 143 mg/dL High 0-100 mg/dL [facility] [employer] Other Lipid Panel 299 mg/dL High 35-149 mg/dL [facility] [employer] Other Lipid Panel 59 mg/dL [facility] Other Lipid PanelOrdered By: Destiny Lee on 10-02-2021 Cholesterol [Mass/Vol] 240 mg/dL High 140-200 [facility] Comment on above: Chol less than [...] SH3 wRFLX, CBCNO, CMP, LIPID #### [facility] [address] [place] [address] [place] Cholesterol in HDL [Mass/Vol] 37 mg/dL Normal 35-85 [facility] Comment on above: HDL CHOL ATP-III [...] SH3 wRFLX, CBCNO, CMP, LIPID #### [facility] [address] [place] [address] [place] Cholesterol.total/Ch olesterol in HDL [Mass ratio] 6.5 {ratio} Normal <5.0 [facility] Comment on above: Order Comment: PT FA STED 12 HRS 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 Performed By: #### T SH3 wRFLX, CBCNO, CMP, LIPID #### [facility] [address] MCH Auto (RBC) [Entitic mass ]Ordered By: Kelly Lee on 10-02-2021 MCH (RBC) [Entitic mass] 32.7 pg 24.7-34.3 [facility] MCHC Auto (RBC) [Mass/Vol]Or dered By: Kelly Lee on 10-02-2021 MCHC (RBC) [Mass/Vol] 34.6 g/dL 32.0-35.0 [facility] MCV Auto (RBC) [Entitic vol] Ordered By: Kelly Lee on 10-02-2021 MCV (RBC) [Entitic vol] 94.6 fL 80-100 [facility] No Panel InformationOrdered By: Kelly Lee on 10-02-2021 Estimated GFR () > 60 mL/Min [facility] Comment on above: GFR estimated refere nce range: According to KDOQI guidelines, <60 ml/min/1.73m2 is sufficient to diagnose a patient with chronic kidney disease. Pharmacy Creatinine Clearance (Chem N/A [facility] Platelet mean volume Auto (B ld) [Entitic vol]Ordered By: Kelly Lee on 10-02-2021 Platelet mean volume (Bld) [Entitic vol] 9.5 fL 6.3-10.7 [facility] Protein [Mass/volume] in Ser um or PlasmaOrdered By: Kelly Lee on 10-02-2021 Protein [Mass/Vol] 6.9 g/dL 6.1-7.9 [facility] RBC Auto (Bld) [#/Vol]Ordere d By: Kelly Lee on 10-02-2021 RBC (Bld) [#/Vol] 4.46 10*6/uL 3.60-5.00 [facility] Serum or plasma alanine traore otransferase measurement without P-5'-P (enzymatic activiOrdered By: Kelly Lee on 10-02-2021 ALT No additional P-5'-P [Catalytic activity/Vol] 48 U/L 10-60 [facility] Serum or plasma calcium chandler urement (mass/volume)Ordered By: Kelly Lee on 10-02-2021 Calcium [Mass/Vol] 9.6 mg/dL 8.2-10.2 [facility] Serum or plasma potassium me asurement (moles/volume)Ordered By: Kelly Lee on 10-02-2021 Potassium [Moles/Vol] 4.4 mmol/L 3.5-5.1 [facility] Serum or plasma total biliru bin measurement (mass/volume)Ordered By: Kelly Lee on 10-02-2021 Bilirubin [Mass/Vol] 0.5 mg/dL 0.3-1.2 [facility] Serum or plasma total carbon dioxide measurement (moles/volume)Ordered By: Kelly Lee on 10-02-2021 CO2 [Moles/Vol] 29.4 mmol/L 22.0-30.0 [facility] TSH DL <= 0.005 mIU/L QnOrde red By: Kelly Lee on 10-02-2021 TSH Qn 3.55 m[IU]/L 0.45-5.33 [facility] Thyroid Stim Hormone w/Rflxo n 10-02-2021 Thyroid Stim Hormone w/Rflx 3.55 u[iU]/mL Normal 0.45-5.33 [facility] Comment on above: Order Comment: PT FA STED 12 HRS 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 Performed By: #### T SH3 wRFLX, CBCNO, CMP, LIPID #### [address] Thyroid Stim Hormone w/Rflx 3.55 u[iU]/mL Normal 0.45-5.33 u[iU]/mL [employer] Other Triglyceride [Mass/volume] i n Serum or PlasmaOrdered By: Kelly Lee on 10-02-2021 Triglyceride [Mass/Vol] 299 mg/dL 35-149 [facility] Comment on above: TRIG ATP III CLASSIF ICATIONTRIG less than 150 mg/dL NormalTRIG 150-199 mg/dL Borderline highTRIG 200-500 mg/dL High TRIG greater than 500 mg/dL Very highStandard traceable to the Center for Disease Conrtrol and Prevention (CDC) test method. WBC Auto (Bld) [#/Vol]Ordere d By: Kelly Lee on 10-02-2021 WBC (Bld) [#/Vol] 6.2 10*3/uL 3.8-11.6 [facility] XR hip LT min 2V(w/wo pelvis )*on 10-02-2021 XR hip LT min 2V(w/wo pelvis)* [facility] [address] XRay Report Signed Patient: Velvet Brock MR#: [id number] : 1970 Acct:[id number] Age/Sex: 51 / F ADM Date: 10/02/21 Loc: XD Room: Type: [facility] Attending Dr: Kelly Lee DO Copies to: Kelly Lee DO Ordering Provider: Kelly Lee DO Date of Service: 10/02/21 XR/XR hip LT min 2V(w/wo pelvis)*: Left hip pain ([id number]) XR/XR shoulder RT min 2V*: Acute pain [...] Vazquez Jr., D.OMane10/02/2021 4:15 PM Dictation Location: [place] [address] Transcribed By: [facility] 10/02/21 1615 Dictated By: Alexis Vazquez Jr, 10/02/21 1614 Signed By: 10/02/21 1615 Normal [facility] XR hip LT min 2V(w/wo pelvis)* [facility] [employer] Other XR hip LT min 2V(w/wo pelvis)* [facility] [place] [employer] Other XR hip LT min 2V(w/wo pelvis)* [address] [place] [address] [employer] Other XR hip LT min 2V(w/wo pelvis)* [place] [address] [employer] Other XR hip LT min 2V(w/wo pelvis)* XRay Report [employer] Other XR hip LT min 2V(w/wo pelvis)* Signed [employer] Other XR hip LT min 2V(w/wo pelvis)* Patient: Velvet Brock MR#: [id number] [employer] Other XR hip LT min 2V(w/wo pelvis)* [id number] [employer] Other XR hip LT min 2V(w/wo pelvis)* : 1970 Acct:[id number] [employer] Other XR hip LT min 2V(w/wo pelvis)* Age/Sex: 51 / F ADM Date: 10/02/21 [employer] Other XR hip LT min 2V(w/wo pelvis)* Loc: XD Room: Type: REG CLI [employer] Other XR hip LT min 2V(w/wo pelvis)* Attending Dr: Kelly Lee DO [employer] Other XR hip LT min 2V(w/wo pelvis)* Copies to: Kelly Lee DO [employer] Other XR hip LT min 2V(w/wo pelvis)* Ordering Provider: Kelly Lee, DO [employer] Other XR hip LT min 2V(w/wo pelvis)* Date of Service: 10/02/21 [employer] Other XR hip LT min 2V(w/wo pelvis)* XR/XR hip LT min 2V(w/wo pelvis)*: Left hip pain [employer] Other XR hip LT min 2V(w/wo pelvis)* ([id number]) XR/XR shoulder RT min 2V*: Acute pain of right shoulder [employer] Other XR hip LT min 2V(w/wo pelvis)* RIGHT SHOULDER - - 3 views, left hip 2 views [employer] Other XR hip LT min 2V(w/wo pelvis)* CLINICAL HISTORY: Right shoulder pain for 3 days. Left hip pain. Fall 09/29/2021 [employer] Other XR hip LT min 2V(w/wo pelvis)* COMPARISON: None [employer] Other XR hip LT min 2V(w/wo pelvis)* FINDINGS: [employer] Other XR hip LT min 2V(w/wo pelvis)* Right shoulder: No acute bony process. Mild degenerative changes right AC joint. Visualized right [employer] Other XR hip LT min 2V(w/wo pelvis)* lung field is clear. [employer] Other XR hip LT min 2V(w/wo pelvis)* Left hip: No acute bony process is seen. No significant degenerative change. [employer] Other XR hip LT min 2V(w/wo pelvis)* XR/XR shoulder RT min 2V* [employer] Other XR hip LT min 2V(w/wo pelvis)* IMPRESSION: [employer] Other XR hip LT min 2V(w/wo pelvis)* NO ACUTE BONY PROCESS INVOLVING THE RIGHT SHOULDER OR LEFT HIP. [employer] Other XR hip LT min 2V(w/wo pelvis)* Impression dictated by: Alexis Vazquez Jr., DManeOMane10/02/2021 4:15 PM [employer] Other XR hip LT min 2V(w/wo pelvis)* Dictation Location: [place] [address] [employer] Other XR hip LT min 2V(w/wo pelvis)* Transcribed By: ENOCH 10/02/21 [facility] [employer] Other XR hip LT min 2V(w/wo pelvis)* Dictated By: Alexis Vazquez Jr, DO 10/02/21 [facility] [employer] Other XR hip LT min 2V(w/wo pelvis)* Signed By: [employer] Other XR hip LT min 2V(w/wo pelvis)* 10/02/21 [facility] [employer] Other [facility]on [facility]15 SARS-CoV-2 (COVID-19) RNA RAKEL+probe Ql (Unsp spec) Not detected Normal NOT DETECTED [facility] Comment on above: Result Comment: This test is not yet approved or cleared by the [place] FDA. When there are no FDA-approved or cleared tests available, and other criteria are met, FDA can make tests available under an emergency access mechanism called an Emergency Use Authorization (EUA). The EUA for this test is supported by the [place] of Health and Human Service's (HHS's) declaration [...] SARS-CoV-2. Performed By: #### C VDTB #### [facility] [address] [place] [address] Dr. Gordy Moore Covid-19 PCR ([facility])on 02-15 SARS-CoV-2 (COVID-19) RNA RAKEL+probe Ql (Unsp spec) Not detected Normal NOT DETECTED [facility] Comment on above: Result Comment: This test is not yet approved or cleared by the [place] FDA. When there are no FDA-approved or cleared tests available, and other criteria are met, FDA can make tests available under an emergency access mechanism called an Emergency Use Authorization (EUA). The EUA for this test is supported by the [place] of Health and Human Service's (HHS's) declaration [...] SARS-CoV-2. Performed By: #### C VDTB #### [facility] [address] [place] [address] Gordy Moore COVID-19 Antigenon 1 COVID-19 [...] its performance Bam Disclaimer characteristic determined by [employer] and Bam Disclaimer validated at [facility]. This Bam Disclaimer test has not [...] Emergency Use Authorization for Coronavirus Bam Disclaimer isease-2018 during the Public Health Emergency) Bam Disclaimer [...] is terminated or revoked sooner. PERFORMED BY: [place] [address] PATHOLOGIST ATHLETIC EVENTS SCORER SHAY POON M.D. Normal [facility] Comment on above: Performed By: #### C OVID-19 BAM, SOFIANEG #### [address] Bam Ag Negativeon 03-07-20 21 Bam Ag Negative Negative Normal Negative [facility] Comment on above: Result Comment: This is a duplicate Bam SARS Antigen (ARAVIND) result to be used for statistical tracking purpose only. PERFORMED BY: [place] [address] PATHOLOGIST ATHLETIC EVENTS SCORER SHAY POON M.D. Performed By: #### C OVID-19 BAM, SOFIANEG #### [place] [id number] [facility] CNOVon 12-31-2016 CNOV Office Visit (LOORRM) CHARLES BROCK ([id number]) 1970 [facility] Time Provider Iqoadkmpdj83/17/17 2:30 PM BALAJI RUIZ During your visit today, we recorded the following information about you:Referring Provider: KELLY LEE [[id number]]Allergies As of Date: 12/31/2016 Noted Allergy ReactionDEMEROL [...] Status:Closed by BALAJI RUIZ MD on 12/31/16 [facility] PROGRESSon 12-31-2016 PROGRESS HNO ID: [id number] thor: Nayana (Olya Kellyice: (none)Author Type: TechnicianType: Progress NotesFiled: 12/31/2016 2:45 PMNote Text: Radiology Service Progress NotePATIENT NAME: Velvet BrockMRN: [id number] OF SERVICE: December 31, 2016TIME: 2:45 PMPATIENT IDENTITY VERIFICATION COMPLETED USING TWO (2) METHODS: Patientconfirmed name verbally and Date of .PATIENT GENDER DATA: Female. status: : NoBreastfeeding status: NO.PATIENT RELEVANT IMPLANT DATA REVIEWED: YesRADIOLOGY DEPARTMENT: General X-ray: Exam(s) Completed: Lower ExtremityX-Ray(s): Knee, AP / Lat / Merchant Right and Wt. Bearing:PERIPHERAL IV DATA: Not applicableSIGNED BY: RT YelitzaDecember 31, 2016 2:45 PM [facility] PROGRESS HNO ID: [id number] thor: Balaji Reis: Orthopaedic SurgeryAuthor Type: PhysicianType: Progress NotesFiled: 01/27/2017 2:59 PMNote Text: [facility] [address] 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 Hasa few month history of right knee pain. No definite trauma. No incitingactivities. She does have significant orthopedic history to both knees.She had a right knee arthroscopy, anterior cruciate ligamentreconstruction using allograft [place]. Subsequently, had a [...] or lateral, and subsequent arthroscopyand debridement in [place], left knee anterior cruciate ligamentreconstruction in [place], ectopic , DandCs, partialhysterectomy, right breast lumpectomy, .MEDICATIONS: See Epic.ALLERGIES: DEMEROL.SOCIAL HISTORY: . Smokes half pack a day. 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 Kelly Lee in [place], [place] with aconsultation cover letter.Dictated By: Balaji Ruiz M.D.Date Dictated: 12/31/2016Date Typed: [facility] 12/31/2016JOB# [id number] Normal [facility] XR KNEE 4V AP/PA BOTH+LAT/ME R [...] Date/Time: Dec 31 2016 2:50PDictated by : Savanna ASENCIO examination was interpreted and the report reviewed and electronically signed by: DINORA KELLY MD on Dec 31 2016 2:51PM [id number] Normal [facility] CR-KNEE RIGHT 3 VIEWS IMPORT on 11-14-2016 CR-KNEE RIGHT 3 VIEWS IMPORT Images were obtained outside of [facility] [id number] Normal [facility] Vital Signs Date Time Vital Sign Value Performing Clinician Facility 08-26-2023 17:41-0400 Body height 158.75 cm [facility] 08-26-2023 17:41-0400 Body mass index (BMI) [Ratio] 41.5 kg/m2 [facility] 08-26-2023 17:41-0400 Body temperature 97.6 [degF] [facility] 08-26-2023 17:41-0400 Body weight 104.77 kg [facility] 08-26-2023 17:41-0400 Heart rate 62 /min [facility] 08-26-2023 17:41-0400 Respiratory rate 18 /min [facility] 08-26-2023 17:41-0400 SaO2% (BldA) [Mass fraction] 98 % [facility] 04-02-2023 15:05-0500 Body height 158.75 cm Yvette Bazan Other [facility] Other 04-02-2023 15:05-0500 Body mass index (BMI) [Ratio] 42.29 kg/m2 Yvette Bazan Other [employer] Other 04-02-2023 15:05-0500 Body temperature 97.3 [degF] Yvette Bazan Other [employer] Other 04-02-2023 15:05-0500 Body weight 106.6 kg Yvette Bazan Other [employer] Other 04-02-2023 15:05-0500 Diastolic blood pressure 75 mm[Hg] Yvette Hortensia Other [employer] Other 04-02-2023 15:05-0500 Respiratory rate 18 /min Yvette Hortensia Other [employer] Other 04-02-2023 15:05-0500 SaO2% (BldA) [Mass fraction] 95 % Yvette Hortensia Other [employer] Other 04-02-2023 15:05-0500 Systolic blood pressure 155 mm[Hg] Yvette Hortensia Other [employer] Other 11-08-2022 18:45-0400 Body height 158.75 cm Yelena Dominguez Other [employer] Other 11-08-2022 18:45-0400 Body temperature 100 [degF] Yelena Dominguez Other [employer] Other 11-08-2022 18:45-0400 Diastolic blood pressure 73 mm[Hg] Yelena Dominguez Other [employer] Other 11-08-2022 18:45-0400 Respiratory rate 18 /min Yelena Dominguez Other [employer] Other 11-08-2022 18:45-0400 SaO2% (BldA) [Mass fraction] 95 % Yelena Dominguez Other [employer] Other 11-08-2022 18:45-0400 Systolic blood pressure 168 mm[Hg] Yelena Dominguez Other [employer] Other 09-09-2022 16:00-0400 Body height 158.75 cm Kelly Lee Other [employer] Other 09-09-2022 16:00-0400 Body mass index (BMI) [Ratio] 41.93 kg/m2 Kelly Lee Other [employer] Other 09-09-2022 16:00-0400 Body weight 105.69 kg Kelly Lee Other [employer] Other 09-09-2022 16:00-0400 Diastolic blood pressure 72 mm[Hg] Kelly Lee Other [employer] Other 09-09-2022 16:00-0400 Respiratory rate 18 /min Kelly Robinley Other [employer] Other 09-09-2022 16:00-0400 SaO2% (BldA) [Mass fraction] 95 % Kelly Lee Other [employer] Other 09-09-2022 16:00-0400 Systolic blood pressure 142 mm[Hg] Kelly Lee Other [employer] Other 12-17-2021 09:29-0400 Diastolic blood pressure 78 mm[Hg] DO Kelly Yasmani Work Phone: [facility] 12-17-2021 09:29-0400 Heart rate 60 /min DO Kelly Lee Work Phone: [facility] 12-17-2021 09:29-0400 Respiratory rate 20 /min DO Kelly Yasmani Work Phone: [facility] 12-17-2021 09:29-0400 SaO2% (BldA) [Mass fraction] 94 % DO Kelly Lee Work Phone: [facility] 12-17-2021 09:29-0400 Systolic blood pressure 152 mm[Hg] DO Kelly Lee Work Phone: [facility] 12-17-2021 07:43-0400 Body height 157.48 cm DO Kelly Lee Work Phone: [facility] 12-17-2021 07:43-0400 Body temperature 98.7 [degF] DO Kelly Lee Work Phone: [facility] 12-17-2021 07:43-0400 Body weight 104.32 kg DO Kelly Lee Work Phone: [facility] 10-02-2021 12:15-0400 Body height 158.75 cm Kelly Lee Other [employer] Other 10-02-2021 12:15-0400 Body mass index (BMI) [Ratio] 42.83 kg/m2 Kelly Lee Other [employer] Other 10-02-2021 12:15-0400 Body weight 107.96 kg Kelly Lee Other [employer] Other 10-02-2021 12:15-0400 Diastolic blood pressure 80 mm[Hg] Kelly Lee Other [employer] Other 10-02-2021 12:15-0400 Respiratory rate 18 /min Kelly Lee Other [employer] Other 10-02-2021 12:15-0400 SaO2% (BldA) [Mass fraction] 95 % Kelly Lee Other [employer] Other 10-02-2021 12:15-0400 Systolic blood pressure 150 mm[Hg] Kelly Lee Other [employer] Other Encounters Encounter Date Encounter Type Care Provider Facility Start: 01-12-2024 End: 01-12-2024 ambulatory Valeria Driver MD [facility] Start: 12-29-2023 End: 12-29-2023 ambulatory Valeria Driver MD Facility[facility] Start: 12-22-2023 End: 12-22-2023 Telephone encounter Mary Bearden MA [facility] Start: 12-01-2023 End: 12-01-2023 ambulatory TYRA Son [facility] Start: 12-01-2023 Encounter for other preprocedural examination [facility] Start: 12-01-2023 End: 12-01-[address] [facility] Not Available Start: 10-29-2023 End: 10-29-2023 ambulatory TARAS CONTRERAS Not Available Start: 10-21-2023 ambulatory [facility] Work Phone: Start: 10-21-2023 Non-patient / [facility]-visit [facility] Professional [employer] Work Phone: Start: 08-26-2023 End: 08-26-2023 ambulatory [facility] Work Phone: Start: 08-26-2023 End: 08-26-2023 Patient encounter procedure [facility] Amarjit Work Phone: Start: 07-24-2023 Non-patient / Non-visit [facility] Work Phone: Start: 04-25-2023 End: 04-25-2023 ambulatory KELLY LEE Not Available Start: 04-02-2023 (URG) Urgent Care Visit Yvette justice [facility] Start: 04-02-2023 End: 04-02-2023 ambulatory Yvette Bazan Other [employer] Other Start: 02-05-2023 End: 02-05-2023 ambulatory Kelly Lee Other [employer] Other Start: 02-05-2023 Telephone encounter Kelly CABELLO [facility] [place] Start: 11-25-2022 End: 11-25-2022 ambulatory Kelly Lee Other [employer] Other Start: 11-25-2022 Telephone encounter Kelly CABELLO [facility] Start: 11-08-2022 End: 11-08-2022 ambulatory Yelena Dominguez Other [employer] Other Start: 11-08-2022 Office outpatient vi sit 15 minutes Yelena Dominguez [facility] Start: 10-24-2022 End: 10-24-2022 ambulatory Kelly Lee Other [employer] Other Start: 10-24-2022 Telephone encounter Kelly CABELLO [facility] Start: 09-09-2022 End: 09-09-2022 ambulatory Kelly Lee Other [employer] Other Start: 09-09-2022 Office outpatient vi sit 25 minutes Kelly Lee [facility] Start: 12-17-2021 End: 12-17-2021 ambulatory Sawyer Styles Facility:[facility] Start: 12-17-2021 End: 12-17-2021 Admission to same day surgery center DO Kelly Lee Work Phone: [facility] Start: 12-17-2021 End: 12-17-2021 ambulatory DO Kelly Lee Work Phone: [facility] Work Phone: Start: 12-13-2021 End: 12-13-2021 ambulatory Sawyer Styles Facility:[facility] Start: 12-13-2021 End: 12-13-2021 ambulatory DO Kelly Lee Work Phone: [facility] Work Phone: Start: 12-13-2021 End: 12-13-2021 Patient encounter procedure DO Kelly Lee Work Phone: [facility] Start: 11-28-2021 End: 11-28-2021 ambulatory Kelly Lee Other [employer] Other Start: 11-28-2021 Telephone encounter Kelly Kan [facility] Start: 11-15-2021 End: 11-15-2021 ambulatory Kelly Lee Other [employer] Other Start: 11-15-2021 Telephone encounter Kelly Kan [facility] Start: 11-07-2021 End: 11-07-2021 ambulatory Sawyer Styles Other [employer] Other Start: 11-07-2021 Telephone encounter Sawyer Kan Technician [employer] Start: 10-15-2021 End: 10-15-2021 ambulatory Kelly Lee Other [employer] Other Start: 10-15-2021 Telephone encounter Kelly Kan [facility] Start: 10-02-2021 End: 10-02-2021 ambulatory Kelly Lee [employer] Other Start: 10-02-2021 Office outpatient vi sit 25 minutes Kelly COLLAZO [facility] Start: 10-02-2021 Telephone encounter Kelly Kan [facility] Start: 10-02-2021 End: 10-02-2021 Patient encounter procedure DO Kelly Lee Work Phone: [facility] [place] Start: 03-13-2021 End: 03-13-2021 ambulatory KELLY LEE Facility:[facility] Start: 03-12-2021 End: 03-12-2021 ambulatory KELLY LEE Facility:[facility] Start: 03-07-2021 End: 03-07-2021 ambulatory Kelly Mario Lee Facility:[facility] Start: 12-31-2016 End: 12-31-2016 Ambulatory BALAJI RUIZ [facility] [place] Procedures Date Procedure Procedure Detail Performing Clinician Start: 04-25-2023 Mammography Marybishnu garzon MA Start: 12-17-2021 Screening colonoscopy D O Kelly Lee Work Phone: Start: 10-02-2021 Plain X-ray of left hip DO Kelly Lee Work Phone: Start: 10-02-2021 Plain X-ray of right shoulder DO Kelly Lee Work Phone: SARS Antigen (LFIA) DO Destiny ceja Yasmani Work Phone: Plan of Treatment Date Care Activity Detail Author Start: 04-25-2024 Screening for malignant neoplasm of breast Mammogram [facility] Start: 01-05-2024 End: 01-05-2024 Patient encounter procedure 01/05/2024 8:15 AM EDT Office Visit [facility] [address] [place] [address] Jr. Tyra Mosqueda, DO [address] [address] [facility] Start: 11-16-2023 Influenza vaccination Influenza Vaccine (#1) [facility] Start: 10-21-2023 Patient referral [facility] Work Phone: Start: 12-17-2021 [facility] Start: 2001 Screening for malignant neoplasm of cervix [facility] Start: 02-10-1992 Screening for malignant neoplasm of cervix Pap Smear [facility] Start: 1970 Screening for malignant neoplasm of colon [facility] Patient Education Diverticulosis (DC) [facility] Work Phone: Patient referral [facility] Work Phone: Immunizations Immunization Date Immunization Notes Care Provider Fa irmaty 12-07-2020 COVID-19 Vaccine Moderna - Documentation Purposes Only Kelly Lee Other [facility] 12-07-2020 influenza, seasonal, injectable Kelly Lee Other [facility] 12-07-2020 influenza virus vaccine, unspecified formulation Mary Bearden MA [facility] 11-02-2020 COVID-19 Vaccine Moderna - Documentation Purposes Only Kelly Lee Other [facility] Payers Date Payer Category Payer [employer] ( and others) [id number] 2022 [employer] ( and others) [id number] 2021 Self-pay [id number] 1970 Unknown [id number] 1970 Unknown [id number] 1970 Unknown [id number] 1970 Unknown [id number] 1970 Unknown [id number] 1970 Unknown [id number] 1970 Unknown [id number] 1970 Unknown [id number] 1970 Unknown [id number] 1970 Unknown [id number] 1958 [employer] ( and others) [id number] Unknown [id number] Unknown [id number] Unknown [id number] Unknown [id number] Social History Date Type Detail Facility Start: 10-29-2023 Sex Assigned At N [employer] Other Start: 05-16-2018 End: 12-17-2021 Tobacco smoking status COIS Smoker (finding) [facility] Start: 1970 Sex Assigned At Female F [facility] Start: 10-29-2023 Tobacco smoking stat [facility] Smokes tobacco daily [facility] History of tobacco use Cigarette Smoker [facility] Start: 10-29-2023 Cigarettes smoked current (pack per day) - Reported 0.5 [facility] Start: 10-29-2023 Tobacco use and exposure Smokeless tobacco non-user [facility] Start: 10-29-2023 Alcoholic beverage intake Current drinker of alcohol (finding) [facility] Start: 10-29-2023 Alcohol Comment caffeine: none - 6DRINKS/WK [facility] Start: 1970 Sex assigned at Not on file [facility] Goals Date Patient Goal Desired Activity [...] is agreeable and requesting to proceed at [facility]. Referral has been sent. [facility] 12-22-[address] Mosqueda reviewed and discussed L-Spine results with patient. He is recommending a referral to pain management ; patient is agreeable and requesting to proceed at [facility]. Referral has been sent. documented in this encounter [facility] 10-21-2023 Hospital Discharg e instructions Ambulatory OrdersReferral to Orthopedic Surgery Time Frame: 10/21/23, Location: [facility] Work Phone: 04-02-2023 Evaluation note [...] (suspected) exposure to covid-19 (ICD-10 - Z20.822) [employer] Other 11-22-2023 Evaluation note* Encounter Date Diagnosis Assessment Notes Treatment Notes Treatment Clinical Notes Jan, Type 2 diabetes mellitus with hyperglycemia, without long-term current use of insulin (ICD-10 - E11.65) [employer] Other 08-25-2023 Evaluation note* Encounter Date Diagnosis [...] symptoms. Patient verbalized understanding of treatment plan. [employer] Other 06-26-2023 Evaluation note* Encounter Date Diagnosis [...] E03.9) We will call with lab results [employer] Other 10-03-2022 Procedure [facility]08-24-2022 Evaluation note* Encounter Date Diagnosis Assessment Notes Treatment Notes Treatment Clinical Notes Oct, Screening for colon cancer (ICD-10 - Z12.11) [employer] Other 07-19-2022 Evaluation note* Encounter Date Diagnosis [...] proceed with imaging. She can continue naproxen [id number]-xibbrir and I advised her to start icing. If x-ray is negative, we will plan to send her to physical therapy. She would like to go to [facility] PT in [place] Sep, Left hip pain (ICD-1 0 - M25.552) We will call with x-ray results Sep, Essential (primary) hypertension (ICD-10 - I10) Blood pressure remained elevated on recheck, we will continue current medications because the Jardiance will likely help decrease her systolic blood pressure [employer] Other 07-01-2010 History general Narrative - Reported* Type Description Date Medical History DM2 Medical History Hyperlipidemia Medical History HTN Medical History hypothyroidism Surgical History Bilateral ACL repair 09/2009 & 1 04/2009 Surgical History Breast Biopsy 2014 Surgical History Partial Hyst 2006 Surgical History 2000 Surgical History Etopic 1993 Surgical History D&C - Miscarriage [id number] Surgical History TEETH EXTRACTION X2 07/2017 Hospitalization History SEE ABOVE SURGICAL HX [facility] Other Evaluation noteNo assessment information available [facility] Work Phone: Evaluation note* Diagnosis Onset Date Resolution Status Acute maxillary sinusitis, unspecified acute [facility] Work Phone: Evaluation note* Diagnosis Lumbar radiculopathy- Primary Thoracic or lumbosacral neuritis or radiculitis, unspecified documented in this encounter [facility] Author Sawyer Styles [facility] December 17, 2021 8:42am Note Date/Time December 17, 2021 8: 42am [facility] [address] [place] [address] Gastroenterology H&P Signed Patient: Velvet Brock MR# : [id number] : 1970 Acct:[id number] Age/Sex: 51 / F Adm Date: 2 Loc: Room: Type: [facility] Attending Dr: Sawyer Styles MD Copies to: [...] <Electronically signed by Sawyer Styles MD> 12/17/21841 [facility] Work Phone: Hospital Discharge instructions Additional Instructions [...] NOT operate machinery such as power tools, [employer] Median mowers, snow blowers, sewing machines, etc. for [...] Follow up with PCP. - Office number [phone].[facility] Work Phone: Reason for referral (narrative)* Consultation (Routine) - Pending Review Specialty Diagnoses / Procedures Referred By Yinka moya Referred To Contact Pain Medicine Diagnoses Lumbar radiculopathy Procedures CO OFFICE/OUTPATIENT [facility] 60 MINUTES Jr. Tyra Mosqueda DO [address] [facility] [address] [place] [address] Devan Domínguez MD [address] [facility], [address], [place] [address] Referral ID Status Reason Start Date Expiration Date Visits Requested Visits Authorized [id number] Pending Review Specialty Services Required 12/22/2023 06/19/2024 1 1 [facility] Summary Purpose Family History No Family History [...] rrent major depressive disorder (F33.0) Referral Organization [facility] Referring Provider First Name Kelly Referring Provider Last Name Yasmani Referring Provider Specialty Family Prac jorden Referred Organization [facility] Referred Address [address],[place],[address] Referred Provider Specialty Licensed Cli nical Brand Sales Consultant Referral Priority Routine General Notes Dagg, Velvet L 03:19:19 PM >referral received. Per [employer], Referral to MARCELO Hicks is approved Auth/Order#[id number] ( auth attached to referral). Referral faxed. for pt to call me as Nayana Dorsey is not approved with [employer] and had to send to above. Reason * Waiting for appt screening colonoscopy Diagnosis 1 Screening for colon cancer (Z12.11) Referral Organization [facility] Referring Provider First Name Kelly Referring Provider Last Name Yasmani Referring Provider Specialty Family Prac jorden Referred Organization [facility] Gastroenterolo gy Referred Provider Sawyer Styles Referred Address [address] [facility] [address] ,[place], [place],[address] Referred Provider Specialty Gastroentero logy Referral Priority Routine General Notes Velvet Shepard 02:50:30 PM >referral received, per [email or web address], no auth is required, pt is enrolled [...] section and content) DATE CREATED AUTHOR 09/12/2017 [facility] DATE CREATED AUTHOR AUTHOR'S ORGANIZ ATION 03/21/2021 [facility] DATE CREATED AUTHOR AUTHOR'S ORGANIZ ATION 12/21/2021 [facility] DATE CREATED AUTHOR AUTHOR'S ORGANIZ ATION 12/03/2023 [facility] DATE CREATED AUTHOR AUTHOR'S ORGANIZ ATION 12/07/2023 [facility] EPIC DATE CREATED AUTHOR AUTHOR'S ORGANIZ ATION 01/16/2024 [facility] REASON FOR VISIT (unrecogniz ed section and content) FELL AND HURT HIP AND ARM - a1c office, She was doing a mud run and fell while going through water. Fell onto right arm then onto left leg. This was Friday., Thinks her antidepressant needs increasedNo InformationCounseling ReferralEMAIL PPWcovid positivemed [id number] CHECK/DISCUSS DEPRESSION AND ANXIETYunable to get ahold [...] Active Start: July 24, 2023 Judy Godwin , FIRE MANAGEMENT TECHNICIAN Attending Provider Active S tart: July 24, [...] Attending Provider Active Start: October 21, 2023 Production Supervisor Off Shift Relationship Specialty Start Date End Date Kelly Lee MD [address] [facility] [place] [address] PCP - General Family Medicine 10/29/22 Goals [...] BE BASED ON THE PRIMARY CLINICAL RECORDS. [employer] provides no warranty or guarantee of the accuracy or completeness of information in this document.
[2024-01-26 09:12] VITALS: BP 172/79; PULSE 58; O2SAT 97
[2024-01-26 09:14] VITALS: BP 170/83; PULSE 59; O2SAT 97
[2024-01-26] MEDS: LIDOCAINE HCL 2% 400 MG/20 ML MDV 5 ML INJ (09:15)
[2024-01-26] MEDS: IOHEXOL 240 MG/ML - 10 ML VIAL INJ (09:15)
[2024-01-26] MEDS: TRIAMCINOLONE ACETONIDE 40 MG/ML VIAL 80 MG INJ (09:15)
[2024-01-26] MEDS: BUPIVACAINE HCL 0.25% PF 25 MG/10 ML VIAL INJ (09:15)
[2024-01-26] MEDS: 0.9 % SODIUM CHLORIDE 10 ML SYRINGE - SALINE FLUSH INJ (09:15)
--- NOTE | 2024-01-26 09:17 | P.ON_ITS ---
Date of procedure: 01/26/24 Pre-op diagnosis: Pain due to lumbar stenosis with neurogenic claudication Post-op diagnosis: same as pre-op Procedure: Procedure: Left L4-5, L5-S1 transforaminal epidural steroid injection Medications: Bupivacaine 0.25% 2cc, lidocaine 2% 1cc, kenalog 80mg The patient was seen and examined in the preoperative holding area.? Informed consent was obtained and placed on the chart.? Patient was brought to the medical procedure unit and placed in the prone position where a timeout was completed verifying the correct patient, procedure site, position, and planned special equipment using sterile aseptic technique.? Under direct fluoroscopic visualization a 25-gauge Quincke tipped spinal needle was advanced to the designated neural foramen where contrast dye was injected to show adequate spread.? The needle was inserted at level left L4-5. There was no evidence of vascular or adverse uptake.? Epidural spread was appreciated.? The above- mentioned injectate was then placed in a 1.5 mL aliquot preceded by negative aspiration.? The needle was removed. The needle was inserted and the procedure repeated at level left L5-S1.? The surgery site was covered.? Patient was taken to the postprocedural recovery area and monitored for an appropriate length of time before found suitable for discharge in the accompaniment of a responsible adult. Anesthesia: Local Surgeon: Valeria Driver Pathology: none sent Condition: stable Disposition: no change
== END 2024-01-26 09:22 | disposition home or self-care (01) ==
LOC: SURGOUT 08:35
PROVIDERS: PCP Family Medicine; Visit Provider Anesthesiology
DX: M48.062 Spinal stenosis, lumbar region with neurogenic claudication (principal); E11.9 Type 2 diabetes mellitus without complications; Z79.85 Long-term (current) use of injectable non-insulin antidiabetic drugs; Z79.84 Long term (current) use of oral hypoglycemic drugs
CPT/HCPCS: 36415; 64483; 64484; 82948; J0665; J3301; Q9966

== ENCOUNTER 2024-02-04 14:33 | Outpatient (OUT) | payer OTHER, SELFPAY ==
--- NOTE | 2024-02-04 15:22 | P.CN_ITS ---
Consult Note: HPI Data of Consult Patient: known to practice within the last 3 years Consult date: 12/29/23 Requesting Physician: Fidelia Ruff NP Primary Care Provider: KELLY LEE Consult Narrative Reason for consult: low back, left hip and leg pain Narrative: 53yof who presents for evaluation. several months of worsening left low back, hip, leg pain. was being treated for left hip pathology, but did not have much benefit from left hip interventions. lumbar mri reviewed, which is significant for multilevel stenosis, worst at l5-s1. could not tolerate PT due to severe pain. uses otc pain meds as needed. denies adverse med side effects. recently underwent Left L4-5 L5-S1 TFESI x2 with minor relief, continues to have moderate to severe left hip/buttock/groin pain. Pt feels this pain catching, stabbing, and aching. Pt has discussed with Alcides LIU at Dr Barroso office who suggested pt try a psoas tendon injection for psoas tendonitis. in the past pt has failed celebrex, no muscle relaxers. cc:: CC: Fidelia Ruff NP Review of Systems ROS Status of ROS 10 or more systems reviewed and unremark able except as noted in history and below Musculoskeletal Reports: extremity pain and joint pain PFSH PFS Medical History (Updated 02/04/24 @ 16:23 by Fidelia Ruff NP) HTN (hypertension) ?I10 - Essential (primary) hypertension (ICD-10) High cholesterol ?E78.00 - Pure hypercholesterolemia, unspecified (ICD-10) Neuropathy ?G62.9 - Polyneuropathy, unspecified (ICD-10) Diabetes ?E11.9 - Type 2 diabetes mellitus without complications (ICD-10) Depression ?F32.A - Depression, unspecified (ICD-10) COVID ?U07.1 - COVID-19 (ICD-10) Hip pain, left ?M25.552 - Pain in left hip (ICD-10) Surgical History Hx of exploratory laparotomy ?Z98.890 - Other specified postprocedural states (ICD-10) H/O: hysterectomy ?Z90.710 - Acquired absence of both cervix and uterus (ICD-10) H/O dilation and curettage ?Z98.890 - Other specified postprocedural states (ICD-10) History of colposcopy ?Z98.890 - Other specified postprocedural states (ICD-10) Previous section ?Z98.891 - History of uterine scar from previous surgery (ICD-10) History of repair of anterior cruciate ligament of right knee ?Z98.890 - Other specified postprocedural states (ICD-10) History of repair of anterior cruciate ligament of left knee ?Z98.890 - Other specified postprocedural states (ICD-10) Social History Smoking status: Heavy tobacco smoker Little interest or pleasure in doing things: not at all Feeling down, depressed, or hopeless: not at all Meds Home Medications and Allergies Home Medications ?Medication ?Instructions ?Recorded ?Confirmed ?Type amlodipine 5 mg tablet 5 mg PO DAILY 11/01/22 01/26/24 History bupropion HCl 300 mg 24 hr tablet, 150 mg PO DAILY 11/01/22 01/26/24 History extended release citalopram 40 mg tablet 40 mg PO DAILY 11/01/22 01/26/24 History dulaglutide 0.75 mg/0.5 mL 0.75 mg subcut .weekly 11/01/22 01/26/24 History subcutaneous pen injector (Trulicity) empagliflozin 10 mg tablet 10 mg PO DAILY 11/01/22 01/26/24 History (Jardiance) lisinopril 40 mg tablet 20 mg PO DAILY 11/01/22 01/26/24 History metoprolol succinate 100 mg 100 mg PO DAILY 11/01/22 01/26/24 History tablet,extended release 24 hr baclofen 10 mg tablet 10 mg PO BID 02/04/24 02/04/24 History baclofen 10 mg tablet 10 mg PO TID #90 tabs 02/04/24 Rx diclofenac sodium 75 mg 75 mg PO BID 02/04/24 02/04/24 History tablet,delayed release diclofenac sodium 75 mg 75 mg PO BID PRN pain #60 tabs 02/04/24 Rx tablet,delayed release Allergies Allergy/AdvReac Type Severity Reaction Status Date / Time meperidine (From Demerol) Allergy Severe throat Verified 01/26/24 08:47 closing Exam Constitutional Documenting provider has reviewed patient's vital signs: yes Common normals: no apparent distress, oriented x3, healthy appearing, alert and well nourished General appearance: cooperative HENMT Common normals: normocephalic, hearing grossly normal bilaterally and moist oral mucous membranes Head and scalp: normocephalic Eye Common normals: PERRL Pupil: PERRL Neck & C-Spine Common normals: full ROM General: normal visual inspection Chest Common normals: inspection of chest normal Respiratory Common normals: normal respiratory effort, no retractions and no use of accessory muscles Extremity Left lower extremity: hip joint Other: mild pain with internal and external rotation could not perform SIJ maneuvers significant pain radiating into left groin and anterior thigh. mild atrophy noted of left thigh Neuro Common normals: oriented x3, CN's II-XII intact bilaterally, moves all extr emities, no focal motor deficits, no sensory deficits noted and deep tendon reflexes 2+ bilaterally Sensorium/orientation: alert Motor exam: strength 5/5 throughout and no movement abnormalities noted Psych Common normals: mental status grossly normal, thought process normal, cooperative, affect normal, speech normal and activity/motor behavior normal Speech: normal speech Thought process: normal thought process Results Additional Findings Additional findings: If on a controlled substance or opioids, I have checked an OARRS report on this patient and there are no aberrancies noted in the prescribing history.??If on a controlled substance or opioid a drug screen was completed and reviewed within the last year, and if there has not been a drug screen completed we ordered one today to monitor higher risk, state monitored pain medication use. As part of providing excellent, safe, comprehensive care, the following was completed at our patient's visit: 1. A medication reconciliation and review to ensure accurate knowledge of current/active medications, including asking our patients to inform us about any ebde-fwx-urpsdoe medications or herbal remedies/nutritional supplements/alternative remedies. 2. A review to specifically ensure our patients have had annual screening for screening for depression, screening for tobacco use, and screening for unhealthy alcohol use. For concerning screenings had a discussion with the patient, provided patient education, and recommended follow-up with primary care provider when appropriate. If patient noted with a risk of falling, they received education on strength, gait, and balance training to prevent future risk of falling. Assessment and Plan Assessment and Plan (1) Left thigh pain: (2) Myofascial pain: (3) Atrophy of muscle of left thigh: (4) Hip pain, left: Plan zynex tens and NMES discussed and ordered for left hip/thigh pain and atrophy start baclofen 5-10mg TID PRN pain/spasms start diclofenac 75mg BID PRN pain, risks vs benefits reviewed with pt f/u with cynthia Cortes to proceed with injection otherwise recommend pt seek sports medicine consult if she fails psoas tendon injection f/u with our office for medication management, pt to call and discuss effectiveness in 2 weeks, sooner if difficulty
== END 2024-02-04 14:34 | disposition home or self-care (01) ==
PROVIDERS: PCP Family Medicine; Visit Provider Nurse Practitioner
DX: M79.652 Pain in left thigh (principal); M62.552 Muscle wasting and atrophy, not elsewhere classified, left thigh; M25.552 Pain in left hip
CPT/HCPCS: G0463

== ENCOUNTER 2024-02-23 14:42 | Outpatient (OUT) | payer OTHER, SELFPAY ==
--- NOTE | 2024-02-23 16:11 | P.CN_ITS ---
Consult Note: HPI Data of Consult Patient: known to practice within the last 3 years Consult date: 02/23/24 Requesting Physician: Valeria Driver MD Primary Care Provider: KELLY LEE Consult Narrative Reason for consult: left low back, left hip and leg pain Narrative: 54yof who presents for assessment. continues to have pain in left lower extremity. recently had left iliopsoas injection with ortho, which helped some. they recommended left l3-4 tfesi. imaging reviewed, which shows multilevel stenosis, including at l3-4. has continued in a series of provider directed home exercises >6 weeks, without lasting benefit. uses otc meds as needed. cc:: CC: Valeria Driver MD Review of Systems ROS Status of ROS 10 or more systems reviewed and unremark able except as noted in history and below PFSH [facility] Medical History (Updated 02/04/24 @ 16:23 by Fidelia Ruff NP) HTN (hypertension) ?I10 - Essential (primary) hypertension (ICD-10) High cholesterol ?E78.00 - Pure hypercholesterolemia, unspecified (ICD-10) Neuropathy ?G62.9 - Polyneuropathy, unspecified (ICD-10) Diabetes ?E11.9 - Type 2 diabetes mellitus without complications (ICD-10) Depression ?F32.A - Depression, unspecified (ICD-10) COVID ?U07.1 - COVID-19 (ICD-10) Hip pain, left ?M25.552 - Pain in left hip (ICD-10) Surgical History Hx of exploratory laparotomy ?Z98.890 - Other specified postprocedural states (ICD-10) H/O: hysterectomy ?Z90.710 - Acquired absence of both cervix and uterus (ICD-10) H/O dilation and curettage ?Z98.890 - Other specified postprocedural states (ICD-10) History of colposcopy ?Z98.890 - Other specified postprocedural states (ICD-10) Previous section ?Z98.891 - History of uterine scar from previous surgery (ICD-10) History of repair of anterior cruciate ligament of right knee ?Z98.890 - Other specified postprocedural states (ICD-10) History of repair of anterior cruciate ligament of left knee ?Z98.890 - Other specified postprocedural states (ICD-10) Social History Smoking status: Heavy tobacco smoker Little interest or pleasure in doing things: not at all Feeling down, depressed, or hopeless: not at all Meds Home Medications and Allergies Home Medications ?Medication ?Instructions ?Recorded ?Confirmed ?Type amlodipine 5 mg tablet 5 mg PO DAILY 11/01/22 01/26/24 History bupropion HCl 300 mg 24 hr tablet, 150 mg PO DAILY 11/01/22 01/26/24 History extended release citalopram 40 mg tablet 40 mg PO DAILY 11/01/22 01/26/24 History dulaglutide 0.75 mg/0.5 mL 0.75 mg subcut .weekly 11/01/22 01/26/24 History subcutaneous pen injector (Trulicity) empagliflozin 10 mg tablet 10 mg PO DAILY 11/01/22 01/26/24 History (Jardiance) lisinopril 40 mg tablet 20 mg PO DAILY 11/01/22 01/26/24 History metoprolol succinate 100 mg 100 mg PO DAILY 11/01/22 01/26/24 History tablet,extended release 24 hr baclofen 10 mg tablet 10 mg PO TID #90 tabs 02/04/24 Rx diclofenac sodium 75 mg 75 mg PO BID 02/04/24 02/04/24 History tablet,delayed release Allergies Allergy/AdvReac Type Severity Reaction Status Date / Time meperidine (From Demerol) Allergy Severe throat Verified 01/26/24 08:47 closing Exam Narrative Exam Narrative: Psych-alert and oriented x 3. Attentive and appropriate, constitutionally normal, displays normal mood and affect per situation. There are no obvious deficits in memory, reasoning, or intellect.? Skin-no obvious rashes, bruising, erythema noted to the patient's area of pain.? Extremities- extremities are warm with minimal edema and palpable pulses. Lumbar-tenderness to palpation noted in the lumbar spine and paraspinal musculature. Pain is not elicited with flexion, extension, and lateral rotation of the lumbar spine. Range of motion is not diminished with these motions. Facet loading maneuvers are negative.? Strength-noted to be unremarkable Sensory-no notable sensory deficits in the bilateral lower extremities to touch or pinprick in all dermatomal distributions with the exception to decreased sensation to the left L3, 4 dermatomal distribution Coordination remains intact.? Gait remains non-antalgic. Assessment and Plan Assessment and Plan (1) Lumbar stenosis with neurogenic claudication: Plan 54yof who presents for assessment. failed conservative measures, as noted. imaging reviewed, as noted. given symptoms and imaging, prudent to attempt left l3-4 tfesi under fluoroscopic guidance, as recommended by her orthopedic surgeon. she is in agreement. meds reviewed, no changes. follow up after procedure.
== END 2024-02-23 14:43 | disposition home or self-care (01) ==
LOC: PM 14:42
PROVIDERS: PCP Family Medicine; Visit Provider Anesthesiology
DX: M48.062 Spinal stenosis, lumbar region with neurogenic claudication (principal)
CPT/HCPCS: G0463

== ENCOUNTER 2024-03-08 08:28 | Day surgery (SDC) | payer OTHER, SELFPAY ==
[2024-03-08 09:00] VITALS: BP 153/82; PULSE 63; TEMP 35.9; O2SAT 97
[2024-03-08 09:01] LABS: Glucometer 142 mg/dL (74-106)
[2024-03-08 09:34] VITALS: PULSE 64; O2SAT 95
[2024-03-08 09:35] VITALS: BP 171/69; BP 186/81; PULSE 63; O2SAT 94
[2024-03-08] MEDS: 0.9 % SODIUM CHLORIDE 10 ML SYRINGE - SALINE FLUSH INJ (09:38)
[2024-03-08] MEDS: BUPIVACAINE HCL 0.25% PF 25 MG/10 ML VIAL INJ (09:38)
[2024-03-08] MEDS: LIDOCAINE HCL 2% 400 MG/20 ML MDV 3 ML INJ (09:39)
[2024-03-08] MEDS: IOHEXOL 240 MG/ML - 10 ML VIAL INJ (09:39)
[2024-03-08] MEDS: DEXAMETHASONE SOD PHOS 10 MG/ML VIAL INJ (09:39)
--- NOTE | 2024-03-08 09:41 | P.ON_ITS ---
Date of procedure: 03/08/24 Pre-op diagnosis: Pain due to lumbar stenosis with neurogenic claudication Post-op diagnosis: same as pre-op Procedure: Procedure: Left L3-4 transforaminal epidural steroid injection Medications: Bupivacaine 0.25% 2cc, lidocaine 2% 1cc, dexamethasone 10mg The patient was seen and examined in the preoperative holding area.? Informed consent was obtained and placed on the chart.? Patient was brought to the medical procedure unit and placed in the prone position where a timeout was completed verifying the correct patient, procedure site, position, and planned special equipment using sterile aseptic technique.? Under direct fluoroscopic visualization a 25-gauge Quincke tipped spinal needle was advanced to the designated neural foramen where contrast dye was injected to show adequate spread.? The needle was inserted at level left L3-4. There was no evidence of vascular or adverse uptake.? Epidural spread was appreciated.? The above- mentioned injectate was then placed in a 1.5 mL aliquot preceded by negative aspiration.? The needle was removed. The surgery site was covered.? Patient was taken to the postprocedural recovery area and monitored for an appropriate length of time before found suitable for discharge in the accompaniment of a r esponsible adult. Anesthesia: Local Surgeon: Valeria Driver Pathology: none sent Condition: stable Disposition: no change
== END 2024-03-08 09:47 | disposition home or self-care (01) ==
LOC: SURGOUT 08:29
PROVIDERS: PCP Family Medicine; Visit Provider Anesthesiology
DX: M48.062 Spinal stenosis, lumbar region with neurogenic claudication (principal); E11.9 Type 2 diabetes mellitus without complications; Z79.85 Long-term (current) use of injectable non-insulin antidiabetic drugs
CPT/HCPCS: 36415; 64483; 82948; J0665; J1100; Q9966

== ENCOUNTER 2024-05-22 11:33 | Outpatient (OUT) | payer OTHER, SELFPAY ==
--- OUTSIDE RECORDS SUMMARY | 2024-05-22 11:36 | XMS_ITS | CCD ---
Author Organization [facility] CliniSyhi Care Team Providers Care Adult Specialist Name Role Phone BALAJI RUIZ Unavailable Unavailable [...] Care Provider DO Kelly Lee Attending Provider [phone] MD Sawyer Styles Attending Provider [phone] Kelly Lee Primary Care Unavailable Jeremiah Lomax Admitting Unavailable Jeremiah Lomax Attending Unavailable Kelly Lee Attending Unavailable Kelly Lee Admitting Unavailable Kelly Lee Primary Care Unavailable Sawyer Styles Admitting Unavailable Sawyer Styles Attending Unavailable Kelly Lee Primary Care Unavailable Sawyer Styles Admitting Unavailable Sawyer Styles Attending Unavailable Kelly Lee Primary Care Unavailable Yelena Dominguez Unavailable Yvette Bazan Unavailable TYRA MOSQUEDA Referring Unavailable Kelly Lee MD Primary Care Provider KELLY LEE Referring Unavailable TARAS CARR Attending Unavailable TARAS CARR Referring Unavailable JR. MOSQUEDA GEORGE C Attending Unavailmaria del carmen MOSQUEDA JR., GEORGE C Referring Unavaila TARAS Novak Attending Unavailable SHEREE CAREY Attending Unavailable TARAS CARR Referring Unavailable AVELINA WOLF Attending Unavailable TARAS CARR Referring Unavailable JR. JUSTINO, TYRA Cline Attending Unavailmaria del carmen MOSQUEDA JR., TYRA Cline Referring Unavaila dillan Driver MD, Valeria Marte Attending Unavailable Villa RUEDA, Valeria Marte Attending Unavailable Villa RUEDA, Valeria Marte Attending Unavailable Villa RUEDA, Valeria Marte Attending Unavailable Villa RUEDA, Valeria Marte Attending Unavailable TYRA MOSQUEDA Attending Unavailable KELLY LEE Primary Care Unavailable TYRA MOSQUEDA Admitting Unavailable TYRA MOSQUEDA Attending Unavailable KELLY LEE Primary Care Unavailable TYRA MOSQUEDA Admitting Unavailable Allergies Allergy Classification Reported Allergen(s) Allergy Type Date of Onset Reaction(s) Facility (14 sources) atorvastatin Drug Allergy 08-26-2023 myalgias [facility] (20 sources) Meperidine Drug Allergy 12-31-2016 anaphylaxis [facility] (14 sources) metFORMIN Drug Allergy 08-26-2023 GI issues [facility] (14 sources) Pravastatin Drug Allergy 08-26-2023 myalgias [facility] (1 source) Meperidine Drug Allergy 2018 [facility] Repository (18 sources) Meperidine Drug Allergy 10-29-2022 [facility] Medications Current Medications Medication Drug Class(es) Dates Sig (Normalized) Sig (Original) [id number] 60 actuat albuterol 0.09 mg/actuat metered dose [...] PRN Active amLODIPine 5 mg oral tablet (20 sources) Dihydropyridine Calcium Channel Warner Start: 08-18-2023 [...] hydrochloride 300 mg extended release oral tablet (20 sources) Aminoketone Start: 09-09-2022 buPROPion XL (Wellbutrin [...] MORNING Active celecoxib 200 mg oral capsule (7 sources) Nonsteroidal Anti-inflammatory Drug Start: 11-25-2023 End: 01-24-2024 take 1 capsule by mouth once daily at mealtime celecoxib (CeleBREX) 200 MG capsule Indications: Greater trochanteric bursitis of left hip Take 1 capsule (200 mg) by mouth Daily Take with food 30 capsule 1 11/25/2023 01/24/2024 Active citalopram 40 mg oral tablet (20 sources) Serotonin Reuptake Inhibitor Start: 09-05-2023 Citalopram Active 0 .ROUTE .COMPLEX September 05, 2023 10:22am TAKE 1 TABLET DAILY Start: 2018 End: 09-05-2023 take 40 mg by mouth once daily Citalopram Discontinued 40 MG PO Daily 2018 1:00am September 05, 2023 10:22am citalopram (Nishi XA) 20 MG tablet 1 (one) time each day at the same time. Active 0.5 ml dulaglutide 1.5 mg/ml auto-injector (20 sources) GLP-1 Receptor Agonist Start: 09-09-2022 End: 07-24-2023 Trulicity 0.75 MG/0.5ML solution pen-injector 09/09/2022 Active empagliflozin 10 mg oral tablet (20 sources) Sodium-Glucose Cotransporter 2 Inhibitor Start: 10-02-2021 Jardiance 10 MG 10/07/2022 Active lisinopril 40 mg oral tablet (20 sources) Angiotensin Converting Enzyme Inhibitor Start: 2018 take 40 mg by mouth once daily Lisinopril Active 40 MG PO Daily 2018 1:00am lisinopril 20 MG tablet 1 (one) time each day at the same time. Active Metoprolol (20 sources) beta-Adrenergic Warner Start: 08-18-2023 Metopr olol Succinate Active 0 .ROUTE .COMPLEX August 18, [...] every four to six hours Hydrocodone-Acetami nophen (Marcola) 5-325 mg Tablet Discontinued 1 TAB PO EVERY 4-6 HOURS 4 2 May 16, 2018 December 17, 2021 7:15am Start: 2018 End: 02-14-2018 Hydrocodone-Acetaminophen (N orco) 5-325 mg tablet Discontinued 1 TAB PO every 6 to 8 hours 20 5 2018 February 14, 2018 1:02am 5 ml bupivacaine hydrochloride 5 mg/ml injection (2 sources) Amide Local Anesthetic Start: 02-05-2024 End: 02-05-2024 bupivacaine PF (Marcaine) 0.5 % injection 1 mL Start: 02-05-2024 End: 02-05-2024 1 mL, Injection, Once PRN Pr ocedure, Starting on Erika 02/05/24 at 1614, For 1 dose 0.65 ml exenatide 3.08 mg/ml pen injector [...] 2021 7:38am ibuprofen 600 mg oral tablet (5 sources) Nonsteroidal Anti-inflammatory Drug Start: 10-29-2023 End: 11-25-2023 take 1 tablet by mouth in the morning, then take 1 tablet by mouth in the evening, then take 1 tablet by mouth at bedtime ibuprofen 600 MG tablet Indications: Acute hip pain, left Take 1 tablet (600 mg) by mouth in the morning and 1 tablet (600 mg) in the evening and 1 tablet (600 mg) before bedtime. 30 tablet 2 10/29/2023 11/25/2023 Discontinued Start: 2018 End: 12-17-2021 Ibuprofen Discontinued 600 M G PO every 6 to 8 hours 2018 1:00am December 17, 2021 7:15am levothyroxine sodium 0.112 mg oral tablet (4 sources) l-Thyroxine Start: 2018 End: 12-17-2021 take 112 ug by mouth once daily Levothyroxine Discontinued 112 MCG PO Daily 2018 1:00am December 17, 2021 7:15am 1 ml methylPREDNISolone acetate 40 mg/ml injection (10 sources) Corticosteroid Start: 02-05-2024 End: 02-05-2024 methylPREDNISolone acetate (DEPO-Medrol) injection 40 mg Start: 02-05-2024 End: 02-05-2024 40 mg, Intra-articular, Once PRN Procedure, Starting on Erika 02/05/24 at 1614, For 1 dose Start: 12-01-2023 End: 02-05-2024 methylPREDNISolone (Medrol D ospak) 4 MG tablets Indications: Left hip pain Follow schedule on package instructions 21 tablet 12/01/2023 02/05/2024 Discontinued Start: 12-01-2023 methylPREDNISo lone (Medrol Dospak) 4 MG tablets Indications: Left hip pain Follow schedule on package instructions 21 tablet 12/01/2023 Active pitavastatin calcium 2 mg oral tablet (18 [...] Translations: [Depression] Onset: 10-02-2021 Resolved: 10-02-2021 Chronic Osteoarthritis (2 sources) Arthritis of left hip; Translations: [Unilateral primary osteoarthritis, left hip] 03-29-2024 Chronic Other bone disease and musculoskeletal deformities (2 sources) Pain in femur; Translations: [Other specified disorders of bone, thigh] 12-01-2023 Episodic Other connective tissue disease (2 sources) Tendinitis of left psoas tendon; Translations: [Psoas tendinitis, left hip] 02-05-2024 Episodic Other ear and sense organ disorders (12 [...] shoulder] Onset: 10-02-2021 Resolved: 10-02-2021 Episodic Other non-traumatic joint disorders (17 sources) Hip pain; Translations: [Pain in left hip] Onset: 03-22-2024 02-05-2024 Episodic Other non-traumatic joint disorders (8 sources) Femoral acetabular impingement of left hip joint; Translations: [Other specified joint disorders, left hip] Onset: 03-22-2024 03-22-2024 Episodic Other non-traumatic joint disorders (2 sources) Enthesopathy of hip region; Translations: [Other specified joint disorders, left hip] 03-29-2024 Episodic Other upper respiratory infections (12 sources) Chronic pansinusitis; Translations: [Chronic pansinusitis] Chronic Other upper respiratory infections (3 sources) Acute sinusitis, unspecified; Translations: [Acute maxillary sinusitis] Episodic Otitis media and related conditions (1 source) Otitis media, unspecified, right ear Episodic Peripheral and visceral atherosclerosis (3 sources) Peripheral vascular disease, unspecified; Translations: [Intermittent claudication] Onset: 12-01-2023 12-01-2023 Chronic Spondylosis; intervertebral disc disorders; other back problems (1 source) Disorder of joint of spine; Translations: [Other spondylosis with radiculopathy, lumbar region] 12-11-2023 Chronic Spondylosis; intervertebral disc disorders; other back problems (20 sources) Sciatica; Translations: [Lumbago with sciatica, left side] Onset: 03-22-2024 12-22-2023 Episodic Substance-related disorders (12 sources) Tobacco [...] Problem Date Documented Da te Episodic/Chronic Other connective tissue disease (1 source) Trochanteric bursitis; Translations: [Trochanteric bursitis, left hip] 11-25-2023 Episodic Other non-traumatic joint disorders (1 source) [...] Test Name Value Interpretation Reference Range Facility XR Hip - left 3 Viewson 03-17 Imaging Result: Multiple views of left hip showed severe degenerative joint disease with near complete obliteration of the joint space articulation between the femoral head and acetabulum. There is flattening of the articular surfaces to both femoral and acetabular surfaces. There was marginal osteophytic formation noted. The both femoral and acetabular joint surfaces. There was no acute bony process including but not limited to, fracture and/or dislocation. Impression: Moderate to severe degenerative joint disease, left hip [facility] Radiology Study observation (narrative) [facility] L Inj/Asp: L iliopsoas bursa on 02-05-2024 ALEXA Stringer 02/05/2024 4:22 PM L Inj/Asp: L iliopsoas bursa (Left Psoas tendon) on 02/05/2024 4:14 PM Indications: pain and diagnostic evaluation Details: 20 G needle, ultrasound-guided anterolateral approach Medications: 40 mg methylPREDNISolone acetate 40 MG/ML; 1 mL bupivacaine PF 0.5 % Outcome: tolerated well, no immediate complications With patient supine, the left hip was sterilely prepped with isopropyl alcohol. The isopropyl alcohol was allowed to dry. The ultrasound was used to eval the anatomy of the hip joint. The femoral neck and femoral shaft and femoral head were well visualized progressed to anterior aspect Acetabulum noted floor and psoas tendon indentified. Imaging mildly limited with obesity . A plain was established that avoided any neurovascular structures and a 20 G spinal needle was inserted under ultrasound guidance toward the iliopsoas tendon. The needle was seen to approach the tendon, without puncture and imaging capturing proper placement of the needle. 40mg depomedrol and 1ml of 0.5% bupivacaine was injected and patient tolerated procedure well. After needle removal a steril Band-Aid was placed and hemostasis was achieved. Images captured to pt's chart. ( Codes 07600-OR) Procedure, treatment alternatives, risks and benefits explained, specific risks discussed. Consent was given by the patient. Patient was prepped and draped in the usual sterile fashion. [facility] CBC AND AUTO DIFFon 12-01-19 24 ABSOLUTE BASOPHIL 0.1 X10E9/L Normal 0.0-0.2 [facility] Comment on above: Performed By: #### Son BEAVER, [id number] #### [facility] ([id number]) [address], [address] [place] [address] ABSOLUTE NEUTROPHIL 4.1 X10E9/L Normal 1.5-6.6 [facility] Comment on above: Performed By: #### Son BEAVER, [id number] #### [facility] ([id number]) [address], [address] [place] [address] Basophils/100 WBC (Bld) 2.3 % Normal [facility] Comment on above: Performed By: #### Son BEAVER, [id number] #### [facility] ([id number]) [address], [address] [place] [address] Eosinophils (Bld) [#/Vol] 0.2 10*3/uL Normal 0.0-0.4 [facility] Comment on above: Performed By: #### Son BEAVER, 00060-1, 1987-07 #### [facility] ([id number]) [address], [facility] [address] [place] [address] Eosinophils/100 WBC (Bld) 2.8 % Normal [facility] Comment on above: Performed By: #### Son BEAVER, 63535-2, 1987-07 #### [facility] ([id number]) [address], [facility] [address] [place] [address] Erythrocyte distribution width (RBC) [Ratio] 13.1 % Normal 11.5-15.0 [facility] Comment on above: Performed By: #### Son BEAVER, 12504-4, 1987-07 #### [facility] ([id number]) [address], [facility] [address] [place] [address] Hematocrit (Bld) [Volume fraction] 45.3 % Normal 35-47 [facility] Comment on above: Performed By: #### Son BEAVER, 82092-6, 1987-07 #### [facility] ([id number]) [address], [facility] [address] [place] [address] Hemoglobin (Bld) [Mass/Vol] 15.4 g/dL Normal 11.7-15.5 [facility] Comment on above: Performed By: #### Son BEAVER, 89807-1, 1987-07 #### [facility] ([id number]) [address], [facility] [address] [place] [address] Lymphocytes (Bld) [#/Vol] 1.6 10*3/uL Normal 1.0-3.5 [facility] Comment on above: Performed By: #### Son BEAVER, 10567-1, 1987-07 #### [facility] ([id number]) [address], [address] [place] [address] Lymphocytes/100 WBC (Bld) 25.3 % Normal [facility] Comment on above: Performed By: #### Son BEAVER, 85324-9, 1987-07 #### [facility] ([id number]) [address], [address] [place] [address] MCH (RBC) [Entitic mass] 32.7 pg Normal 27-34 [facility] Comment on above: Performed By: #### Son BEAVER, 75837-2, 1987-07 #### [facility] ([id number]) [address], [address] [place] [address] MCHC (RBC) [Mass/Vol] 33.9 g/dL Normal 32-36 [facility] Comment on above: Performed By: #### Son BEAVER, 05728-2, 1987-07 #### [facility] ([id number]) [address], [address] [place] [address] MCV (RBC) [Entitic vol] 97 fL Normal 80-100 [facility] Comment on above: Performed By: #### Son BEAVER, 76302-3, 1987-07 #### [facility] ([id number]) [address], [address] [place] [address] Monocytes (Bld) [#/Vol] 0.4 10*3/uL Normal 0-0.9 [facility] Comment on above: Performed By: #### Son BEAVER, 97032-4, 1987-07 #### [facility] ([id number]) [address], [address] [place] [address] Monocytes/100 WBC (Bld) 6.1 % Normal [facility] Comment on above: Performed By: #### Son BEAVER, 20087-5, 1987-07 #### [facility] ([id number]) [address], [address] [place] [address] Neutrophils/100 WBC (Bld) 63.5 % Normal [facility] Comment on above: Performed By: #### Son BEAVER, 70993-5, 1987-07 #### [facility] ([id number]) [address], [address] [place] [address] Platelet mean volume (Bld) [Entitic vol] 9.7 fL Normal 7-12 [facility] Comment on above: Performed By: #### Son BEAVER, 02986-9, 1987-07 #### [facility] ([id number]) [address], [facility] [address] [place] [address] Platelets (Bld) [#/Vol] 173 10*3/uL Normal 150-450 [facility] Comment on above: Performed By: #### Son BEAVER, 50751-6, 1987-07 #### [facility] ([id number]) [address], [address] [place] [address] RBC COUNT 4.70 X10E12/L Normal 3.80-5.20 [facility] Comment on above: Performed By: #### Son BEAVER, 04788-4, 1987-07 #### [facility] ([id number]) [address], [facility] [address] [place] [address] WBC (Bld) [#/Vol] 6.4 10*3/uL Normal 4.0-11.0 [facility] Comment on above: Performed By: #### Son BEAVER, 53959-5, 1987-07 #### [facility] ([id number]) [address], [facility] [address] [place] [address] CBC W Auto Differential pane l (Bld)on 12-01-2023 ABSOLUTE BASOPHIL 0.1 [facility] Comment on above: PERFORMED AT [facility] [address],[place] [address] Basophils/100 WBC (Bld) 2.3 % [facility] Eosinophils (Bld) [#/Vol] 0.2 10*3/uL [facility] Eosinophils/100 WBC (Bld) 2.8 % [facility] Erythrocyte distribution width (RBC) [Ratio] 13.1 % 11.5 - 15.0 % [facility] Hematocrit (Bld) [Volume fraction] 45.3 % 35 - 47 % [facility] Hemoglobin (Bld) [Mass/Vol] 15.4 g/dL 11.7 - 15.5 g/dL [facility] Lymphocytes (Bld) [#/Vol] 1.6 10*3/uL [facility] Lymphocytes/100 WBC (Bld) 25.3 % [facility] MCH (RBC) [Entitic mass] 32.7 pg 27 - 34 pg [facility] MCHC (RBC) [Mass/Vol] 33.9 g/dL 32 - 36 g/dL [facility] MCV (RBC) [Entitic vol] 97 fL 80 - 100 fL [facility] Monocytes (Bld) [#/Vol] 0.4 10*3/uL [facility] Monocytes/100 WBC (Bld) 6.1 % [facility] Neutrophils (Bld) [#/Vol] 4.1 10*3/uL [facility] Neutrophils/100 WBC (Bld) 63.5 % [facility] Platelet mean volume (Bld) [Entitic vol] 9.7 fL 7 - 12 fL [facility] Platelets (Bld) [#/Vol] 173 10*3/uL [facility] RBC (Bld) [#/Vol] 4.70 10*6/uL [facility] WBC corrected for nucl RBC Auto (Bld) [#/Vol] 6.4 [facility] CRP [Mass/Vol]on 12-01-2023 C REACTIVE PROTEIN 0.2 mg/dL Normal 0.000-0.744 [facility] Comment on above: Performed By: #### [place], [address]-8, 1987- #### [facility] ([id number]) [address] [place] [address] ESR Photometric method (Bld) [Velocity]on 12-01-2023 ESR, ERYTHROCYTE SEDIMENTATION RATE 3 mm/h Normal 0-30 [facility] Comment on above: Performed By: #### C BCA, 95404-5, 1987- #### [facility] ([id number]) [address] [place] [address] No Panel Informationon 11-30 Radiology Study observation (narrative) [facility]rb[facility] StudyMax XR Femur - left 2 Viewson Imaging Result: Multiple views of left femur showed no acute tayler process including but not limited to fracture or dislocation. Overall anatomic alignment appeared well preserved. IMP: no acute tayler process left femur [facility] StudyMax XR Lumbar spine 2 or 3 Views on 12-01-2023 Imaging Result: Imaging Result: AP and lateral of lumbar spine showed mild arthritis to L5-S1 to the lumbar spine. There is decreased disc space noted to L5-S1. Anterior and posterior columns appeared to be symmetric posterior elements appear to be anatomic. There was no acute Bony process including but not limited to fracture and/or dislocation. Impression: Moderate degenerative changes L5-S1 lumbar spine. [facility] StudyMax BI MAMMOGRAM SCREENING TOMOS YNTHESIS BILATERALon 04-25-2023 [...] IS VERY IMPORTANT TO YOUR HEALTH. THE [employer] GUIDELINES RECOMMEND THAT WOMEN 40 [...] (COVID-19) RNA RAKEL+probe Ql (Unsp spec) Negative [facility] [employer] [facility] Other COVID + FLU Quick Testing Negative [facility] Other COVID Quick Testingon 2022 Result Positive [facility] Other A1C HEMOGLOBINon 09-09-2022 HbA1c (Bld) [Mass fraction] 6.9 % [facility] [employer] [facility] Other HbA1c (Bld) [Mass fraction]o n 09-09-2022 A1C HEMOGLOBIN [facility] Other Glucose Glucometer (BldC) [M ass/Vol]Ordered By: Sawyer Styles on 12-17-2021 Glucose [Mass/Vol] 179 mg/dL [facility] Comment on above: Random Glucose Refer ence Range is dependent on time and content of last meal. Glucose of more than 200 mg/dL in a nonstressed, ambulatory subject supports the diagnosis of Diabetes Mellitus. Glucose Poct Glucometerson 1 Glucose [Mass/Vol] 179 mg/dL Normal [facility] Comment on above: Result Comment: [place] om Glucose Reference Range is dependent on time and content of last meal. Glucose of more than 200 mg/dL in a nonstressed, ambulatory subject supports the diagnosis of Diabetes Mellitus. PERFORMED BY: [facility] [address] [place] [address] PATHOLOGIST BACON STRINGER SHAY POON M.D. Performed By: #### G [...] developed and its performance characteristic determined by [employer] and validated at [facility]. This test has not been FDA [...] for SARS Antigen by ARAVIND PERFORMED BY: [place] [address] PATHOLOGIST BACON STRINGER SHAY POON M.D. [facility] Comment on above: Performed By: #### C OVID-19 BAM, SOFIANEG #### [facility] [address] COVID-19 SOFIAOrdered By: Jazmine Styles on 12-13-2021 SARS-CoV+SARS-CoV-2 (COVID-19) Ag IA.rapid Ql (Resp) Negative Negative [facility] Comment on above: This is a duplicate Bam SARS Antigen (ARAVIND) result to be used for statistical tracking purpose only. No Panel InformationOrdered By: Sawyer Styles on 12-13-2021 SARS Antigen (LFIA) [facility] Bam Ag Negativeon 12-14-19 Bam Ag Negative Negative Normal Negative [facility] Comment on above: Result Comment: This is a duplicate Bam SARS Antigen (ARAVIND) result to be used for statistical tracking purpose only. PERFORMED BY: [facility] [address] [place] [address] PATHOLOGIST BACON STRINGER SHAY POON M.D. Performed By: #### C OVID-19 BAM, SOFIANEG #### [facility] [address] [id number] [facility] A1C HEMOGLOBINon 10-02-2021 HbA1c (Bld) [Mass fraction] 8.8 % [employer] Other Blood hemoglobin measurement (mass/volume)Ordered By: Kelly Lee on 10-02-2021 Hemoglobin (Bld) [Mass/Vol] 14.6 g/dL 11.8-15.4 [facility] Body fluid albumin measureme nt (mass/volume)Ordered By: Kelly Lee on 10-02-2021 Albumin (Body fld) [Mass/Vol] 4.2 g/dL 3.2-5.5 [facility] Cholesterol in LDL Calc [Mas s/Vol]Ordered By: Kelly Lee on 10-02-2021 Cholesterol in LDL [Mass/Vol] 143 mg/dL 0-100 [facility] Comment on above: LDL ATP III CLASSIFI CATIONLDL less than 100 mg/dL OptimalLDL 100-129 mg/dL Near or above optimalLDL 130-159 mg/dL Borderline highLDL 160-189 mg/dL HighLDL greater than 189 mg/dL Very high Cholesterol in VLDL Calc [Ma ss/Vol]Ordered By: Kelly Lee on 10-02-2021 Cholesterol in VLDL [Mass/Vol] 59 mg/dL [facility] Comprehensive Metabolic Pane darrick 10-02-2021 Albumin [Mass/Vol] 4.2 g/dL Normal 3.2-5.5 [facility] Comment on above: Order Comment: PT FA STED 12 HRS 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 Performed By: #### T SH3 wRFLX, CBCNO, CMP, LIPID #### [facility] [address] [id number] [facility] ALT [Catalytic activity/Vol] 48 U/L Normal 10-60 [employer] Other Comment on above: Order Comment: PT FA STED 12 HRS 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 Performed By: #### T SH3 wRFLX, CBCNO, CMP, LIPID #### [facility] [address] [id number] [facility] Bilirubin [Mass/Vol] 0.5 mg/dL Normal 0.3-1.2 [facility] Comment on above: Order Comment: PT FA STED 12 HRS 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 Performed By: #### T SH3 wRFLX, CBCNO, CMP, LIPID #### [facility] [address] Calcium [Mass/Vol] 9.6 mg/dL Normal 8.2-10.2 [facility] Comment on above: Order Comment: PT FA STED 12 HRS 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 Performed By: #### T SH3 wRFLX, CBCNO, CMP, LIPID #### [facility] [address] CO2 [Moles/Vol] 29.4 mmol/L Normal 22.0-30.0 [facility] Comment on above: Order Comment: PT FA STED 12 HRS 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 Performed By: #### T SH3 wRFLX, CBCNO, CMP, LIPID #### [facility] [address] [place] [id number] [facility] Creatinine [Mass/Vol] 0.44 mg/dL Normal 0.44-1.03 [facility] Comment on above: Order Comment: PT FA STED 12 HRS 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 Performed By: #### T SH3 wRFLX, CBCNO, CMP, LIPID #### [facility] [address] [place] [address] Potassium [Moles/Vol] 4.4 mmol/L Normal 3.5-5.1 [facility] Comment on above: Order Comment: PT FA STED 12 HRS 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 Performed By: #### T SH3 wRFLX, CBCNO, CMP, LIPID #### [facility] [address] [place] [address] [place] Protein [Mass/Vol] 6.9 g/dL Normal 6.1-7.9 [facility] Comment on above: Order Comment: PT FA STED 12 HRS 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 Performed By: #### T SH3 wRFLX, CBCNO, CMP, LIPID #### [facility] [address] [place] [address] [place] Albumin [Mass/Vol] 4.006986 g/dL Normal 3.2-5.5 g/dL [employer] Other Bilirubin [Mass/Vol] 0.9670660 mg/dL Normal 0.3- 1.2 mg/dL [facility] Other Calcium [Mass/Vol] 9.9231763 mg/dL Normal 8.2-10 .2 mg/dL [facility] Other CO2 [Moles/Vol] 29.25874014 mmol/L Normal 22.0-3 0.0 mmol/L [facility] Other Creatinine [Mass/Vol] 0.09899863 mg/dL Normal 0.44-1.03 mg/dL [facility] Other Potassium [Moles/Vol] 4.70966396 mmol/L Normal 3.5-5.1 mmol/L [facility] Other Protein [Mass/Vol] 6.349216 g/dL Normal 6.1-7.9 g/dL [facility] Other Comprehensive Metabolic Panel > 60 [facility] Other Comprehensive Metabolic Panel 2.7 g/dL [facility] Other Comprehensive Metabolic Pane lOrdered By: Kelly Lee on 10-02-2021 Albumin/Globulin [Mass ratio] 1.6 {ratio} Normal [facility] Comment on above: Order Comment: PT FA STED 12 HRS 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 Performed By: #### T SH3 wRFLX, CBCNO, CMP, LIPID #### [facility] [address] ALP [Catalytic activity/Vol] 64 U/L Normal 32-92 [facility] Comment on above: Order Comment: PT FA STED 12 HRS 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 Performed By: #### T SH3 wRFLX, CBCNO, CMP, LIPID #### [facility] [address] [place] [id number] [facility] AST [Catalytic activity/Vol] 45 U/L High 10-42 [facility] Comment on above: Order Comment: PT FA STED 12 HRS 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 Performed By: #### T SH3 wRFLX, CBCNO, CMP, LIPID #### [facility] [address] [place] [address] [place] Chloride [Moles/Vol] 91 mmol/L Low 95-114 [facility] Comment on above: Order Comment: PT FA STED 12 HRS 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 Performed By: #### T SH3 wRFLX, CBCNO, CMP, LIPID #### [facility] [address] [place] [address] [place] Glucose [Mass/Vol] 186 mg/dL High 70-100 [facility] Comment on above: ADA recommended refe rence rangeRandom Glucose Reference Range is dependent on time and content of last meal. Glucose of more than 200 mg/dL in a nonstressed, ambulatory subject supports the diagnosis of Diabetes Mellitus. Order Comment: PT FA STED 12 HRS 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 Result Comment: [place] Glucose Reference Range is dependent on time and content of last meal. Glucose of more than 200 mg/dL in a nonstressed, ambulatory subject supports the diagnosis of Diabetes Mellitus. ADA recommended reference range Performed By: #### T SH3 wRFLX, CBCNO, CMP, LIPID #### [facility] [address] [place] [address] [place] Sodium [Moles/Vol] 135 mmol/L Low 136-146 [facility] Comment on above: Order Comment: PT FA STED 12 HRS 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 Performed By: #### T SH3 wRFLX, CBCNO, CMP, LIPID #### [facility] [address] [place] [address] [place] Urea nitrogen [Mass/Vol] 9 mg/dL Normal 9-23 [facility] Comment on above: Order Comment: PT FA STED 12 HRS 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 Performed By: #### T SH3 wRFLX, CBCNO, CMP, LIPID #### [facility] [address] [place] [address] [place] Creatinine and Glomerular fi ltration rate.predicted panel (S/P/Bld)Ordered By: Kelly Lee on 10-02-2021 Creatinine [Mass/Vol] 0.44 mg/dL 0.44-1.03 [facility] Erythrocyte distribution wid th Auto (RBC) [Ratio]Ordered By: Kelly Lee on 10-02-2021 Erythrocyte distribution width (RBC) [Ratio] 12.7 % 11.9-15.3 [facility] Estimated glomerular filtrat ion rate (GFR) non- AmericanOrdered By: Kelly Lee on 10-02-2021 GFR/1.73 sq M.predicted among non-blacks MDRD (S/P/Bld) [Vol rate/Area] > 60 mL/Min [facility] Globulin Calc (S) [Mass/Vol] Ordered By: Kelly Lee on 10-02-2021 Globulin (S) [Mass/Vol] 2.7 g/dL [facility] HbA1c (Bld) [Mass fraction]o n 10-02-2021 A1C HEMOGLOBIN [employer] [place] Other Hematocrit Auto (Bld) [Volum e fraction]Ordered By: Kelly Lee on 10-02-2021 Hematocrit (Bld) [Volume fraction] 42.2 % 34.0-46.4 [facility] Hemogram CBC Without Diffon 10-02-2021 Erythrocyte distribution width (RBC) [Ratio] 12.7 % Normal 11.9-15.3 [facility] Comment on above: Order Comment: Reaso n 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 Performed By: #### T SH3 wRFLX, CBCNO, CMP, LIPID #### [facility] [address] Hematocrit (Bld) [Volume fraction] 42.2 % Normal 34.0-46.4 [facility] Comment on above: Order Comment: Reaso n 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 Performed By: #### T SH3 wRFLX, CBCNO, CMP, LIPID #### [facility] [address] [place] [address] [place] Hemoglobin (Bld) [Mass/Vol] 14.6 g/dL Normal 11.8-15.4 [facility] Comment on above: Order Comment: Reaso n 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 Performed By: #### T SH3 wRFLX, CBCNO, CMP, LIPID #### [facility] [address] MCH (RBC) [Entitic mass] 32.7 pg Normal 24.7-34.3 [facility] Comment on above: Order Comment: Reaso n 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 Performed By: #### T SH3 wRFLX, CBCNO, CMP, LIPID #### [facility] [address] MCV (RBC) [Entitic vol] 94.6 fL Normal 80-100 [facility] Comment on above: Order Comment: Reaso n 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 Performed By: #### T SH3 wRFLX, CBCNO, CMP, LIPID #### [address] Mean Corpuscular HGB Conc 34.6 g/dL Normal 32.0-35.0 [facility] Comment on above: Order Comment: Reaso n 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 Performed By: #### T SH3 wRFLX, CBCNO, CMP, LIPID #### [address] Platelet mean volume (Bld) [Entitic vol] 9.5 fL Normal 6.3-10.7 [facility] Comment on above: Order Comment: Reaso n 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 Result Comment: PERF ORMED BY: [place] [address] PATHOLOGIST BACON STRINGER SHAY POON M.D. Performed By: #### T SH3 wRFLX, CBCNO, CMP, LIPID #### [address] RBC (Bld) [#/Vol] 4.46 10*6/uL Normal 3.60-5.00 [facility] Comment on above: Order Comment: Reaso n 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 Performed By: #### T SH3 wRFLX, CBCNO, CMP, LIPID #### [address] WBC (Bld) [#/Vol] 6.2 10*3/uL Normal 3.8-11.6 [facility] Comment on above: Order Comment: Reaso n 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 Performed By: #### T SH3 wRFLX, CBCNO, CMP, LIPID #### [facility] [address] Erythrocyte distribution width (RBC) [Ratio] 12.700 % Normal 11.9-15.3 % [employer] Other Hematocrit (Bld) [Volume fraction] 42.200 % Normal 34.0-46.4 % [employer] Other Hemoglobin (Bld) [Mass/Vol] 14.831885 g/dL Normal 11.8-15.4 g/dL [employer] Other MCH (RBC) [Entitic mass] 32.7000 pg Normal 24.7-34.3 pg [employer] Other MCV (RBC) [Entitic vol] 94.6000 fL Normal 80-100 fL [employer] Other Platelet mean volume (Bld) [Entitic vol] 9.5000 fL Normal 6.3-10.7 fL [employer] Other RBC (Bld) [#/Vol] 4.2324740982 10*6/uL Normal 3. 60-5.00 10*6/uL [facility] Other WBC (Bld) [#/Vol] 6.550348400 10*3/uL Normal 3.8 -11.6 10*3/uL [facility] [facility] Other Hemogram CBC Without Diff 34.6 g/dL Normal 32.0-35.0 g/dL [facility] [facility] Other Hemogram CBC Without DiffOrd ered By: Kelly Lee on 10-02-2021 Platelets (Bld) [#/Vol] 198 10*3/uL Normal 150-450 [facility] Comment on above: Order Comment: Reaso n 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 Performed By: #### T SH3 wRFLX, CBCNO, CMP, LIPID #### [facility] [address] [place] [id number] [place] Lipid Panelon 10-02-2021 LDL Cholesterol,Calculat ed 143 mg/dL High 0-100 [facility] Comment on above: Order Comment: PT [...] T SH3 wRFLX, CBCNO, CMP, LIPID #### [facility] [address] Triglyceride w/Reflex 299 mg/dL High 35-149 [facility] Comment on above: Order Comment: PT [...] T SH3 wRFLX, CBCNO, CMP, LIPID #### [facility] [address] [place] [address] [place] VLDL CHOLESTEROL 59 mg/dL Normal [facility] Comment on above: Order Comment: PT FA STED 12 HRS 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 Performed By: #### T SH3 wRFLX, CBCNO, CMP, LIPID #### [facility] [address] [place] [address] [place] Cholesterol in LDL Elph Qn 143 mg/dL High 0-100 mg/dL [facility] [facility] Other Lipid Panel 299 mg/dL High 35-149 mg/dL [facility] [facility] Other Lipid Panel 59 mg/dL [facility] Other Lipid PanelOrdered By: Destiny Lee on 10-02-2021 Cholesterol [Mass/Vol] 240 mg/dL High 140-200 [facility] Comment on above: Chol less than [...] T SH3 wRFLX, CBCNO, CMP, LIPID #### [facility] [address] Cholesterol in HDL [Mass/Vol] 37 mg/dL Normal 35-85 [facility] Comment on above: HDL CHOL ATP-III [...] T SH3 wRFLX, CBCNO, CMP, LIPID #### [facility] [address] Cholesterol.total/Ch olesterol in HDL [Mass ratio] 6.5 {ratio} Normal <5.0 [facility] Comment on above: Order Comment: PT FA STED 12 HRS 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 Performed By: #### T SH3 wRFLX, CBCNO, CMP, LIPID #### [facility] [address] [place] [address] [place] MCH Auto (RBC) [Entitic mass ]Ordered By: Kelly Lee on 10-02-2021 MCH (RBC) [Entitic mass] 32.7 pg 24.7-34.3 [facility] MCHC Auto (RBC) [Mass/Vol]Or dered By: Kelly Lee on 10-02-2021 MCHC (RBC) [Mass/Vol] 34.6 g/dL 32.0-35.0 [facility] MCV Auto (RBC) [Entitic vol] Ordered By: Kelly Lee on 10-02-2021 MCV (RBC) [Entitic vol] 94.6 fL 80-100 [facility] No Panel InformationOrdered By: Kelly Lee on 10-02-2021 Estimated GFR () > 60 mL/Min [facility] Comment on above: GFR estimated refere nce range: According to KDOQI guidelines, <60 ml/min/1.73m2 is sufficient to diagnose a patient with chronic kidney disease. Pharmacy Creatinine Clearance (Chem N/A [facility] Platelet mean volume Auto (B ld) [Entitic vol]Ordered By: Kelly Lee on 10-02-2021 Platelet mean volume (Bld) [Entitic vol] 9.5 fL 6.3-10.7 [facility] Protein [Mass/volume] in Ser um or PlasmaOrdered By: Kelly Lee on 10-02-2021 Protein [Mass/Vol] 6.9 g/dL 6.1-7.9 [facility] RBC Auto (Bld) [#/Vol]Ordere d By: Kelly Lee on 10-02-2021 RBC (Bld) [#/Vol] 4.46 10*6/uL 3.60-5.00 [facility] Serum or plasma alanine traore otransferase measurement without P-5'-P (enzymatic activiOrdered By: Kelly Lee on 10-02-2021 ALT No additional P-5'-P [Catalytic activity/Vol] 48 U/L 10-60 [facility] Serum or plasma calcium chandler urement (mass/volume)Ordered By: Kelly Lee on 10-02-2021 Calcium [Mass/Vol] 9.6 mg/dL 8.2-10.2 [facility] Serum or plasma potassium me asurement (moles/volume)Ordered By: Kelly Lee on 10-02-2021 Potassium [Moles/Vol] 4.4 mmol/L 3.5-5.1 [facility] Serum or plasma total biliru bin measurement (mass/volume)Ordered By: Kelly Lee on 10-02-2021 Bilirubin [Mass/Vol] 0.5 mg/dL 0.3-1.2 [facility] Serum or plasma total carbon dioxide measurement (moles/volume)Ordered By: Kelly Lee on 10-02-2021 CO2 [Moles/Vol] 29.4 mmol/L 22.0-30.0 [facility] TSH DL <= 0.005 mIU/L QnOrde red By: Kelly Lee on 10-02-2021 TSH Qn 3.55 m[IU]/L 0.45-5.33 [facility] Thyroid Stim Hormone w/Rflxo n 10-02-2021 Thyroid Stim Hormone w/Rflx 3.55 u[iU]/mL Normal 0.45-5.33 [facility] Comment on above: Order Comment: PT FA STED 12 HRS 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 Result Comment: PERF ORMED BY: [place] [address] PATHOLOGIST BACON STRINGER SHAY POON M.D. Performed By: #### T SH3 wRFLX, CBCNO, CMP, LIPID #### [facility] [address] Thyroid Stim Hormone w/Rflx 3.55 u[iU]/mL Normal 0.45-5.33 u[iU]/mL [employer] Other Triglyceride [Mass/volume] i n Serum or PlasmaOrdered By: Kelly Lee on 10-02-2021 Triglyceride [Mass/Vol] 299 mg/dL 35-149 [facility] Comment on above: TRIG ATP III CLASSIF ICATIONTRIG less than 150 mg/dL NormalTRIG 150-199 mg/dL Borderline highTRIG 200-500 mg/dL High TRIG greater than 500 mg/dL Very highStandard traceable to the Center for Disease Conrtrol and Prevention (CDC) test method. WBC Auto (Bld) [#/Vol]Ordere d By: Kelly Lee on 10-02-2021 WBC (Bld) [#/Vol] 6.2 10*3/uL 3.8-11.6 [facility] XR hip LT min 2V(w/wo pelvis )*on 10-02-2021 XR hip LT min 2V(w/wo pelvis)* [place] [id number] XRay Report Signed Patient: Larry Brock MR#: [id number] : 1970 Acct:[id number] Age/Sex: 51 / F ADM Date: 10/02/21 Loc: XD Room: Type: [facility] Attending Dr: Kelly Lee DO Copies to: Kelly Lee DO Ordering Provider: Kelly Lee DO Date of Service: 10/02/21 XR/XR hip LT min 2V(w/wo pelvis)*: Left hip pain ([id number]) XR/XR shoulder RT min 2V*: Acute pain [...] Vazquez Jr., D.OMane10/02/2021 4:15 PM Dictation Location: [place] [address] Transcribed By: [facility] 10/02/21 1615 Dictated By: Alexis Vazquez Jr, DO 10/02/21 1614 Signed By: 10/02/21 1615 Normal [facility] XR hip LT min 2V(w/wo pelvis)* [facility] [employer] Other XR hip LT min 2V(w/wo pelvis)* [facility] [employer] Other XR hip LT min 2V(w/wo pelvis)* [address] [place] [address] [employer] Other XR hip LT min 2V(w/wo pelvis)* [address] [employer] Other XR hip LT min 2V(w/wo pelvis)* XRay Report [employer] Other XR hip LT min 2V(w/wo pelvis)* Signed [employer] Other XR hip LT min 2V(w/wo pelvis)* Patient: Larry Brock MR#: [id number] [facility] Other XR hip LT min 2V(w/wo pelvis)* [id number] [facility] [facility] Other XR hip LT min 2V(w/wo pelvis)* : 1970 Acct:[id number] [facility] Other XR hip LT min 2V(w/wo pelvis)* Age/Sex: 51 / F ADM Date: 10/02/21 [facility] Other XR hip LT min 2V(w/wo pelvis)* Loc: XD Room: Type: [facility] [employer] Other XR hip LT min 2V(w/wo pelvis)* Attending Dr: Kelly Lee DO [facility] [facility] Other XR hip LT min 2V(w/wo pelvis)* Copies to: Kelly Lee DO [facility] Other XR hip LT min 2V(w/wo pelvis)* Ordering Provider: Kelly Lee DO [facility] [facility] Other XR hip LT min 2V(w/wo pelvis)* Date of Service: 10/02/21 [facility] [facility] Other XR hip LT min 2V(w/wo pelvis)* XR/XR hip LT min 2V(w/wo pelvis)*: Left hip pain [facility] [facility] Other XR hip LT min 2V(w/wo pelvis)* ([id number]) XR/XR shoulder RT min 2V*: Acute pain of right shoulder [facility] Other XR hip LT min 2V(w/wo pelvis)* RIGHT SHOULDER - - 3 views, left hip 2 views [facility] Other XR hip LT min 2V(w/wo pelvis)* CLINICAL HISTORY: Right shoulder pain for 3 days. Left hip pain. Fall 09/29/2021 [facility] Other XR hip LT min 2V(w/wo pelvis)* COMPARISON: None [facility] Other XR hip LT min 2V(w/wo pelvis)* FINDINGS: [employer] Other XR hip LT min 2V(w/wo pelvis)* Right shoulder: No acute bony process. Mild degenerative changes right AC joint. Visualized right [employer] Other XR hip LT min 2V(w/wo pelvis)* lung field is clear. [employer] [place] Other XR hip LT min 2V(w/wo pelvis)* Left hip: No acute bony process is seen. No significant degenerative change. [employer] Other XR hip LT min 2V(w/wo pelvis)* XR/XR shoulder RT min 2V* [employer] Other XR hip LT min 2V(w/wo pelvis)* IMPRESSION: [employer] Other XR hip LT min 2V(w/wo pelvis)* NO ACUTE BONY PROCESS INVOLVING THE RIGHT SHOULDER OR LEFT HIP. [employer] Other XR hip LT min 2V(w/wo pelvis)* Impression dictated by: Alexis Vazquez Jr. DManeOMane10/02/2021 4:15 PM [facility] Other XR hip LT min 2V(w/wo pelvis)* Dictation Location: [place] [address] [facility] Other XR hip LT min 2V(w/wo pelvis)* Transcribed By: ENOCH 10/02/21 1611 [facility] Other XR hip LT min 2V(w/wo pelvis)* Dictated By: Alexis Vazquez Jr, DO 10/02/21 1618 [facility] Other XR hip LT min 2V(w/wo pelvis)* Signed By: [employer] Other XR hip LT min 2V(w/wo pelvis)* 10/02/21 9220 [employer] Other Covid-19 PCR (CVDTBH)on 02-15 SARS-CoV-2 (COVID-19) RNA RAKEL+probe Ql (Unsp spec) Not detected Normal NOT DETECTED [facility] Comment on above: Result Comment: This test is not yet approved or cleared by the [place] FDA. When there are no FDA-approved or cleared tests available, and other criteria are met, FDA can make tests available under an emergency access mechanism called an Emergency Use Authorization (EUA). The EUA for this test is supported by the [place] of Health and Human Service's (HHS's) declaration [...] SARS-CoV-2. Performed By: #### C VDTB #### [facility] [address] [place] [address] Dr. Gordy Moore Covid-19 PCR (CVDTBH)on 02-15 SARS-CoV-2 (COVID-19) RNA RAKEL+probe Ql (Unsp spec) Not detected Normal NOT DETECTED [facility] Comment on above: Result Comment: This test is not yet approved or cleared by the [place] FDA. When there are no FDA-approved or cleared tests available, and other criteria are met, FDA can make tests available under an emergency access mechanism called an Emergency Use Authorization (EUA). The EUA for this test is supported by the [employer] [place] of Health and Human Service's (HHS's) declaration [...] consistent with SARS-CoV-2. Performed By: #### C [facility] #### [facility] [address] [place] [address] Dr. Gordy Moore COVID-19 Antigenon 1 COVID-19 [...] its performance Bam Disclaimer characteristic determined by [employer] and Bam Disclaimer validated at [facility]. This Bam Disclaimer test has not [...] is terminated or revoked sooner. PERFORMED BY: [facility] [address] PATHOLOGIST BACON STRINGER SHAY POON M.D. [facility] Comment on above: Performed By: #### C OVID-19 BAM, SOFIANEG #### [facility] [address] Bam Ag Negativeon 03-07-20 21 Bam Ag Negative Negative Normal Negative [facility] Comment on above: Result Comment: This is a duplicate Bam SARS Antigen (ARAVIND) result to be used for statistical tracking purpose only. PERFORMED BY: [facility] [address] [place] [address] PATHOLOGIST BACON STRINGER SHAY POON M.D. Performed By: #### C OVID-19 BAM, SOFIANEG #### [facility] [address] CNOVon 12-31-2016 CNOV Office Visit (LOORRM) CHARLES BROCK ([id number]) 1970 FDate Time Provider Zdiishnoyi97/17/17 2:30 PM BALAJI RUIZ During your visit today, we recorded the following information about you:Referring Provider: KELLY LEE [[id number]]Allergies As of Date: 12/31/2016 Noted Allergy ReactionDEMEROL [...] by BALAJI RUIZ MD on 12/31/16 Normal [facility] PROGRESSon 12-31-2016 PROGRESS HNO ID: [id number] thor: Nayana Kelly (Rt)ice: (none)Author Type: TechnicianType: Progress NotesFiled: 12/31/2016 2:45 PMNote Text: Radiology Service Progress NotePATIENT NAME: Larry BrockMRN: [id number] OF SERVICE: December 31, 2016TIME: 2:45 PMPATIENT IDENTITY VERIFICATION COMPLETED USING TWO (2) METHODS: Patientconfirmed name verbally and Date of .PATIENT GENDER DATA: Female. status: : NoBreastfeeding status: NO.PATIENT RELEVANT IMPLANT DATA REVIEWED: YesRADIOLOGY DEPARTMENT: General X-ray: Exam(s) Completed: Lower ExtremityX-Ray(s): Knee, AP / Lat / Merchant Right and Wt. Bearing:PERIPHERAL IV DATA: Not applicableSIGNED BY: RT YelitzaDecember 31, 2016 2:45 PM Normal [facility] PROGRESS HNO ID: [id number] thor: Balaji Chauhanice: Orthopaedic SurgeryAuthor Type: PhysicianType: Progress NotesFiled: 01/27/2017 2:59 PMNote Text: [facility] [address] 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 Hasa few month history of right knee pain. No definite trauma. No incitingactivities. She does have significant orthopedic history to both knees.She had a right knee arthroscopy, anterior cruciate ligamentreconstruction using allograft [place]. Subsequently, had a [...] or lateral, and subsequent arthroscopyand debridement in [place], left knee anterior cruciate ligamentreconstruction in [place], ectopic , DandCs, partialhysterectomy, right breast lumpectomy, .MEDICATIONS: See Epic.ALLERGIES: DEMEROL.SOCIAL HISTORY: . Smokes half pack a day. 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 Wewill see her back after approval. From a surgical standpoint, this wouldrequire total knee arthroplasty.A copy of this note to Dr. Kelly Lee in [place], [place] with aconsultation cover letter.Dictated By: Balaji Ruiz M.D.Date Dictated: 12/31/2016Date Typed: berto 12/31/2016DEBI# [id number] [facility] XR KNEE 4V AP/PA BOTH+LAT/ME R RTon 12-31-2016 XR KNEE 4V AP/PA BOTH+LAT/LUPE RT * * *Final Report* * *DATE OF EXAM: Dec 31 2016 2:47PM PROSPER Gordon3 - XR KNEE 4V AP/PA BOTH+LAT/LUPE RT [...] KELLY MD on Dec 31 2016 2:51PM [id number] [facility] CR-KNEE RIGHT 3 VIEWS IMPORT on 11-14-2016 CR-KNEE RIGHT 3 VIEWS IMPORT Images were obtained outside of [facility] [id number] [facility] Vital Signs Date Time Vital Sign Value Performing Clinician Facility 08-26-2023 17:41-0400 Body height 158.75 cm [facility] 08-26-2023 17:41-0400 Body mass index (BMI) [Ratio] 41.5 kg/m2 [facility] 08-26-2023 17:41-0400 Body temperature 97.6 [degF] [facility] 08-26-2023 17:41-0400 Body weight 104.77 kg [facility] 08-26-2023 17:41-0400 Heart rate 62 /min [facility] 08-26-2023 17:41-0400 Respiratory rate 18 /min [facility] 08-26-2023 17:41-0400 SaO2% (BldA) [Mass fraction] 98 % [facility] 04-02-2023 15:05-0500 Body height 158.75 cm Yvette Hortensia Other [facility] Other 04-02-2023 15:05-0500 Body mass index (BMI) [Ratio] 42.29 kg/m2 Yvette Hortensia Other [facility] Other 04-02-2023 15:05-0500 Body temperature 97.3 [degF] Yvette Hortensia Other [facility] Other 04-02-2023 15:05-0500 Body weight 106.6 kg Yvette Hortensia Other [facility] Other 04-02-2023 15:05-0500 Diastolic blood pressure 75 mm[Hg] Yvette Hortensia Other [facility] Other 04-02-2023 15:05-0500 Respiratory rate 18 /min Yvette Hortensia Other [facility] Other 04-02-2023 15:05-0500 SaO2% (BldA) [Mass fraction] 95 % Yvette Hortensia Other [facility] Other 04-02-2023 15:05-0500 Systolic blood pressure 155 mm[Hg] Yvette Hortensia Other [facility] Other 11-08-2022 18:45-0400 Body height 158.75 cm Yelena Dominguez Other [facility] Other 11-08-2022 18:45-0400 Body temperature 100 [degF] Yelena Dominguez Other [facility] Other 11-08-2022 18:45-0400 Diastolic blood pressure 73 mm[Hg] Yelena Dominguez Other [facility] Other 11-08-2022 18:45-0400 Respiratory rate 18 /min Yelena Dominguez Other [facility] Other 11-08-2022 18:45-0400 SaO2% (BldA) [Mass fraction] 95 % Yelena Dominguez Other [facility] Other 11-08-2022 18:45-0400 Systolic blood pressure 168 mm[Hg] Yelena Dominguez Other [facility] Other 09-09-2022 16:00-0400 Body height 158.75 cm Kelly Lee Other [facility] Other 09-09-2022 16:00-0400 Body mass index (BMI) [Ratio] 41.93 kg/m2 Kelly Lee Other [facility] Other 09-09-2022 16:00-0400 Body weight 105.69 kg Kelly Lee Other [facility] Other 09-09-2022 16:00-0400 Diastolic blood pressure 72 mm[Hg] Kelly Lee Other [facility] Other 09-09-2022 16:00-0400 Respiratory rate 18 /min Kelly Lee Other [facility] Other 09-09-2022 16:00-0400 SaO2% (BldA) [Mass fraction] 95 % Kelly Lee Other [facility] Other 09-09-2022 16:00-0400 Systolic blood pressure 142 mm[Hg] Kelly Lee Other [facility] Other 12-17-2021 09:29-0400 Diastolic blood pressure 78 mm[Hg] DO Kelly Lee Work Phone: [facility] 12-17-2021 09:29-0400 Heart rate 60 /min DO Kelly Lee Work Phone: [facility] 12-17-2021 09:29-0400 Respiratory rate 20 /min DO Kelly Lee Work Phone: [facility] 12-17-2021 09:29-0400 SaO2% (BldA) [Mass fraction] 94 % DO Kelly Lee Work Phone: [facility] 12-17-2021 09:29-0400 Systolic blood pressure 152 mm[Hg] DO Kelly Lee Work Phone: [facility] 12-17-2021 07:43-0400 Body height 157.48 cm DO Kelly Lee Work Phone: [facility] 12-17-2021 07:43-0400 Body temperature 98.7 [degF] DO Kelly Lee Work Phone: [facility] 12-17-2021 07:43-0400 Body weight 104.32 kg DO Kelly Lee Work Phone: [facility] 10-02-2021 12:15-0400 Body height 158.75 cm Kelly Lee Other [facility] Other 10-02-2021 12:15-0400 Body mass index (BMI) [Ratio] 42.83 kg/m2 Kelly Robinley Other [facility] Other 10-02-2021 12:15-0400 Body weight 107.96 kg Kelly eLe Other [facility] Other 10-02-2021 12:15-0400 Diastolic blood pressure 80 mm[Hg] Kelly Lee Other [facility] Other 10-02-2021 12:15-0400 Respiratory rate 18 /min Kelly Robinley Other [facility] Other 10-02-2021 12:15-0400 SaO2% (BldA) [Mass fraction] 95 % Kelly Robinley Other [facility] Other 10-02-2021 12:15-0400 Systolic blood pressure 150 mm[Hg] Kelly Lee Other [facility] Other Encounters Encounter Date Encounter Type Care Provider Facility Start: 05-13-2024 ambulatory [facility] Facil ity:[facility] Start: 05-05-2024 ambulatory [facility] Facil it:[facility] Start: 04-02-2024 End: 04-05-2024 Telephone encounter Taras LIU Work Phone: [facility] Comment on above: Work Note Start: 03-30-2024 End: 03-30-2024 Ryan Mosqueda DO Work Phone: [facility] Start: 03-30-2024 End: 03-30-2024 Ryan Mosqueda DO Work Phone: [facility] Start: 03-30-2024 End: 03-30-2024 Office outpatient visit 40 minutes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 original note were not included. HISTORY OF PRESENT ILLNESS: EST PT Larry Brock is an 53 y.o. @ female. (EST PT) RECHECK (L) HIP ; HERE TO DISCUSS POSSIBLE CORTISONE INJ XRAYS, 10/29/23 IN EPIC S/P PHYSICAL THERAPY @ [facility] AMARJIT CONTINUES TO HAVE CONSTANT ACHINESS ; WORSE WITH GETTING UP / DOWN FROM A CHAIR - PAIN IS IN THE GROIN - RADIATION DOWN THE FRONT OF HER LEG. DENIES ANY N/T. TAKING IBUPROFEN PRN - SOME RELIEF. ALLERGIES: Allergies Allergen Reactions Meperidine Anaphylaxis Throat warmth and tightness Meperidine Hcl Other Reaction(s): Unknown HOME MEDICATIONS: Current Outpatient Medications Medication Instructions amLODIPine (Norvasc) 5 MG tablet buPROPion XL (Wellbutrin XL) 300 MG 24 hr tablet citalopram (CeleXA) 20 MG tablet Every 24 hours Jardiance 10 MG lisinopril 20 MG tablet Every 24 hours metoprolol succinate XL (Toprol-XL) 100 MG 24 hr tablet Trulicity 0.75 MG/0.5ML solution pen-injector PHYSICAL EXAM: Physical Exam Patient is lying supine on the table, showing exquisite tenderness over the anterior hip, previously noted for positive FADIR. FADIR is mild but pain is more anterior. Negative straight leg raise for radiculopathy. No signs of infection or acute skin process upon inspection. Vitals: There is no height or weight on file to calculate BMI. Tobacco Use: High Risk (02/05/2024) Patient History Smoking Tobacco Use: Every Day Smokeless Tobacco Use: Never Passive Exposure: Not on file Alcohol Use: Not on file IMAGING: L Inj/Asp: L iliopsoas bursa (Left Psoas tendon) on 02/05/2024 4:14 PM Indications: pain and diagnostic evaluation Details: 20 G needle, ultrasound-guided anterolateral approach Medications: 40 mg methylPREDNISolone acetate 40 MG/ML; 1 mL bupivacaine PF 0.5 % Outcome: tolerated well, no immediate complications With patient supine, the left hip was sterilely prepped with isopropyl alcohol. The isopropyl alcohol was allowed to dry. The ultrasound was used to eval the anatomy of the hip joint. The femoral neck and femoral shaft and femoral head were well visualized progressed to anterior aspect Acetabulum noted floor and psoas tendon indentified. Imaging mildly limited with obesity . A plain was established that avoided any neurovascular structures and a 20 G spinal needle was inserted under ultrasound guidance toward the iliopsoas tendon. The needle was seen to approach the tendon, without puncture and imaging capturing proper placement of the needle. 40mg depomedrol and 1ml of 0.5% bupivacaine was injected and patient tolerated procedure well. After needle removal a steril Band-Aid was placed and hemostasis was achieved. Images captured to pt's chart. ( Codes [id number]) Procedure, treatment alternatives, risks and benefits explained, specific risks discussed. Consent was given by the patient. Patient was prepped and draped in the usual sterile fashion. Orders Placed This Encounter Procedures L Inj/Asp This order was created via procedure documentation ASSESSMENT: ICD-10-CM 1. Acute hip pain, left M25.552 2. Psoas tendinitis of left side M76.12 PLAN: Assessment & Plan 1. Left hip pain. She has had minimal relief with intra-articular injection and MRI arthrogram. Subsequent MRI of the lumbar spine and vascular studies were conducted, and she underwent lumbar spine injections with the pain clinic. She continues to experience residual pain in the anterior thigh, particularly when getting in and out of her car and sometimes while ambulating. Given her reproducible pain on bedside examination and the pain clinic's inability to inject tendons, she consented to an iliopsoas tendon injection. She was recently placed on a muscle relaxant and diclofenac twice a day by her pain management clinician. She is advised to discontinue the use of her walker, take medication as needed from her pain management physician, and continue with a home exercise plan for stretching. She noted relief with ambulation around the office without the use of her walker and easier transition in and out of her vehicle after the injection. She is aware that the steroid may take 5 to 7 days to fully affect. Questions answered in laymen terms at the bedside. The diagnosis, home exercise plan and any ongoing restrictions/ recommendations reviewed. If unable to be reached in office, I recommend evaluation at nearest Emergency Room if any symptoms worsened or new symptoms develop for requiring urgent evaluation. documented in this encounter [facility] 02-03-2024 Telephone encounter Note ERROR [facility] 02-03-2024 Miscellaneous Notes ERROR documented in this encounter [facility] 12-22-[address] Mosqueda reviewed and discussed L-Spine results with patient. He is recommending a referral to pain management ; patient is agreeable and requesting to proceed at [facility]. Referral has been sent. [facility] 12-22-[address] Mosqueda reviewed and discussed L-Spine results with patient. He is recommending a referral to pain management ; patient is agreeable and requesting to proceed at [facility]. Referral has been sent. documented in this encounter [facility] 12-11-2023 Telephone encounter Note Patient requesting MRI of lumbar spine instead of bone scan. We will order MRI at [facility] and change vascular segmentals to [facility] as well. [facility] 12-11-2023 Miscellaneous Notes Patient requesting MRI of lumbar spine instead of bone scan. We will order MRI at [facility] and change vascular segmentals to [facility] as well. Order placed for [facility]. Can we order bone scan for her at [facility]? Patient called stating she is in a lot of pain. The steroids that were given to her didn't help. Wondering if she could get an appointment today? documented in this encounter [facility] 12-08-2023 Telephone encounter Note Order placed for [facility]. [facility] 12-08-2023 Telephone encounter Note Can we order bone scan for her at [facility]? [facility] 12-08-2023 Telephone encounter Note Patient called stating she is in a lot of pain. The steroids that were given to her didn't help. Wondering if she could get an appointment today? [facility] 12-01-2023 History of Present illness Narrative HISTORY OF PRESENT ILLNESS: EST PT Larry Brock is an 53 y.o. @ female. EST PT WITH TEE - RECHECK LT HIP PAIN ~2YR AGO- HERE FOR MRI ARTHROGRAM LT HIP WITH CORTISONE INJ RESULTS 11/07/23 [facility] ([facility]E WENT OVER RESULTS)- S/P LT HIP BURSA INJ 11/25/23; NOTES RELIEF A FEW HRS- TEE ALSO SENT IN RX FOR CELEBREX; PT HAS NOT STARTED XRAY LT FEMUR AND L-SPINE TODAY EPIC 12/01/23 XRAY LT HIP EPIC 10/29/23 MRI ARTHROGRAM WITH CORTISONE INJ 11/07/23 [facility] LT HIP BURSA INJ 11/25/23 NO MDP/PREDNISONE PT [facility] AMARJIT NO PAIN MANAGEMENT PT STATES SYMPTOMS GRADUALLY GETTING WORSE- HARDLY ABLE TO WB- USING WALKER TO AMBULATE- PAIN GLOBAL- DENIES SWELLING- DENIES N/T- PAIN IS CONSTANT- INCREASE PAIN WITH WB ACTIVITY-LIMITED ROM- DIFFICULTY LIFTING INTO CAR- +IBUPROFEN PAIN GROIN/LATERAL HIP- PAIN DOES RADIATE DOWN TO KNEE- +CATCHING- DIFFICULTY GETTING IN AND OUT OF A CAR- +IBUPROFEN/ICE THIERRY: ~2YR AGO- PT INJURED DURING A MUD RUN-PT STATES SHE LANDED WRONG WHEN ON A FLOTATION DEVISE; FELT POPPING ALLERGIES: Allergies Allergen Reactions Meperidine Anaphylaxis Throat warmth and tightness Meperidine Hcl Other Reaction(s): Unknown HOME MEDICATIONS: Current Outpatient Medications Medication Instructions amLODIPine (Norvasc) 5 MG tablet buPROPion XL (Wellbutrin XL) 300 MG 24 hr tablet celecoxib (CELEBREX) 200 mg, Oral, Daily, Take with food citalopram (CeleXA) 20 MG tablet Every 24 hours Jardiance 10 MG lisinopril 20 MG tablet Every 24 hours methylPREDNISolone (Medrol Dospak) 4 MG tablets Follow schedule on package instructions metoprolol succinate XL (Toprol-XL) 100 MG 24 hr tablet Trulicity 0.75 MG/0.5ML solution pen-injector PHYSICAL EXAM: Hip Musculoskeletal Exam Gait Antalgic: left Assistive device: walker Inspection Leg length disparity: no discrepancy Left Erythema: none Ecchymosis: none Edema: none Deformity: none Palpation Left Left hip palpation is normal. Increased warmth: none Tenderness: none Range of Motion Left Left hip range of motion is within functional limits. Active ROM: normal and pain. Active ROM comment: at extreme of ER. Passive ROM: normal. Strength Left Left hip strength is normal. Extension: 5/5. Flexion: 5/5. Internal rotation: 5/5. External rotation: 5/5. Adduction: 5/5. Abduction: 5/5. Neurovascular Left Left hip neurovascular exam is normal. Pulses - PT: normal Posterior tibial: 2+ Special Tests Left Log roll test: negative MEKA test (left): negative Impingement test: positive Special tests additional comments: + FADIR Vitals: There is no height or weight on file to calculate BMI. Tobacco Use: High Risk (10/29/2023) Patient History Smoking Tobacco Use: Every Day Smokeless Tobacco Use: Never Passive Exposure: Not on file Alcohol Use: Not on file IMAGING: XR femur left 2+ views Imaging Result: Multiple views of left femur showed no acute tayler process including but not limited to fracture or dislocation. Overall anatomic alignment appeared well preserved. IMP: no acute tayler process left femur XR lumbar spine 2 or 3 views Imaging Result: Imaging Result: AP and lateral of lumbar spine showed mild arthritis to L5-S1 to the lumbar spine. There is decreased disc space noted to L5-S1. Anterior and posterior columns appeared to be symmetric posterior elements appear to be anatomic. There was no acute Bony process including but not limited to fracture and/or dislocation. Impression: Moderate degenerative changes L5-S1 lumbar spine. Procedures Orders Placed This Encounter Procedures XR femur left 2+ views Order Specific Question: Is the patient ? Answer: No Order Specific Question: Reason for exam: Answer: PAIN XR lumbar spine 2 or 3 views Order Specific Question: Is the patient ? Answer: No Order Specific Question: Reason for exam: Answer: PAIN VASC US PVR/SEGMENTAL PRESSURES LOWER Standing Status: Future Number of Occurrences: 1 Standing Expiration Date: 11/30/2024 [place] Inst[place]: [place] [place] Please call patient to schedule, thank you. B/l LE vascular segementals. Order Specific Question: Reason for exam: Answer: r/o claudication C-reactive protein Standing Status: Future Number of Occurrences: 1 Standing Expiration Date: 11/30/2024 Order Specific Question: Print requisition? Answer: No Sedimentation rate, automated Standing Status: Future Number of Occurrences: 1 Standing Expiration Date: 11/30/2024 Order Specific Question: Print requisition? Answer: No CBC auto differential Standing Status: Future Number of Occurrences: 1 Standing Expiration Date: 11/30/2024 Order Specific Question: Print requisition? Answer: No ASSESSMENT: ICD-10-CM 1. Left hip pain M25.552 methylPREDNISolone (Medrol Dospak) 4 MG tablets CANCELED: C-reactive protein CANCELED: Sedimentation rate, automated CANCELED: CBC and differential CANCELED: C-reactive protein CANCELED: Sedimentation rate, automated CANCELED: CBC and differential 2. Claudication (CMS/HCC) I73.9 VASC US PVR/SEGMENTAL PRESSURES LOWER C-reactive protein Sedimentation rate, automated VASC US PVR/SEGMENTAL PRESSURES LOWER C-reactive protein Sedimentation rate, automated CANCELED: VASC US PVR/SEGMENTAL PRESSURES LOWER CANCELED: VASC US PVR/SEGMENTAL PRESSURES LOWER 3. Lumbar pain M54.50 XR lumbar spine 2 or 3 views 4. Pain of left femur M89.8X5 XR femur left 2+ views 5. Preop examination Z01.818 CBC auto differential CBC auto differential PLAN: We have answered all the patients questions and explained the patients condition, decision making and plan including the risks and benefits associated with said plan in layman''s terms in a language the patient could understand easily. If patient''s symptoms significantly worsen and they cannot get a hold of us or their family physician, we have recommended that the patient proceed to the nearest emergency department (room). Dr. Mosqueda obtained history and examined the patient, I am acting as scribe for Dr. Mosqueda/zechariah, PLAN: We have reviewed prior (L) hip xrays and discussed (L) hip arthrogram results with patient at bedside. We have also discussed L-Spine / (L) femur xrays with patient at bedside. After examination today we are recommending b/l LE vascular segmentals to r/o claudication. We are also recommending labs to r/o an infection. We will also provide her with a MDP to attempt to decrease the inflammation, with understanding to not start until after she has completed lab work. We have discussed her HEP and restrictions and will see her back in 2 weeks to discuss study results. Tyra Mosqueda D.O. documented in this encounter [facility] 11-25-2023 Telephone encounter Note - Please call and schedule pt for appt in [address] Mosqueda: Spoke with pt. Increased pain lateral hip. Pinching in groin not as bad, notes pain in left lateral hip going from sitting to standing.. pt will ice, stop motrin and trial celebrex, given OA in hip Recommend appt with Dr. Mosqueda in 3 wks to assess progress from IA injection and hip bursa injection with celebrex use. Pt seen in office, lois Bailey. Pt consenting to left lateral hip bursa injection.. denies fever/ fall or injury.. pt give 40 mg depomedrol and 1ml 0.5% bupivicaine in lateral hip utlizing aseptic technique. Pt tolerated well Discussed exam at bedside ( pt stopped over on lunch from therapy) + oberer's . Mild Fadir but different from lateral hip symptoms, neg SLR for radiculopathy, neg MEKA.. Point tender to palpation lateral hip bursa.. pt thankful. [facility] 11-25-2023 Miscellaneous Notes - Please call and schedule pt for appt in [address] Mosqueda: Spoke with pt. Increased pain lateral hip. Pinching in groin not as bad, notes pain in left lateral hip going from sitting to standing.. pt will ice, stop motrin and trial celebrex, given OA in hip Recommend appt with Dr. Mosqueda in 3 wks to assess progress from IA injection and hip bursa injection with celebrex use. Pt seen in office, lois Bailey. Pt consenting to left lateral hip bursa injection.. denies fever/ fall or injury.. pt give 40 mg depomedrol and 1ml 0.5% bupivicaine in lateral hip utlizing aseptic technique. Pt tolerated well Discussed exam at bedside ( pt stopped over on lunch from therapy) + oberer's . Mild Fadir but different from lateral hip symptoms, neg SLR for radiculopathy, neg MEKA.. Point tender to palpation lateral hip bursa.. pt thankful. documented in this encounter [facility] 10-21-2023 Hospital Discharge instructions Ambulatory OrdersReferral to Orthopedic Surgery Time Frame: 10/21/23, Location: None [facility] Work Phone: 04-02-2023 Evaluation note Encounter Date [...] (suspected) exposure to covid-19 (ICD-10 - Z20.822) [facility] 11-22-2023 Evaluation note* Encounter Date Diagnosis Assessment Notes Treatment Notes Treatment Clinical Notes Jan, Type 2 diabetes mellitus with hyperglycemia, without long-term current use of insulin (ICD-10 - E11.65) [facility] 08-25-2023 Evaluation note* Encounter Date Diagnosis [...] symptoms. Patient verbalized understanding of treatment plan. [facility] 06-26-2023 Evaluation note* Encounter Date Diagnosis [...] E03.9) We will call with lab results [facility] 10-03-2022 Procedure [facility]08-24-2022 Evaluation note* Encounter Date Diagnosis Assessment Notes Treatment Notes Treatment Clinical Notes Oct, Screening for colon cancer (ICD-10 - Z12.11) [facility] 07-19-2022 Evaluation note* Encounter Date Diagnosis [...] proceed with imaging. She can continue naproxen [id number] and I advised her to start icing. If x-ray is negative, we will plan to send her to physical therapy. She would like to go to [facility] PT in [place] Sep, Left hip pain (ICD-1 0 - M25.552) We will call with x-ray results Sep, Essential (primary) hypertension (ICD-10 - I10) Blood pressure remained elevated on recheck, we will continue current medications because the Jardiance will likely help decrease her systolic blood pressure [facility] 07-01-2010 History general Narrative - Reported* Type Description Date Medical History DM2 Medical History Hyperlipidemia Medical History HTN Medical History hypothyroidism Surgical History Bilateral ACL repair 09/2009 & 1 04/2009 Surgical History Breast Biopsy 2014 Surgical History Partial Hyst 2006 Surgical History 2000 Surgical History Etopic 1993 Surgical History D&C - Miscarriage [id number] Surgical History TEETH EXTRACTION X2 07/2017 Hospitalization History SEE ABOVE SURGICAL HX Fishin' Glue Other Evrhvation noteNo InformationNort Exercise the World Other Evwpcation noteNo assessment information available [facility] Work Phone: Evaluation note* Diagnosis Onset Date Resolution Status Acute maxillary sinusitis, unspecified acute [facility] Work Phone: Evaluation note* Diagnosis Lumbar radiculopathy- Primary Thoracic or lumbosacral neuritis or radiculitis, unspecified documented in this encounter [facility] HealthcareEvaluation note* Diagnosis Acute hip pain, left- Primary Psoas tendinitis of left side documented in this encounter [facility] HealthcareEvaluation note* Diagnosis Left hip pain- Primary Pain in joint, pelvic region and thigh Claudication (CMS/HCC) Unspecified peripheral vascular disease Lumbar pain Lumbago Pain of left femur Preop examination Unspecified pre-operative examination documented [facility]* Diagnosis Greater trochanteric bursitis of left hip- Primary documented in this encounter [facility]* Diagnosis Lumbar pain- Primary Lumbago Left hip pain Pain in joint, pelvic region and thigh Osteoarthritis of spine with radiculopathy, lumbar region documented in this encounter [facility]* Diagnosis Lumbar radiculopathy- Primary Thoracic or lumbosacral neuritis or radiculitis, unspecified Lumbar pain Lumbago Left hip pain Pain in joint, pelvic region and thigh documented in this encounter [facility] HealthcareEvaluation note* Diagnosis Left hip pain- Primary Pain in joint, pelvic region and thigh Femoroacetabular impingement of left hip Lumbar pain Lumbago documented in [facility] encounter [facility]* Diagnosis Left hip pain- Primary Pain in joint, pelvic region and thigh Femoroacetabular impingement of left hip Lumbar pain Lumbago documented in [facility]* Diagnosis Arthritis of left hip- Primary Left hip pain Pain in joint, pelvic region and thigh Left hip impingement syndrome documented in this encounter [facility] Healthcare[facility] and physical note Author Sawyer Styles [facility] December 17, 2021 8:42am Note Date/Time December 17, 2021 8: 42am [facility] [address] [place] [address] Gastroenterology H&P Signed Patient: Larry Brock MR# : [id number] : 1970 Acct:[id number] Age/Sex: 51 / F Adm Date: 2 Loc: Room: Type: [facility] Attending Dr: Sawyer Styles MD Copies to: MD Kelly Mcintyre DO~ Date of Service: 12/17/2021 HISTORY & [...] <Electronically signed by Sawyer Styles MD> 12/17/21841 [facility] Work Phone: Hospital Discharge instructions Additional Instructions [...] Follow up with PCP. - Office number [phone].[facility] Work Phone: Reason for referral (narrative)* Consultation (Routine) - Pending Review Specialty Diagnoses / Procedures Referred By Yinka moya Referred To Contact Pain Medicine Diagnoses Lumbar radiculopathy Procedures IA OFFICE/OUTPATIENT NEW HIGH MDM 60 MINUTES Jr. Tyra Mosqueda DO [address] [address] Devan Domínguez MD [address] [place] [address], [address], [place] [address] Referral ID Status Reason Start Date Expiration Date Visits Requested Visits Authorized [id number] Pending Review Specialty Services Required 12/22/2023 06/19/2024 1 1 RAFI Bernard for visit Narrative* Consultation (Routine) - Authorized Specialty Diagnoses / Procedures Referred By Yinka moya Referred To Contact Physical Therapy Diagnoses Lumbar radiculopathy Lumbar pain Left hip pain Procedures IA OFFICE/OUTPATIENT NEW HIGH MDM 60 MINUTES Taras Carr PA [address] [address] Phone: tel: fax: Sheree Carey, PT [address] [place] [address] Phone: tel: fax: Referral ID Status Reason Start Date Expiration Date Visits Requested Visits Authorized [id number] Authorized Consult and Treat 03/19/2024 03/19/[address] [facility] HealthcareReason for visit Narrative* Consultation (Routine) - Authorized Specialty Diagnoses / Procedures Referred By Yinka moya Referred To Contact Physical Therapy Diagnoses Lumbar radiculopathy Lumbar pain Left hip pain Procedures IA OFFICE/OUTPATIENT NEW HIGH MDM 60 MINUTES Taras Carr PA [address] [place] [address] Phone: tel: fax: Sheree Carey, PT [address] [place] [address] Phone: tel: fax: Referral ID Status Reason Start Date Expiration Date Visits Requested Visits Authorized [id number] Authorized Consult and Treat 03/19/2024 03/16/[address] [facility] Healthcare Summary Purpose Family History No Family [...] depressive disorder (F33.0) Referral Organization [facility] Referring Provider First Name Kelly Referring Provider Last Name Yasmani Referring Provider Specialty Family Prac jorden Referred Organization [facility] Fabiola Referred Address [address],[facility],[place],[address] Referred Provider Specialty Licensed Claleena shay Data Entry Coordinator Referral Priority Routine General Notes Larry Shepard 03:19:19 PM >referral received. Per [employer], Referral to [facility] is approved Auth/Order#[id number] ( auth attached to referral). Referral faxed. for pt to call me as Nayana Dorsey is not approved with [employer] and had to send to above. Reason * Waiting for appt screening colonoscopy Diagnosis 1 Screening for colon cancer (Z12.11) Referral Organization [facility] Family Medicin ann marie Quintana Referring Provider First Name Kelly Referring Provider Last Name Yasmani Referring Provider Specialty Family Prac jorden Referred Organization [facility] Gastroenterolo gy Referred Provider Sawyer Styles Referred Address [address] [facility] [address] ,[place], [place],[address] Referred Provider Specialty Gastroentero logy Referral Priority Routine General Notes Jack Shepardroland Field 02:50:30 PM >referral received, per [facility], no auth is required, pt is enrolled in prime. referral sent p2p successful per log Specialty Diagnoses / Procedures Referred By Yinka moya Referred To Contact Diagnoses Osteoarthritis of spine with radiculopathy, lumbar region Procedures MR lumbar spine wo contrast Freddie Louise, ANIMAL NUTRITION TEACHER [address] [place] [address] Referral ID Status Reason Start Date Expiration Date V isits Requested Visits Authorized [id number] Pending Review 12/11/2023 06/08/2024 1 1 Chief Complaint and Reason for Visit Chief Complaint labs and xray Screening Chief Complaint labs and xray Screening Screening Chief Complaint Amb Documentation Congestion Chief Complaint Amb Documentation Congestion Reason for Visit Acute maxillary sinu sitis, unspecified Additional Source Comments INFORMATION SOURCE (unrecogn ized section and content) DATE CREATED AUTHOR 09/12/2017 [facility] DATE CREATED AUTHOR AUTHOR'S ORGANIZ ATION 03/21/[address] [facility] DATE CREATED AUTHOR AUTHOR'S ORGANIZ ATION 12/21/2021 [facility] DATE CREATED AUTHOR AUTHOR'S ORGANIZ ATION 12/03/2023 [facility] DATE CREATED AUTHOR AUTHOR'S ORGANIZ ATION 04/05/2024 [facility] DATE CREATED AUTHOR AUTHOR'S ORGANIZ ATION 04/28/2024 [facility] DATE CREATED AUTHOR AUTHOR'S ORGANIZ ATION 05/15/2024 [facility] l REASON FOR VISIT (unrecogniz ed section and content) Reason Comments Pain Reason Comments Pain Reason Onset Date Comments Work Note 04/02/2024 Care Teams (unrecognized sec tion and content) [...] Attending Provider Active Start: October 21, 2023 Adult Specialist Relationship Specialty Start Date End Date Kelly Lee MD [address] [facility] [place] [phone] PCP - General Family Medicine 10/29/22 Adult Specialist Relationship Specialty Start Date End Date Kelly Lee MD [address] [facility][1][place] [address] PCP - General Family Medicine 10/29/22 Adult Specialist Relationship Specialty Start Date End Date Kelly Lee MD [address] [facility][1][place] [address] PCP - General Family Medicine 10/29/22 Adult Specialist Relationship Specialty Start Date End Date Kelly Lee MD [address] [place] [address] PCP - General Family Medicine 10/29/22 Adult Specialist Relationship Specialty Start Date End Date Kelly Lee MD [address] [place] [address] PCP - General Family Medicine 10/29/22 Adult Specialist Relationship Specialty Start Date End Date Kelly Lee MD [address] [place] [address] PCP - General Family Medicine 10/29/22 Adult Specialist Relationship Specialty Start Date End Date Kelly Lee MD [address] [place] [address] PCP - General Family Medicine 10/29/22 Adult Specialist Relationship Specialty Start Date End Date Kelly Lee MD [address] [place] [address] PCP - General Family Medicine 10/29/22 Adult Specialist Relationship Specialty Start Date End Date Kelly Lee MD [address] [place] [address] PCP - General Family Medicine 10/29/22 Adult Specialist Relationship Specialty Start Date End Date Kelly Lee MD [address] [place] [address] PCP - General Family Medicine 10/29/22 Adult Specialist Relationship Specialty Start Date End Date Kelly Lee MD [address] [place] [address] PCP - General Family Medicine 10/29/22 Adult Specialist Relationship Specialty Start Date End Date Kelly Lee MD [address] [facility] [place] [address] PCP - General Family Medicine 10/29/22 Goals [...] BE BASED ON THE PRIMARY CLINICAL RECORDS. [employer] provides no warranty or guarantee of the accuracy or completeness of information in this document.
[2024-05-22 12:15] LABS: Basophils Absolute Auto 0.1 10^3/uL (0.0-0.1); Basophils Percent Auto 0.8 % (0.2-2.0); Eosinophils Absolute Auto 0.2 10^3/uL (0.0-0.7); Eosinophils Percent Auto 2.3 % (0.9-7.0); Hematocrit 47.5 % (36.0-48.0); Hemoglobin 15.9 g/dL (12.0-16.0); Immature Granulocytes Abs Auto 0.02 10^3/uL (0.00-0.03); Immature Granulocytes Pct Auto 0.3 % (0.0-0.5); Lymphocytes Absolute Auto 1.6 10^3/uL (1.2-3.8); Mean Corpuscular HGB Conc 33.5 g/dL (29.9-35.2); Mean Corpuscular Hemoglobin 32.5 pg (26.7-34.0); Mean Corpuscular Volume 97.1 fL (81.0-99.0); Mean Platelet Volume 10.8 fL (9.5-13.5); Monocytes Absolute Auto 0.4 10^3/uL (0.3-0.8); Monocytes Percent Auto 6.6 % (1.7-12.0); Neutrophils Absolute Auto 4.2 10^3/uL (1.4-6.5); Platelet Count 170 10^3/uL (150-450); Red Blood Count 4.89 10^6/uL (4.20-5.40); Red Cell Distribution Width 11.7 % (11.0-15.0); White Blood Count 6.5 10^3/uL (4.0-11.0)
[2024-05-22 12:31] LABS: Estimated Average Glucose 151 mg/dL; Glycohemoglobin A1C 6.9 % (4.5-6.2)
[2024-05-22 12:35] LABS: Alanine Aminotransferase 45 U/L (14-59); Albumin Globulin Ratio 1.3; Alkaline Phosphatase 76 U/L (46-116); Anion Gap 13.6; Aspartate Amino Transferase 25 U/L (15-37); BUN Creatinine Ratio 16.1; Bilirubin Total 0.4 mg/dL (0.2-1.0); Calcium 8.8 mg/dL (8.5-10.1); Carbon Dioxide 26.9 mmol/L (21.0-32.0); Chloride 102 mmol/L (98-107); Chol HDL Ratio 4.8; Cholesterol 228 mg/dL (<=200); Estimated GFR (African America >60 (>=60 mL/min/1.73m^2); Estimated GFR (Non-African Ame >60 (>=60 mL/min/1.73m^2); Globulin 3.2 g/dL; Glucose 167 mg/dL (74-106); HDL Cholesterol 48 mg/dL (40-60); Potassium 4.5 mmol/L (3.5-5.1); Sodium 138 mmol/L (136-145); Total Protein 7.2 g/dL (6.4-8.2); Triglycerides 172 mg/dL (<=150); VLDL CHOLESTEROL 34.4 mg/dL
== END 2024-05-22 11:34 | disposition home or self-care (01) ==
LOC: LAB 11:34
PROVIDERS: PCP Family Medicine; Visit Provider Family Medicine
DX: E11.59 Type 2 diabetes mellitus with other circulatory complications (principal); M25.50 Pain in unspecified joint
CPT/HCPCS: 36415; 80053; 80061; 83036; 85025

== ENCOUNTER 2025-03-14 09:12 | Emergency (ER) | payer OTHER, SELFPAY ==
[2025-03-14 09:19] VITALS: BP 151/79; PULSE 66; TEMP 36.7; O2SAT 97; BMI 40.7
--- NOTE | 2025-03-14 09:32 | ED.GENADUL1 ---
HPI HPI - General Adult General Chief complaint: Neck Pain/Injury Stated complaint: NECK, R SHOULDER & R ARM PAIN Time Seen by Provider: 03/14/25 09:26 Source: patient Mode of arrival: walk-in History of Present Illness HPI narrative: 55-year-old female presented to the emergency department for pain in her right neck going down her right arm and into her right shoulder blade. She has had this for the last week or so and gives no history of any injury. She is left-handed. She has had issues with her C3-C4 disc before, in the remote past. She took a Tylenol 3 and a Vicodin and then neither 1 helped. Related Data Home Medications ?Medication ?Instructions ?Recorded ?Confirmed amlodipine 5 mg tablet 5 mg PO DAILY 11/01/22 03/14/25 bupropion HCl 300 mg 24 hr tablet, 150 mg PO DAILY 11/01/22 03/14/25 extended release citalopram 40 mg tablet 40 mg PO DAILY 11/01/22 03/14/25 dulaglutide 0.75 mg/0.5 mL 0.75 mg subcut .weekly 11/01/22 03/14/25 subcutaneous pen injector (Trulicity) empagliflozin 10 mg tablet 10 mg PO DAILY 11/01/22 03/14/25 (Jardiance) lisinopril 40 mg tablet 20 mg PO DAILY 11/01/22 03/14/25 metoprolol succinate 100 mg 100 mg PO DAILY 11/01/22 03/14/25 tablet,extended release 24 hr Previous Rx's ?Medication ?Instructions ?Recorded methocarbamol 500 mg tablet 500 mg PO Q8H PRN pain #20 tabs 03/14/25 prednisone 10 mg tablet See Rx Instructions .Route 03/14/25 .COMPLEX #30 tabs Allergies Allergy/AdvReac Type Severity Reaction Status Date / Time meperidine (From Demerol) Allergy Severe throat Verified 03/14/25 09:18 closing Opioid HPI Opioid Management Most Recent Opioid Data: Last Pain Scale 6 Today, 09:28 Review of Systems ROS Narrative A ten point review of systems is negative except as noted above. [facility] Medical History (Updated 03/14/25 @ 10:25 by Sam Parham MD) HTN (hypertension) ?I10 - Essential (primary) hypertension (ICD-10) High cholesterol ?E78.00 - Pure hypercholesterolemia, unspecified (ICD-10) Neuropathy ?G62.9 - Polyneuropathy, unspecified (ICD-10) Diabetes ?E11.9 - Type 2 diabetes mellitus without complications (ICD-10) Depression ?F32.A - Depression, unspecified (ICD-10) COVID ?U07.1 - COVID-19 (ICD-10) Hip pain, left ?M25.552 - Pain in left hip (ICD-10) Surgical History Hx of exploratory laparotomy ?Z98.890 - Other specified postprocedural states (ICD-10) H/O: hysterectomy ?Z90.710 - Acquired absence of both cervix and uterus (ICD-10) H/O dilation and curettage ?Z98.890 - Other specified postprocedural states (ICD-10) History of colposcopy ?Z98.890 - Other specified postprocedural states (ICD-10) Previous section ?Z98.891 - History of uterine scar from previous surgery (ICD-10) History of repair of anterior cruciate ligament of right knee ?Z98.890 - Other specified postprocedural states (ICD-10) History of repair of anterior cruciate ligament of left knee ?Z98.890 - Other specified postprocedural states (ICD-10) Social History Smoking status: Heavy tobacco smoker Little interest or pleasure in doing things: not at all Feeling down, depressed, or hopeless: not at all Exam Narrative Exam Narrative: Nurses note and vital signs reviewed General:The patient appears well and in no apparent distress. Patient is sitting upright on a chair. Skin:Warm, dry, no pallor noted.There is no rash noted. Head:Normocephalic, atraumatic Eye: Normal conjunctiva, no drainage Ears, Nose, Mouth, and Throat: oral mucosa is moist. Nares patent. Cardiovascular:Regular Rate and Rhythm Respiratory:Patient is in no distress, no accessory muscle use, lungs are clear to auscultation, no wheezing, rales or rhonchi Back:non-tender, including the cervical spine GI: Soft and nontender Musculoskeletal: The right shoulder is examined. There is no bruise or rash or abrasion. It has good range of motion. Radial pulse 2+. No swelling in the arm. Neurological:A&O, normal speech Psychiatric:Cooperative Constitutional Vital Signs, click to edit/add: Last Vital Signs Temp 98.1 F 03/14/25 09:19 Pulse 66 03/14/25 09:19 Resp 18 03/14/25 09:19 BP 151/79 H 03/14/25 09:19 Pulse Ox 97 03/14/25 09:19 O2 Del Method Room Air 03/14/25 09:19 Course Vital Signs Vital signs: Vital Signs Temperature 98.1 F 03/14/25 09:19 Pulse Rate 66 03/14/25 09:19 Respiratory Rate 18 03/14/25 09:19 Blood Pressure 151/79 H 03/14/25 09:19 Pulse Oximetry 97 03/14/25 09:19 Oxygen Delivery Method Room Air 03/14/25 09:19 Temperature 98.1 F 03/14/25 09:19 Pulse Rate 66 03/14/25 09:19 Respiratory Rate 18 03/14/25 09:19 Blood Pressure 151/79 H 03/14/25 09:19 Pulse Oximetry 97 03/14/25 09:19 Oxygen Delivery Method Room Air 03/14/25 09:19 Medical Decision Making MDM Narrative Medical decision making narrative: CT scan findings are discussed with the patient and she is prescribed prednisone and methocarbamol. She is a type II diabetic and will keep a close eye on her blood sugars. Treatment diagnosis and follow-up were discussed with the patient. Differential Diagnosis Differential Diagnosis: Cervical arthritis, bulging disc Imaging Data CT C-spine: Radiologist's impression: ITS Impressions Cervical Spine CT 03/14/25 09:50 IMPRESSION: DISCOVERTEBRAL DEGENERATIVE CHANGES, GREATEST AT C4-5, DESCRIBED. NO ACUTE BONY FINDINGS. Impression dictated by: Yesy Rodney M.D. 03/14/2025 10:11 AM Dictation Location: [facility] Electronically authenticated by: [id number] Y Date: 03/14/2025 10:11 Discharge Plan Discharge Chief Complaint: Neck Pain/Injury Clinical Impression: Cervical radiculopathy Patient Disposition: Home, Self-Care Time of Disposition Decision: 10:25 Condition: Good Mode of Transportation: Private Vehicle Prescriptions / Home Meds: New methocarbamol 500 mg tablet 500 mg PO Q8H PRN (Reason: pain) Qty: 20 0RF prednisone 10 mg tablet See Rx Instructions .ROUTE .COMPLEX Qty: 30 0RF Rx Instructions: 4 by mouth daily for three days then 3 by mouth daily for three days then 2 by mouth daily for three days then 1 by mouth daily for three days No Action amlodipine 5 mg tablet 5 mg PO DAILY bupropion HCl 300 mg tablet extended release 24 hr 150 mg PO DAILY citalopram 40 mg tablet 40 mg PO DAILY Trulicity 0.75 mg/0.5 mL pen injector 0.75 mg SUBCUT .weekly Jardiance 10 mg tablet 10 mg PO DAILY lisinopril 40 mg tablet 20 mg PO DAILY metoprolol succinate 100 mg tablet extended release 24 hr 100 mg PO DAILY Print Language: Turkmen Instructions: Cervical Radiculopathy (ED) Referrals: KELLY LEE [Primary Care Provider, Unknown] - 1 week
--- OUTSIDE RECORDS SUMMARY | 2025-03-14 09:47 | XMS_ITS | Clinical Summary ---
Author Organization [facility] Healthcare Address [address] [place] [address] Care Team Providers Care Compressor Mechanic Bus Name Role Phone Mark Gruber MD Primary Care Provider [phone] Allergies Active AllergyReactionsCriticalityNoted GmllUtpictyeJyuoggfigwqy78/11/2024 Other Reaction(s): myalgias LowitflkahKbbkdzijjomJokn56/17/2017 Throat warmth and tightness Meperidine Hcl10/29/2022 Other Reaction(s): Unknown MetforminGI nwszdldyggv06/11/0342Uvpdkkgpolk08/11/2024 Other Reaction(s): myalgias Medications MedicationSigDispense QuantityRefillsLast FilledStart DateEnd DateStatus lisinopril 20 MG tablet 1 (one) time each day at the same time.Active metoprolol succinate XL (Toprol-XL) 100 MG 24 hr tablet 10/07/2022ctive citalopram (CeleXA) 20 MG tablet 1 (one) time each day at the same time.Active buPROPion XL (Wellbutrin XL) 300 MG 24 hr tablet 09/09/2022ctive Trulicity 0.75 MG/0.5ML solution pen-injector 09/09/2022ctive Jardiance 10 MG 10/07/2022ctive amLODIPine (Norvasc) 5 MG tablet 10/07/2022ctive hydrOXYzine pamoate (Vistaril) 50 MG capsule Indications:Left hip painTake 1 capsule (50 mg) by mouth as needed at bedtime (spasm) for up to 10 days 10 capsule 04/29/2025Active Active Problems ProblemNoted DateDiagnosed DatePrimary osteoarthritis of left hip07/07/2024 Difficulty ialxvdo8007/07/2024Status post left hip paqngztqptb55/23/2025Rosacea 06/08/20243184Gmvvvkvmwx82/25/2025Nuclear age-related cataract, both eyes06/08/2024 Myopia, awlfbsvuc96/25/4938Brtvdfhpaafu62/25/2025DM type 2 without retinopathy 06/08/2024drenal gland cyst06/08/2024ute maxillary sinusitis, unspecified 06/08/2024Left hip pain03/22/2024Lumbar pain03/22/2024Femoroacetabular impingement of left hip03/22/2024 Family History Medical HistoryRelationNameCommentsHypertensionFatherStrokeFatherHypertension MotherRelationNameStatusCommentsFatherDeceasedMotherAlive Social History Tobacco UseTypesPacks/DayYears UsedDateSmoking Tobacco: Every DayCigarettes0.520 Smokeless Tobacco: Never Tobacco Cessation:Ready to Q uit: Not Asked; Counseling Given: Not Answered Alcohol UseStandard Drinks/WeekCommentsYes0 (1 standard drink = 0.6 oz pure alcohol)caffeine: none- 6DRINKS/WKCommentsUnknownSex and Gender InformationValueDate RecordedSex Assigned at BirthNot on fileLegal SexFemale 05/29/2022 7:18 PM EDTGender IdentityNot on fileSexual OrientationNot on file Last Filed Vital Signs Vital SignReadingTime TakenCommentsBlood Gjqdefmb173/8408 10:45 AM EDT Mgcys279510/29/2022 10:45 AM TRWMvdaeqcxerf89.7 ??C (98 ??F)10/29/2022 10:45 AM EDTRespiratory Yyge205210/29/2022 10:45 AM EDTOxygen Ealcnadcwg29%10/29/2022 10:45 AM EDTInhaled Oxygen Concentration--Mdzcrd542 kg (236 lb 9.6 oz)06/15/2024 1:04 PM VDAZhgtvf575 cm (5' 2.6 )06/15/2024 1:04 PM EDTBody Mass Index42.45006/15/2024 1:04 PM EDT Plan of Treatment Not on file Insurance Care Teams Team MemberRelationshipSpecialtyStart DateEnd Date Mark Gruber MD [address] [facility] [place] [phone] PCP - GeneralFamily Medicine10/29/22
--- OUTSIDE RECORDS SUMMARY | 2025-03-14 09:47 | XMS_ITS | Clinical Summary ---
Author Organization [facility] Address [address] [place] [address] Phone Care Team Providers Care Rubber Press Tender Name Role Phone Unavailable Primary Care Provider Unavailabl e Social History Tobacco UseTypesPacks/DayYears UsedDateSmoking Tobacco: Never Assessed CommentsUnknownSex and Gender InformationValueDate RecordedSex Assigned at Not on fileLegal RysJibpwf51/26/2022 3:08 AM ESTGender IdentityNot on fileSexual OrientationNot on file Plan of Treatment Not on file
--- OUTSIDE RECORDS SUMMARY | 2025-03-14 09:47 | XMS_ITS | Clinical Summary ---
Author Organization [facility] Address [address] [place] [address] Care Team Providers Care Supervisor Wrapping Room Name Role Phone Mark Gruber DO Primary Care Provider + Allergies Active AllergyReactionsCriticalityNoted DateCommentsMeperidine (Pf)Anaphylaxis 12/31/2016 Throat warmth and tightness Medications MedicationSigDispense QuantityRefillsLast FilledStart DateEnd DateStatus citalopram (CELEXA) 40 mg tablet 12/16/2016Active diclofenac, EC, (VOLTAREN) 75 mg EC tablet 12/16/2016Active lisinopril (ZESTRIL, PRINIVIL) 20 mg tablet 12/16/2016Active metoprolol succinate ER (TOPROL XL) 50 mg 24 hr tablet 12/16/2016Active BYDUREON 2 mg/0.65 mL pnij 09/17/2016Active Levothyroxine 112 mcg cap Take by mouth.Active atorvastatin (LIPITOR) 20 mg tablet Take 20 mg by mouth once daily.Active Social History Tobacco UseTypesPacks/DayYears UsedDateSmoking Tobacco: Never Assessed CommentsUnknownSex and Gender InformationValueDate RecordedSex Assigned at Not on fileLegal VthMvbxje44/28/2017 9:07 AM EDTGender IdentityNot on fileSexual OrientationNot on file Plan of Treatment Health MaintenanceDue DateLast DoneCommentsAnxiety Ztbnmqgbx44/26/1989Depression Xmqqqwscg30/26/1989HIV Sfihbftbu69/26/1989Hepatitis C Bpxgghysj03/26/1989 DTaP,Tdap,Td Vaccine (1 - Tdap)1990Hepatitis B Vaccine (1 of 3 - 19+ 3- dose series)1990Cervical Cancer Prvvytzdj63/26/1992Mammogram Screening 2011CT Tayvxyygobwi01/26/2016Cologuard (FIT-DNA)02/10/2016Colonoscopy 02/10/2016Colorectal Cancer Gersjxhbl95/26/2016Diabetes Qcbqshjlj72/26/2016Fecal Occult Blood02/10/2016Lipid Iunloxysc50/26/3433Phpaeccbxglxg66/26/2016 Pneumococcal Vaccine: 50+ (1 of 1 - PCV)2021hingrix Vaccine (1 of 2) 2021ovid-19 Vaccine (1 - season)2024Influenza Vaccine (#1) 2024RSV Vaccine (1 - 1-dose 75+ series)2046 Insurance Care Teams Team MemberRelationshipSpecialtyStart DateEnd Date Mark Gruber DO PCP - GeneralFamily Medicine12/12/16
--- OUTSIDE RECORDS SUMMARY | 2025-03-14 09:47 | XMS_ITS | Clinical Summary ---
Author Organization [facility] [employer] s tem Address [id number] [place] [address] Care Team Providers Care Methane Gas Collection System Operator Name Role Phone Unavailable Primary Care Provider Unavailabl e Social History Tobacco UseTypesPacks/DayYears UsedDateSmoking Tobacco: Never Assessed CommentsUnknownSex and Gender InformationValueDate RecordedSex Assigned at Not on fileLegal PvdIimjsg94/16/2023 10:34 AM ESTGender IdentityNot on file Sexual OrientationNot on file Plan of Treatment Health MaintenanceDue DateLast DoneCommentsDepression Nkhxzeyec25/26/1983Tobacco Mgyslxzzd98/26/1983Adult BMI Nwtgrzwho37/26/1989DTaP,Tdap and Td Vaccines (1 - Tdap)1990Pap Smear02/10/1992Zoster (Shingles) Vaccine (1 of 2)2021 COVID-19 Vaccine (3 - season)5012/07/2020, 11/02/2020Influenza Hexzrez42 [employer] Not on file
--- NOTE | 2025-03-14 09:50 | CT_ITS ---
The [address] [address] Patient Name: LARRY MCDONOUGH MRN: [id number] date: 1970 Sex: F Assigned Patient Location: ER Current Patient Location: [facility] Accession/Order Number: [id number] Exam Date: 03/14/2025 09:45 Report Date: 03/14/2025 10:11 At the request of: NIDIA CORLEY MD Procedure: CT cervical spine wo con CT CERVICAL SPINE WITHOUT CONTRAST WITH 3D RECONSTRUCTIONS: CLINICAL HISTORY: Atraumatic right neck and shoulder pain with intermittent numbness and tingling at the hand COMPARISON: None TECHNIQUE: Spiral axial unenhanced images were obtained through the cervical spine. Sagittal, coronal and 3D volume-rendered reconstructions were also reviewed. This CT exam was performed using one or more following dose reduction techniques: Automated exposure control, adjustment of the mA and/or kV according to patient size, or use of iterative reconstruction technique. FINDINGS: There is straightening of the normal cervical lordosis. No acute fractures are visualized. There is mild disc space narrowing at C4-5 where there is focal disco-osteophytic bulging in the right parasagittal region with thecal sac effacement at that site. There is minimal disco-osteophytic bulging in the left parasagittal region at C3-4 and the right at C5-6 with minor effacement of the thecal sac. Mild to moderate foraminal encroachment is present at C2-3 on the right and at C4-5 bilaterally. There is minor bilateral foraminal encroachment at C3-4. The atlantoaxial relationship is maintained. No prevertebral soft tissue swelling is seen. There is carotid and left vertebral artery plaque. The upper imaged lungs show no contributory findings. CT/CT cervical spine wo con IMPRESSION: DISCOVERTEBRAL DEGENERATIVE CHANGES, GREATEST AT C4-5, DESCRIBED. NO ACUTE BONY FINDINGS. Impression dictated by: Yesy Rodney M.D. 03/14/2025 10:11 AM Dictation Location: [place] [address] Electronically authenticated by: [id number] Y Date: 03/14/2025 10:11
== END 2025-03-14 10:38 | disposition home or self-care (01) ==
PROVIDERS: Emergency Provider Emergency Medicine; PCP Family Medicine
DX: M54.12 Radiculopathy, cervical region (principal); F17.200 Nicotine dependence, unspecified, uncomplicated; E11.9 Type 2 diabetes mellitus without complications; Z79.84 Long term (current) use of oral hypoglycemic drugs; Z79.85 Long-term (current) use of injectable non-insulin antidiabetic drugs
CPT/HCPCS: 72125; 76376; 99284